=== PATIENT | female | born 1950 | race Caucasian/White ===

== ENCOUNTER 2023-04-25 10:35 | Day surgery (SDC) | payer OTHER ==
--- NOTE | 2023-04-13 20:23 | P.HP ---
Patient History Date of Service: 04/13/23 Allergies Penicillins Allergy (Verified 04/13/23 18:40) Rash propoxyphene [From Darvon] Adverse Reaction (Verified 04/13/23 18:40) hallucinations Home Medications: Apixaban [Eliquis] 5 mg PO DAILY 04/13/23 Clopidogrel Bisulfate [Plavix*] 75 mg PO DAILY 04/13/23 Diltiazem HCl [Diltiazem 12Hr ER] 120 mg PO DAILY 04/13/23 Furosemide [Lasix*] 20 mg PO DAILY 04/13/23 Lisinopril [Zestril] 10 mg PO BEDTIME 04/13/23 Assessment and Plan - Advance Directives Does patient have a Living Will: No Does patient have a Durable POA for Healthcare: No
[2023-04-20 08:53] LABS: Protime INR 1.02
[~2023-04-25 10:35] MED LIST: HEPA 1000U/500MLS 2,000 UNIT/1,000 ML BAG IV ONE; LIDOCAINE 1% 20 ML MDV ONE
[2023-04-25] MEDS ORDERED: NA CHLORIDE 0.9% 500 ML ONE (11:01)
[2023-04-25] MEDS ORDERED: ATROPINE SULF 1 MG/10 ML SYR IV ONE (11:17)
[2023-04-25] MEDS ORDERED: CLOPIDOGREL 75 MG TABLET ONE (11:18)
[2023-04-25] MEDS ORDERED: HEPARIN 10,000 UNIT/10 ML VIAL IV ONE (11:18)
[2023-04-25] MEDS ORDERED: ASPIRIN 325 MG TAB ONE (11:18)
[2023-04-25] MEDS ORDERED: TICAGRELOR 90 MG TABLET PO ONE (11:19)
[2023-04-25] MEDS ORDERED: DIPHENHYDRAMINE 50 MG/ML VIAL ONE (11:42)
[2023-04-25] MEDS ORDERED: METHYLPREDNISOLONE 125 MG INJ ONE (11:42)
[2023-04-25 14:54] VITALS: BP 134/57; TEMP 97.6; O2SAT 99
--- NOTE | 2023-04-25 22:34 | OP ---
Date of Procedure: 04/25/2023 Surgeon: ALLY BERUMEN Procedures Performed: 1.Selective coronary angiogram. 2.Left heart catheterization. Indication: Abnormal stress test with positive troponin. Access: Right femoral artery 6-Swedish closed with 6-Swedish Angio-Seal. Complications: None. Bleeding: Less than 20 mL. Sedation: None. Description Of Procedure: After risks, benefits, and alternatives were explained, patient agreed to procedure, signed informal consent. Patient was brought into cardiac catheterization laboratory, she was prepped and draped in the usual sterile fashion. Then, I accessed right femoral artery using mi cropuncture kit, ultrasound guidance and fluoroscopy and placed a 6-Swedish [place] sheath and took 6 -Swedish JL4 catheter into the aortic root over a J-wire, engaged left main, took standard views and e xchanged for 6-Swedish 3DRC catheter, engaged the RCA, took standard views and the catheter was pushed over the wire into the LV, measured the LVEDP. Pullback did not record any gradient. Then, I remov ed the catheter and the sheath, placed 6-Swedish Angio-Seal for closure with good hemostasis after per forming a groin angiogram. Findings: 1.Left main is normal. 2.LAD is normal. It is a dual LAD system, and they are both normal. 3.Left circumflex, large size and normal. Distally, the left circumflex itself becomes very small t hat has diffuse disease, but it is less than half a millimeter. 4.RCA; it is large and dominant and normal. 5.Elevated LVEDP at 22 mmHg. Conclusion: 1.Normal coronary arteries. 2.Elevated LVEDP, likely due to diastolic heart failure. Plan: Medical management with diuretics. SR/MODL Voice ID: [id number] Report ID: [id number]
== END 2023-04-25 14:32 | disposition home or self-care (01) ==
LOC: CCL 10:35
PROVIDERS: ATTEND Internal Medicine
DX: R94.39 Abnormal result of other cardiovascular function study (principal); I11.0 Hypertensive heart disease with heart failure; I50.9 Heart failure, unspecified; I48.91 Unspecified atrial fibrillation; R77.8 Other specified abnormalities of plasma proteins; I25.2 Old myocardial infarction; E78.5 Hyperlipidemia, unspecified; E11.9 Type 2 diabetes mellitus without complications; Z79.01 Long term (current) use of anticoagulants; Z79.84 Long term (current) use of oral hypoglycemic drugs; Z79.899 Other long term (current) drug therapy; Z88.0 Allergy status to penicillin; Z88.8 Allergy status to other drugs, medicaments and biological substances; Z91.013 Allergy to seafood; Z86.73 Personal history of transient ischemic attack (TIA), and cerebral infarction without residual deficits
CPT/HCPCS: 36415; 85610; 85730; 93458; 76937; C1893; C1760; G0269; J2001; J1200; J2930; J7040; J0461

== ENCOUNTER 2023-05-01 13:51 | Inpatient (IN) | payer OTHER ==
--- OUTSIDE RECORDS SUMMARY | 2023-05-01 13:59 | XMS REPORT | Continuity of Care Document ---
:1950 Author Organization [facility] t Address [address] [facility] [address] [place] [address] Care Team Providers Name Role Phone Pablo Koch MD Primary Care Physician [phone] HIEU KOTHARI Attending Clinician Unavailable GENO BARKER Attending Clinician Unavailable TORI SOTO Attending Clinician Unavailable CHACHO MUSA Attending Clinician Unavailable [email or web address] Attending Clinician Unavailable Charlene Bhandari PT Attending Clinician Unavailable Hieu Kothari MD Attending Clinician Luciana Rogers PT Attending Clinician Unavailable Shahid Attending Clinician Unavailable Josr Lujan PT Attending Clinician Unavailable Atiya Negrete Attending Clinician Elkin Guadarrama Attending Clinician [phone] TIMOTHY MCKEON Attending Clinician Unavailable ENRIQUE Attending Clinician Unavailable ALICE WOODSON Attending Clinician Unavailable Yola Wilson MA Attending Clinician Unavailable Cortez Monae Attending Clinician Unavailable Dana Flowers Attending Clinician Abdoul Grijalva Attending Clinician Kwaku Garcia Attending Clinician DR HIEU KOTHARI Admitting Clinician Unavailable _SEFP__Walk_In Admitting Clinician Unavailable Cadne_B Admitting Clinician Unavailable PHILIPPE_N Admitting Clinician Unavailable Pablo Koch Admitting Clinician Unavailable KristieDana Juanito Admitting Clinician Abdoul Grijalva Admitting Clinician Jeb Arias Admitting Clinician Alice Stahl Admitting Clinician Unavailable Payers Payer Name Policy Type Policy Number Effective Date Expiration Date S coy [facility] 2020 2021 00:00:00 00:00:00 [id number] 1959 00:00:00 [facility] MEDIC[facility] [id number] COMPLETE (MEDICARE REPLACEMENT HMO) [facility] 2020 (MEDICARE 00:00:00 REPLACEMENT HMO) Problems Condition Condition Condition Status Onset Resolution Last Treating Co mments Source Name Details Category Date Date Treatment Clinician Date WEAKNESS WEAKNESS Diagnosis Active 2021-12-08 Memoria Active 11-30 12:45:00 l 11/30/2021 00:00: Ever ARROYO 00 [facility], [facility] M25.511 - M25.511 - Diagnosis Active 2021-03-09 Memoria PAIN IN PAIN IN 01-27 15:44:00 l RIGHT RIGHT 00:01: Jt SHOULDER SHOULDER 00 Active 01/27/2021 [facility] Cerebrovas Cerebrovas Disease Active U T cular cular 01-07 Health accident accident 00:00: (CVA) due (CVA) due 00 to to embolism embolism Mixed Mixed Disease Active [facility] hyperlipid hyperlipid 01-07 He alth emia emia 00:00: 00 Coronary Coronary Disease Active [facility] artery artery 01-07 Health disease disease 00:00: involving involving 00 [place] coronary coronary artery of artery of [place] heart heart Paroxysmal Paroxysmal Disease Active U T atrial atrial 01-07 Health fibrillati fibrillati 00:00: on on 00 HEMIPLEGIA HEMIPLEGI Diagnosis Active 2020-12-26 Memoria AND A AND 12-04 22:04:00 l HEMIPARESI HEMIPARESI 00:00: He gonzales S S 00 FOLLOWING FOLLOWING CER CER Active 12/04/2020 [facility] V76.12 - V76.12 - Diagnosis Active 2014-02-20 Memoria SCREEN SCREEN 02-14 14:27:00 l MAMMOGRA MAMMOGRA 00:01: Ever villa Active 00 02/14/[address] [facility] Female Female Problem Active 2021-12-02 Shahzad steven urinary urinary 01-11 23:39:58 l stress stress 00:00: Jt incontinen incontinen 00 ce ce (finding) (finding) Active 01/11/2014 Problem 12/02/2021 Data migrated from [employer] on 01/07/15. [facility] Atrial Atrial Problem Active 2021-12-02 Shahzad steven fibrillati fibrillati 23:39:58 l on on Jt (disorder) (disorder) Active Problem 12/02/2021 [facility] History of History Problem Active 2021-12-02 Memoria - CVA of - CVA 23:39:58 l (context-d (context-d He gonzales ependent ependent category) category) Active Problem 12/02/2021 [facility] ILLNESS, ILLNESS, Diagnosis Active 2020-12-26 Memoria UNSPECIFIE UNSPECIFIE 22:04:00 l D D Active Jt [facility] History of Past Illness Condition Condition Condition Status Onset Resolution Last Treating Co mments Source Name Details Category Date Date Treatment Clinician Date Weakness Weakness Problem 2021-12-02 2021-12-02 Memoria 12/01/202112-01 23:39:58 23:39:58 l 00:30: Ever villa [address] Allergies, Adverse Reactions, Alerts Allergy Allergy Status Severity Reaction(s) Onset Inactive Treating Comm ents Source Name Type Date Date Clinician Penicill DA Active [facility] ins 11-13 00:00: [address] propoxyp DA Active [place] [facility] hene 11-13 00:00: [address] Penicill DA Active [place] rash [facility] ins 11-13 00:00: [address] propoxyp DA Active MO hallucinatio HC A hene ns 11-13 00:00: [address] Penicill Propensi Active Rash Method i ins ty to 08-31 st adverse 00:00: Hospita reaction 00 l s to drug Propoxyp Propensi Active Hallucinatio Methodi hene ty to ns 08-31 st adverse 00:00: Hospita reaction 00 l s to drug Other Propensi Active Other (See Anesthesi M ethodi ty to Comments) 08-31 a: limit st adverse 00:00: the Hospita reaction 00 anesthesi l s a; takes a long time to get out of it (to wake up) Penicill Propensi Active Rash Method i ins ty to 08-31 st adverse 00:00: Hospita reaction 00 l s to drug Penicill Allergy Active Rash 2015-08 UT ins to 0-16 Health substanc 00:00: e 00 Propoxyp Allergy Active Hallucinatio 2015-08 U T hene to ns 016 Health substanc 00:00: e 00 Fish Propensi Active Other (See 2015-08 Meth corie Containi ty to Comments) 016 st ng adverse 00:00: Hospita Products reaction 00 l s to drug Penicill DA Active Unknown [facility] Darvon DA Active Unknown [facility] Shellfis FA Active Unknown [facility] penicill penicill Active Memori a ins<sup> ins<sup> l 1</sup> 1</sup> Jt Family History Family Member Diagnosis Comments Start Date Stop Date Source Natural father Hypert[facility] Natural father Stroke [facility] Maternal uncle Heart attack [facility] Natural mother Cancer [facility] Natural mother Hy[facility] Paternal grandfather Diabetes [facility] Paternal uncle Diabetes [facility] Natural sister Colon [facility] Social History Social Habit Start Date Stop Date Quantity Comments Source Gender identity [facility] History SDOH [facility] Alcohol Std Drinks Hospit al History SDOH [facility] Alcohol Binge Hospital History SDOH [facility] Alcohol Comment Hospital Exposure to Not sure [facility] SARS-CoV-2 (event) Hospit al Sexual [facility] History of Social 2021-08-24 2021-08-[address] function 00:00:00 00:00:00 Hospital Social History 2020-12-06 2020-12-06 [facility] ermann 06:13:08 06:13:08 History SDOH 2019-09-24 2019-09-24 1 [facility] Alcohol Frequency 00:00:00 00:00:00 Hospita l Alcohol intake 2019-09-24 2019-09-24 Lifetime [facility] 00:00:00 00:00:00 non-drinker Hospital (finding) Tobacco use and 2019-08-31 2019-08-31 Smokeless [facility] exposure 00:00:00 00:00:00 tobacco non-user Hospital Sex Ass[birth year] At [birth year] [facility] 00:00:00 00:00:00 Hospital Smoking Status Start Date Stop Date Source Tobacco smoking consumption unknown [facility] tobacco [facility] Medications Ordered Filled Start Stop Current Ordering Indication Dosage Frequency Signature Comments Components Source Medication Medication Date Date Medication? Clinician (SIG) Name Name Saline No Notes: Memoria Flush 0.9% 4-25 (Same as: l 22:52: BD Jt 00 Posiflush) apixaban 2021- No 5mg Q.5D Take 5 mg UT (Eliquis) 5 09-08 by mouth 2 H ealth MG tablet 10:29: 00:00 (two) 43 :00 times a day. atorvastati 2021- No 20mg QD Take 20 mg UT n (Lipitor) 09-08 by mouth 1 H ealth 20 MG 10:29: 00:00 (one) time tablet 43 :00 each day. pantoprazol 2021- No 40mg Take 40 mg UT e 09-08 by mouth 1 Health (ProtoNix) 10:29: 00:00 (one) time 40 MG EC 43 :00 each day tablet before breakfast. Do not crush, chew, or split. ticagrelor 2021- No 90mg Q.5D Take 90 mg UT (Brilinta) 09-08 by mouth 2 He alth 90 MG 10:29: 00:00 (two) tablet 43 :00 times a day. dilTIAZem Yes 120mg Q.25D Take 120 UT (Cardizem) 2-01 mg by Health 120 MG 09:53: mouth 4 immediate 56 (four) release times a tablet day. apixaban Yes [id number] 5mg Q.5D Take 1 UT (Eliquis) 5 2-01 tablet (5 Hea lth MG tablet 00:00: mg total) 00 by mouth 2 (two) times a day. atorvastati Yes [id number] 20mg QD Take 1 UT n (Lipitor) 2-01 tablet (20 He alth 20 MG 00:00: mg total) tablet 00 by mouth 1 (one) time each day. ticagrelor Yes [id number] 90mg Q.5D Take 1 UT (Brilinta) 2-01 tablet (90 Hea lth 90 MG 00:00: mg total) tablet 00 by mouth 2 (two) times a day. pantoprazol Yes [id number] 40mg Take 1 UT e 2-01 tablet (40 Health (ProtoNix) 00:00: mg total) 40 MG EC 00 by mouth 1 tablet (one) time each day before breakfast. Do not crush, chew, or split. flecainide 2022- No [id number] 25mg Q.5D Take 0.5 UT (Tambocor) 2- 02-02 tablets Healt h 50 MG 00:00: 05:59 (25 mg tablet 00 :00 total) by mouth 2 (two) times a day. furosemide 2021- No [id number] 20mg QD Take 1 UT (Lasix) 20 1-21 02-21 tablet (20 He alth MG tablet 00:00: 05:59 mg total) 00 :00 by mouth 1 (one) time each day. TAKE 1 TABLET BY MOUTH EVERY DAY NEEDED FOR SWELLING furosemide 2020-08 Yes [id number] TAKE 1 U T (Lasix) 20 2-21 TABLET BY Heal th MG tablet 00:00: MOUTH 00 EVERY DAY NEEDED FOR SWELLING furosemide 2020-08- No [id number] TAKE 1 UT (Lasix) 20 1-23 12-21 TABLET BY Hea lth MG tablet 00:00: 00:00 MOUTH 00 :00 EVERY DAY NEEDED FOR SWELLING atorvastati 2020-08 Yes [id number] TAKE 1 UT n (Lipitor) 1-22 TABLET BY [facility] lt 10 MG 00:00: MOUTH tablet 00 EVERY DAY atorvastati 2020-08 Yes [id number] TAKE 1 UT n (Lipitor) 1-22 TABLET BY [facility] lt 10 MG 00:00: MOUTH tablet 00 EVERY DAY atorvastati 2020-08 2022- No [id number] TAKE 1 UT n (Lipitor) -22 02-01 TABLET BY He [facility] 10 MG 00:00: 00:00 MOUTH tablet 00 :00 EVERY DAY apixaban 2020-08 Yes 5mg Q.5D Take 5 mg UT (Eliquis) 5 08-09 by mouth 2 He alth MG tablet 10:05: (two) 34 times a day. atorvastati 2020-08 Yes 20mg QD Take 20 mg UT n (Lipitor) 08-09 by mouth 1 He alth 20 MG 10:05: (one) time tablet 34 each day. dilTIAZem 2020-08 Yes 120mg Q.25D Take 120 UT (Cardizem) 1-02 mg by Health 120 MG 10:05: mouth 4 immediate 34 (four) release times a tablet day. ketotifen 2020-08 Yes 1[drp] Q.5D 1 drop 2 UT (Zaditor) 08-09 (two) Health 0.025 % 10:05: times a ophthalmic 34 day. solution nabumetone 2020-08 Yes 500mg Q.5D Take 500 UT (Relafen) 1-02 mg by Health 500 MG 10:05: mouth 2 tablet 34 (two) times a day. pantoprazol 2020-08 Yes 40mg Take 40 mg UT e 08-09 by mouth 1 Health (ProtoNix) 10:05: (one) time 40 MG EC 34 each day tablet before breakfast. Do not crush, chew, or split. ticagrelor 2020-08 Yes 90mg Q.5D Take 90 mg U T (Brilinta) 08-09 by mouth 2 a lth 90 MG 10:05: (two) tablet 34 times a day. amiodarone 2020-08 Yes QD Take by UT (Pacerone) -02 mouth 1 Health 200 MG 10:05: (one) time tablet 34 each day. lidocaine 2020-08 Yes 1{patch QD Apply 1 UT (Lidoderm) -02 } patch Health 5 % patch 10:05: topically 34 1 (one) time each day. Remove & discard patch within 12 hours or as directed by . docusate 2020-08 Yes 100mg Q.5D Take 100 UT sodium 1-02 mg by Health (Colace) 10:05: mouth 2 100 MG 34 (two) capsule times a day. apixaban 2020-08 Yes 5mg Q.5D Take 5 mg UT (Eliquis) 5 -02 by mouth 2 He alth MG tablet 10:05: (two) 34 times a day. atorvastati 2020-08 Yes 20mg QD Take 20 mg UT n (Lipitor) 02 by mouth 1 He alth 20 MG 10:05: (one) time tablet 34 each day. dilTIAZem 2020-08 Yes 120mg Q.25D Take 120 UT (Cardizem) 1-02 mg by Health 120 MG 10:05: mouth 4 immediate 34 (four) release times a tablet day. ketotifen 2020-08 Yes 1[drp] Q.5D 1 drop 2 UT (Zaditor) 1-02 (two) Health 0.025 % 10:05: times a ophthalmic 34 day. solution nabumetone 2020-08 Yes 500mg Q.5D Take 500 UT (Relafen) 1-02 mg by Health 500 MG 10:05: mouth 2 tablet 34 (two) times a day. pantoprazol 2020-08 Yes 40mg Take 40 mg UT e 02 by mouth 1 Health (ProtoNix) 10:05: (one) time 40 MG EC 34 each day tablet before breakfast. Do not crush, chew, or split. ticagrelor 2020-08 Yes 90mg Q.5D Take 90 mg U T (Brilinta) 1-02 by mouth 2 Hea lth 90 MG 10:05: (two) tablet 34 times a day. amiodarone 2020-08 Yes QD Take by UT (Pacerone) -02 mouth 1 Health 200 MG 10:05: (one) time tablet 34 each day. lidocaine 2020-08 Yes 1{patch QD Apply 1 UT (Lidoderm) 08-09 } patch Health 5 % patch 10:05: topically 34 1 (one) time each day. Remove & discard patch within 12 hours or as directed by . docusate 2020-08 Yes 100mg Q.5D Take 100 UT sodium 1-02 mg by Health (Colace) 10:05: mouth 2 100 MG 34 (two) capsule times a day. apixaban 2020-08 Yes 5mg Q.5D Take 5 mg UT (Eliquis) 5 02 by mouth 2 He alth MG tablet 10:05: (two) 34 times a day. atorvastati 2020-08 Yes 20mg QD Take 20 mg UT n (Lipitor) 02 by mouth 1 He alth 20 MG 10:05: (one) time tablet 34 each day. dilTIAZem 2020-08 Yes 120mg Q.25D Take 120 UT (Cardizem) 1-02 mg by Health 120 MG 10:05: mouth 4 immediate 34 (four) release times a tablet day. ketotifen 2020-08 Yes 1[drp] Q.5D 1 drop 2 UT (Zaditor) 08-09 (two) Health 0.025 % 10:05: times a ophthalmic 34 day. solution nabumetone 2020-08 Yes 500mg Q.5D Take 500 UT (Relafen) 1-02 mg by Health 500 MG 10:05: mouth 2 tablet 34 (two) times a day. pantoprazol 2020-08 Yes 40mg Take 40 mg UT e 02 by mouth 1 Health (ProtoNix) 10:05: (one) time 40 MG EC 34 each day tablet before breakfast. Do not crush, chew, or split. ticagrelor 2020-08 Yes 90mg Q.5D Take 90 mg U T (Brilinta) 08-09 by mouth 2 Hea lth 90 MG 10:05: (two) tablet 34 times a day. amiodarone 2020-08 Yes QD Take by UT (Pacerone) -02 mouth 1 Health 200 MG 10:05: (one) time tablet 34 each day. lidocaine 2020-08 Yes 1{patch QD Apply 1 UT (Lidoderm) 08-09 } patch Health 5 % patch 10:05: topically 34 1 (one) time each day. Remove & discard patch within 12 hours or as directed by . docusate 2020-08 Yes 100mg Q.5D Take 100 UT sodium 1-02 mg by Health (Colace) 10:05: mouth 2 100 MG 34 (two) capsule times a day. ketotifen 2020-08 Yes 1[drp] Q.5D 1 drop 2 UT (Zaditor) - (two) Health 0.025 % 10:05: times a ophthalmic 34 day. solution nabumetone 2020-08 Yes 500mg Q.5D Take 500 UT (Relafen) 1-02 mg by Health 500 MG 10:05: mouth 2 tablet 34 (two) times a day. amiodarone 2020-08 Yes QD Take by UT (Pacerone) - mouth 1 Health 200 MG 10:05: (one) time tablet 34 each day. lidocaine 2020-08 Yes 1{patch QD Apply 1 UT (Lidoderm) 08-09 } patch [facility] 5 % patch 10:05: topically 34 1 (one) time each day. Remove & discard patch within 12 hours or as directed by . docusate 2020-08 Yes 100mg Q.5D Take 100 UT sodium 1-02 mg by Health (Colace) 10:05: mouth 2 100 MG 34 (two) capsule times a day. furosemide 2020-08 Yes [id number] TAKE 1 U T (Lasix) 20 0-25 TABLET BY Heal th MG tablet 00:00: MOUTH 00 EVERY DAY NEEDED FOR SWELLING furosemide 2020-08 Yes [id number] TAKE 1 U T (Lasix) 20 0-25 TABLET BY Heal th MG tablet 00:00: MOUTH 00 EVERY DAY NEEDED FOR SWELLING furosemide 2020-08 Yes [id number] TAKE 1 U T (Lasix) 20 0-25 TABLET BY Heal th MG tablet 00:00: MOUTH 00 EVERY DAY NEEDED FOR SWELLING furosemide 2020-08 Yes [id number] TAKE 1 U T (Lasix) 20 0-25 TABLET BY Heal th MG tablet 00:00: MOUTH 00 EVERY DAY NEEDED FOR SWELLING apixaban Yes 5mg Q.5D Take 5 mg UT (Eliquis) 5 05-05 by mouth 2 He alth MG tablet 14:50: (two) 33 times a day. atorvastati Yes 20mg QD Take 20 mg UT n (Lipitor) 05-05 by mouth 1 He alth 20 MG 14:50: (one) time tablet 33 each day. dilTIAZem 2020-0 Yes 120mg Q.25D Take 120 UT (Cardizem) 9-28 mg by Health 120 MG 14:50: mouth 4 immediate 33 (four) release times a tablet day. ketotifen 2020-0 Yes 1[drp] Q.5D 1 drop 2 UT (Zaditor) 05-05 (two) Health 0.025 % 14:50: times a ophthalmic 33 day. solution nabumetone 2020-0 Yes 500mg Q.5D Take 500 UT (Relafen) 9-28 mg by Health 500 MG 14:50: mouth 2 tablet 33 (two) times a day. pantoprazol 0 Yes 40mg Take 40 mg UT e 05-05 by mouth 1 Health (ProtoNix) 14:50: (one) time 40 MG EC 33 each day tablet before breakfast. Do not crush, chew, or split. ticagrelor 2020-0 Yes 90mg Q.5D Take 90 mg U T (Brilinta) 05-05 by mouth 2 Hea lth 90 MG 14:50: (two) tablet 33 times a day. amiodarone 2020-0 Yes QD Take by UT (Pacerone) 05-05 mouth 1 Health 200 MG 14:50: (one) time tablet 33 each day. lidocaine 2020-0 Yes 1{patch QD Apply 1 UT (Lidoderm) 05-05 } patch Health 5 % patch 14:50: topically 33 1 (one) time each day. Remove & discard patch within 12 hours or as directed by . docusate 2020-0 Yes 100mg Q.5D Take 100 UT sodium 9-28 mg by Health (Colace) 14:50: mouth 2 100 MG 33 (two) capsule times a day. apixaban 2020-0 Yes 5mg Q.5D Take 5 mg UT (Eliquis) 5 05-05 by mouth 2 He alth MG tablet 14:50: (two) 33 times a day. atorvastati 2020-0 Yes 20mg QD Take 20 mg UT n (Lipitor) 28 by mouth 1 He alth 20 MG 14:50: (one) time tablet 33 each day. dilTIAZem 2020-0 Yes 120mg Q.25D Take 120 UT (Cardizem) 9-28 mg by Health 120 MG 14:50: mouth 4 immediate 33 (four) release times a tablet day. ketotifen 0 Yes 1[drp] Q.5D 1 drop 2 UT (Zaditor) 05-05 (two) Health 0.025 % 14:50: times a ophthalmic 33 day. solution nabumetone 0 Yes 500mg Q.5D Take 500 UT (Relafen) -28 mg by Health 500 MG 14:50: mouth 2 tablet 33 (two) times a day. pantoprazol 0 Yes 40mg Take 40 mg UT e 05-05 by mouth 1 Health (ProtoNix) 14:50: (one) time 40 MG EC 33 each day tablet before breakfast. Do not crush, chew, or split. ticagrelor 0 Yes 90mg Q.5D Take 90 mg U T (Brilinta) 05-05 by mouth 2 Hea lth 90 MG 14:50: (two) tablet 33 times a day. amiodarone 0 Yes QD Take by UT (Pacerone) 05-05 mouth 1 Health 200 MG 14:50: (one) time tablet 33 each day. lidocaine 0 Yes 1{patch QD Apply 1 UT (Lidoderm) 05-05 } patch Health 5 % patch 14:50: topically 33 1 (one) time each day. Remove & discard patch within 12 hours or as directed by . docusate 0 Yes 100mg Q.5D Take 100 UT sodium - mg by Health (Colace) 14:50: mouth 2 100 MG 33 (two) capsule times a day. apixaban 0 Yes 5mg Q.5D Take 5 mg UT (Eliquis) 5 05-05 by mouth 2 He alth MG tablet 14:50: (two) 33 times a day. atorvastati 0 Yes 20mg QD Take 20 mg UT n (Lipitor) 05-05 by mouth 1 He alth 20 MG 14:50: (one) time tablet 33 each day. dilTIAZem 2020-0 Yes 120mg Q.25D Take 120 UT (Cardizem) 9-28 mg by Health 120 MG 14:50: mouth 4 immediate 33 (four) release times a tablet day. ketotifen 0 Yes 1[drp] Q.5D 1 drop 2 UT (Zaditor) 05-05 (two) Health 0.025 % 14:50: times a ophthalmic 33 day. solution nabumetone 2020-0 Yes 500mg Q.5D Take 500 UT (Relafen) - mg by Health 500 MG 14:50: mouth 2 tablet 33 (two) times a day. pantoprazol 0 Yes 40mg Take 40 mg UT e 05-05 by mouth 1 Health (ProtoNix) 14:50: (one) time 40 MG EC 33 each day tablet before breakfast. Do not crush, chew, or split. ticagrelor 2020-0 Yes 90mg Q.5D Take 90 mg U T (Brilinta) 05-05 by mouth 2 Hea lth 90 MG 14:50: (two) tablet 33 times a day. amiodarone 0 Yes QD Take by UT (Pacerone) 05-05 mouth 1 Health 200 MG 14:50: (one) time tablet 33 each day. lidocaine 0 Yes 1{patch QD Apply 1 UT (Lidoderm) 05-05 } patch Health 5 % patch 14:50: topically 33 1 (one) time each day. Remove & discard patch within 12 hours or as directed by MD. docusate 0 Yes 100mg Q.5D Take 100 UT sodium - mg by Health (Colace) 14:50: mouth 2 100 MG 33 (two) capsule times a day. apixaban 0 Yes 5mg Q.5D Take 5 mg UT (Eliquis) 5 05-05 by mouth 2 He alth MG tablet 14:50: (two) 33 times a day. atorvastati 0 Yes 20mg QD Take 20 mg UT n (Lipitor) 05-05 by mouth 1 He alth 20 MG 14:50: (one) time tablet 33 each day. dilTIAZem 0 Yes 120mg Q.25D Take 120 UT (Cardizem) -28 mg by Health 120 MG 14:50: mouth 4 immediate 33 (four) release times a tablet day. ketotifen 0 Yes 1[drp] Q.5D 1 drop 2 UT (Zaditor) 05-05 (two) Health 0.025 % 14:50: times a ophthalmic 33 day. solution nabumetone 2020-0 Yes 500mg Q.5D Take 500 UT (Relafen) 9-28 mg by Health 500 MG 14:50: mouth 2 tablet 33 (two) times a day. pantoprazol 0 Yes 40mg Take 40 mg UT e -28 by mouth 1 Health (ProtoNix) 14:50: (one) time 40 MG EC 33 each day tablet before breakfast. Do not crush, chew, or split. ticagrelor 2020-0 Yes 90mg Q.5D Take 90 mg U T (Brilinta) 05-05 by mouth 2 Hea lth 90 MG 14:50: (two) tablet 33 times a day. amiodarone 2020-0 Yes QD Take by UT (Pacerone) 05-05 mouth 1 Health 200 MG 14:50: (one) time tablet 33 each day. lidocaine 0 Yes 1{patch QD Apply 1 UT (Lidoderm) 05-05 } patch Health 5 % patch 14:50: topically 33 1 (one) time each day. Remove & discard patch within 12 hours or as directed by . docusate 0 Yes 100mg Q.5D Take 100 UT sodium 9-28 mg by Health (Colace) 14:50: mouth 2 100 MG 33 (two) capsule times a day. apixaban 0 Yes 5mg Q.5D Take 5 mg UT (Eliquis) 5 05-05 by mouth 2 He alth MG tablet 14:50: (two) 33 times a day. atorvastati 0 Yes 20mg QD Take 20 mg UT n (Lipitor) 05-05 by mouth 1 He alth 20 MG 14:50: (one) time tablet 33 each day. dilTIAZem 2020-0 Yes 120mg Q.25D Take 120 UT (Cardizem) 9-28 mg by Health 120 MG 14:50: mouth 4 immediate 33 (four) release times a tablet day. ketotifen 2020-0 Yes 1[drp] Q.5D 1 drop 2 UT (Zaditor) 05-05 (two) Health 0.025 % 14:50: times a ophthalmic 33 day. solution nabumetone 2020-0 Yes 500mg Q.5D Take 500 UT (Relafen) 9-28 mg by Health 500 MG 14:50: mouth 2 tablet 33 (two) times a day. pantoprazol 2020-0 Yes 40mg Take 40 mg UT e 05-05 by mouth 1 Health (ProtoNix) 14:50: (one) time 40 MG EC 33 each day tablet before breakfast. Do not crush, chew, or split. ticagrelor 2020-0 Yes 90mg Q.5D Take 90 mg U T (Brilinta) 05-05 by mouth 2 Hea lth 90 MG 14:50: (two) tablet 33 times a day. amiodarone 2020-0 Yes QD Take by UT (Pacerone) 05-05 mouth 1 Health 200 MG 14:50: (one) time tablet 33 each day. lidocaine 2020-0 Yes 1{patch QD Apply 1 UT (Lidoderm) 05-05 } patch Health 5 % patch 14:50: topically 33 1 (one) time each day. Remove & discard patch within 12 hours or as directed by . docusate 2020-0 Yes 100mg Q.5D Take 100 UT sodium - mg by Health (Colace) 14:50: mouth 2 100 MG 33 (two) capsule times a day. apixaban 2020-0 Yes 5mg Q.5D Take 5 mg UT (Eliquis) 5 05-05 by mouth 2 He alth MG tablet 14:50: (two) 33 times a day. atorvastati 2020-0 Yes 20mg QD Take 20 mg UT n (Lipitor) 05-05 by mouth 1 He alth 20 MG 14:50: (one) time tablet 33 each day. dilTIAZem 2020-0 Yes 120mg Q.25D Take 120 UT (Cardizem) 9-28 mg by Health 120 MG 14:50: mouth 4 immediate 33 (four) release times a tablet day. ketotifen 2020-0 Yes 1[drp] Q.5D 1 drop 2 UT (Zaditor) 05-05 (two) Health 0.025 % 14:50: times a ophthalmic 33 day. solution nabumetone 2020-0 Yes 500mg Q.5D Take 500 UT (Relafen) 9-28 mg by Health 500 MG 14:50: mouth 2 tablet 33 (two) times a day. pantoprazol 2020-0 Yes 40mg Take 40 mg UT e 9-28 by mouth 1 Health (ProtoNix) 14:50: (one) time 40 MG EC 33 each day tablet before breakfast. Do not crush, chew, or split. ticagrelor Yes 90mg Q.5D Take 90 mg U T (Brilinta) 05-05 by mouth 2 Hea lth 90 MG 14:50: (two) tablet 33 times a day. amiodarone Yes QD Take by UT (Pacerone) 05-05 mouth 1 Health 200 MG 14:50: (one) time tablet 33 each day. lidocaine Yes 1{patch QD Apply 1 UT (Lidoderm) 05-05 } patch [facility] 5 % patch 14:50: topically 33 1 (one) time each day. Remove & discard patch within 12 hours or as directed by . docusate Yes 100mg Q.5D Take 100 UT sodium -28 mg by Health (Colace) 14:50: mouth 2 100 MG 33 (two) capsule times a day. furosemide 0 Yes [id number] TAKE 1 U T (Lasix) 20 8-30 TABLET BY Heal th MG tablet 00:00: MOUTH 00 EVERY DAY NEEDED FOR SWELLING furosemide 2020-0 Yes [id number] TAKE 1 U T (Lasix) 20 8-30 TABLET BY Heal th MG tablet 00:00: MOUTH 00 EVERY DAY NEEDED FOR SWELLING furosemide 2020-0 Yes [id number] TAKE 1 U T (Lasix) 20 8-30 TABLET BY [facility] tablet 00:00: MOUTH 00 EVERY DAY NEEDED FOR SWELLING furosemide 2020-0 202- No [id number] TAKE 1 UT (Lasix) 20 8-30 10-25 TABLET BY a lth MG tablet 00:00: 00:00 MOUTH 00 :00 EVERY DAY NEEDED FOR SWELLING furosemide 2020-0 Yes [id number] TAKE 1 U T (Lasix) 20 6-24 TABLET BY [facility] MG tablet 00:00: MOUTH 00 EVERY DAY NEEDED FOR SWELLING furosemide 2020-0 Yes [id number] TAKE 1 U T (Lasix) 20 6-24 TABLET BY [facility] MG tablet 00:00: MOUTH 00 EVERY DAY NEEDED FOR SWELLING furosemide 2020-0 Yes [id number] TAKE 1 U T (Lasix) 20 6-24 TABLET BY [facility] MG tablet 00:00: MOUTH 00 EVERY DAY NEEDED FOR SWELLING furosemide 0 2021- No [id number] TAKE 1 UT (Lasix) 20 624 08-30 TABLET BY [facility] MG tablet 00:00: 00:00 MOUTH 00 :00 EVERY DAY NEEDED FOR SWELLING apixaban 0 Yes 5mg Q.5D Take 5 mg UT (Eliquis) 5 6-02 by mouth 2 [facility] al[facility] MG tablet 16:18: (two) 41 times a day. atorvastati Yes 20mg QD Take 20 mg UT n (Lipitor) 6-02 by mouth 1 [facility] alth 20 MG 16:18: (one) time tablet 41 each day. dilTIAZem Yes 120mg Q.25D Take 120 UT (Cardizem) 6-02 mg by Health 120 MG 16:18: mouth 4 immediate 41 (four) release times a tablet day. ketotifen Yes 1[drp] Q.5D 1 drop 2 UT (Zaditor) 01-07 (two) Health 0.025 % 16:18: times a ophthalmic 41 day. solution nabumetone Yes 500mg Q.5D Take 500 UT (Relafen) 6-02 mg by Health 500 MG 16:18: mouth 2 tablet 41 (two) times a day. pantoprazol Yes 40mg Take 40 mg UT e 602 by mouth 1 Health (ProtoNix) 16:18: (one) time 40 MG EC 41 each day tablet before breakfast. Do not crush, chew, or split. ticagrelor Yes 90mg Q.5D Take 90 mg U T (Brilinta) 6-02 by mouth 2 [facility] 90 MG 16:18: (two) tablet 41 times a day. amiodarone Yes QD Take by UT (Pacerone) 6-02 mouth 1 Health 200 MG 16:18: (one) time tablet 41 each day. lidocaine Yes 1{patch QD Apply 1 UT (Lidoderm) 01-07 } patch Health 5 % patch 16:18: topically 41 1 (one) time each day. Remove & discard patch within 12 hours or as directed by . docusate Yes 100mg Q.5D Take 100 UT sodium 6-02 mg by Health (Colace) 16:18: mouth 2 100 MG 41 (two) capsule times a day. apixaban 2020-0 Yes 5mg Q.5D Take 5 mg UT (Eliquis) 5 6-02 by mouth 2 [facility] al[facility] MG tablet 16:18: (two) 41 times a day. atorvastati 2020-0 Yes 20mg QD Take 20 mg UT n (Lipitor) 6-02 by mouth 1 [facility] alth 20 MG 16:18: (one) time tablet 41 each day. dilTIAZem 2020-0 Yes 120mg Q.25D Take 120 UT (Cardizem) 6-02 mg by Health 120 MG 16:18: mouth 4 immediate 41 (four) release times a tablet day. ketotifen 2020-0 Yes 1[drp] Q.5D 1 drop 2 UT (Zaditor) 6-02 (two) Health 0.025 % 16:18: times a ophthalmic 41 day. solution nabumetone 2020-0 Yes 500mg Q.5D Take 500 UT (Relafen) 6-02 mg by Health 500 MG 16:18: mouth 2 tablet 41 (two) times a day. pantoprazol 0 Yes 40mg Take 40 mg UT e 6-02 by mouth 1 Health (ProtoNix) 16:18: (one) time 40 MG EC 41 each day tablet before breakfast. Do not crush, chew, or split. ticagrelor 0 Yes 90mg Q.5D Take 90 mg U T (Brilinta) 6-02 by mouth 2 [facility] 90 MG 16:18: (two) tablet 41 times a day. amiodarone 2020-0 Yes QD Take by UT (Pacerone) 6-02 mouth 1 Health 200 MG 16:18: (one) time tablet 41 each day. lidocaine 2020-0 Yes 1{patch QD Apply 1 UT (Lidoderm) 6 } patch Health 5 % patch 16:18: topically 41 1 (one) time each day. Remove & discard patch within 12 hours or as directed by . docusate 2020-0 Yes 100mg Q.5D Take 100 UT sodium 6-02 mg by Health (Colace) 16:18: mouth 2 100 MG 41 (two) capsule times a day. apixaban 2021-0 Yes 5mg Q.5D Take 5 mg UT (Eliquis) 5 6-02 by mouth 2 [facility] MG tablet 16:18: (two) 41 times a day. atorvastati 2020-0 Yes 20mg QD Take 20 mg UT n (Lipitor) 6-02 by mouth 1 [facility] al[facility] 20 MG 16:18: (one) time tablet 41 each day. dilTIAZem 2020-0 Yes 120mg Q.25D Take 120 UT (Cardizem) 6-02 mg by Health 120 MG 16:18: mouth 4 immediate 41 (four) release times a tablet day. ketotifen 2020-0 Yes 1[drp] Q.5D 1 drop 2 UT (Zaditor) 6-02 (two) Health 0.025 % 16:18: times a ophthalmic 41 day. solution nabumetone 2020-0 Yes 500mg Q.5D Take 500 UT (Relafen) 6-02 mg by Health 500 MG 16:18: mouth 2 tablet 41 (two) times a day. pantoprazol 0 Yes 40mg Take 40 mg UT e 6-02 by mouth 1 Health (ProtoNix) 16:18: (one) time 40 MG EC 41 each day tablet before breakfast. Do not crush, chew, or split. ticagrelor 2020-0 Yes 90mg Q.5D Take 90 mg U T (Brilinta) 6-02 by mouth 2 [facility] 90 MG 16:18: (two) tablet 41 times a day. amiodarone 2020-0 Yes QD Take by [facility] (Pacerone) 6-02 mouth 1 Health 200 MG 16:18: (one) time tablet 41 each day. lidocaine 2020-0 Yes 1{patch QD Apply 1 UT (Lidoderm) 6-02 } patch Health 5 % patch 16:18: topically 41 1 (one) time each day. Remove & discard patch within 12 hours or as directed by . docusate 2020-0 Yes 100mg Q.5D Take 100 UT sodium 6-02 mg by Health (Colace) 16:18: mouth 2 100 MG 41 (two) capsule times a day. apixaban 2020-0 Yes 5mg Q.5D Take 5 mg UT (Eliquis) 5 6-02 by mouth 2 [facility] al[facility] MG tablet 16:18: (two) 41 times a day. atorvastati 2020-0 Yes 20mg QD Take 20 mg UT n (Lipitor) 6-02 by mouth 1 [facility] al[facility] 20 MG 16:18: (one) time tablet 41 each day. dilTIAZem 2020-0 Yes 120mg Q.25D Take 120 UT (Cardizem) 6-02 mg by Health 120 MG 16:18: mouth 4 immediate 41 (four) release times a tablet day. ketotifen 2020-0 Yes 1[drp] Q.5D 1 drop 2 UT (Zaditor) 6-02 (two) Health 0.025 % 16:18: times a ophthalmic 41 day. solution nabumetone 2020-0 Yes 500mg Q.5D Take 500 UT (Relafen) 6-02 mg by Health 500 MG 16:18: mouth 2 tablet 41 (two) times a day. pantoprazol 0 Yes 40mg Take 40 mg UT e 6-02 by mouth 1 Health (ProtoNix) 16:18: (one) time 40 MG EC 41 each day tablet before breakfast. Do not crush, chew, or split. ticagrelor 2020-0 Yes 90mg Q.5D Take 90 mg U T (Brilinta) 6-02 by mouth 2 [facility] 90 MG 16:18: (two) tablet 41 times a day. amiodarone 2020-0 Yes QD Take by UT (Pacerone) 6-02 mouth 1 Health 200 MG 16:18: (one) time tablet 41 each day. lidocaine 2020- Yes 1{patch QD Apply 1 UT (Lidoderm) 6-02 } patch Health 5 % patch 16:18: topically 41 1 (one) time each day. Remove & discard patch within 12 hours or as directed by . docusate 2020-0 Yes 100mg Q.5D Take 100 UT sodium 6-02 mg by Health (Colace) 16:18: mouth 2 100 MG 41 (two) capsule times a day. apixaban 2020-0 Yes 5mg Q.5D Take 5 mg UT (Eliquis) 5 6-02 by mouth 2 [facility] al[facility] MG tablet 16:18: (two) 41 times a day. atorvastati 2020-0 Yes 20mg QD Take 20 mg UT n (Lipitor) 6-02 by mouth 1 He alth 20 MG 16:18: (one) time tablet 41 each day. dilTIAZem Yes 120mg Q.25D Take 120 UT (Cardizem) 6-02 mg by Health 120 MG 16:18: mouth 4 immediate 41 (four) release times a tablet day. ketotifen Yes 1[drp] Q.5D 1 drop 2 UT (Zaditor) 602 (two) Health 0.025 % 16:18: times a ophthalmic 41 day. solution nabumetone Yes 500mg Q.5D Take 500 UT (Relafen) 6-02 mg by Health 500 MG 16:18: mouth 2 tablet 41 (two) times a day. pantoprazol Yes 40mg Take 40 mg UT e 6-02 by mouth 1 Health (ProtoNix) 16:18: (one) time 40 MG EC 41 each day tablet before breakfast. Do not crush, chew, or split. ticagrelor Yes 90mg Q.5D Take 90 mg U T (Brilinta) 02 by mouth 2 [facility] 90 MG 16:18: (two) tablet 41 times a day. amiodarone Yes QD Take by UT (Pacerone) 02 mouth 1 Health 200 MG 16:18: (one) time tablet 41 each day. lidocaine Yes 1{patch QD Apply 1 UT (Lidoderm) 01-07 } patch Health 5 % patch 16:18: topically 41 1 (one) time each day. Remove & discard patch within 12 hours or as directed by . docusate Yes 100mg Q.5D Take 100 UT sodium 6-02 mg by Health (Colace) 16:18: mouth 2 100 MG 41 (two) capsule times a day. flecainide 2021- No [id number] 25mg Q.5D Take 0.5 UT (Tambocor) 01-07 06-03 tablets Healt h 50 MG 00:00: 04:59 (25 mg tablet 00 :00 total) by mouth 2 (two) times a day. atorvastati 2021- No [id number] 10mg QD Take 1 UT n (Lipitor) 6-02 06- tablet (10 H ealth 10 MG 00:00: 04:59 mg total) tablet 00 :00 by mouth 1 (one) time each day. flecainide 2021- No [id number] 25mg Q.5D Take 0.5 UT (Tambocor) 01-07-03 tablets [facility]alt h 50 MG 00:00: 04:59 (25 mg tablet 00 :00 total) by mouth 2 (two) times a day. atorvastati 2021- No [id number] 10mg QD Take 1 UT n (Lipitor) 01-07- tablet (10 H ealth 10 MG 00:00: 04:59 mg total) tablet 00 :00 by mouth 1 (one) time each day. flecainide 2021- No [id number] 25mg Q.5D Take 0.5 UT (Tambocor) 01-07- tablets [facility]alt [facility] 50 MG 00:00: 04:59 (25 mg tablet 00 :00 total) by mouth 2 (two) times a day. atorvastati 2021- No [id number] 10mg QD Take 1 UT n (Lipitor) 01-07- tablet (10 H ealth 10 MG 00:00: 04:59 mg total) tablet 00 :00 by mouth 1 (one) time each day. flecainide 2021- No [id number] 25mg Q.5D Take 0.5 UT (Tambocor) 01-07- tablets [facility]alt [facility] 50 MG 00:00: 04:59 (25 mg tablet 00 :00 total) by mouth 2 (two) times a day. atorvastati 2021- No [id number] 10mg QD Take 1 UT n (Lipitor) 01-07- tablet (10 H ealth 10 MG 00:00: 04:59 mg total) tablet 00 :00 by mouth 1 (one) time each day. flecainide 2021- No [id number] 25mg Q.5D Take 0.5 UT (Tambocor) 01-07-03 tablets Healt h 50 MG 00:00: 04:59 (25 mg tablet 00 :00 total) by mouth 2 (two) times a day. atorvastati 2021- No [id number] 10mg QD Take 1 UT n (Lipitor) 01-07-03 tablet (10 H ealth 10 MG 00:00: 04:59 mg total) tablet 00 :00 by mouth 1 (one) time each day. flecainide 2021- No [id number] 25mg Q.5D Take 0.5 UT (Tambocor) 01-07-03 tablets Healt [facility] 50 MG 00:00: 04:59 (25 mg tablet 00 :00 total) by mouth 2 (two) times a day. atorvastati 2021- No [id number] 10mg QD Take 1 UT n (Lipitor) 01-07- tablet (10 H ealth 10 MG 00:00: 04:59 mg total) tablet 00 :00 by mouth 1 (one) time each day. flecainide 2021- No [id number] 25mg Q.5D Take 0.5 UT (Tambocor) 01-07- tablets [facility]alt [facility] 50 MG 00:00: 04:59 (25 mg tablet 00 :00 total) by mouth 2 (two) times a day. atorvastati 2021- No [id number] 10mg QD Take 1 UT n (Lipitor) 01-07-03 tablet (10 H ealth 10 MG 00:00: 04:59 mg total) tablet 00 :00 by mouth 1 (one) time each day. flecainide 2021- No [id number] 25mg Q.5D Take 0.5 UT (Tambocor) 01-07-03 tablets Healt [facility] 50 MG 00:00: 04:59 (25 mg tablet 00 :00 total) by mouth 2 (two) times a day. atorvastati 2021- No [id number] 10mg QD Take 1 UT n (Lipitor) 01-07-03 tablet (10 H ealth 10 MG 00:00: 04:59 mg total) tablet 00 :00 by mouth 1 (one) time each day. flecainide 2021- No [id number] 25mg Q.5D Take 0.5 UT (Tambocor) 01-07- tablets [facility]alt [facility] 50 MG 00:00: 04:59 (25 mg tablet 00 :00 total) by mouth 2 (two) times a day. atorvastati 2021- No [id number] 10mg QD Take 1 UT n (Lipitor) 01-07- tablet (10 H ealth 10 MG 00:00: 04:59 mg total) tablet 00 :00 by mouth 1 (one) time each day. flecainide 2021- No [id number] 25mg Q.5D Take 0.5 UT (Tambocor) 01-07 tablets Healt [facility] 50 MG 00:00: 04:59 (25 mg tablet 00 :00 total) by mouth 2 (two) times a day. flecainide 2021- No [id number] 25mg Q.5D Take 0.5 UT (Tambocor) 01-07 tablets Healt [facility] 50 MG 00:00: 04:59 (25 mg tablet 00 :00 total) by mouth 2 (two) times a day. flecainide 2021- No [id number] 25mg Q.5D Take 0.5 UT (Tambocor) 01-07- tablets [facility]alt [facility] 50 MG 00:00: 04:59 (25 mg tablet 00 :00 total) by mouth 2 (two) times a day. atorvastati 2021- No [id number] 10mg QD Take 1 UT n (Lipitor) 01-07 tablet (10 H ealth 10 MG 00:00: 04:59 mg total) tablet 00 :00 by mouth 1 (one) time each day. flecainide 2021- No [id number] 25mg Q.5D Take 0.5 UT (Tambocor) 01-07- tablets Healt h 50 MG 00:00: 04:59 (25 mg tablet 00 :00 total) by mouth 2 (two) times a day. atorvastati 2021- No [id number] 10mg QD Take 1 UT n (Lipitor) 6-02 06-03 tablet (10 H ealth 10 MG 00:00: 04:59 mg total) tablet 00 :00 by mouth 1 (one) time each day. furosemide 2021- No [id number] 20mg Take 1 UT (Lasix) 20 01-07-03 tablet (20 He alth MG tablet 00:00: 04:59 mg total) 00 :00 by mouth 1 (one) time each day if needed (PRN for swelling). flecainide 2021- No [id number] 25mg Q.5D Take 0.5 UT (Tambocor) 01-07- tablets [facility]alt [facility] 50 MG 00:00: 04:59 (25 mg tablet 00 :00 total) by mouth 2 (two) times a day. atorvastati 2021- No [id number] 10mg QD Take 1 UT n (Lipitor) 01-07- tablet (10 H ealth 10 MG 00:00: 04:59 mg total) tablet 00 :00 by mouth 1 (one) time each day. flecainide 2021- No [id number] 25mg Q.5D Take 0.5 UT (T[place]ocor) 01-07 tablets Healt h 50 MG 00:00: 00:00 (25 mg tablet 00 :00 total) by mouth 2 (two) times a day. atorvastati 2020- No [id number] 10mg QD Take 1 UT n (Lipitor) 01-07- tablet (10 H ealth 10 MG 00:00: 00:00 mg total) tablet 00 :00 by mouth 1 (one) time each day. furosemide 2020- No [id number] 20mg Take 1 UT (Lasix) 20 01-07-24 tablet (20 He alth MG tablet 00:00: 00:00 mg total) 00 :00 by mouth 1 (one) time each day if needed (PRN for swelling). atorvastati No Notes: Shahzad steven n 5-19 (Same As: l 02:00: Lipitor) [place] 00 atorvastati Yes 20 mg = 1 M emoria n 20 mg 5-18 tab, PO, l oral tablet 16:14: Bedtime, 0 [place] 00 Refill(s) atorvastati No Notes: Shahzad steven n 5-18 (Same as: l 02:00: Lipitor) [place] 00 atorvastati No 40 mg = 1 M emoria n 40 MG 5-14 tab, PO, l Oral Tablet 14:35: Bedtime, # [place] [Lipitor] 00 30 tab, 0 Refill(s), other diltiazem Yes 120 mg = 1 Me moria 120 mg/24 5-14 cap, PO, l hours oral 14:32: Daily, 0 Her saucedo capsule, 00 Refill(s) extended release Furosemide No 40 mg = 1 Me moria 40 MG Oral 5-14 tab, PO, l Tablet 14:32: Daily, 0 [place] 00 Refill(s) pantoprazol Yes 40 mg = 1 M emoria e 40 mg 5-14 tab, PO, l oral 14:32: Before Jt enteric 00 Breakfast, coated 0 tablet Refill(s) potassium No 20 mEq = 1 Me moria chloride 20 5-14 tab, PO, l mEq oral 14:32: Daily, 0 Aura nn tablet, 00 Refill(s) extended release (KCL) ticagrelor Yes 90 mg = 1 Me moria 90 mg oral 5-14 tab, PO, l tablet 14:32: Q12H, 0 Jt 00 Refill(s) AMIODarone Yes 200 mg = 1 M emoria 200 mg oral 5-14 tab, PO, l tablet 14:31: BID-Meals, Aura nn 00 0 Refill(s) apixaban 5 Yes 5 mg = 1 Mem oria mg oral 5-14 tab, PO, l tablet 14:31: Q12H, For Ever n 00 Atrial Fibrillati on, 0 Refill(s) K-Dur 20 No Notes: Memoria 5-12 (Same as: l 18:03: K-Dur 20) [place] 00 "Do Not Crush" Give with food and full glass of water For patients unable to swallow tablet, dissolve in one half glass of water. Allow about 2 minutes for the tablets to disintegra te. Stir before giving to prepare slurry and administer . Please exclude Patient s with feeding tube less than 14 [place] (Dobhoff, J-tube etc) and pediatric and patients. Cardizem CD No Notes: Shahzad steven 5-12 (Same as: l 14:00: Cardizem [place] 00 CD) Do Not Crush Before meals. Diltiazem No Notes: Memori a Hydrochlori 5-11 (Same as: l de 100 MG 03:03: Cardizem) Her saucedo Injection 00 tramadol No Notes: Not Mem oria hydrochlori 5-10 to exceed l de 50 MG 16:51: 400mg/day. Her saucedo Oral Tablet 00 (Same As: Ultram) Tylenol No Notes: Do Memor ia 5-10 not exceed l 16:46: 4 gm/day. [place] 00 (Same as: Tylenol) Lasix No Notes: Memoria 5-10 (Same as: l 14:00: Lasix) May Jt 00 cause GI upset. Give with food or milk. 24 HR No Notes: Memoria Metoprolol 5-10 (Same as: l Tartrate 50 02:00: Toprol XL) Jt MG Extended 00 May split Release tab, but Tablet do not [Toprol] crush. nabumetone Yes 500 mg, Shahzad steven 5-09 PO, BID, 0 l 23:20: Refill(s) Jt 00 Metoprolol No 25 mg = 1 Me moria Succinate 5-09 tab, PO, l ER 25 mg 23:19: Daily, 0 Aura nn oral 00 Refill(s) tablet, extended release lisinopril No 10 mg = 1 Me moria 10 mg oral 5-09 tab, PO, l tablet 23:18: Daily, 0 [place] 00 Refill(s) flecainide No 50 mg = 1 Me moria 50 mg oral 5-09 tab, PO, l tablet 23:17: BID, 0 [place] 00 Refill(s) Ketotifen Yes 1 drp, Memori a 5-09 BOTH EYES, l 21:46: BID, 0 Refill(s) Bumex No Notes: Memoria 5-09 (Same As: l 17:48: Bumex) Vancomycin No 2001 mg: Me moria 5- infuse l 17:47: over 2.5 hours For adult patients only: Round to nearest 250 mg per Medical Staff approval MEDICATION WASTE Product Size: 1000 mg Product Wasted: ___ mg Rocephin + No Notes: Memor ia sterile - (Same As: l water 10 mL 15:57: Rocephin). Use with 100 mL NS and infuse over 30 min MEDICATION WASTE Product Size: 1000 mg Product Wasted: ___ mg metoprolol No Notes: Memor ia tartrate -08 (Same as: l 23:00: Lopressor) Amiodarone No Notes: Memor ia 5-08 (Same as: l 20:04: Cordarone) Bumex No Notes: Memoria 5-08 (Same As: l 17:19: Bumex) apixaban No Notes: Memoria 5-07 Same as: l 14:00: Eliquis Tramadol No Notes: Not Mem oria 5-06 to exceed l 18:59: 400mg/day. Jt (Same As: Ultram) apixaban No Notes: Memoria 5-06 Same as: l 18:41: Eliquis Tramadol No Notes: Not Mem oria 5-06 to exceed l 11:10: 400mg/day. (Same As: Ultram) Magnesium No Notes: Memori a Sulfate 12-11 WASTE: F/P l 03:20: - Sink; E - Municipal Trash Bin Calcium No Notes: Memoria Gluconate 12-11 WASTE: F/P l 03:19: - Sink; E - Municipal Trash Bin potassium No Notes: Memori a chloride 20 5-06 (Same as: l mEq oral 03:19: K-Dur 20) Herm eron tablet, 00 "Do Not extended Crush" release Give with (KCL) food and full glass of water For patients unable to swallow tablet, dissolve in one half glass of water. Allow about 2 minutes for the tablets to disintegra te. Stir before giving to prepare slurry and administer . Please exclude Patient s with feeding tube less than 14 [place] (Dobhoff, J-tube etc) and pediatric and patients. Fleet No 1 supp, Memoria Glycerin 5-05 Route: [place], l Suppositori 17:05: Drug Form: Jt es Adult 00 SUPP, Dosing Weight 92.2, kg, ONCE, NOW, Start date: 12/10/20 12:05:00 CDT, Stop date: 12/10/20 12:05:00 CDT, 0 Cardizem No Notes: Memoria 5-05 (Same as: l 17:00: Cardizem) Jt 00 Before meals Digoxin No Notes: Memoria 5-05 (Same as: l 14:00: Lanoxin) Jt 00 Digoxin No 0.125 mg, Memor ia 0.125 MG 5-05 1 tab, l Oral Tablet 14:00: Route: PO, [place] 00 Drug form: TAB, Daily, Dosing Weight 92.2, kg, Start date: 12/10/20 9:00:00 CDT, Duration: 30 day, Stop date: 01/08/21 9:00:00 CDT Colchicine No Notes: Memor ia 0.6 MG Oral 5-04 Hazardous l Tablet 14:00: Drug Group Aura nn 00 3:Reproduc tive risk Hazardous Drug -- Refer to safe handling procedure PPE Matrix Metoprolol No Notes: Memor ia Succinate 5-04 (Same as: l ER 50 mg 14:00: Toprol XL) Her saucedo oral 00 May split tablet, tab, but extended do not release crush. Metoprolol No Notes: Memor ia 5-04 (Same as: l 12:51: Lopressor) Jt 00 Push over 2 minutes Protonix No Notes: Memoria 5-04 Tablet l 12:30: should not [place] 00 be chewed or crushed. (Same as: Protonix) Diltiazem No Notes: Memori a 5-04 (Same as: l 10:50: Cardizem) [place] 00 Sodium No 1,000 ml, Memori a Chloride 5-04 Rate: 50 l 0.9% IV 06:20: ml/hr, Jt 1,000 mL 00 Infuse over: 20 hr, Route: IV, Dosing Weight 92.2 kg, Total Volume: 1,000, Priority: NOW, Start date: 12/09/20 1:20:00 CDT, Duration: 30 day, Stop date: 01/08/21 1:19:00 CDT, 2.08, m2, 0 Saline No Notes: Memoria Flush 0.9% 5-04 Same as: l 05:00: BD Jt 00 Posiflush Sterile diltiazem No Notes: Memori a 125 mg + 5-04 (Same as: l Sodium 00:30: Cardizem) Ever n Chloride 00 0.9% IV 100 mL Cardizem No 5 mg, Memoria 5-04 Route: l 00:17: IVPB, Jt 00 Continuous , Dosing Weight 92.2, kg, Priority: NOW, Start date: 12/08/20 19:17:00 CDT, Duration: 30 day, Stop date: 01/07/21 19:16:00 CDT Metoprolol No Notes: Memor ia 5-04 (Same as: l 00:14: Lopressor) [place] 00 Push over 2 minutes Metoprolol No Notes: Memor ia 5-03 (Same as: l 23:03: Lopressor) Jt 00 Push over 2 minutes Digoxin No Notes: Memoria 5-03 (Same as: l 23:00: Lanoxin) Jt 00 Metoprolol No Notes: Memor ia 5-03 (Same as: l 22:40: Lopressor) [place] 00 Push over 2 minutes LIDOcaine No 250 mL, Memor ia additive 2 5-03 Rate: l gm [20 22:36: 13.83 [place] microgram/k 00 ml/hr, g/min] + Infuse Premix over: 18.1 Diluent hr, Route: Dextrose 5% IV, Dosing 250 mL Weight 92.2 kg, Total Volume: 250 mL, Start date: 12/08/20 17:36:00 CDT, Duration: 30 day, Stop date: 01/07/21 17:35:00 CDT, 2.08, m2 Lidocaine No Notes: Memori a Hydrochlori 12-08 Preservati l de 10 MG/ML 22:00: ve free. He rmann Injectable 00 (Same as: Solution Xylocaine MPF) Saline No Notes: Memoria Flush 0.9% 12-08 Same as: l 21:37: BD Jt 00 Posiflush Sterile Amiodarone No 2 mg/ml. Me moria 12-08 "Recommend l 21:32: ation: Use Jt 00 an in-line filter during administra tion for continuous infusions to reduce the incidence of phlebitis" (Same as Codarone) MEDICATION WASTE Product Size: 150 mg Product Wasted: ___ mg heparin No 500 mL, Memoria additive 12-08 Rate: 19.9 l 25,000 unit 18:32: ml/hr, Herm eron [14 00 Infuse unit/kg/hr] over: 25.1 + Premix hr, Route: Diluent IV, Dosing Dextrose 5% Weight 500 mL 71.08 kg, Total Volume: 500 mL, Start date: 12/08/20 13:32:00 CDT, Duration: 30 day, Stop date: 01/07/21 13:31:00 CDT, 1.82, m2, 0 Amiodarone No 2 mg/ml. Me moria 12-08 "Recommend l 18:31: ation: Use Jt 00 an in-line filter during administra tion for continuous infusions to reduce the incidence of phlebitis" (Same as Codarone) MEDICATION WASTE Product Size: 150 mg Product Wasted: ___ mg AMIODarone No 2 mg/ml. Me moria 900 mg in 12-08 Use Glass l D5W 500 ml 18:31: Bottle or He rmann IV 900 mg + 00 Non PVC Dextrose 5% Bag "Use in Water IV 0.22 482 mL micron in-line filter" MEDICATION WASTE Product Size: 900 mg Product Wasted: ___ mg Enoxaparin No Notes: Memor ia 5-03 (Same as: l 15:00: Lovenox) [place] Ticagrelor No Notes: Memor ia 5-02 (Same as: l 21:00: Brilinta) [place] Acetaminoph No Notes: Do M emoria en 325 MG / 5- not exceed l Hydrocodone 20:05: 4gm/day of Jt Bitartrate 00 acetaminop 10 MG Oral hen. (Same Tablet as: Okarche [Okarche 325/10) 10325] Sodium No 1,000 ml, Memori a Chloride - Rate: 40 l 0.9% IV 18:48: ml/hr, [place] 1,000 mL 00 Infuse over: 25 hr, Route: IV, Dosing Weight 92.2 kg, Total Volume: 1,000, Start date: 12/07/20 13:48:00 CDT, Duration: 30 day, Stop date: 01/06/21 13:47:00 CDT, 2.08, m2, 0 Morphine No Notes: Memoria 5-02 (Same l 14:04: as:MORPhin Jt 00 e Sulfate) Saline No Notes: Memoria Flush 0.9% 5-02 Same as: l 14:00: BD [place] 00 Posiflush Sterile Saline No Notes: Memoria Flush 0.9% 5-02 Same as: l 10:48: BD [place] 00 Posiflush Sterile Potassium No Notes: Memori a Chloride 5-02 (Same as: l 10:48: KCL) 10 [place] 00 mEq/100ml product recommende d for peripheral line administra tion. Infuse no faster than 10 mEq/hr if given peripheral ly. sodium No Notes: Memoria phosphate 5-02 Infuse l 10:48: over 4 [place] 00 hour. Do not infuse phosphorou s concurrent ly in the same line as TPN or IVF that contains calcium. For double lumen central lines, phosphorou s may be infused in a separate lumen from TPN. potassium No Notes: Memori a phosphate 12-07 (Same as: l 10:48: K Jt Phosphate. ) Do not infuse phosphorou s concurrent ly in the same line as TPN or IVF that contains calcium. For double lumen central lines, phosphorou s may be infused in a separate lumen from TPN. 1 mMol phoshate has 1.47 mEq potassium Infuse over 4 hours potassium No Notes: Memori a phosphate-s 12-07 (Same as: l odium 10:48: Phos-NaK) [place] phosphate 00 Each 1.5 250 mg-280 gm pkt has mg-160 mg 250mg oral powder phosphorou for s. Mix reconstitut w/2.5oz ion water and stir. Magnesium No Notes: Memori a Sulfate 12-07 WASTE: F/P l 10:48: - Sink; E [place] - [facility] Magnesium No Notes: Memori a Oxide 12-07 (Same as: l 10:48: Mag-Ox [place] 00 400) Magnesium oxide [id number] g elemental magnesium Dose=____m g magnesium oxide (___mg elemental magnesium) Calcium No Notes: [facility] Gluconate 12-07 WASTE: F/P l 10:48: - Sink; E [place] [facility] calcium No Notes: [facility] carbonate 12-07 (Same As: l 500 mg (200 10:48: Tums) Aura nn mg 00 Calcium elemental Carbonate calcium) 500 mg = oral tablet 200 mg elemental calcium Dose = mg calcium carbonate ( mg elemental calcium) normal No 1,000 mL, Memori a saline 0.9% 12-07 Rate: 75 l IV 1,000 mL 09:56: ml/hr, Herm eron 00 Infuse over: 13.3 hr, Route: IV, Dosing Weight 92.2 kg, Total Volume: 1,000, Start date: 12/07/20 4:56:00 CDT, Duration: 30 day, Stop date: 01/06/21 4:55:00 CDT, 2.08, m2, 0 Nitroglycer No Notes: Shahzad steven in 12-07 (Same l 09:54: as:Nitroqu ick, Nitrostat) "Do Not Crush" Sublingual tablet Morphine No Notes: [facility] - (Same l 07:22: as:MORPhin e Sulfate) heparin No 500 mL, [facility] additive 12-07 Rate: 19.9 l 25,000 unit 07:12: ml/hr, Herm eron [14 00 Infuse unit/kg/hr] over: 25.1 + Dextrose hr, Route: 5% in Water IV, Dosing IV 500 mL Weight 71.08 kg, Total Volume: 500 mL, Start date: 12/07/20 2:12:00 CDT, Duration: 30 day, Stop date: 01/06/21 2:11:00 CDT, 1.82, m2, 0 Norepinephr No Notes: Shahzad steven ine 12-07 Same as: l 07:03: Levophed. Administer by either central venous catheter or peripheral ly-inserte d central catheter (PICC) line. Hydralazine No Notes: Shahzad steven 5- (Same as: l 22:37: Apresoline ) Push over 5 minutes Miralax No Notes: Memoria 5-01 Dissolve l 22:00: in 8 oz of water or juice. (Same as: Miralax) heparin No Notes: Memoria 4-30 porcine l 21:00: heparin Aspirin No Notes: [facility]oria 4-30 Take with l 21:00: food. Saline No Notes: [facility] Flush 0.9% 4-30 Same as: l 02:00: BD Posiflush Sterile atorvastati No Notes: Shahzad steven n 4-30 (Same as: l 02:00: Lipitor) sennosides, No Notes: Shahzad steven DETENTION 4-29 (Same as: l 22:00: Senokot) Docusate No Notes: [facility]oria Sodium 100 4-29 (Same as: l MG Oral 22:00: Colace) Jt Capsule (Do Not [Colace] Crush) Sodium No 250 mL, Memoria Chloride 12-04 Route: l 0.9% IV 21:35: IVPB, Jt Start date: 12/04/20 16:35:00 CDT, Duration: 30 day, Stop date: 01/03/21 16:34:00 CDT, PRN Line Flush, 0 Flecainide No Notes: Memor ia 12-04 (Same as: l 21:20: Tambocor) metoprolol No Notes: Memor ia tartrate 12-04 (Same as: l 21:19: Lopressor) Dextrose No 12.5 gm, Memor ia 50% Syringe 12-04 25 mL, l (D50W) 18:31: Route: [place] IVP, Drug Form: INJ, Dosing Weight 92.2, kg, PRN, PRN Blood Glucose Results, Start date: 12/04/20 13:31:00 CDT, Duration: 30 day, Stop date: 01/03/21 13:30:00 CDT, 0 Glucagon No 1 mg, Memoria 12-04 Route: IM, l 18:31: Drug form: [place] 00 PDR/INJ, PRN, Dosing Weight 92.2, kg, PRN Blood Glucose Results, Start date: 12/04/20 13:31:00 CDT, Duration: 30 day, Stop date: 01/03/21 13:30:00 CDT, 0 Insulin No Notes: [facility]oria Lispro 12-04 (Same as: l 18:31: Humalog) Roll in palms of hands gently; Do not shake vigorously . WASTE: F/P - Black; E - Municipal Trash Bin Stable for 28 days at room temperatur e. Expires in days from ____Date Nystatin No Notes: [facility]oria 100 UNT/MG 12-04 (Same l Topical 18:03: as:Mycosta Herm eron Powder 00 tin, Nilstat) For external use only. Acetaminoph No Notes: Do M emoria en 12-04 not exceed l 18:03: 4 gm/day. [place] 00 (Same as: Tylenol) Ondansetron No Notes: Shahzad steven 12-04 (Same as: l 18:03: Zofran) MEDICATION WASTE Product Size: 4 mg Product Wasted: ___ mg Bisacodyl No Notes: Memori a - (Same As: l 18:03: Dulcolax, Jt 00 Bisco-Lax) Sodium No 1,000 mL, Memori a Chloride 12-04 Rate: 75 l 0.9% IV 18:03: ml/hr, [place] 1,000 mL 00 Infuse over: 13.3 hr, Route: IV, Dosing Weight 92.2 kg, Total Volume: 1,000, Start date: 12/04/20 13:03:00 CDT, Duration: 30 day, Stop date: 01/03/21 13:02:00 CDT, 2.08, m2, 0 Saline No Notes: [facility] Flush 0.9% 12-04 Same as: l 18:03: BD Posiflush Sterile Potassium No Notes: Memori a Chloride 12-04 (Same as: l 18:03: KCL) 10 [place] 00 mEq/100ml product recommende d for peripheral line administra tion. Infuse no faster than 10 mEq/hr if given peripheral ly. sodium No Notes: [facility]oria phosphate 12-04 Infuse l 18:03: over 4 [place] 00 hour. Do not infuse phosphorou s concurrent ly in the same line as TPN or IVF that contains calcium. For double lumen central lines, phosphorou s may be infused in a separate lumen from TPN. potassium No Notes: Memori a phosphate 12-04 (Same as: l 18:03: K [place] 00 Phosphate. ) Do not infuse phosphorou s concurrent ly in the same line as TPN or IVF that contains calcium. For double lumen central lines, phosphorou s may be infused in a separate lumen from TPN. 1 mMol phoshate has 1.47 mEq potassium Infuse over 4 hours potassium No Notes: Memori a phosphate-s 12-04 (Same as: l odium 18:03: Phos-NaK) [place] phosphate 00 Each 1.5 250 mg-280 gm pkt has mg-160 mg 250mg oral powder phosphorou for s. Mix reconstitut w/2.5oz ion water and stir. Magnesium No Notes: Memori a Sulfate 12-04 WASTE: F/P l 18:03: - Sink; E Jt - Municipal Trash Bin Magnesium No Notes: Memori a Oxide 12-04 (Same as: l 18:03: Mag-Ox Jt 00 400) Magnesium oxide [id number] g elemental magnesium Dose=____m g magnesium oxide (___mg elemental magnesium) Calcium No Notes: [facility] Gluconate 12-04 WASTE: F/P l 18:03: - Sink; E Jt - Municipal Trash Bin calcium No Notes: Memoria carbonate 12-04 (Same As: l 500 mg (200 18:03: Tums) Aura nn mg 00 Calcium elemental Carbonate calcium) 500 mg = oral tablet 200 mg elemental calcium Dose = mg calcium carbonate ( mg elemental calcium) Sodium No 1,000 mL, Memori a Chloride 12-04 Rate: 50 l 0.9% IV 17:44: ml/hr, Jt 1,000 mL 00 Infuse over: 20 hr, Route: IV, Dosing Weight 92.2 kg, Total Volume: 1,000, Priority: STAT, Start date: 12/04/20 12:44:00 CDT, Duration: 30 day, Stop date: 01/03/21 12:43:00 CDT, 2.08, m2, 0 Alteplase No 8.28 mg, Shahzad steven 12-04 Route: IV, l 17:44: ONCE, Jt 00 Dosing Weight 84, kg, Priority: STAT, Start date: 12/04/20 12:44:00 CDT, Stop date: 12/04/20 12:44:00 CDT Sodium No 50 mL, 50 Memori a Chloride - ml/hr, l 0.9% 17:44: Infuse Jt (Flush) IV 00 Over: 1 hr, Route: IV, 50, Drug form: INJ, ONCE, Dosing Weight 84 kg, Start date: 12/04/20 12:44:00 CDT, Stop date: 12/04/20 12:44:00 CDT, For line flush AFTER alteplase (tPA) infusion., 0 Alteplase No Notes: Memori a 12-04 (Same as: l 17:33: Activase) Jt 00 MEDICATION WASTE Product Size: 100 mg Product Wasted: ___ mg Sodium No 50 mL, Memoria Chloride 12-04 71.43 l 0.9% 17:33: ml/hr, Jt (Flush) IV 00 Infuse Over: 0.7 hr, Route: IV, 50, Drug form: INJ, ONCE, Dosing Weight 92.2 kg, Start date: 12/04/20 12:33:00 CDT, Stop date: 12/04/20 12:33:00 CDT, For line flush AFTER alteplase (tPA) infusion., 0 Alteplase No Notes: Memori a 12-04 (Same as: l 17:32: Activase) Jt 00 MEDICATION WASTE Product Size: 100 mg Product Wasted: ___ mg dexamethaso No Route: IV, Memoria ne (ANES) 12-04 Drug form: l 17:21: INJ, ONCE, Stop date: 12/04/20 12:21:00 CDT ondansetron No Route: IV, Memoria (ANES) 12-04 Drug form: l 17:21: INJ, ONCE, Stop date: 12/04/20 12:21:00 CDT norepinephr No Route: IV, Memoria ine (ANES) 12-04 Drug form: l 17:21: INJ, ONCE, Stop date: 12/04/20 12:21:00 CDT sugammadex No Route: IV, M emoria (ANES) 12-04 Drug form: l 17:12: SOLN, 00 ONCE, Stop date: 12/04/20 12:12:00 CDT fentaNYL No Route: IV, Mem oria (ANES) 12-04 Drug form: l 17:02: INJ, ONCE, Stop date: 12/04/20 12:02:00 CDT propofol No Route: IV, Mem oria (ANES) 12-04 Drug form: l 17:02: INJ, ONCE, Stop date: 12/04/20 12:02:00 CDT rocuronium No Route: IV, M emoria (ANES) 12-04 Drug form: l 16:57: INJ, ONCE, Stop date: 12/04/20 11:57:00 CDT phenylephri No Route: IV, Memoria ne (ANES) 12-04 Drug form: l 100 16:05: INJ, Start [place] microgram date: 12/04/20 11:05:00 CDT, Stop date: 12/04/20 12:05:00 CDT Isolyte S No Route: IV, Me moria PH 7.4 12-04 Total l (ANES) 1000 15:50: Volume: Her saucedo mL 00 1,000, Start date: 12/04/20 10:50:00 CDT, Stop date: 12/04/20 11:50:00 CDT Omnipaque No Notes: Memori a 350 12-04 (Same l injectable 15:23: as:Omnipaq H ermann solution 00 ue 350) WASTE: F/P - Black; E - Municipal Trash Bin Saline No Notes: Memoria Flush 0.9% 12-04 Same as: l 15:13: BD Posiflush Sterile MULTIVITAMI 2019-0 Yes QD Take by [facility] 16:19: daily. [facility] 28 l MULTIVITAMI 2020-0 Yes QD Take by [facility] ORAL 1-[address] 16:19: daily. [facility] 28 l MULTIVITAMI 2020-0 Yes QD Take by [facility] ORAL 1-[address] 16:19: daily. [facility] 28 l MULTIVITAMI 2020-0 Yes QD Take by [facility] ORAL 1-[address] 10:19: daily. [facility] 28 l MULTIVITAMI 2020-0 Yes QD Take by [facility] ORAL 1-[address] 10:19: daily. [facility] 28 l MULTIVITAMI 2020-0 Yes QD Take by [facility] ORAL 1-[address] 10:19: daily. [facility] 28 l fluticasone 2020-0 Yes 1{spray QD 1 spray by [facility] propionate 1-10 } Each [facility] (FLONASE) 00:00: route [facility]osp[facility] 50 00 daily. l mcg/actuati on nasal spray lisinopril 2020-0 Yes QD daily. [facility] di (PRINIVIL) 1-10 st 10 mg 00:00: [facility]osp[facility] tablet 00 l fluticasone 2020-0 Yes 1{spray QD 1 spray by [facility] propionate 1-10 } Each [facility] (FLONASE) 00:00: route [facility] 50 00 daily. l mcg/actuati on nasal spray lisinopril 2020-0 Yes QD daily. Metho di (PRINIVIL) 1-10 st 10 mg 00:00: [facility]osp[facility] tablet 00 l fluticasone 2020-0 Yes 1{spray QD 1 spray by [facility] propionate 1-10 } Each [facility] (FLONASE) 00:00: route [facility] 50 00 daily. l mcg/actuati on nasal spray lisinopril 2020-0 Yes QD daily. Metho di (PRINIVIL) 1-10 st 10 mg 00:00: [facility]ospita tablet 00 l fluticasone 2020-0 Yes 1{spray QD 1 spray by [facility] propionate 1-10 } Each [facility] (FLONASE) 00:00: route [facility] 50 00 daily. l mcg/actuati on nasal spray lisinopril 2020-0 Yes QD daily. Metho di (PRINIVIL) 1-10 st 10 mg 00:00: [facility]osp[facility] tablet 00 l fluticasone 2020-0 Yes 1{spray QD 1 spray by [facility] propionate 1-10 } Each [facility] (FLONASE) 00:00: route [facility] 50 00 daily. l mcg/actuati on nasal spray lisinopril 2020-0 Yes QD daily. Metho di (PRINIVIL) 1-10 st 10 mg 00:00: [facility]osp[facility] tablet 00 l fluticasone 2020-0 Yes 1{spray QD 1 spray by [facility] propionate 1-10 } Each [facility] (FLONASE) 00:00: route [facility] 50 00 daily. l mcg/actuati on nasal spray lisinopril 2019-0 Yes QD daily. Metho di (PRINIVIL) 1-10 st 10 mg 00:00: [facility]ospita tablet 00 l Vital Signs Vital Name Observation Time Observation Value Comments Source Systolic blood 2021-09-08 15:49:00 130 mm[Hg] [facility] Diastolic blood 2021-09-08 15:49:00 70 mm[Hg] [facility] Heart rate 2021-09-08 15:49:00 66 /min [facility] height 2021-09-08 15:49:00 160 [facility] weight 2021-09-08 15:49:00 85[facility]276 [facility] BMI 2021-09-08 15:49:00 33.30 kg[facility]m2 [facility] Systolic blood 2021-06-09 15:04:00 130 mm[Hg] [facility] Diastolic blood 2021-06-09 15:04:00 71 mm[Hg] [facility] Heart rate 2021-06-09 15:04:00 54 /min [facility] 2021-06-09 15:04:00 160 [facility] weight 2021-06-09 15:04:00 84[facility]369 [facility] BMI 2021-06-09 15:04:00 32.95 kg[facility]m2 [facility] Systolic blood 2021-05-05 19:49:00 135 mm[Hg] [facility] Diastolic blood 2021-05-05 19:49:00 73 mm[Hg] [facility] Heart rate 2021-05-05 19:49:00 56 /min [facility] 2021-05-05 19:49:00 160 [facility] weight 2021-05-05 19:49:00 85[facility]276 [facility] BMI 2021-05-05 19:49:00 33.30 kg[facility]m2 [facility] 2021-03-03 19:10:00 160 [facility] weight 2021-03-03 19:10:00 86[facility]183 [facility] BMI 2021-03-03 19:10:00 33.66 kg[facility]m2 [facility] height 2021-03-03 19:10:00 160 [facility] weight 2021-03-03 19:10:00 86[facility]183 [facility] BMI 2021-03-03 19:10:00 33.66 kg[facility]m2 [facility] Systolic blood 2021-01-07 16:18:00 117 mm[Hg] [facility] Diastolic blood 2021-01-07 16:18:00 65 mm[Hg] [facility] Heart rate 2021-01-07 16:18:00 60 /min [facility] 2021-01-07 16:18:00 86[facility]183 [facility] Systolic blood 2021-01-07 16:18:00 117 mm[Hg] [facility] Diastolic blood 2021-01-07 16:18:00 65 mm[Hg] [facility] Heart rate 2021-01-07 16:18:00 60 /min [facility] weight 2021-01-07 16:18:00 86[facility]183 [facility] Systolic (mm Hg) 2021-12-01 01:04:00 Shahzad rial [place] Diastolic (mm Hg) 2021-12-01 01:04:00 Mem orial [place] Respitory Rate 2021-12-01 01:04:00 Memori al Jt Respitory Rate 2021-12-01 00:27:00 [facility]ori al [place] Systolic (mm Hg) 2021-12-01 00:27:00 Shahzad rial Jt Diastolic (mm Hg) 2021-12-01 00:27:00 Mem orial [place] Respitory Rate 2021-12-01 00:03:00 [facility]ori al [place] Systolic (mm Hg) 2021-12-01 00:03:00 Shahzad rial [place] Diastolic (mm Hg) 2021-12-01 00:03:00 Mem orial Jt Heart Rate 2021-11-30 23:22:00 [facility] [place] Temperature Oral (F) 2021-11-30 23:22:00 97.7 F [facility] [place] Height 2021-11-30 22:47:00 160.02 cm [facility] [place] BMI Calculated 2021-11-30 22:47:00 Memori al Jt Weight 2021-11-30 22:47:00 [facility] [place] Heart Rate 2021-11-30 22:47:00 [facility] Jt Temperature Oral (F) 2021-11-30 22:47:00 99.9 F [facility] [place] Temperature Oral (F) 2020-12-23 20:53:00 97.6 F [facility] [place] Heart Rate 2020-12-23 20:53:00 [facility] Jt Respitory Rate 2020-12-23 20:53:00 Memori al Jt Systolic (mm Hg) 2020-12-23 20:53:00 Shahzad rial Jt Diastolic (mm Hg) 2020-12-23 20:53:00 Mem orial [place] Temperature Oral (F) 2020-12-23 16:42:00 97.7 F [facility] [place] Heart Rate 2020-12-23 16:42:00 [facility] Jt Respitory Rate 2020-12-23 16:42:00 Memori al [place] Systolic (mm Hg) 2020-12-23 16:42:00 Shahzad rial [place] Diastolic (mm Hg) 2020-12-23 16:42:00 Mem orial [place] Temperature Oral (F) 2020-12-23 12:49:00 97.7 F [facility] Jt Heart Rate 2020-12-23 12:49:00 [facility] [place] Respitory Rate 2020-12-23 12:49:00 Memori al Jt Systolic (mm Hg) 2020-12-23 12:49:00 Shahzad rial Jt Diastolic (mm Hg) 2020-12-23 12:49:00 Mem orial [place] Temperature Oral (F) 2020-12-22 04:47:00 98.3 F [facility] Jt Heart Rate 2020-12-22 04:47:00 [facility] [place] Respitory Rate 2020-12-22 04:47:00 Memori al Jt Systolic (mm Hg) 2020-12-22 04:47:00 Shahzad rial [place] Diastolic (mm Hg) 2020-12-22 04:47:00 Mem orial [place] Temperature Oral (F) 2020-12-22 00:40:00 98.1 F [facility] [place] Heart Rate 2020-12-22 00:40:00 [facility] [place] Respitory Rate 2020-12-22 00:40:00 Memori al Jt Systolic (mm Hg) 2020-12-22 00:40:00 Shahzad rial Jt Diastolic (mm Hg) 2020-12-22 00:40:00 Mem orial Jt Temperature Oral (F) 2020-12-21 20:45:00 98 F [facility] Jt Heart Rate 2020-12-21 20:45:00 [facility] Jt Respitory Rate 2020-12-21 20:45:00 Memori al [place] Systolic (mm Hg) 2020-12-21 20:45:00 Shahzad rial [place] Diastolic (mm Hg) 2020-12-21 20:45:00 Mem orial Jt Respitory Rate 2020-12-08 06:00:00 Memori al Jt Systolic (mm Hg) 2020-12-08 06:00:00 Shahzad rial [place] Diastolic (mm Hg) 2020-12-08 06:00:00 Mem orial [place] Respitory Rate 2020-12-08 05:00:00 Memori al Jt Systolic (mm Hg) 2020-12-08 05:00:00 Shahzad rial [place] Diastolic (mm Hg) 2020-12-08 05:00:00 Mem orial Jt Respitory Rate 2020-12-08 04:00:00 Memori al Jt Systolic (mm Hg) 2020-12-08 04:00:00 Shahzad rial Jt Diastolic (mm Hg) 2020-12-08 04:00:00 Mem orial Jt Temperature Oral (F) 2020-12-07 05:00:00 98.3 F [facility] [place] Temperature Oral (F) 2020-12-07 01:00:00 99.4 F [facility] [place] Temperature Oral (F) 2020-12-06 20:00:00 97.7 F [facility] Jt Height 2020-12-04 17:29:00 165.1 cm [facility] [place] BMI Calculated 2020-12-04 17:29:00 Mem[facility] al [place] Weight 2020-12-04 17:29:00 [facility] Jt Height 2020-12-04 17:00:00 165.1 cm [facility] Jt Weight 2020-12-04 17:00:00 [facility] Jt BMI Calculated 2020-12-04 17:00:00 Tona stoll Jt Height 2020-12-04 15:24:00 165.1 cm [facility] Jt BMI Calculated 2020-12-04 15:24:00 Tona al [place] Weight 2020-12-04 15:24:00 [facility] 2020-12-04 15:03:00 [facility] Procedures Procedure Date / Time Performed Performing Clinician Sourc e REPOSITION RT UP ARM 2022-05-26 00:00:00 [facility] TEND [facility] RELEASE RT SHOULDER 2022-05-26 00:00:00 [facility] JOINT PERQ ENDO Center REPAIR RT SHOULDER 2022-05-26 00:00:00 Olga Hernandez edical TENDON PERQ ENDO Center EXCISION RT SHOULDER 2022-05-26 00:00:00 [facility] JNT PERQ ENDO Center EXCISION RIGHT CLAVICLE 2022-05-26 00:00:00 [facility] PERQ ENDO Center Plan of Care Planned Activity Planned Date Details Comments Source Future Scheduled 2023-05-01 Screening for [facility] Test 13:53:40 malignant neoplasm of colon (procedure) [code = 461576083] Future Scheduled 2023-05-01 Screening for [facility] Test 13:53:40 malignant neoplasm of colon (procedure) [code = 352377998] Future Scheduled 2023-05-01 Screening for [facility] Test 13:53:40 malignant neoplasm of colon (procedure) [code = 980736098] Future Scheduled 2023-05-01 COVID-19 VACCINE (#1) [facility] Test 13:53:40 [code = COVID-19 VACCINE (#1)] Future Scheduled 2023-05-01 Hepatitis C screening [facility] Test 13:53:40 (procedure) [code = 858665371] Future Scheduled 2023-05-01 BREAST CANCER [facility] Test 13:53:40 SCREENING [code = BREAST CANCER SCREENING] Future Scheduled 2023-05-01 Screening for [facility] Test 13:53:40 malignant neoplasm of colon (procedure) [code = 939083322] Future Scheduled 2023-05-01 Screening for [facility] Test 13:53:40 malignant neoplasm of colon (procedure) [code = 709194394] Future Scheduled 2023-05-01 SHINGLES VACCINES (1 [facility] Test 13:53:40 of 2) [code = SHINGLES VACCINES (1 of 2)] Future Scheduled 2023-05-01 65+ PNEUMOCOCCAL [facility] Test 13:53:40 VACCINE (1 - PCV) [code = 65+ PNEUMOCOCCAL VACCINE (1 - PCV)] Future Scheduled 2023-05-01 INFLUENZA VACCINE (#1) [facility] Test 13:53:40 [code = INFLUENZA VACCINE (#1)] Future Scheduled 2023-04-08 Screening for [facility] Test 09:00:23 malignant neoplasm of colon (procedure) [code = 315493177] Future Scheduled 2023-04-08 Screening for [facility] Test 09:00:23 malignant neoplasm of colon (procedure) [code = 578669282] Future Scheduled 2023-04-08 Screening for [facility] Test 09:00:23 malignant neoplasm of colon (procedure) [code = 533355727] Future Scheduled 2023-04-08 COVID-19 VACCINE (#1) [facility] Test 09:00:23 [code = COVID-19 VACCINE (#1)] Future Scheduled 2023-04-08 Hepatitis C screening [facility] Test 09:00:23 (procedure) [code = 727793009] Future Scheduled 2023-04-08 BREAST CANCER [facility] Test 09:00:23 SCREENING [code = BREAST CANCER SCREENING] Future Scheduled 2023-04-08 Screening for [facility] Test 09:00:23 malignant neoplasm of colon (procedure) [code = 605405691] Future Scheduled 2023-04-08 Screening for [facility] Test 09:00:23 malignant neoplasm of colon (procedure) [code = 019615218] Future Scheduled 2023-04-08 SHINGLES VACCINES (1 [facility] Test 09:00:23 of 2) [code = SHINGLES VACCINES (1 of 2)] Future Scheduled 2023-04-08 65+ PNEUMOCOCCAL [facility] Test 09:00:23 VACCINE (1 - PCV) [code = 65+ PNEUMOCOCCAL VACCINE (1 - PCV)] Future Scheduled 2023-04-08 INFLUENZA VACCINE (#1) [facility] 09:00:23 [code = INFLUENZA VACCINE (#1)] Future Scheduled 2021-09-08 COVID-19 VACCINE (1) [facility] Test 09:41:49 [code = COVID-19 VACCINE (1)] Future Scheduled 2021-09-08 65+ [facility] Test 09:41:49 VACCINE (1 of 2 - PPSV23) [code = 65+ PNEUMOCOCCAL VACCINE (1 of 2 - PPSV23)] Future Scheduled 2021-09-08 [facility] C screening [facility] Test 09:41:49 (procedure) [code = 429371293] Future Scheduled 2021-09-08 BREAST CANCER [facility] Test 09:41:49 SCREENING [code = BREAST CANCER SCREENING] Future Scheduled 2021-09-08 COLONOSCOPY SCREENING [facility] Test 09:41:49 [code = COLONOSCOPY SCREENING] Future Scheduled 2021-09-08 SHINGLES VACCINES (#1) [facility] Test 09:41:49 [code = SHINGLES VACCINES (#1)] Future Scheduled 2021-09-08 INFLUENZA VACCINE [facility] Test 09:41:49 [code = INFLUENZA VACCINE] Future Scheduled COVID-19 VACCINE (1) [facility] Test [code = COVID-19 VACCINE (1)] Future Scheduled Hep[facility] C screening [facility] Test (procedure) [code = 295876823] Future Scheduled BREAST CANCER [facility] Test SCREENING [code = BREAST CANCER SCREENING] Future Scheduled COLONOSCOPY SCREENING [facility] Test [code = COLONOSCOPY SCREENING] Future Scheduled [facility]IN[facility] [code = SHINGLES VACCINES (#1)] Future Scheduled 65+ [facility]OCO[facility] Test VACCINE (1 of 1 - PPSV23) [code = 65+ PNEUMOCOCCAL VACCINE (1 of 1 - PPSV23)] Future Scheduled INFLUENZA VACCINE [facility] [code = INFLUENZA VACCINE] Future Scheduled COVID-19 VACCINE (1) [facility] Test [code = COVID-19 VACCINE (1)] Future Scheduled [facility] C screening [facility] Test (procedure) [code = 289142392] Future Scheduled BREAST CANCER [facility] Test SCREENING [code = BREAST CANCER SCREENING] Future Scheduled COLONOSCOPY SCREENING [facility] Test [code = COLONOSCOPY SCREENING] Future Scheduled SHINGLES VACCINES (#1) [facility] [code = SHINGLES VACCINES (#1)] Future Scheduled 65+ [facility] Test VACCINE (1 of 1 - PPSV23) [code = 65+ PNEUMOCOCCAL VACCINE (1 of 1 - PPSV23)] Future Scheduled INFLUENZA [facility]ACCINE [facility] [code = INFLUENZA VACCINE] Future Scheduled COVID-19 VACCINE (1) [facility] Test [code = COVID-19 VACCINE (1)] Future Scheduled [facility] C [facility] Test (procedure) [code = 959642832] Future Scheduled BREAST CANCER [facility] Test SCREENING [code = BREAST CANCER SCREENING] Future Scheduled COLONOSCOPY SCREENING [facility] Test [code = COLONOSCOPY SCREENING] Future Scheduled SHINGLES VACCINES (#1) [facility] [code = SHINGLES VACCINES (#1)] Future Scheduled 65+ [facility]OCO[facility] Test VACCINE (1 of 1 - PPSV23) [code = 65+ PNEUMOCOCCAL VACCINE (1 of 1 - PPSV23)] Future Scheduled INFLUENZA VACCINE [facility] [code = INFLUENZA VACCINE] Encounters Start End Encounter Admission Attending Care Care Encounter Source Date/Time Date/Time Type Type Clinicians Facility Department ID 2022-08-26 Outpatient [facility] [id number] [place] 17:39:[id number] [facility] 2022-06-01 Inpatient ZAIN PENA PT [id number] [facility] 08:50:00 [facility] 2021-10-09 Outpatient MJ, [facility] [id number] [place] 12:11:10 [facility] 2021-09-08 Outpatient CHARLES, [facility] [id number] [place] 10:34:07 [facility] 2021-05-05 Outpatient [facility] [id number] [place] 15:57:[address] [facility] 2021-03-03 Outpatient [facility] [id number] [place] 14:59:[address] [facility] 2021-01-07 Outpatient CHARLES, [facility] [id number] [place] 12:26:15 [facility] 2021-01-04 Outpatient DIMPLE, [facility] [id number] [place] 01:03:43 [facility] 2023-06-01 2023-06-01 Outpatient YOLANDA GUERRERO [id number] [facility] 09:30:00 09:30:00 00 yvonne Waters 2023-01-21 2023-01-21 Outpatient [facility]_ PRIV PRIV [id number] [facility] 00:00:00 00:00:00 [facility]In [id number] Med[facility] l 2022-11-02 2022-11-02 Outpatient [facility]_ PRIV PRIV [id number] [facility] 00:00:00 00:00:00 Walk_In [id number] Medica l 2022-11-02 2022-11-02 Outpatient [facility]_ PRIV PRIV [id number] [facility] 00:00:00 00:00:00 Walk_In [id number] Medica l 2022-07-15 2022-07-15 Documentat Thony, 1.2.840.1 [id number] 21 [id number] [facility] 00:00:00 00:00:00 ion Charlene [address]37.1.[address] 3.430.2.7 Hospit a .3.377569 l .8 2022-07-15 2022-07-15 Documentat [facility], 1.2.840.1 [id number] 21 [id number] Methodi 00:00:00 00:00:00 ion Charlene [address]81.1.[address] 3.430.2.7 Hospit a .3.038424 l .8 2022-07-09 2022-07-13 Treatment Hieu Kothari 1.2.840.1 62286 3001 [id number] Methodi 10:00:00 12:17:43 Mole, [place] 60706.1.1 448 s t 3.430.2.7 Hospit a .3.791230 l .8 2022-07-09 2022-07-13 Treatment Hieu Kothari 1.2.840.1 09811 3001 [id number] Methodi 10:00:00 12:17:43 Mole, Mfon 76013.1.1 448 s t 3.430.2.7 Hospit a .3.012623 l .8 2022-07-08 2022-07-08 Travel 1.2.840.1 1.2.131.358 1410 [id number] Methodi 00:00:00 00:00:[address] 3.430.2.7 0.2.7.3.698 Ho spita .3.000279 084.8 l .8 2022-07-08 2022-07-08 Travel 1.2.840.1 1.2.030.387 7360 [id number] Methodi 00:00:00 00:00:[address] 3.430.2.7 0.2.7.3.698 Ho spita .3.747655 084.8 l .8 2022-06-28 2022-06-28 Outpatient Ogweno_B [facility] [id number] [facility] [facility] 00:00[facility]00 00:00:00 1121 Medica l Group 2022-06-24 2022-06-24 Treatment Hieu Kothari 1.2.840.1 01273 3001 [id number] Methodi 10:00:00 17:38:06 Charlene Bhandari 65872.1.[address] 3.430.2.7 Hospit a .3.814781 l .8 2022-06-24 2022-06-24 Treatment Hieu Kothari 1.2.840.1 46188 3001 [id number] Methodi 10:00:00 17:38:06 Charlene Bhandari 68694.1.[address] 3.430.2.7 Hospit a .3.426164 l .8 2022-06-24 2022-06-24 Travel 1.2.840.1 1.2.687.980 4989 474429 Methodi 00:00:00 00:00:[address] 3.430.2.7 0.2.7.3.698 Ho spita .3.261493 084.8 l .8 2022-06-24 2022-06-24 Travel 1.2.840.1 1.2.117.697 4203 330503 Methodi 00:00:00 00:00:[address] 3.430.2.7 0.2.7.3.698 Ho spita .3.081416 084.8 l .8 2022-06-16 2022-06-17 Treatment Hieu Kothari 1.2.840.1 43874 3001 [id number] Methodi 11:00:00 11:14:35 Charelne Bhandari 15681.1.[address] 3.430.2.7 Hospit a .3.192536 l .8 2022-06-16 2022-06-17 Treatment Hieu Kothari 1.2.840.1 00375 3001 [id number] Methodi 11:00:00 11:14:35 Charlene Bhandari 24210.1.[address] 3.430.2.7 Hospit a .3.962328 l .8 2022-06-16 2022-06-16 Plan of 1.2.840.1 [id number] 090578 3418 Methodi 00:00:00 00:00:[address] Documentat 3.430.2.7 Hos morris ion .3.517100 l .8 2022-06-16 2022-06-16 Plan of 1.2.840.1 [id number] 375572 3177 Methodi 00:00:00 00:00:[address] Documentat 3.430.2.7 Hos morris ion .3.265842 l .8 2022-06-15 2022-06-15 Travel 1.2.840.1 1.2.441.490 3524 367658 Methodi 00:00:00 00:00:[address] 3.430.2.7 0.2.7.3.698 Ho spita .3.217454 084.8 l .8 2022-06-15 2022-06-15 Travel 1.2.840.1 1.2.763.433 5209 123276 Methodi 00:00:00 00:00:[address] 3.430.2.7 0.2.7.3.698 Ho spita .3.405994 084.8 l .8 2022-06-10 2022-06-10 Evaluation Hieu Kothari 1.2.840.1 1041 66777 [id number] Methodi 11:00:00 12:00:00 Josr Lujan 56459.1.[address] 3.430.2.7 Hospit a .3.219798 l .8 2022-06-10 2022-06-10 Evaluation Hieu Kothari 1.2.840.1 1 2099 [id number] Methodi 11:00:00 12:00:00 Josr Lujan 95133.1.[address] 3.430.2.7 Hospit a .3.184173 l .8 2022-06-10 2022-06-10 Plan of 1.2.840.1 [id number] 954943 5199 Methodi 00:00:00 00:00:[address] Documentat 3.430.2.7 Hos morris ion .3.121493 l .8 2022-06-10 2022-06-10 Plan of 1.2.840.1 017770190 353179 4736 Methodi 00:00:00 00:00:[address] Documentat 3.430.2.7 Hos morris ion .3.219330 l .8 2022-06-09 2022-06-09 Transcribe Taye, 1.2.840.1 [id number] 406 1835144 Methodi 00:00:00 00:00:00 Orders Hieu Diaz 64244.1.[address] 3.430.2.7 Hospit a .3.640350 l .8 2022-06-09 2022-06-09 Transcribe Taye, 1.2.840.1 [id number] 589 [id number] Methodi 00:00:00 00:00:00 Orders Hieu Diaz 60556.1.[address] 3.430.2.7 Hospit a .3.077042 l .8 2022-06-09 2022-06-09 Transcribe Taye, 1.2.840.1 159353865 860 [id number] Methodi 00:00:00 00:00:00 Orders Hieu Diaz 04670.1.[address] 3.430.2.7 Hospit a .3.790402 l .8 2022-06-09 2022-06-09 Transcribe Taye, 1.2.840.1 [id number] 179 [id number] Methodi 00:00:00 00:00:00 Orders Hieu Diaz 00789.1.[address] 3.430.2.7 Hospit a .3.422163 l .8 2022-06-01 2022-06-01 Travel 1.2.840.1 1.2.743.567 2500 030879 Methodi 00:00:00 00:00:[address] 3.430.2.7 0.2.7.3.698 Ho spita .3.569556 084.8 l .8 2022-06-01 2022-06-01 Travel 1.2.840.1 1.2.491.124 2154 582144 Methodi 00:00:00 00:00:[address] 3.430.2.7 0.2.7.3.698 Ho spita .3.360755 084.8 l .8 2022-05-26 2022-05-26 Outpatient C TAYE, [facility] [id number] 580 [place] 05:34:00 14:50:00 HIEU [facility]ica [facility] 2022-03-18 2022-03-18 IHC Follow Atiya 2.16.840. 2.16.840.1. C [id number] [facility] 14:00:00 15:00:00 Up Ogweno 1.310901. 364311.4.6. [facility] 4.6.31064 [id number] 13915 2022-02-19 2022-02-19 Outpatient Ogweno_B DMG DM [id number] [facility] 03:57:00 03:57:00 0715 Medica l Group 2021-12-30 2021-12-30 IHC Follow Atiya 2.16.840. 2.16.840.1. C [id number] [facility] 19:00:00 19:30:00 Up Ogweno 1.422331. 007381.4.6. F75 Medical 4.6.88107 [id number] 41213 2021-11-30 2021-12-01 Emergency [facility] 32639 20837 Memoria 22:40:18 01:10:00 [facility] 02 l [facility] 2021-11-30 2021-11-30 Outpatient Chiara, [facility] [id number] 975 17:40:18 20:10:00 Ebelechukwu 02 [place] 2021-11-30 2021-11-30 IHC Follow Atiya 2.16.840. 2.16.840.1. C [id number] [facility] 18:00:00 19:00:00 Up Ogweno 1.489779. 953135.4.6. R4S Medical 4.6.37826 [id number] 64879 2021-11-03 2021-11-03 IHC Atiya 2.16.840. 2.16.840.1. CLAC XAAJHU [facility] 18:00:00 19:00:00 Initial Ogweno 1.734524. 406396.4.6. 8F3 Medical 4.6.66135 [id number] 35828 2021-10-06 2021-10-06 Outpatient LINDA, [facility] [id number] 817 [place] 00:00:00 00:00:[address] TIMOTHY [address] 2021-10-05 2021-10-05 CAV Atiya 2.16.840. 2.16.840.1. CLAC [id number] [facility] 19:00:00 20:30:00 In-Home Ogweno 1.388491. 806953.4.6. A3A Medical 4.6.15399 [id number] 60773 2021-10-022021-10-02 Outpatient Ogweno_B DMG DMG 11110- 2021 [facility] 06:30:00 06:30:00 0225 Medica l Group 2021-09-09 2021-09-09 [facility] [id number] 890 [place] 00:00:00 00:00:00 ADNAN [address] 2021-09-08 2021-09-[address] [facility] 1.2.840.114 [id number] 156 [place] 09:45:00 10:34:34 Visit Tori [facility] 350.1.13.58 [place] 4 9.2.7.2.686 [id number] 4 2021-09-07 2021-09-07 [facility], 1.2.840.1 [id number] 90 [place] 00:00:00 00:00:00 Encounter ADNAN 10093.1.1 [address] .3.382369 .8 2021-09-07 2021-09-07 Travel 1.2.840.1 1.2.990.477 4640 726282 Methodi 00:00:00 00:00:[address] 3.430.2.7 0.2.7.3.698 Ho spita .3.258140 084.8 l .8 2021-09-04 2021-09-04 [facility], 1.2.840.1 [id number] 90 [place] 00:00:00 00:00:00 Encounter ADNAN 62011.1.[address] .3.896958 .8 2021-09-04 2021-09-04 Travel 1.2.840.1 1.2.929.471 6544 919841 Methodi 00:00:00 00:00:[address] 3.430.2.7 0.2.7.3.698 Ho spita .3.659469 084.8 l .8 2021-09-02 2021-09-02 [facility], 1.2.840.1 [id number] 90 [place] 00:00:00 00:00:00 Encounter ADNAN 56011.1.1 [address] .3.541685 .8 2021-09-02 2021-09-02 Travel 1.2.840.1 1.2.869.152 3590 255734 Methodi 00:00:00 00:00:[address] 3.430.2.7 0.2.7.3.698 Ho spita .3.098036 084.8 l .8 2021-08-31 2021-08-31 [facility] 299 [facility] 08:00:00 08:00:00 _N 0124 Medica l Group 2021-08-31 2021-08-31 [facility], 1.2.840.1 [id number] [id number] [place] 00:00:00 00:00:00 Encounter ADNAN 35349.1.[address] .3.030891 .8 2021-08-31 2021-08-31 Travel 1.2.840.1 1.2.628.931 3896 067603 Methodi 00:00:00 00:00:[address] 3.430.2.7 0.2.7.3.698 Ho spita .3.212187 084.8 l .8 2021-08-26 2021-08-26 [facility], 1.2.840.1 [id number] [place] 00:00:00 00:00:00 Encounter ADNAN 87828.1.1 [address] .3.360746 .8 2021-08-26 2021-08-26 Travel 1.2.840.1 1.2.197.897 9622 315472 Methodi 00:00:00 00:00:[address] 3.430.2.7 0.2.7.3.698 Ho spita .3.961433 084.8 l .8 2021-08-24 2021-08-24 [facility], 1.2.840.1 [id number] 042 [id number] [place] 00:00:00 00:00:00 Encounter ALICE 71927.1.[address] .3.673638 .8 2021-08-24 2021-08-24 Travel 1.2.840.1 1.2.685.728 6091 609910 Methodi 00:00:00 00:00:[address] 3.430.2.7 0.2.7.3.698 Ho spita .3.361669 084.8 l .8 2021-08-20 2021-08-20 Travel 1.2.840.1 1.2.350.139 9024 963121 Methodi 00:00:00 00:00:[address] 3.430.2.7 0.2.7.3.698 Ho spita .3.118910 084.8 l .8 2021-08-11 2021-08-11 [facility], 1.2.840.1 [id number] 891 [id number] [place] 00:00:00 00:00:00 Encounter ALICE 82570.1.[address] .3.181463 .8 2021-08-11 2021-08-11 Travel 1.2.840.1 1.2.390.117 5942 164889 Methodi 00:00:00 00:00:[address] 3.430.2.7 0.2.7.3.698 Ho spita .3.512411 084.8 l .8 2021-07-28 2021-07-28 CHRISTINA Tucker [facility] 1.2.840.114 [id number] 648 [place] 00:00:00 00:00:00 Adnan SW MED 350.1.13.58 [place] 4 9.2.7.2.686 [id number] 4 2021-06-29 2021-06-[address] [facility] 1.2.840.114 [id number] 951 [place] 00:00:00 00:00:00 Adnan SW MED 350.1.13.58 [place] 4 9.2.7.2.686 [id number] 4 2021-06-22 2021-06-22 Transcribe Charles, 1.2.840.1 [id number] 604 [id number] Methodi 00:00:00 00:00:00 Orders Adnan 80449.1.[address] 3.430.2.7 Hospit a .3.834240 l .8 2021-06-22 2021-06-22 Travel 1.2.840.1 1.2.660.688 2671 617654 Methodi 00:00:00 00:00:[address] 3.430.2.7 0.2.7.3.698 Ho spita .3.099319 084.8 l .8 2021-06-09 2021-06-[address] [facility] 1.2.840.114 [id number] 698 [place] 09:58:45 11:03:41 Visit Adnan SW MED 350.1.13.58 [place] 4 9.2.7.2.686 [id number] 4 2021-06-01 2021-06-[address] [facility] 1.2. 840.114 [id number] [place] 00:00:00 00:00:00 Yola Wilson SW MED 350.1.13.5 8 Health [place] 4 9.2.7.2.686 [id number] 4 2021-05-31 2021-05-[address] [facility] 1.2.840.114 [id number] 266 [place] 00:00:00 00:00:00 Adnan SW MED 350.1.13.58 [place] 4 9.2.7.2.686 [id number] 4 2021-05-05 2021-05-[address] [facility] 1.2.840.114 [id number] 830 [place] 14:31:05 15:58:27 Visit Adnan SW MED 350.1.13.58 [place] 4 9.2.7.2.686 [id number] 4 2021-04-03 2021-04-[address] [facility] 1.2.840.114 [id number] 041 [place] 00:00:00 00:00:00 Adnan SW MED 350.1.13.58 [place] 4 9.2.7.2.686 [id number] 4 2021-03-16 2021-03-[address] [facility] 1.2.137.342 9389 23407 00:00:00 00:00:00 Adnan SW MED 350.1.13.58 [place] 4 9.2.7.2.686 [id number] 4 2021-03-16 2021-03-[address] [facility] 1.2.194.492 3140 22745 [place] 00:00:00 00:00:00 Adnan SW MED 350.1.13.58 [place] 4 9.2.7.2.686 [id number] 4 2021-03-13 2021-03-13 Outpatient PHILIPPE [facility] 299 [facility] 02:37:00 02:37:00 _N 0806 Medica l Group 2021-03-03 2021-03-[address] [facility] 1.2.840.114 [id number] 405 13:49:22 15:00:18 Visit Adnan SW MED 350.1.13.58 [place] 4 9.2.7.2.686 [id number] 4 2021-03-03 2021-03-[address] [facility] 1.2.840.114 [id number] 405 [place] 13:49:22 15:00:18 Visit Adnan SW MED 350.1.13.58 [place] 4 9.2.7.2.686 [id number] 4 2021-01-29 2021-01-29 Refill CHRISTINA Soto [facility] 1.2.840.114 [id number] 282 00:00:00 00:00:00 Adnan SW MED 350.1.13.58 [place] 4 9.2.7.2.686 [id number] 4 2021-01-29 2021-01-29 Refill Khalijonathan, [facility] 1.2.840.114 [id number] 282 [place] 00:00:00 00:00:00 Adnan SW MED 350.1.13.58 [place] 4 9.2.7.2.686 [id number] 4 2021-01-27 2021-01-27 EXT [facility] OP Barker, EXT [facility] 1.2.840.114 1 [id number] [place] 00:00:00 00:00:00 Elmer-Anna LOCATION 350.1.13.58 [facility] [place] 9.2.7.2.686 [id number] 0 2021-01-27 2021-01-27 EXT [facility] OP Barker, EXT M[facility] 1.2.840.114 1 [id number] [place] 00:00:00 00:00:00 Elmer-Anna LOCATION 350.1.13.58 [facility] [place] 9.2.7.2.686 [id number] 0 2021-01-07 2021-01-07 Office CHRISTINA Soto [facility] 1.2.840.114 [id number] 367 11:05:38 12:26:34 Visit Adnan SW MED 350.1.13.58 [place] 4 9.2.7.2.686 [id number] 4 2021-01-07 2021-01-07 Office CHRISTINA Soto [facility] 1.2.840.114 [id number] 367 [place] 11:05:38 12:26:34 Visit Adnan SW MED 350.1.13.58 He [place]th [place] 4 9.2.7.2.686 [id number] 4 2020-12-26 2020-12-26 Outpatient RENALDO Monae [id number] [facility] 09:00:00 09:00:00 Cortez 44 [facility] 2020-12-04 2020-12-23 Inpatient nullFlavo [facility] 11546 04803 Mem[place] 15:01:26 22:08:00 r [place] 01 l [facility] 2020-12-04 2020-12-23 Outpatient Dana Flowers [facility] 3977 [id number] 10:01:26 17:08:00 Juanito 2020-12-04 2020-12-04 Outpatient Rudi [facility] [id number] 10:01:26 10:01:26 Abdoul Reeder 2020-12-04 2020-12-[address] [facility] 3977 [id number] 10:01: 10:01:26 Juanito 2020-11-13 2020-11-13 Outpatient ADRIANA MonaeWU HCAWU [id number] [facility] 14:53:38 14:53:38 Cortez 72 [facility] 2020-09-08 2020-09-08 Outpatient COH CO[facility] PDPFFNZ WSN [facility] 00:00:00 00:00:00 [id number] 2019-12-21 2019-12-18 Inpatient ADRIANA McbrideWU OUTD [id number] [facility] 10:00:00 08:00:00 Cortez 25 [facility] 2014-02-15 2014-02-16 Outpatient nullFlavo [facility] [id number] Memoria 18:18:00 04:59:00 r [facility] 00 l [facility] 2014-02-15 2014-02-15 Outpatient Jose 2.16.840. 2.16.840.1. 3 [id number] 13:18:00 23:59:00 Dilawar 1.957670. 169343.3.61 00 3.615.0.1 5.0.101 01 Results Test Description Test Time Test Comments Results Result Comments Source BASIC METABOLIC PANEL *WW* 2022-05-26 07:28:00 Test Item Value Reference Range Interpretation Comme nts GLUCOSE (test code = 94 mg/dL 75-100 06D) SODIUM (test code = 142 mmol/L 136-145 01A) POTASSIUM (test code = 4.2 mmol/L 3.6-5.1 01B) CHLORIDE (test code = 112 mmol/L 98-107 H 04A) CO2 (test code = 02A) 24 mmol/L 20-31 ANION GAP (test code = 10.2 mmol/L ANG) BUN (test code = 05D) 10 mg/dL 9-23 CREATININE (test code = 0.8 mg/dL 0.6-1.0 03E) GFR (test code = GFR) 73 mL/min/1.73m\\S\\2 See_Comment L [Automated message] The system which ge nerated this result tra nsmitted reference range : >=90. The reference r sunitha was not used to int erpret this result as normal/abnormal . GFR 85 mL/min/1.73m\\S\\2 See_Comment L [Automated message] The (test code = GFRAA) system w [facility] generated this result tra nsmitted reference range : >=90. The reference r sunitha was not used to int erpret this result as normal/abnormal . EGFR (test code = EGFR) eGFR BY CKD-EPI CALCULATION IS NOT RECOMMENDED FOR PATIENTS UNDER 18 YEARS OF AGE. BUN/CREA (test code = 13 12-20 BCR) CALCIUM (test code = 8.9 mg/dL 8.3-10.6 09D) URINE AND [id number] 00:00:00 Test Item Value Reference Range Interpretation Comments UA Color (test code = Yellow *NA*(11/30/21 UA Color) 7:00 PM) [facility] [id number] 00:00:00 Test Item Value Reference Range Interpretation Comments UA Turbidity (test code = Clear (11/30/21 7:00 UA Turbidity) PM) [facility] [id number] 00:00:00 Test Item Value Reference Range Interpretation Comments UA Spec Grav (test code = UA Spec 1.010 1 Grav) [facility] [id number] 00:00:00 Test Item Value Reference Range Interpretation Comments UA pH (test code = UA pH) 7.5 1 5.0-8.0 [facility] [id number] 00:00:00 Test Item Value Reference Range Interpretation Comments UA Protein (test code = UA Negative mg/dL Protein) [facility] [id number] 00:00:00 Test Item Value Reference Range Interpretation Comments UA Glucose (test code = UA Negative mg/dL Glucose) [facility] [id number] 00:00:00 Test Item Value Reference Range Interpretation Comments UA Ketones (test code = UA Negative mg/dL Ketones) [facility] [id number] 00:00:00 Test Item Value Reference Range Interpretation Comments UA Bili (test code = Negative *NA*(11/30/21 UA Bili) 7:00 PM) [facility] [id number] 00:00:00 Test Item Value Reference Range Interpretation Comments UA Blood (test code = Negative (11/30/21 7:00 UA Blood) PM) [facility] [id number] 00:00:00 Test Item Value Reference Range Interpretation Comments UA Urobilinogen (test code = UA 0.2 0.1-1.0 Urobilinogen) [facility] [id number] 00:00:00 Test Item Value Reference Range Interpretation Comments UA Nitrite (test code Negative (11/30/21 7:00 = UA Nitrite) PM) [facility] [id number] 00:00:00 Test Item Value Reference Range Interpretation Comments UA Leuk Est (test Negative (11/30/21 7:00 code = UA Leuk Est) PM) [facility] [id number] 00:00:00 Test Item Value Reference Range Interpretation Comments UA Sq Epi (test code = None Seen (11/30/21 7:00 UA Sq Epi) PM) [facility] [id number] 00:00:00 Test Item Value Reference Range Interpretation Comments UA WBC (test code = UA WBC) 0-2 /HPF <=5 [facility] [id number] 00:00:00 Test Item Value Reference Range Interpretation Comments UA RBC (test code = UA None Seen (11/30/21 7:00 RBC) PM) [facility] [id number] 00:00:00 Test Item Value Reference Range Interpretation Comments UA Bacteria (test code = None Seen (11/30/21 UA Bacteria) 7:00 PM) [facility] [id number] 22:58:00 Test Item Value Reference Range Interpretation Comments HS Troponin I (test code = HS Troponin 9 I) [facility]2022-04-25 22:58:00 Test Item Value Reference Range Interpretation Comments Glucose Lvl (test code = Glucose Lvl) 217 70-99 [facility]2022-04-25 22:58:00 Test Item Value Reference Range Interpretation Comments BUN (test code = BUN) 24 7-22 [facility]2022-04-25 22:58:00 Test Item Value Reference Range Interpretation Comments Creatinine Lvl (test code = Creatinine 1.29 0.50-1.40 Lvl) [facility] [id number] 22:58:00 Test Item Value Reference Range Interpretation Comments Sodium Lvl (test code = Sodium Lvl) 139 135-145 [facility] [id number] 22:58:00 Test Item Value Reference Range Interpretation Comments Potassium Lvl (test code = Potassium 4.1 3.5-5.1 Lvl) [facility] [id number] 22:58:00 Test Item Value Reference Range Interpretation Comments Chloride Lvl (test code = Chloride Lvl) 102 95-109 [facility] [id number] 22:58:00 Test Item Value Reference Range Interpretation Comments CO2 (test code = CO2) 27 24-32 [facility] [id number] 22:58:00 Test Item Value Reference Range Interpretation Comments Calcium Lvl (test code = Calcium Lvl) 9.2 8.5-10.5 [facility] [id number] 22:58:00 Test Item Value Reference Range Interpretation Comments Albumin Lvl (test code = Albumin Lvl) 3.5 3.5-5.0 [facility] [id number] 22:58:00 Test Item Value Reference Range Interpretation Comments ALT (test code = ALT) 25 <=65 [facility] [id number] 22:58:00 Test Item Value Reference Range Interpretation Comments AST (test code = AST) 15 <=37 [facility]2022-04-25 22:58:00 Test Item Value Reference Range Interpretation Comments AGAP (test code = AGAP) 14.1 10.0-20.0 [facility] [place] [id number] 22:58:00 Test Item Value Reference Range Interpretation Comments B/C Ratio (test code = B/C Ratio) 19 1 6-25 [place] [id number] 22:58:00 Test Item Value Reference Range Interpretation Comments eGFR (test code = eGFR) 41 [place] [address]-04-25 22:58:00 Test Item Value Reference Range Interpretation Comments Total Protein (test code = Total 7.3 6.4-8.4 Protein) [place] [id number] 22:58:00 Test Item Value Reference Range Interpretation Comments Alk Phos (test code = Alk Phos) 88 39-136 [place] [id number] 22:58:00 Test Item Value Reference Range Interpretation Comments Bili Total (test code = Bili Total) 0.3 0.2-1.3 [place] [id number] 22:58:00 Test Item Value Reference Range Interpretation Comments Globulin (test code = Globulin) 3.8 2.7-4.2 [place] [address]-04-25 22:58:00 Test Item Value Reference Range Interpretation Comments A/G Ratio (test code = A/G Ratio) 0.9 1 0.7-1.[address]04-25 22:58:00 Test Item Value Reference Range Interpretation Comments WBC (test code = WBC) 10.9 3.7-10.[address]04-25 22:58:00 Test Item Value Reference Range Interpretation Comments RBC (test code = RBC) 4.34 4.20-5.[address]04-25 22:58:00 Test Item Value Reference Range Interpretation Comments Hgb (test code = Hgb) 13.3 12.0-16.[address]04-25 22:58:00 Test Item Value Reference Range Interpretation Comments Hct (test code = Hct) 38.9 36.0-48.[address]04-25 22:58:00 Test Item Value Reference Range Interpretation Comments MCV (test code = MCV) 89.6 80.0-98.[address]04-25 22:58:00 Test Item Value Reference Range Interpretation Comments MCH (test code = MCH) 30.6 pg 27.0-31.0 [facility]FF[facility]ARZMZ2620-[facility]-07 22:58:00 Test Item Value Reference Range Interpretation Comments MCHC (test code = MCHC) 34.1 32.0-36.0 [place] 844562-04-25 22:58:00 Test Item Value Reference Range Interpretation Comments RDW (test code = RDW) 14.1 11.5-14.5 [id number] 22:58:00 Test Item Value Reference Range Interpretation Comments Platelet (test code = Platelet) 255 133-450 [facility] M[id number] 22:58:00 Test Item Value Reference Range Interpretation Comments MPV (test code = MPV) 9.4 7.4-10.4 [facility] M[id number] 22:58:00 Test Item Value Reference Range Interpretation Comments Segs (test code = Segs) 83.6 45.0-75.0 [facility] MarshallQeyfucmQDFVPXZQIO1420-90-10 22:58:00 Test Item Value Reference Range Interpretation Comments Lymphocytes (test code = Lymphocytes) 14.4 20.0-40.0 [facility] MarshallHgcskegUUYZPPLQSS5827-55-45 22:58:00 Test Item Value Reference Range Interpretation Comments Monocytes (test code = Monocytes) 1.8 2.0-12.0 [facility] Mar[id number] 22:58:00 Test Item Value Reference Range Interpretation Comments Basophils (test code = Basophils) 0.2 <=1.0 [facility] MarshallZalouezKMRQJQCIEL4846-73-01 22:58:00 Test Item Value Reference Range Interpretation Comments Neutrophils # (test code = Neutrophils 9.1 1.5-8.1 #) [facility] M[id number] 22:58:00 Test Item Value Reference Range Interpretation Comments Lymphocytes # (test code = Lymphocytes 1.6 1.0-5.5 #) [facility] M[id number] 22:58:00 Test Item Value Reference Range Interpretation Comments Monocytes # (test code = Monocytes #) 0.2 <=0.8 [facility]2021-05-18 07:57:00 Test Item Value Reference Range Interpretation Comments Total Protein (test code = Total 6.9 6.4-8.4 Protein) [place] [address] 07:57:00 Test Item Value Reference Range Interpretation Comments Albumin Lvl (test code = Albumin Lvl) 2.7 3.5-5.0 [place] [address] 07:57:00 Test Item Value Reference Range Interpretation Comments ALT (test code = ALT) 73 <=65 [place] [address] 07:57:00 Test Item Value Reference Range Interpretation Comments AST (test code = AST) 63 <=37 [place] [address] 07:57:00 Test Item Value Reference Range Interpretation Comments Alk Phos (test code = Alk Phos) 158 39-136 [place] [address] 07:57:00 Test Item Value Reference Range Interpretation Comments Bili Total (test code = Bili Total) 0.5 0.2-1.3 [place] [address] 07:57:00 Test Item Value Reference Range Interpretation Comments Bili Direct (test code = Bili Direct) 0.2 <=0.3 [place] [address] 07:57:00 Test Item Value Reference Range Interpretation Comments Bili Indirect (test code = Bili 0.3 <=1.0 Indirect) [place] [address] 07:57:00 Test Item Value Reference Range Interpretation Comments Globulin (test code = Globulin) 4.2 2.7-4.2 [place] [address] 07:57:00 Test Item Value Reference Range Interpretation Comments A/G Ratio (test code = A/G Ratio) 0.6 1 0.7-1.6 [place] [address] 07:57:00 Test Item Value Reference Range Interpretation Comments WBC X 10x3 (test code = WBC X 10x3) 7.6 3.7-10.4 [place] [address] 07:57:00 Test Item Value Reference Range Interpretation Comments RBC X 10x6 (test code = RBC X 10x6) 3.93 4.20-5.40 [place] [address] 07:57:00 Test Item Value Reference Range Interpretation Comments Hgb (test code = Hgb) 11.9 12.0-16.0 [place] [address]-05-18 07:57:00 Test Item Value Reference Range Interpretation Comments Hct (test code = Hct) 35.1 36.0-48.0 [place] [address]-05-18 07:57:00 Test Item Value Reference Range Interpretation Comments MCV (test code = MCV) 89.2 80.0-98.0 [place] [address]-05-18 07:57:00 Test Item Value Reference Range Interpretation Comments MCH (test code = MCH) 30.2 pg 27.0-31.0 [place] [address]-05-18 07:57:00 Test Item Value Reference Range Interpretation Comments MCHC (test code = MCHC) 33.9 32.0-36.0 [place] [address]-05-18 07:57:00 Test Item Value Reference Range Interpretation Comments RDW (test code = RDW) 13.7 11.5-14.5 [place] 844561-05-18 07:57:00 Test Item Value Reference Range Interpretation Comments Platelet (test code = Platelet) 460 133-450 [place] [address]-05-18 07:57:00 Test Item Value Reference Range Interpretation Comments MPV (test code = MPV) 8.7 7.4-10.4 [place] [address]-05-18 07:57:00 Test Item Value Reference Range Interpretation Comments Segs (test code = Segs) 57.6 45.0-75.0 [place] [address]-05-18 07:57:00 Test Item Value Reference Range Interpretation Comments Lymphocytes (test code = Lymphocytes) 32.2 20.0-40.0 [place] [address]-05-18 07:57:00 Test Item Value Reference Range Interpretation Comments Monocytes (test code = Monocytes) 7.3 2.0-12.0 [place] [address]-05-18 07:57:00 Test Item Value Reference Range Interpretation Comments Eosinophils (test code = Eosinophils) 1.7 <=4.0 [place] [address]-05-18 07:57:00 Test Item Value Reference Range Interpretation Comments Basophils (test code = Basophils) 1.2 <=1.0 [place] [address]-05-18 07:57:00 Test Item Value Reference Range Interpretation Comments Neutrophils # (test code = Neutrophils 4.4 1.5-8.1 #) [address]05-18 07:57:00 Test Item Value Reference Range Interpretation Comments Lymphocytes # (test code = Lymphocytes 2.4 1.0-5.5 #) [address]05-18 07:57:00 Test Item Value Reference Range Interpretation Comments Monocytes # (test code = Monocytes #) 0.6 <=0.8 [address]05-18 07:57:00 Test Item Value Reference Range Interpretation Comments Eosinophils # (test code = Eosinophils 0.1 <=0.5 #) [address]05-18 07:57:00 Test Item Value Reference Range Interpretation Comments Basophils # (test code = Basophils #) 0.1 <=0.2 [place] [address]-05-17 09:04:00 Test Item Value Reference Range Interpretation Comments Glucose Lvl (test code = Glucose Lvl) 105 70-99 [place] 880721-05-17 09:04:00 Test Item Value Reference Range Interpretation Comments BUN (test code = BUN) 16 7-22 [place] [address]-05-17 09:04:00 Test Item Value Reference Range Interpretation Comments Creatinine Lvl (test code = Creatinine 0.90 0.50-1.40 Lvl) [place] [address]-05-17 09:04:00 Test Item Value Reference Range Interpretation Comments Sodium Lvl (test code = Sodium Lvl) 137 135-145 [place] 880721-05-17 09:04:00 Test Item Value Reference Range Interpretation Comments Potassium Lvl (test code = Potassium 3.7 3.5-5.1 Lvl) [place] [address]-05-17 09:04:00 Test Item Value Reference Range Interpretation Comments Chloride Lvl (test code = Chloride Lvl) 107 95-109 [place] 880721-05-17 09:04:00 Test Item Value Reference Range Interpretation Comments CO2 (test code = CO2) 20 24-32 [place] [address]-05-17 09:04:00 Test Item Value Reference Range Interpretation Comments Calcium Lvl (test code = Calcium Lvl) 9.5 8.5-10.5 [facility]2021-05-17 09:04:00 Test Item Value Reference Range Interpretation Comments Total Protein (test code = Total 7.5 6.4-8.4 Protein) [facility]2021-05-17 09:04:00 Test Item Value Reference Range Interpretation Comments Albumin Lvl (test code = Albumin Lvl) 2.9 3.5-5.0 [facility]2021-05-17 09:04:00 Test Item Value Reference Range Interpretation Comments ALT (test code = ALT) 77 <=65 [facility]2021-05-17 09:04:00 Test Item Value Reference Range Interpretation Comments AST (test code = AST) 64 <=37 [facility]2021-05-17 09:04:00 Test Item Value Reference Range Interpretation Comments Alk Phos (test code = Alk Phos) 168 39-136 [facility]2021-05-17 09:04:00 Test Item Value Reference Range Interpretation Comments Bili Total (test code = Bili Total) 0.6 0.2-1.3 [facility]2021-05-17 09:04:00 Test Item Value Reference Range Interpretation Comments AGAP (test code = AGAP) 13.7 10.0-20.0 [facility]2021-05-17 09:04:00 Test Item Value Reference Range Interpretation Comments B/C Ratio (test code = B/C Ratio) 18 1 6-25 [facility]2021-05-17 09:04:00 Test Item Value Reference Range Interpretation Comments Globulin (test code = Globulin) 4.6 2.7-4.2 [facility]2021-05-17 09:04:00 Test Item Value Reference Range Interpretation Comments A/G Ratio (test code = A/G Ratio) 0.6 1 0.7-1.6 [facility]2021-05-17 09:04:00 Test Item Value Reference Range Interpretation Comments eGFR (test code = eGFR) 64 [facility]2021-05-17 09:04:00 Test Item Value Reference Range Interpretation Comments Lipase Lvl (test code = Lipase Lvl) 346 73-393 [facility] AND [id number] 18:41:00 Test Item Value Reference Range Interpretation Comments UA Turbidity (test code Slight *ABN*(12/18/20 = UA Turbidity) 1:41 PM) [facility] [id number] 18:41:00 Test Item Value Reference Range Interpretation Comments UA Spec Grav (test code = UA Spec 1.023 1 Grav) [facility] AND [id number] 18:41:00 Test Item Value Reference Range Interpretation Comments UA pH (test code = UA pH) 5.0 1 5.0-8.0 [facility] [id number] 18:41:00 Test Item Value Reference Range Interpretation Comments UA Protein (test code = UA Negative mg/dL Protein) [facility] AND [id number] 18:41:00 Test Item Value Reference Range Interpretation Comments UA Glucose (test code = UA Negative mg/dL Glucose) [facility] AND [id number] 18:41:00 Test Item Value Reference Range Interpretation Comments UA Ketones (test code = UA Negative mg/dL Ketones) [facility] AND [id number] 18:41:00 Test Item Value Reference Range Interpretation Comments UA Bili (test code = Negative *NA*(12/18/20 UA Bili) 1:41 PM) [facility] AND [id number] 18:41:00 Test Item Value Reference Range Interpretation Comments UA Blood (test code = Negative (12/18/20 1:41 UA Blood) PM) [facility] AND [id number] 18:41:00 Test Item Value Reference Range Interpretation Comments UA Nitrite (test code Negative (12/18/20 1:41 = UA Nitrite) PM) [facility] [id number] 18:41:00 Test Item Value Reference Range Interpretation Comments UA Leuk Est (test Negative (12/18/20 1:41 code = UA Leuk Est) PM) [facility] [id number] 18:41:00 Test Item Value Reference Range Interpretation Comments UA Sq Epi (test code = UA Sq Occasional /LPF Epi) [facility] AND [id number] 18:41:00 Test Item Value Reference Range Interpretation Comments UA WBC (test code = UA WBC) 1 <=5 [facility] AND [id number] 18:41:00 Test Item Value Reference Range Interpretation Comments UA RBC (test code = UA RBC) 1 <=2 [facility] AND [id number] 18:41:00 Test Item Value Reference Range Interpretation Comments UA Mucus (test code = UA Mucus) Few /LPF [facility] AND [id number] 18:41:00 Test Item Value Reference Range Interpretation Comments UA Hyal Cast (test code = UA Hyal Cast) 3 <=2 [facility] AND [id number] 18:41:00 Test Item Value Reference Range Interpretation Comments UA Color (test code = UA Color) Yellow [facility] AND [id number] 18:41:00 Test Item Value Reference Range Interpretation Comments UA Urobilinogen (test code = UA no gt 0.1-1.0 Urobilinogen) [facility] Center[facility] [id number] 18:41:00 Test Item Value Reference Range Interpretation Comments Culture: Urine (test code = No Growth Culture: Urine) [facility] [id number] 16:36:00 Test Item Value Reference Range Interpretation Comments Coronavirus (COVID-19) Not Detected (12/18/20 QUENTIN (test code = 11:36 AM) Coronavirus (COVID-19) QUENTIN) [facility]2021-05-13 08:53:00 Test Item Value Reference Range Interpretation Comments Glucose Lvl (test code = Glucose Lvl) 72 70-99 [facility]2021-05-13 08:53:00 Test Item Value Reference Range Interpretation Comments BUN (test code = BUN) 24 7-22 [facility]2021-05-13 08:53:00 Test Item Value Reference Range Interpretation Comments Creatinine Lvl (test code = Creatinine 0.80 0.50-1.40 Lvl) [facility]2021-05-13 08:53:00 Test Item Value Reference Range Interpretation Comments Sodium Lvl (test code = Sodium Lvl) 137 135-145 [facility]2021-05-13 08:53:00 Test Item Value Reference Range Interpretation Comments Potassium Lvl (test code = Potassium 4.1 3.5-5.1 Lvl) [facility]2021-05-13 08:53:00 Test Item Value Reference Range Interpretation Comments Chloride Lvl (test code = Chloride Lvl) 108 95-109 [place] 880721-05-13 08:53:00 Test Item Value Reference Range Interpretation Comments CO2 (test code = CO2) 19 24-32 [place] 880721-05-13 08:53:00 Test Item Value Reference Range Interpretation Comments Calcium Lvl (test code = Calcium Lvl) 9.4 8.5-10.5 [place] 880721-05-13 08:53:00 Test Item Value Reference Range Interpretation Comments AGAP (test code = AGAP) 14.1 10.0-20.0 [place] 880721-05-13 08:53:00 Test Item Value Reference Range Interpretation Comments eGFR (test code = eGFR) 74 [place] 844561-05-13 08:53:00 Test Item Value Reference Range Interpretation Comments Segs (test code = Segs) 63.2 45.0-75.0 [place] 844561-05-13 08:53:00 Test Item Value Reference Range Interpretation Comments Lymphocytes (test code = Lymphocytes) 26.2 20.0-40.0 [place] [address]-05-13 08:53:00 Test Item Value Reference Range Interpretation Comments Monocytes (test code = Monocytes) 8.7 2.0-12.0 [place] [address]-05-13 08:53:00 Test Item Value Reference Range Interpretation Comments Eosinophils (test code = Eosinophils) 1.8 <=4.0 [place] 844561-05-13 08:53:00 Test Item Value Reference Range Interpretation Comments Basophils (test code = Basophils) 0.1 <=1.0 [place] [address]-05-13 08:53:00 Test Item Value Reference Range Interpretation Comments Neutrophils # (test code = Neutrophils 6.0 1.5-8.1 #) [place] 844561-05-13 08:53:00 Test Item Value Reference Range Interpretation Comments Lymphocytes # (test code = Lymphocytes 2.5 1.0-5.5 #) [place] 844561-05-13 08:53:00 Test Item Value Reference Range Interpretation Comments Monocytes # (test code = Monocytes #) 0.8 <=0.8 [place] 844561-05-13 08:53:00 Test Item Value Reference Range Interpretation Comments Eosinophils # (test code = Eosinophils 0.2 <=0.5 #) [id number] 08:53:00 Test Item Value Reference Range Interpretation Comments WBC X 10x3 (test code = WBC X 10x3) 9.5 3.7-10.4 [facility] [id number] 08:53:00 Test Item Value Reference Range Interpretation Comments RBC X 10x6 (test code = RBC X 10x6) 3.77 4.20-5.40 [facility] [id number] 08:53:00 Test Item Value Reference Range Interpretation Comments Hgb (test code = Hgb) 11.5 12.0-16.0 [facility] [id number] 08:53:00 Test Item Value Reference Range Interpretation Comments Hct (test code = Hct) 33.9 36.0-48.0 [facility] [id number] 08:53:00 Test Item Value Reference Range Interpretation Comments MCV (test code = MCV) 89.9 80.0-98.0 [facility] [id number] 08:53:00 Test Item Value Reference Range Interpretation Comments MCH (test code = MCH) 30.6 pg 27.0-31.0 [facility] [id number] 08:53:00 Test Item Value Reference Range Interpretation Comments MCHC (test code = MCHC) 34.0 32.0-36.0 [facility] [id number] 08:53:00 Test Item Value Reference Range Interpretation Comments RDW (test code = RDW) 13.7 11.5-14.5 [facility] [id number] 08:53:00 Test Item Value Reference Range Interpretation Comments Platelet (test code = Platelet) 469 992-450 [facility] [id number] 08:53:00 Test Item Value Reference Range Interpretation Comments MPV (test code = MPV) 8.6 7.4-10.4 [facility] AND [id number] 23:00:00 Test Item Value Reference Range Interpretation Comments UA Turbidity (test code Marked *ABN*(12/17/20 = UA Turbidity) 6:00 PM) [facility] AND [id number] 23:00:00 Test Item Value Reference Range Interpretation Comments UA Spec Grav (test code = UA Spec 1.033 1 Grav) [facility] [id number] 23:00:00 Test Item Value Reference Range Interpretation Comments UA pH (test code = UA pH) 5.0 1 5.0-8.0 [facility] [id number] 23:00:00 Test Item Value Reference Range Interpretation Comments UA Protein (test code = UA Negative mg/dL Protein) [facility] [id number] 23:00:00 Test Item Value Reference Range Interpretation Comments UA Glucose (test code = UA Negative mg/dL Glucose) [facility] [id number] 23:00:00 Test Item Value Reference Range Interpretation Comments UA Ketones (test code = UA Negative mg/dL Ketones) [facility] AND [id number] 23:00:00 Test Item Value Reference Range Interpretation Comments UA Bili (test code = Negative *NA*(12/17/20 UA Bili) 6:00 PM) [facility] AND [id number] 23:00:00 Test Item Value Reference Range Interpretation Comments UA Blood (test code = Negative (12/17/20 6:00 UA Blood) PM) [facility] AND [id number] 23:00:00 Test Item Value Reference Range Interpretation Comments UA Nitrite (test code Negative (12/17/20 6:00 = UA Nitrite) PM) [facility] AND [id number] 23:00:00 Test Item Value Reference Range Interpretation Comments UA Leuk Est (test Moderate *ABN*(12/17/20 code = UA Leuk Est) 6:00 PM) [facility] AND [id number] 23:00:00 Test Item Value Reference Range Interpretation Comments UA Sq Epi (test code = UA Sq Epi) Many /LPF [facility] AND [id number] 23:00:00 Test Item Value Reference Range Interpretation Comments UA WBC (test code = UA WBC) 3 <=5 [facility] [id number] 23:00:00 Test Item Value Reference Range Interpretation Comments UA Bacteria (test code = UA Moderate /HPF Bacteria) [facility] [id number] 23:00:00 Test Item Value Reference Range Interpretation Comments UA Mucus (test code = UA Mucus) Few /LPF [facility] AND [id number] 23:00:00 Test Item Value Reference Range Interpretation Comments UA Amorph Kelsey (test code = Occasional /HPF UA Amorph Kelsey) [facility] AND [id number] 23:00:00 Test Item Value Reference Range Interpretation Comments UA Color (test code = UA Color) Zarina [facility] AND [id number] 23:00:00 Test Item Value Reference Range Interpretation Comments UA Urobilinogen (test code = UA no gt 0.1-1.0 Urobilinogen) [facility]2021-05-12 11:09:00 Test Item Value Reference Range Interpretation Comments Phosphorus (test code = Phosphorus) 3.7 2.5-4.5 [facility]2021-05-12 11:09:00 Test Item Value Reference Range Interpretation Comments Glucose Lvl (test code = Glucose Lvl) 92 70-99 [facility]2021-05-12 11:09:00 Test Item Value Reference Range Interpretation Comments BUN (test code = BUN) 25 7-22 [facility]2021-05-12 11:09:00 Test Item Value Reference Range Interpretation Comments Creatinine Lvl (test code = Creatinine 0.80 0.50-1.40 Lvl) [facility]2021-05-12 11:09:00 Test Item Value Reference Range Interpretation Comments Sodium Lvl (test code = Sodium Lvl) 135 135-145 [facility]2021-05-12 11:09:00 Test Item Value Reference Range Interpretation Comments Potassium Lvl (test code = Potassium 3.4 3.5-5.1 Lvl) [facility]2021-05-12 11:09:00 Test Item Value Reference Range Interpretation Comments Chloride Lvl (test code = Chloride Lvl) 105 95-109 [facility]2021-05-12 11:09:00 Test Item Value Reference Range Interpretation Comments CO2 (test code = CO2) 21 24-32 [facility]2021-05-12 11:09:00 Test Item Value Reference Range Interpretation Comments Calcium Lvl (test code = Calcium Lvl) 9.3 8.5-10.5 [place] 880721-05-12 11:09:00 Test Item Value Reference Range Interpretation Comments AGAP (test code = AGAP) 12.4 10.0-20.0 [facility]2021-05-12 11:09:00 Test Item Value Reference Range Interpretation Comments eGFR (test code = eGFR) 74 [facility]2021-05-12 11:09:00 Test Item Value Reference Range Interpretation Comments Magnesium Lvl (test code = Magnesium 2.2 1.8-2.4 Lvl) [facility] [id number] 11:09:00 Test Item Value Reference Range Interpretation Comments WBC X 10x3 (test code = WBC X 10x3) 10.8 3.7-10.4 [place] 844561-05-12 11:09:00 Test Item Value Reference Range Interpretation Comments RBC X 10x6 (test code = RBC X 10x6) 3.85 4.20-5.40 [place] 844561-05-12 11:09:00 Test Item Value Reference Range Interpretation Comments Hgb (test code = Hgb) 11.7 12.0-16.0 [place] 844561-05-12 11:09:00 Test Item Value Reference Range Interpretation Comments Hct (test code = Hct) 34.7 36.0-48.0 [place] 844561-05-12 11:09:00 Test Item Value Reference Range Interpretation Comments MCV (test code = MCV) 90.0 80.0-98.0 [place] 844561-05-12 11:09:00 Test Item Value Reference Range Interpretation Comments MCH (test code = MCH) 30.3 pg 27.0-31.0 [place] [address]-05-12 11:09:00 Test Item Value Reference Range Interpretation Comments MCHC (test code = MCHC) 33.7 32.0-36.0 [place] 844561-05-12 11:09:00 Test Item Value Reference Range Interpretation Comments RDW (test code = RDW) 13.3 11.5-14.5 [facility] [id number] 11:09:00 Test Item Value Reference Range Interpretation Comments Platelet (test code = Platelet) 474 133-450 [place] 844561-05-12 11:09:00 Test Item Value Reference Range Interpretation Comments MPV (test code = MPV) 8.1 7.4-10.4 [place] 844561-05-12 11:09:00 Test Item Value Reference Range Interpretation Comments Segs (test code = Segs) 71.3 45.0-75.0 [facility] [id number] 11:09:00 Test Item Value Reference Range Interpretation Comments Lymphocytes (test code = Lymphocytes) 17.5 20.0-40.0 [place] 844561-05-12 11:09:00 Test Item Value Reference Range Interpretation Comments Monocytes (test code = Monocytes) 8.1 2.0-12.0 [place] 844561-05-12 11:09:00 Test Item Value Reference Range Interpretation Comments Eosinophils (test code = Eosinophils) 2.1 <=4.0 [facility] [id number] 11:09:00 Test Item Value Reference Range Interpretation Comments Basophils (test code = Basophils) 1.0 <=1.0 [place] 844561-05-12 11:09:00 Test Item Value Reference Range Interpretation Comments Neutrophils # (test code = Neutrophils 7.7 1.5-8.1 #) [facility] [id number] 11:09:00 Test Item Value Reference Range Interpretation Comments Lymphocytes # (test code = Lymphocytes 1.9 1.0-5.5 #) [facility] [id number] 11:09:00 Test Item Value Reference Range Interpretation Comments Monocytes # (test code = Monocytes #) 0.9 <=0.8 [place] [address]-05-12 11:09:00 Test Item Value Reference Range Interpretation Comments Eosinophils # (test code = Eosinophils 0.2 <=0.5 #) [facility] [id number] 11:09:00 Test Item Value Reference Range Interpretation Comments Basophils # (test code = Basophils #) 0.1 <=0.2 [facility]2021-05-12 11:09:00 Test Item Value Reference Range Interpretation Comments Ca Ion WB (test code = Ca Ion WB) 1.12 1.05-1.25 [facility]2021-05-12 11:09:00 Test Item Value Reference Range Interpretation Comments Ca Norm WB (test code = Ca Norm WB) 1.15 1.05-1.25 [place] 880721-05-11 10:13:00 Test Item Value Reference Range Interpretation Comments Glucose Lvl (test code = Glucose Lvl) 92 70-99 [place] 880721-05-11 10:13:00 Test Item Value Reference Range Interpretation Comments BUN (test code = BUN) 24 7-22 [place] 880721-05-11 10:13:00 Test Item Value Reference Range Interpretation Comments Creatinine Lvl (test code = Creatinine 0.70 0.50-1.40 Lvl) [place] 880721-05-11 10:13:00 Test Item Value Reference Range Interpretation Comments Sodium Lvl (test code = Sodium Lvl) 137 135-145 [place] 880721-05-11 10:13:00 Test Item Value Reference Range Interpretation Comments Potassium Lvl (test code = Potassium 3.6 3.5-5.1 Lvl) [place] 880721-05-11 10:13:00 Test Item Value Reference Range Interpretation Comments Chloride Lvl (test code = Chloride Lvl) 105 95-109 [place] 880721-05-11 10:13:00 Test Item Value Reference Range Interpretation Comments CO2 (test code = CO2) 21 24-32 [place] 880721-05-11 10:13:00 Test Item Value Reference Range Interpretation Comments Calcium Lvl (test code = Calcium Lvl) 9.1 8.5-10.5 [place] 880721-05-11 10:13:00 Test Item Value Reference Range Interpretation Comments AGAP (test code = AGAP) 14.6 10.0-20.0 [place] 880721-05-11 10:13:00 Test Item Value Reference Range Interpretation Comments eGFR (test code = eGFR) 87 [place] 844561-05-11 10:13:00 Test Item Value Reference Range Interpretation Comments Segs (test code = Segs) 76.5 45.0-75.0 [place] 844561-05-11 10:13:00 Test Item Value Reference Range Interpretation Comments Lymphocytes (test code = Lymphocytes) 13.6 20.0-40.0 [place] 844561-05-11 10:13:00 Test Item Value Reference Range Interpretation Comments Monocytes (test code = Monocytes) 7.2 2.0-12.0 [place] 844561-05-11 10:13:00 Test Item Value Reference Range Interpretation Comments Eosinophils (test code = Eosinophils) 1.7 <=4.0 [place] 844561-05-11 10:13:00 Test Item Value Reference Range Interpretation Comments Basophils (test code = Basophils) 1.0 <=1.0 [place] 844561-05-11 10:13:00 Test Item Value Reference Range Interpretation Comments Neutrophils # (test code = Neutrophils 9.4 1.5-8.1 #) [facility] [id number] 10:13:00 Test Item Value Reference Range Interpretation Comments Lymphocytes # (test code = Lymphocytes 1.7 1.0-5.5 #) [facility] MarshallZtavigjIQHYYJDKGB8813-00-24 10:13:00 Test Item Value Reference Range Interpretation Comments Monocytes # (test code = Monocytes #) 0.9 <=0.8 [facility] MarshallUnydanuVOYSUUGLQM2944-81-05 10:13:00 Test Item Value Reference Range Interpretation Comments Eosinophils # (test code = Eosinophils 0.2 <=0.5 #) [facility] MarshallLuarrezMTFDNBUQJR0582-32-25 10:13:00 Test Item Value Reference Range Interpretation Comments Basophils # (test code = Basophils #) 0.1 <=0.2 [place] 844561-05-11 10:13:00 Test Item Value Reference Range Interpretation Comments WBC X 10x3 (test code = WBC X 10x3) 12.3 3.7-10.4 [facility] MarshallJxyquqzUZRWQSRUWK7504-05-50 10:13:00 Test Item Value Reference Range Interpretation Comments RBC X 10x6 (test code = RBC X 10x6) 3.81 4.20-5.40 [place] 844561-05-11 10:13:00 Test Item Value Reference Range Interpretation Comments Hgb (test code = Hgb) 11.6 12.0-16.0 [place] [address]-05-11 10:13:00 Test Item Value Reference Range Interpretation Comments Hct (test code = Hct) 34.0 36.0-48.0 [place] 844561-05-11 10:13:00 Test Item Value Reference Range Interpretation Comments MCV (test code = MCV) 89.3 80.0-98.0 [facility] MarshallBeqedjuKZGQMTRRNE8972-93-03 10:13:00 Test Item Value Reference Range Interpretation Comments MCH (test code = MCH) 30.4 pg 27.0-31.0 [facility] MarshallWygnteyPJEFJARNUJ9029-19-64 10:13:00 Test Item Value Reference Range Interpretation Comments MCHC (test code = MCHC) 34.1 32.0-36.0 [facility] MarshallElbpovrVDTSDRDMDL7805-94-89 10:13:00 Test Item Value Reference Range Interpretation Comments RDW (test code = RDW) 13.9 11.5-14.5 [facility] MarshallXcwekopLZGXMDQDSR5014-27-48 10:13:00 Test Item Value Reference Range Interpretation Comments Platelet (test code = Platelet) 441 133-450 [facility] MarshallGcpiquvGXENUASBFE1204-01-31 10:13:00 Test Item Value Reference Range Interpretation Comments MPV (test code = MPV) 8.4 7.4-10.4 [facility]2021-05-10 08:41:00 Test Item Value Reference Range Interpretation Comments Ferritin Lvl (test code = Ferritin Lvl) 902 5-204 [facility]2021-05-10 08:41:00 Test Item Value Reference Range Interpretation Comments Iron (test code = Iron) 28 [facility]2021-05-10 08:41:00 Test Item Value Reference Range Interpretation Comments TIBC (test code = TIBC) 250 [facility]2021-05-10 08:41:00 Test Item Value Reference Range Interpretation Comments % Satur Fe (test code = % Satur Fe) 11 [facility]2021-05-10 08:41:00 Test Item Value Reference Range Interpretation Comments Phosphorus (test code = Phosphorus) 3.8 2.5-4.5 [facility]2021-05-10 08:41:00 Test Item Value Reference Range Interpretation Comments Magnesium Lvl (test code = Magnesium 2.0 1.8-2.4 Lvl) [facility] MarshallDhmehimUVQYBRSLOY5664-49-74 08:41:00 Test Item Value Reference Range Interpretation Comments Basophils # (test code = Basophils #) 0.1 <=0.2 [facility] CenterQteiqjnRXSLNYKJVA6056-86-12 08:41:00 Test Item Value Reference Range Interpretation Comments Prealbumin (test code = Prealbumin) 10.0 18.0-45.0 [facility] [id number] 08:41:00 Test Item Value Reference Range Interpretation Comments Ca Ion WB (test code = Ca Ion WB) 1.01 1.05-1.25 [facility]PAR[facility] [id number] 08:41:00 Test Item Value Reference Range Interpretation Comments Ca Norm WB (test code = Ca Norm WB) 1.05 1.05-1.25 [facility]AMPICILLIN+SULBACTAM:SUSC:PT:ISOLATE:ORDQN:[id number] 01:35:00 Test Item Value Reference Range Interpretation Comments Culture: Urine >100,000 CFU/mL (test code = Enterobacter cloacae Culture: Urine) >100,000 CFU/mL Enterococcus Species [facility]AMP[facility]SULBACTAM:SUSC:PT:ISOLATE:ORDQN:[id number] 01:35:00 Test Item Value Reference Range Interpretation Comments Enterococcus Species Enterococcus Species (test code = Enterococcus Species) [facility]SULBACTAM:SUSC:PT:ISOLATE:ORDQN:[id number] 01:35:00 Test Item Value Reference Range Interpretation Comments Enterobacter cloacae Enterobacter cloacae (test code = Enterobacter cloacae) [facility] [id number] 01:35:00 Test Item Value Reference Range Interpretation Comments UA Turbidity (test code Slight *ABN*(12/13/20 = UA Turbidity) 8:35 PM) [facility] [id number] 01:35:00 Test Item Value Reference Range Interpretation Comments UA Spec Grav (test code = UA Spec 1.008 1 Grav) [facility] [id number] 01:35:00 Test Item Value Reference Range Interpretation Comments UA pH (test code = UA pH) 5.0 1 5.0-8.0 [facility] [id number] 01:35:00 Test Item Value Reference Range Interpretation Comments UA Protein (test code = UA Protein) 30 mg/dL [facility] [id number] 01:35:00 Test Item Value Reference Range Interpretation Comments UA Glucose (test code = UA Negative mg/dL Glucose) [facility] AND [id number] 01:35:00 Test Item Value Reference Range Interpretation Comments UA Ketones (test code = UA Negative mg/dL Ketones) [facility] AND [id number] 01:35:00 Test Item Value Reference Range Interpretation Comments UA Bili (test code = Negative *NA*(12/13/20 UA Bili) 8:35 PM) [facility] AND [id number] 01:35:00 Test Item Value Reference Range Interpretation Comments UA Blood (test code = Large *ABN*(12/13/20 UA Blood) 8:35 PM) [facility] AND [id number] 01:35:00 Test Item Value Reference Range Interpretation Comments UA Nitrite (test code Negative (12/13/20 8:35 = UA Nitrite) PM) [facility] AND [id number] 01:35:00 Test Item Value Reference Range Interpretation Comments UA Leuk Est (test code Large *ABN*(12/13/20 8:35 = UA Leuk Est) PM) [facility] AND [id number] 01:35:00 Test Item Value Reference Range Interpretation Comments UA WBC (test code = UA WBC) 99 <=5 [facility] AND [id number] 01:35:00 Test Item Value Reference Range Interpretation Comments UA RBC (test code = UA RBC) 12 <=2 [facility] AND [id number] 01:35:00 Test Item Value Reference Range Interpretation Comments UA Bacteria (test code = UA Occasional /HPF Bacteria) [facility] AND [id number] 01:35:00 Test Item Value Reference Range Interpretation Comments UA Sq Epi (test code = UA Sq Epi) None Seen [facility] AND [id number] 01:35:00 Test Item Value Reference Range Interpretation Comments UA Color (test code = UA Color) Ltyellow [facility] AND [id number] 01:35:00 Test Item Value Reference Range Interpretation Comments UA Urobilinogen (test code = UA no gt 0.1-1.0 Urobilinogen) [facility] CenterQkvisovMUPSJNRBCD2562-57-59 10:13:00 Test Item Value Reference Range Interpretation Comments Digoxin Lvl (test code = Digoxin Lvl) 1.0 0.8-2.0 [facility] [id number] 22:40:00 Test Item Value Reference Range Interpretation Comments Magnesium Lvl (test code = Magnesium 2.1 1.8-2.4 Lvl) [facility] [id number] 22:40:00 Test Item Value Reference Range Interpretation Comments Phosphorus (test code = Phosphorus) 3.3 2.5-4.5 [facility] CenterPARATHYROID [id number] 22:40:00 Test Item Value Reference Range Interpretation Comments Ca Ion WB (test code = Ca Ion WB) 1.08 1.05-1.25 [facility]annPARST[facility] JOSEPH'[facility] HEALTHROID [id number] 22:40:00 Test Item Value Reference Range Interpretation Comments Ca Norm WB (test code = Ca Norm WB) 1.15 1.05-1.25 [facility] CenterBACTERIAL - [id number] 08:37:00 Test Item Value Reference Range Interpretation Comments MRSA by PCR (test Negative (12/12/20 3:37 code = MRSA by PCR) AM) [facility] [id number] 19:35:00 Test Item Value Reference Range Interpretation Comments B/C Ratio (test code = B/C Ratio) 20 1 6-25 [facility] [id number] 19:35:00 Test Item Value Reference Range Interpretation Comments Total Protein (test code = Total 6.4 6.4-8.4 Protein) [facility] [id number] 19:35:00 Test Item Value Reference Range Interpretation Comments Albumin Lvl (test code = Albumin Lvl) 2.2 3.5-5.0 [facility] [id number] 19:35:00 Test Item Value Reference Range Interpretation Comments Globulin (test code = Globulin) 4.2 2.7-4.2 [facility] [id number] 19:35:00 Test Item Value Reference Range Interpretation Comments A/G Ratio (test code = A/G Ratio) 0.5 1 0.7-1.6 [facility] [id number] 19:35:00 Test Item Value Reference Range Interpretation Comments ALT (test code = ALT) 46 <=65 [facility]2021-05-06 19:35:00 Test Item Value Reference Range Interpretation Comments AST (test code = AST) 65 <=37 [facility]2021-05-06 19:35:00 Test Item Value Reference Range Interpretation Comments Alk Phos (test code = Alk Phos) 120 39-136 [facility]2021-05-06 19:35:00 Test Item Value Reference Range Interpretation Comments Bili Total (test code = Bili Total) 0.9 0.2-1.3 [facility] MarshallSvvwwwiJWVIBRSAUT0427-91-09 19:35:00 Test Item Value Reference Range Interpretation Comments PT (test code = PT) 14.4 s 12.0-14.7 [facility] MarshallVqalgivCZDJYAKDUU7118-26-19 19:35:00 Test Item Value Reference Range Interpretation Comments INR (test code = INR) 1.13 1 0.85-1.17 [facility] MarshallZjsqgujFJLQFZCESY2406-15-28 19:35:00 Test Item Value Reference Range Interpretation Comments PTT (test code = PTT) 45.8 s 22.9-35.8 [facility] Marsha[id number] 19:35:00 Test Item Value Reference Range Interpretation Comments Fibrinogen Lvl (test code = Fibrinogen 819 230-510 Lvl) [facility] MarshallOxztxxvAZOLXLFRAB8957-74-52 09:49:00 Test Item Value Reference Range Interpretation Comments PTT (test code = PTT) 81.2 s 22.9-35.8 [facility] MarshallMimieyjWGDIOLULQJ3348-35-26 11:19:00 Test Item Value Reference Range Interpretation Comments PTT (test code = PTT) 78.0 s 22.9-35.8 [facility] CenterCARDIAC [id number] 09:33:00 Test Item Value Reference Range Interpretation Comments Troponin-I (test code = Troponin-I) 17.90 <=0.40 [facility] MarshallKcjxungVQSOYRLGCG4457-67-86 20:49:00 Test Item Value Reference Range Interpretation Comments PT (test code = PT) 14.7 s 12.0-14.7 [place] 844561-05-04 20:49:00 Test Item Value Reference Range Interpretation Comments INR (test code = INR) 1.17 1 0.85-1.17 [facility] MarshallEcnehczTUGRRPNSHF8926-28-68 15:03:00 Test Item Value Reference Range Interpretation Comments PT (test code = PT) 14.4 s 12.0-14.7 [facility] CenterSrgaufzNJDHVDFTVN2646-31-93 15:03:00 Test Item Value Reference Range Interpretation Comments INR (test code = INR) 1.13 1 0.85-1.17 [facility] RegionGeffjkkOVVRZWUXSF5701-21-34 13:48:00 Test Item Value Reference Range Interpretation Comments POC Activated Clotting Time (test code 153 s = POC Activated Clotting Time) [facility] CenterCARDIAC [id number] 06:21:00 Test Item Value Reference Range Interpretation Comments Troponin-I (test code = Troponin-I) no gt <=0.40 [facility] [id number] 06:21:00 Test Item Value Reference Range Interpretation Comments Phosphorus (test code = Phosphorus) 2.1 2.5-4.5 [facility]2021-05-03 06:21:00 Test Item Value Reference Range Interpretation Comments Glucose Lvl (test code = Glucose Lvl) 138 70-99 [facility]2021-05-03 06:21:00 Test Item Value Reference Range Interpretation Comments BUN (test code = BUN) 13 7-22 [facility]2021-05-03 06:21:00 Test Item Value Reference Range Interpretation Comments Creatinine Lvl (test code = Creatinine 0.70 0.50-1.40 Lvl) [facility]2021-05-03 06:21:00 Test Item Value Reference Range Interpretation Comments Sodium Lvl (test code = Sodium Lvl) 139 135-145 [facility]2021-05-03 06:21:00 Test Item Value Reference Range Interpretation Comments Potassium Lvl (test code = Potassium 3.8 3.5-5.1 Lvl) [facility]2021-05-03 06:21:00 Test Item Value Reference Range Interpretation Comments Chloride Lvl (test code = Chloride Lvl) 109 95-109 [facility]2021-05-03 06:21:00 Test Item Value Reference Range Interpretation Comments CO2 (test code = CO2) 21 24-32 [facility]2021-05-03 06:21:00 Test Item Value Reference Range Interpretation Comments Calcium Lvl (test code = Calcium Lvl) 8.2 8.5-10.5 [facility]2021-05-03 06:21:00 Test Item Value Reference Range Interpretation Comments AGAP (test code = AGAP) 12.8 10.0-20.0 [facility]2021-05-03 06:21:00 Test Item Value Reference Range Interpretation Comments eGFR (test code = eGFR) 87 [facility]2021-05-03 06:21:00 Test Item Value Reference Range Interpretation Comments Magnesium Lvl (test code = Magnesium 2.0 1.8-2.4 Lvl) [facility] Marsha[id number] 06:21:00 Test Item Value Reference Range Interpretation Comments WBC X 10x3 (test code = WBC X 10x3) 19.3 3.7-10.4 [facility] MarshallMoyoxabOVBMDIXFBZ7334-08-98 06:21:00 Test Item Value Reference Range Interpretation Comments RBC X 10x6 (test code = RBC X 10x6) 3.89 4.20-5.40 [facility] MarshallCktixiwMPSWAYIMPQ2277-53-64 06:21:00 Test Item Value Reference Range Interpretation Comments Hgb (test code = Hgb) 11.8 12.0-16.0 [facility] MarshallGsschrgFPYEYOAZJB7226-69-86 06:21:00 Test Item Value Reference Range Interpretation Comments Hct (test code = Hct) 35.7 36.0-48.0 [facility] MarshallOozcrrlJAWCVKTMWG0569-17-80 06:21:00 Test Item Value Reference Range Interpretation Comments MCV (test code = MCV) 91.9 80.0-98.0 [facility] MarshallZryyvjgEFAUASLECX7885-77-20 06:21:00 Test Item Value Reference Range Interpretation Comments MCH (test code = MCH) 30.4 pg 27.0-31.0 [place] 844561-05-03 06:21:00 Test Item Value Reference Range Interpretation Comments MCHC (test code = MCHC) 33.1 32.0-36.0 [place] 844561-05-03 06:21:00 Test Item Value Reference Range Interpretation Comments RDW (test code = RDW) 13.5 11.5-14.5 [facility] MarshallEdwvjaiVIVMBVJZTY2958-99-89 06:21:00 Test Item Value Reference Range Interpretation Comments Platelet (test code = Platelet) 212 133-450 [facility] MarshallDzdfkmvRLFJNGSDTD4978-70-74 06:21:00 Test Item Value Reference Range Interpretation Comments MPV (test code = MPV) 9.5 7.4-10.4 [facility] MarshallZfsjlslAMJPBEZZOS0555-18-55 06:21:00 Test Item Value Reference Range Interpretation Comments PT (test code = PT) 14.4 s 12.0-14.7 [facility] MarshallIwwzyczBYUFACVNKD9592-78-13 06:21:00 Test Item Value Reference Range Interpretation Comments INR (test code = INR) 1.13 1 0.85-1.17 [facility] MarshallQkscsnmNFKEZCQVWV2086-88-88 06:21:00 Test Item Value Reference Range Interpretation Comments PTT (test code = PTT) 29.0 s 22.9-35.8 [facility] MarshallCsmrxavBAJBYDAGKG4422-58-83 06:21:00 Test Item Value Reference Range Interpretation Comments Segs (test code = Segs) 90.6 45.0-75.0 [facility] MarshallCtfgjrwLOWQWNTAHX9203-52-09 06:21:00 Test Item Value Reference Range Interpretation Comments Lymphocytes (test code = Lymphocytes) 3.3 20.0-40.0 [facility] MarshallMppbhptRYLXVPELFP7531-27-64 06:21:00 Test Item Value Reference Range Interpretation Comments Monocytes (test code = Monocytes) 6.0 2.0-12.0 [facility] MarshallGmjqlpxXXXSRYYDFG4771-04-31 06:21:00 Test Item Value Reference Range Interpretation Comments Basophils (test code = Basophils) 0.1 <=1.0 [facility] MarshallKswbwwcZTQDSPREQI0946-27-19 06:21:00 Test Item Value Reference Range Interpretation Comments Neutrophils # (test code = Neutrophils 17.5 1.5-8.1 #) [facility] MarshallFwusjuqKWNJULPHSD1175-24-92 06:21:00 Test Item Value Reference Range Interpretation Comments Lymphocytes # (test code = Lymphocytes 0.6 1.0-5.5 #) [facility] MarshallFsbcyetXVOLLIDCUB3295-74-40 06:21:00 Test Item Value Reference Range Interpretation Comments Monocytes # (test code = Monocytes #) 1.2 <=0.8 [facility]2021-05-03 06:21:00 Test Item Value Reference Range Interpretation Comments Ca Ion WB (test code = Ca Ion WB) 1.09 1.05-1.25 [facility]2021-05-03 06:21:00 Test Item Value Reference Range Interpretation Comments Ca Norm WB (test code = Ca Norm WB) 1.12 1.05-1.25 [facility] CenterCARDIAC [id number] 14:24:00 Test Item Value Reference Range Interpretation Comments Troponin-I (test code = Troponin-I) 36.70 <=0.40 [facility] [id number] 14:24:00 Test Item Value Reference Range Interpretation Comments Creatinine Lvl (test code = Creatinine 0.70 0.50-1.40 Lvl) [facility]2021-05-02 14:24:00 Test Item Value Reference Range Interpretation Comments eGFR (test code = eGFR) 87 [facility] RegionXiqvqlcLMIOUTTBSI3441-53-67 14:24:00 Test Item Value Reference Range Interpretation Comments Hgb (test code = Hgb) 11.4 12.0-16.0 [facility]2021-05-02 09:54:00 Test Item Value Reference Range Interpretation Comments Glucose Lvl (test code = Glucose Lvl) 148 70-99 [facility]2021-05-02 09:54:00 Test Item Value Reference Range Interpretation Comments BUN (test code = BUN) 17 7-22 [place] 880721-05-02 09:54:00 Test Item Value Reference Range Interpretation Comments Creatinine Lvl (test code = Creatinine 0.80 0.50-1.40 Lvl) [facility]2021-05-02 09:54:00 Test Item Value Reference Range Interpretation Comments Sodium Lvl (test code = Sodium Lvl) 140 135-145 [place] 880721-05-02 09:54:00 Test Item Value Reference Range Interpretation Comments Potassium Lvl (test code = Potassium 3.9 3.5-5.1 Lvl) [place] 880721-05-02 09:54:00 Test Item Value Reference Range Interpretation Comments Chloride Lvl (test code = Chloride Lvl) 111 95-109 [place] 880721-05-02 09:54:00 Test Item Value Reference Range Interpretation Comments CO2 (test code = CO2) 18 24-32 [place] 880721-05-02 09:54:00 Test Item Value Reference Range Interpretation Comments Calcium Lvl (test code = Calcium Lvl) 8.4 8.5-10.5 [place] 880721-05-02 09:54:00 Test Item Value Reference Range Interpretation Comments Total Protein (test code = Total 6.4 6.4-8.4 Protein) [place] 880721-05-02 09:54:00 Test Item Value Reference Range Interpretation Comments Albumin Lvl (test code = Albumin Lvl) 3.2 3.5-5.0 [place] 880721-05-02 09:54:00 Test Item Value Reference Range Interpretation Comments ALT (test code = ALT) 22 <=65 [place] [address]-05-02 09:54:00 Test Item Value Reference Range Interpretation Comments AST (test code = AST) 41 <=37 [place] 880721-05-02 09:54:00 Test Item Value Reference Range Interpretation Comments Alk Phos (test code = Alk Phos) 62 39-136 [place] 880721-05-02 09:54:00 Test Item Value Reference Range Interpretation Comments Bili Total (test code = Bili Total) 0.5 0.2-1.3 [place] [address]-05-02 09:54:00 Test Item Value Reference Range Interpretation Comments AGAP (test code = AGAP) 14.9 10.0-20.0 [place] 880721-05-02 09:54:00 Test Item Value Reference Range Interpretation Comments B/C Ratio (test code = B/C Ratio) 21 1 6-25 [place] 880721-05-02 09:54:00 Test Item Value Reference Range Interpretation Comments Globulin (test code = Globulin) 3.2 2.7-4.2 [place] 880721-05-02 09:54:00 Test Item Value Reference Range Interpretation Comments A/G Ratio (test code = A/G Ratio) 1.0 1 0.7-1.6 [place] [address]-05-02 09:54:00 Test Item Value Reference Range Interpretation Comments eGFR (test code = eGFR) 74 [place] 880721-05-02 09:54:00 Test Item Value Reference Range Interpretation Comments Magnesium Lvl (test code = Magnesium 1.9 1.8-2.4 Lvl) [place] 880721-05-02 09:54:00 Test Item Value Reference Range Interpretation Comments Phosphorus (test code = Phosphorus) 2.9 2.5-4.5 [place] 844561-05-02 09:54:00 Test Item Value Reference Range Interpretation Comments RBC Morph (test code = Normal (12/07/20 4:54 AM) RBC Morph) [place] 844561-05-02 09:54:00 Test Item Value Reference Range Interpretation Comments Plt Morph (test code = Normal (12/07/20 4:54 AM) Plt Morph) [place] 844561-05-02 09:54:00 Test Item Value Reference Range Interpretation Comments Segs (test code = Segs) 84.5 45.0-75.0 [place] 844561-05-02 09:54:00 Test Item Value Reference Range Interpretation Comments Lymphocytes (test code = Lymphocytes) 8.9 20.0-40.0 [place] 844561-05-02 09:54:00 Test Item Value Reference Range Interpretation Comments Monocytes (test code = Monocytes) 6.4 2.0-12.[address]05-02 09:54:00 Test Item Value Reference Range Interpretation Comments Eosinophils (test code = Eosinophils) 0.1 <=4.[address]05-02 09:54:00 Test Item Value Reference Range Interpretation Comments Basophils (test code = Basophils) 0.1 <=1.[address]05-02 09:54:00 Test Item Value Reference Range Interpretation Comments Neutrophils # (test code = Neutrophils 16.6 1.5-8.1 #) [place] 844561-05-02 09:54:00 Test Item Value Reference Range Interpretation Comments Lymphocytes # (test code = Lymphocytes 1.7 1.0-5.5 #) [address]05-02 09:54:00 Test Item Value Reference Range Interpretation Comments Monocytes # (test code = Monocytes #) 1.3 <=0.[address]05-02 09:54:00 Test Item Value Reference Range Interpretation Comments PTT (test code = PTT) >200 seconds 22.9-35.8 [place] [address]-05-02 09:54:00 Test Item Value Reference Range Interpretation Comments PT (test code = PT) 15.2 s 12.0-14.7 [facility] RegionGrzqjdfDSCYEBMEWB9887-53-52 09:54:00 Test Item Value Reference Range Interpretation Comments INR (test code = INR) 1.22 1 0.85-1.17 [facility] MarshallBxvbvpxMRGVGIRSGW7330-29-74 09:54:00 Test Item Value Reference Range Interpretation Comments WBC X 10x3 (test code = WBC X 10x3) 19.6 3.7-10.4 [facility] MarshallZdatgriGWJSACGBEH6922-29-15 09:54:00 Test Item Value Reference Range Interpretation Comments RBC X 10x6 (test code = RBC X 10x6) 3.86 4.20-5.40 [facility] MarshallVgvdazjNWEPPKMMXI8896-75-55 09:54:00 Test Item Value Reference Range Interpretation Comments Hgb (test code = Hgb) 11.8 12.0-16.0 [facility] MarshallPnhvbjuJVETUNVGZQ1257-16-82 09:54:00 Test Item Value Reference Range Interpretation Comments Hct (test code = Hct) 35.6 36.0-48.0 [facility] MarshallPdcxwnaASQXLYAUTW1382-54-44 09:54:00 Test Item Value Reference Range Interpretation Comments MCV (test code = MCV) 92.2 80.0-98.0 [facility] [id number] 09:54:00 Test Item Value Reference Range Interpretation Comments MCH (test code = MCH) 30.6 pg 27.0-31.0 [facility] MarshallUzvqgleJFBNOBJVFB6080-19-21 09:54:00 Test Item Value Reference Range Interpretation Comments MCHC (test code = MCHC) 33.1 32.0-36.0 [facility] MarshallAbdcpwgHPQMXXGCWU1950-92-45 09:54:00 Test Item Value Reference Range Interpretation Comments RDW (test code = RDW) 13.5 11.5-14.5 [facility] MarshallExxtymsLDMACVKXIR3010-71-53 09:54:00 Test Item Value Reference Range Interpretation Comments Platelet (test code = Platelet) 232 133-450 [facility] MarshallVikkgisFDMXWSYXEU6643-56-33 09:54:00 Test Item Value Reference Range Interpretation Comments MPV (test code = MPV) 9.7 7.4-10.4 [facility]PAR[facility] [id number] 09:54:00 Test Item Value Reference Range Interpretation Comments Ca Ion WB (test code = Ca Ion WB) 0.97 1.05-1.25 [facility] CenterPARATHYROID [id number] 09:54:00 Test Item Value Reference Range Interpretation Comments Ca Norm WB (test code = Ca Norm WB) 0.99 1.05-1.25 [facility] CenterCcafvriMPGPWHMGUQ6334-14-45 08:59:00 Test Item Value Reference Range Interpretation Comments POC Activated Clotting Time (test code no gt = POC Activated Clotting Time) [facility] [id number] 07:01:00 Test Item Value Reference Range Interpretation Comments Calcium Lvl (test code = Calcium Lvl) 8.5 8.5-10.5 [facility]2021-05-02 07:01:00 Test Item Value Reference Range Interpretation Comments AGAP (test code = AGAP) 10.0 10.0-20.0 [facility]2021-05-02 07:01:00 Test Item Value Reference Range Interpretation Comments Lactic Acid Lvl (test code = Lactic 1.3 0.5-2.2 Acid Lvl) [facility] MarshallWwccppaLMNZYHKWOP2459-06-89 07:01:00 Test Item Value Reference Range Interpretation Comments WBC X 10x3 (test code = WBC X 10x3) 15.6 3.7-10.4 [facility] MarshallPkkzpkhCJVTQVSDVJ4037-94-92 07:01:00 Test Item Value Reference Range Interpretation Comments RBC X 10x6 (test code = RBC X 10x6) 3.67 4.20-5.40 [facility] MarshallVyomjixKJATKOKUKR1864-59-12 07:01:00 Test Item Value Reference Range Interpretation Comments Hct (test code = Hct) 33.4 36.0-48.0 [facility] MarshallUizioejKGADOSSBRD1283-66-56 07:01:00 Test Item Value Reference Range Interpretation Comments MCV (test code = MCV) 90.8 80.0-98.0 [place] 844561-05-02 07:01:00 Test Item Value Reference Range Interpretation Comments MCH (test code = MCH) 30.8 pg 27.0-31.0 [facility] MarshallVnnwgxhJEGDOWDQIZ1946-74-16 07:01:00 Test Item Value Reference Range Interpretation Comments MCHC (test code = MCHC) 34.0 32.0-36.0 [place] [id number] 07:01:00 Test Item Value Reference Range Interpretation Comments RDW (test code = RDW) 13.4 11.5-14.5 [place] 844561-05-02 07:01:00 Test Item Value Reference Range Interpretation Comments Platelet (test code = Platelet) 207 133-450 [facility] MarshallVrunwtnHZITQKQHOS9418-36-61 07:01:00 Test Item Value Reference Range Interpretation Comments MPV (test code = MPV) 9.5 7.4-10.4 [place] 844561-05-02 07:01:00 Test Item Value Reference Range Interpretation Comments PT (test code = PT) 13.3 s 12.0-14.7 [place] 844561-05-02 07:01:00 Test Item Value Reference Range Interpretation Comments INR (test code = INR) 1.02 1 0.85-1.17 [place] 844561-05-02 07:01:00 Test Item Value Reference Range Interpretation Comments PTT (test code = PTT) 34.6 s 22.9-35.8 [facility] MarshallUsjsfsvDCSUVQTOEL2636-38-21 07:01:00 Test Item Value Reference Range Interpretation Comments Segs (test code = Segs) 66.5 45.0-75.0 [facility] MarshallSbtdiphYQKRKOEPOT3859-07-83 07:01:00 Test Item Value Reference Range Interpretation Comments Lymphocytes (test code = Lymphocytes) 27.0 20.0-40.0 [facility] MarshallTqphgevGJRRLBSYYG4791-53-02 07:01:00 Test Item Value Reference Range Interpretation Comments Monocytes (test code = Monocytes) 6.2 2.0-12.0 [place] 844561-05-02 07:01:00 Test Item Value Reference Range Interpretation Comments Eosinophils (test code = Eosinophils) 0.1 <=4.0 [facility] MarshallPagczfyCBKLZGJTJK5961-07-50 07:01:00 Test Item Value Reference Range Interpretation Comments Basophils (test code = Basophils) 0.2 <=1.0 [place] 844561-05-02 07:01:00 Test Item Value Reference Range Interpretation Comments Neutrophils # (test code = Neutrophils 10.4 1.5-8.1 #) [facility] MarshallMdyyvpyZVBLZQJXLJ8617-28-50 07:01:00 Test Item Value Reference Range Interpretation Comments Lymphocytes # (test code = Lymphocytes 4.2 1.0-5.5 #) [facility] SpringsViaobmiJDZRLBNONK0650-56-56 07:01:00 Test Item Value Reference Range Interpretation Comments Monocytes # (test code = Monocytes #) 1.0 <=0.8 [facility] [employer] [id number] 07:01:00 Test Item Value Reference Range Interpretation Comments ABO/Rh (test code = ABO/Rh) A POS [facility] [employer] [id number] 07:01:00 Test Item Value Reference Range Interpretation Comments Antibody Scrn (test Negative (12/07/20 2:01 code = Antibody Scrn) AM) [facility] SitesimonCARDIAC [id number] 07:01:00 Test Item Value Reference Range Interpretation Comments Troponin-I (test code = Troponin-I) no gt <=0.40 [facility] [employer] [id number] 07:01:00 Test Item Value Reference Range Interpretation Comments Glucose Lvl (test code = Glucose Lvl) 124 70-99 [facility] [employer] [id number] 07:01:00 Test Item Value Reference Range Interpretation Comments BUN (test code = BUN) 18 7-22 [facility] [employer] [id number] 07:01:00 Test Item Value Reference Range Interpretation Comments Sodium Lvl (test code = Sodium Lvl) 139 135-145 [facility] [employer] [id number] 07:01:00 Test Item Value Reference Range Interpretation Comments Potassium Lvl (test code = Potassium 4.0 3.5-5.1 Lvl) [facility] [employer] [id number] 07:01:00 Test Item Value Reference Range Interpretation Comments Chloride Lvl (test code = Chloride Lvl) 111 95-109 [facility] [employer] [id number] 07:01:00 Test Item Value Reference Range Interpretation Comments CO2 (test code = CO2) 22 24-32 [facility] [employer] [id number] 08:44:00 Test Item Value Reference Range Interpretation Comments Magnesium Lvl (test code = Magnesium 2.2 1.8-2.4 Lvl) [facility] SpringsGh[facility] [id number] 08:44:00 Test Item Value Reference Range Interpretation Comments Phosphorus (test code = Phosphorus) 2.6 2.5-4.5 [facility] RegionMbmexdvLECKTIJNLJ3769-04-19 08:44:00 Test Item Value Reference Range Interpretation Comments Eosinophils (test code = Eosinophils) 0.3 <=4.0 [facility] SpringsannPARATHYROID [id number] 08:17:00 Test Item Value Reference Range Interpretation Comments Ca Ion WB (test code = Ca Ion WB) 1.10 1.05-1.25 [facility] SpringsannPARATHYROID [id number] 08:17:00 Test Item Value Reference Range Interpretation Comments Ca Norm WB (test code = Ca Norm WB) 1.09 1.05-1.25 [facility] CenterBACTERIAL - [id number] 18:50:00 Test Item Value Reference Range Interpretation Comments MRSA by PCR (test Negative (12/04/20 1:50 code = MRSA by PCR) PM) [facility] SpringsLmnobsqIJPMFFUWLX2536-22-61 18:50:00 Test Item Value Reference Range Interpretation Comments RBC Morph (test code = Normal (12/04/20 1:50 RBC Morph) PM) [facility] CenterTntteecOFUOLEGVRX1028-10-24 18:50:00 Test Item Value Reference Range Interpretation Comments Plt Morph (test code = Normal (12/04/20 1:50 Plt Morph) PM) [facility] SpringsSkpbejrRMPLYT1481-32-21 18:50:00 Test Item Value Reference Range Interpretation Comments Trig (test code = Trig) 82 [facility] SpringsKkgclqnKJFDRK1186-77-97 18:50:00 Test Item Value Reference Range Interpretation Comments Chol (test code = Chol) 165 [facility] [id number] 18:50:00 Test Item Value Reference Range Interpretation Comments HDL (test code = HDL) 59 [facility] SpringsNoesnneCAAVBS7381-67-86 18:50:00 Test Item Value Reference Range Interpretation Comments CHD Risk (test code = CHD Risk) 2.80 1 3.90-5.80 [facility] SpringsWhozsnyPNRXRI6836-20-26 18:50:00 Test Item Value Reference Range Interpretation Comments LDL (Calculated) (test code = LDL 90 (Calculated)) [facility] SpringsEbvhojbCJGXWW8455-98-66 18:50:00 Test Item Value Reference Range Interpretation Comments VLDL (test code = VLDL) 16 1 [facility] CenterSPECIAL [id number] 18:50:00 Test Item Value Reference Range Interpretation Comments Hgb A1C (test code = Hgb A1C) 5.2 [facility] AND [id number] 18:50:00 Test Item Value Reference Range Interpretation Comments UA Turbidity (test code = Clear (12/04/20 1:50 UA Turbidity) PM) [facility] AND [id number] 18:50:00 Test Item Value Reference Range Interpretation Comments UA pH (test code = UA pH) 6.0 1 5.0-8.0 [facility] AND [id number] 18:50:00 Test Item Value Reference Range Interpretation Comments UA Protein (test code = UA Negative mg/dL Protein) [facility] AND [id number] 18:50:00 Test Item Value Reference Range Interpretation Comments UA Glucose (test code = UA Negative mg/dL Glucose) [facility] AND [id number] 18:50:00 Test Item Value Reference Range Interpretation Comments UA Ketones (test code = UA Negative mg/dL Ketones) [facility] AND [id number] 18:50:00 Test Item Value Reference Range Interpretation Comments UA Bili (test code = Negative *NA*(12/04/20 UA Bili) 1:50 PM) [facility] AND [id number] 18:50:00 Test Item Value Reference Range Interpretation Comments UA Blood (test code = Negative (12/04/20 1:50 UA Blood) PM) [facility] AND [id number] 18:50:00 Test Item Value Reference Range Interpretation Comments UA Nitrite (test code Negative (12/04/20 1:50 = UA Nitrite) PM) [facility] AND [id number] 18:50:00 Test Item Value Reference Range Interpretation Comments UA Leuk Est (test Negative (12/04/20 1:50 code = UA Leuk Est) PM) [facility] AND [id number] 18:50:00 Test Item Value Reference Range Interpretation Comments UA Sq Epi (test code = UA Sq Occasional /LPF Epi) [facility] AND [id number] 18:50:00 Test Item Value Reference Range Interpretation Comments UA WBC (test code = UA WBC) 1 <=5 [facility] AND [id number] 18:50:00 Test Item Value Reference Range Interpretation Comments UA RBC (test code = UA RBC) no gt <=2 [facility] [id number] 18:50:00 Test Item Value Reference Range Interpretation Comments UA Color (test code = UA Color) Ltyellow [facility] [id number] 18:50:00 Test Item Value Reference Range Interpretation Comments UA Spec Grav (test >=1.050 *ABN*(12/04/20 code = UA Spec Grav) 1:50 PM) [facility] [id number] 18:50:00 Test Item Value Reference Range Interpretation Comments UA Urobilinogen (test code = UA no gt 0.1-1.0 Urobilinogen) [facility] [id number] 15:45:00 Test Item Value Reference Range Interpretation Comments Coronavirus (COVID-19) Not Detected (12/04/20 QUENTIN (test code = 10:45 AM) Coronavirus (COVID-19) QUENTIN) [facility] CenterCARDIAC [id number] 15:14:00 Test Item Value Reference Range Interpretation Comments Total CK (test code = Total CK) 34 12-191 [facility] CenterPrim[facility] Commun[facility] [id number] 15:14:00 Test Item Value Reference Range Interpretation Comments Total Protein (test code = Total 6.6 6.4-8.4 Protein) [facility] SpringsGh[facility] [id number] 15:14:00 Test Item Value Reference Range Interpretation Comments Albumin Lvl (test code = Albumin Lvl) 3.4 3.5-5.0 [facility] SpringsGh[facility] [id number] 15:14:00 Test Item Value Reference Range Interpretation Comments ALT (test code = ALT) 19 <=65 [facility] SpringsGh[facility] [id number] 15:14:00 Test Item Value Reference Range Interpretation Comments AST (test code = AST) 16 <=37 [facility] [employer] [id number] 15:14:00 Test Item Value Reference Range Interpretation Comments Alk Phos (test code = Alk Phos) 66 39-136 [facility] CenterPrim[facility] Communities [id number] 15:14:00 Test Item Value Reference Range Interpretation Comments Bili Total (test code = Bili Total) 0.5 0.2-1.3 [facility] CenterPrim[facility] [id number] 15:14:00 Test Item Value Reference Range Interpretation Comments B/C Ratio (test code = B/C Ratio) 24 1 6-25 [facility] SpringsGh[facility] [id number] 15:14:00 Test Item Value Reference Range Interpretation Comments Globulin (test code = Globulin) 3.2 2.7-4.2 [facility] [id number] 15:14:00 Test Item Value Reference Range Interpretation Comments A/G Ratio (test code = A/G Ratio) 1.1 1 0.7-1.6 [facility] [id number] 15:14:00 Test Item Value Reference Range Interpretation Comments Eosinophils # (test code = Eosinophils 0.1 <=0.5 #) [facility] M[id number] 15:14:00 Test Item Value Reference Range Interpretation Comments Basophils # (test code = Basophils #) 0.1 <=0.2 [facility] MYOCRD SPECT R/S [id number] 17:15:00 [facility] : 1950 Sex: F Patient Name: JAKOB LARA Unit No: [id number] EXAMS: CPT CODE: [id number] NM MYOCRD SPECT R/S [facility] [address] INDICATION: PVCs, CAD workup. The patient underwent myocardial perfusion imaging utilizing IV injectionof 9.87 mCi Tc99M Cardiolite at rest and IV injection of 29.2 mCi Tc99M Cardiolite at peak stress. SPECT imaging was obtained at rest and stress. Gated SPECT imaging was obtained at stress. Vidal treadmill protocol was utilized for stress. FINDINGS: There is a small mild anterior and apical perfusiondefect that improves with stress. CONCLUSIONS: 1. ABNORMAL EXERCISE TECHNETIUM 99 CARDIOLITE SHOWINGA SMALL ANTERIOR AND APICAL ATTENUATION ARTIFACT WITH MILDLY DEPRESSED GLOBAL SYSTOLIC FUNCTION. 2 GATED PERFUSION IMAGING SHOWS NORMAL LEFT VENTRICULAR SIZE WITH MILDLY DEPRESSED GLOBAL SYSTOLIC FUNCTION.. END-DIASTOLIC VOLUME IS 47 ML, END-SYSTOLIC VOLUME IS 27 ML, AND THE EJECTION FRACTION IS 42 %.FINDINGS ARE CONSISTENT WITH A PRIMARY CARDIOMYOPATHY. at 0974 Reported and signed by: Cortez Monae M.D. CC: Pablo Koch MD; Cortez Monae Technologist: Alanna Elkins, RT(NM) Transcrpt Date/Tm/Trnsp: 11/24/2020 (562) Juan Orig Print D/T: S: 11/24/2020 (1815) [facility] NAME: JAKOB LARA [address] [place] [address] PHYS: [place] [address] : 1950 AGE: 70 SEX: F LOC: Z.ZNUC PHONE #: [phone] EXAM DATE: 11/14/2020 STATUS: GRETTA CLI FAX #: [phone] RADIOLOGY NO: PAGE 1 Signed Report
[2023-05-01 14:08] LABS: Absolute Lymphocytes (CBC) 2.6 K/uL (0.7-4.9); Hematocrit 43.4 % (36.0-45.0); Lymphocytes % 34.1 % (15.3-44.8); MCV 90.3 fL (80-100); MPV 8.5 fL (7.6-11.3); Platelets 231 thou/uL (152-406)
[2023-05-01 14:12] LABS: Protime INR 1.37
[2023-05-01] MEDS ORDERED: dilTIAZem HCL 25 MG/5 ML VIAL IV ONE ×2 (14:14→15:28)
[2023-05-01 14:44] LABS: Albumin 2.9 g/dL (3.4-5.0); Bilirubin Direct 0.3 mg/dL (0-0.2); Bilirubin Indirect, Calculated 0.5 mg/dL (0.2-0.8); Bilirubin Total 0.8 mg/dL (0.2-1.0); Magnesium 2.3 mg/dL (1.6-2.4); Potassium 3.5 mEq/L (3.5-5.1); Protein, Total 6.9 g/dL (6.4-8.2)
[2023-05-01 14:46] LABS: Troponin High Sensitivity 72.9 pg/mL (<58.9)
--- NOTE | 2023-05-01 14:48 | RAD REPORT ---
EXAM DESCRIPTION: RAD - Chest Single View - 05/01/2023 2:41 pm CLINICAL HISTORY: COUGH COMPARISON: Chest Single View dated 04/13/2023 FINDINGS: Lines: None. Lungs: No evidence of edema or pneumonia. Pleural: No significant pleural effusions or pneumothorax. Cardiac: Cardiomegaly. Mediastinum: Within normal limits. Bones: No acute fractures. Other: None IMPRESSION: No acute cardiopulmonary disease.
--- NOTE | 2023-05-01 15:23 | EDPHYS ---
Physician Documentation [facility] Name: Yelitza Lara Age: 72 yrs Sex: Female : 1950 Arrival Date: 05/01/2023 Time: 13:51 Bed 20 Private MD: ED Physician HPI: 05/01 13:59 This 72 yrs old Female presents to ER via EMS with complaints of Cough, General sp3 Weakness. 13:59 72-year-old female with history of atrial fibrillation on Eliquis, prior CVA, diabetes, sp3 prior MD with recent admission to the hospital for cardiac pathology now presents to the ED via EMS with chief complaint cough and "feeling weak and ill". Patient recently started THAI inhibitor for which she attributes these actions to. She does endorse palpitations but denies chest pain, fever, back pain, abdominal pain, nausea, vomiting, diarrhea, any other signs or symptoms on ROS at this time. She does endorse shortness of breath particularly on exertion as well.. Historical: - Allergies: 13:56 PENICILLINS; ld1 - PMHx: 13:56 Arthritis; Atrial fibrillation; CVA; diabetes mellitus; Myocardial infarction; ld1 - Immunization history:: Adult Immunizations up to date. - Social history:: Smoking status: Patient denies any tobacco usage or history of. ROS: 14:00 Eyes: Negative for injury, pain, redness, and discharge, ENT: Negative for injury, sp3 pain, and discharge, Neck: Negative for injury, pain, and swelling, Respiratory: Negative for shortness of breath, cough, wheezing, and pleuritic chest pain, Abdomen/GI: Negative for abdominal pain, nausea, vomiting, diarrhea, and constipation, Back: Negative for injury and pain, MS/Extremity: Negative for injury and deformity, Skin: Negative for injury, rash, and discoloration, Neuro: Negative for headache, weakness, numbness, tingling, and seizure, Psych: Negative for depression, anxiety, suicide ideation, homicidal ideation, and hallucinations, Allergy/Immunology: Negative for hives, rash, and allergies, Endocrine: Negative for neck swelling, polydipsia, polyuria, polyphagia, and marked weight changes, Hematologic/Lymphatic: Negative for swollen nodes, abnormal bleeding, and unusual bruising, 14:00 All other systems are negative, Exam: 14:00 Constitutional: This is a well developed, well nourished patient who is awake, alert, sp3 and in no acute distress. Head/Face: Normocephalic, atraumatic. Eyes: Pupils equal round and reactive to light, extra-ocular motions intact. Lids and lashes normal. Conjunctiva and sclera are non-icteric and not injected. Cornea within normal limits. Periorbital areas with no swelling, redness, or edema. ENT: Nares patent. No nasal discharge, no septal abnormalities noted. External auditory canals are clear. Oropharynx with no redness, swelling, or masses, exudates, or evidence of obstruction, uvula midline. Mucous membranes moist. Neck: Trachea midline, no thyromegaly or masses palpated, and no cervical lymphadenopathy. Supple, full range of motion without nuchal rigidity, or vertebral point tenderness. No Meningismus. Chest/axilla: Normal chest wall appearance and motion. Nontender with no deformity. No lesions are appreciated. Respiratory: Lungs have equal breath sounds bilaterally, clear to auscultation and percussion. No rales, rhonchi or wheezes noted. No increased work of breathing, no retractions or nasal flaring. Abdomen/GI: Soft, non-tender, with normal bowel sounds. No distension or tympany. No guarding or rebound. No evidence of tenderness throughout. Back: No spinal tenderness. No costovertebral tenderness. Full range of motion. Skin: Warm, dry with normal turgor. Normal color with no rashes, no lesions, and no evidence of cellulitis. MS/ Extremity: Pulses equal, no cyanosis. Neurovascular intact. Full, normal range of motion. Neuro: Awake and alert, GCS 15, oriented to person, place, time, and situation. Cranial nerves II-XII grossly intact. Motor strength 5/5 in all extremities. Sensory grossly intact. Cerebellar exam normal. Normal gait. Psych: Awake, alert, with orientation to person, place and time. Behavior, mood, and affect are within normal limits. 14:00 Cardiovascular: Patient tachycardic with irregularly irregular heartbeat and atrial fibrillation on the desk monitor with rapid ventricular response in the 160s., 16:20 ECG was reviewed by the Attending Physician. EKG demonstrates atrial fibrillation with sp3 rapid ventricular response at 136 bpm with left bundle branch block without concordance and nonspecific diffuse ST/T changes consistent with prior EKG dated April 13, 2023. Vital Signs: 13:52 BP 101 / 70; Pulse 155; Resp 18; Temp 97.6(O); Pulse Ox 98% on R/A; Weight 84.82 kg; ld1 Height 5 ft. 3 in. ; Pain 0/10; 14:38 BP 129 / 89; Pulse 129; Resp 18; Pulse Ox 99% on R/A; ld1 13:52 Body Mass Index 33.13 (84.82 kg, 160.02 cm) ld1 13:52 Pain Scale: Adult ld1 MDM: 13:57 Patient medically screened. sp3 14:01 Data reviewed: vital signs, nurses notes, EMS record, lab test result(s), EKG, sp3 radiologic studies. ED course: Patient with rapid A-fib RVR for which we will treat with Cardizem IV. We will also obtain full cardiac work-up including EKG, laboratory values and CT chest PE protocol to ensure no other secondary pathology is present. Differential diagnosis includes acute coronary syndrome, pulmonary embolism, electrolyte derangement, among others. I am not highly suspicious for vascular pathology including aortic dissection or aneurysm, sepsis, shock, or any other critical findings. Disposition likely admission with cardiology consult.. 15:19 ED course: Discussed with Dr. Berkowitz who is comfortable taking care of this patient sp3 here at this facility. He recommended sotalol 80 mg twice daily and serial cardiac markers. I will also give Lasix 20 mg IV.. 05/01 13:57 Order name: Basic Metabolic Panel; Complete Time: 14:57 sp3 05/01 13:57 Order name: CBC with Diff; Complete Time: 14:57 sp3 05/01 13:57 Order name: LFT's; Complete Time: 14:57 sp3 05/01 13:57 Order name: Magnesium; Complete Time: 14:57 sp3 05/01 13:57 Order name: NT PRO-BNP; Complete Time: 14:57 sp3 05/01 13:58 Order name: PT-INR; Complete Time: 14:57 sp3 05/01 13:58 Order name: Troponin HS; Complete Time: 14:57 sp3 05/01 15:57 Order name: CBC with Automated Diff EDMS 05/01 15:57 Order name: CBC with Automated Diff EDMS 05/01 15:57 Order name: CBC with Automated Diff EDMS 05/01 15:57 Order name: CBC with Automated Diff EDMS 05/01 15:57 Order name: Magnesium EDMS 05/01 15:57 Order name: Magnesium EDMS 05/01 15:57 Order name: Magnesium EDMS 05/01 15:57 Order name: Magnesium EDMS 05/01 15:57 Order name: Phosphorus EDMS 05/01 15:57 Order name: Phosphorus EDMS 05/01 15:57 Order name: Phosphorus EDMS 05/01 15:57 Order name: Phosphorus EDMS 05/01 16:02 Order name: Thyroid Stimulating Hormone EDMS 05/01 16:02 Order name: Basic Metabolic Panel EDMS 05/01 16:02 Order name: Basic Metabolic Panel EDMS 05/01 16:02 Order name: Basic Metabolic Panel EDMS 05/01 16:02 Order name: Basic Metabolic Panel EDMS 05/01 16:02 Order name: Lipid Profile EDMS 05/01 16:02 Order name: Lipid Profile EDMS 05/01 20:03 Order name: Urinalysis w/ reflexes EDMS 05/01 20:58 Order name: Glucose, Ancillary Testing EDMS 05/01 13:58 Order name: XRAY Chest (1 view); Complete Time: 14:57 sp3 05/01 16:02 Order name: Chest Pa And Lat (2 Views) EDMS 05/01 13:58 Order name: EKG; Complete Time: 13:59 sp3 05/01 15:57 Order name: Heart Healthy EDMS 05/01 13:58 Order name: Cardiac monitoring; Complete Time: 14:00 sp3 05/01 13:58 Order name: EKG - Nurse/Tech; Complete Time: 14:00 sp3 05/01 13:58 Order name: IV Saline Lock; Complete Time: 14:00 sp3 05/01 13:58 Order name: Labs collected and sent; Complete Time: 14:00 sp3 05/01 13:58 Order name: O2 Per Protocol; Complete Time: 14:00 sp3 05/01 13:58 Order name: O2 Sat Monitoring; Complete Time: 14:00 sp3 Administered Medications: 14:05 Drug: Diltiazem IVP 10 mg IVP once; Over 2 minutes Route: IVP; Site: left antecubital; ld1 14:46 Drug: Diltiazem IVP 10 mg IVP once; Over 2 minutes Route: IVP; Site: left antecubital; ld1 15:20 Drug: Diltiazem IVP 10 mg IVP once; Over 2 minutes Route: IVP; Site: left antecubital; ld1 15:32 Drug: Sotalol PO 80 mg PO once Route: PO; mb9 15:36 Drug: Furosemide IVP 20 mg IVP once; give over 2 minutes Route: IVP; Site: left ld1 antecubital; Disposition Summary: 05/01/23 15:23 Hospitalization Ordered Notes: Hospitalization Status: Inpatient Admission sp3 Provider: Brannon Nieto sp3 Condition: Stable sp3 Problem: an acute exacerbation sp3 Symptoms: have worsened sp3 Bed/Room Type: Standard sp3 Location: Telemetry/MedSurg (Inpatient)(05/01/23 20:46) mw Room Assignment: 219(05/01/23 20:46) Diagnosis - A-fib with RVR, CHF, dyspnea, NSTEMI sp3 Forms: - Medication Reconciliation Form sp3 - SBAR form sp3 - Leadership Thank You Letter sp3 Signatures: Dispatcher [employer] EDMS Lilian Juarez RN RN Ct Walden RN RN ld1 Russell Arias MD MD sp3 Mary Eubanks RN RN mb9 Marlin Britany jr12 Corrections: (The following items were deleted from the chart) 15:57 13:59 Chest For PE Angio+CT.RAD.BRZ ordered. EDMS EDMS 16:01 15:23 Telemetry/MedSurg (Inpatient) sp3 jr12 16:01 15:23 sp3 jr12 20:46 16:01 [facility] ER HOLD jr12 mw 20:46 16:01 ERHOLD- jr12 mw
--- NOTE | 2023-05-01 15:23 | ER ---
Nurse's Notes [facility] Name: Yelitza Lara Age: 72 yrs Sex: Female : 1950 Arrival Date: 05/01/2023 Time: 13:51 Bed 20 Private MD: Diagnosis: A-fib with RVR, CHF, dyspnea, NSTEMI Presentation: 05/01 13:52 Chief complaint: EMS states: toned out to patient home for cough. Reports ER visit last ld1 week for being sick,"feeling weak now.". Coronavirus screen: At this time, the client does not indicate any symptoms associated with coronavirus-19. Ebola Screen: No symptoms or risks identified at this time. Initial Sepsis Screen: Does the patient meet any 2 criteria? No. Patient's initial sepsis screen is negative. Does the patient have a suspected source of infection? No. Patient's initial sepsis screen is negative. Risk Assessment: Do you want to hurt yourself or someone else? Patient reports no desire to harm self or others. Onset of symptoms was May 01, 2023. 13:52 Method Of Arrival: EMS: [facility] ld1 13:52 Acuity: WILDER 2 ld1 Triage Assessment: 13:56 General: Appears in no apparent distress. uncomfortable, Behavior is anxious, fussy. ld1 Pain: Denies pain. EENT: No signs and/or symptoms were reported regarding the EENT system. Neuro: Level of Consciousness is awake, alert, obeys commands, Oriented to person, place, time, situation. Cardiovascular: Capillary refill < 3 seconds Patient's skin is warm and dry. Rhythm is SVT. Respiratory: Airway is patent Respiratory effort is even, unlabored. GI: Abdomen is round non-distended. : No signs and/or symptoms were reported regarding the genitourinary system. Derm: No signs and/or symptoms reported regarding the dermatologic system. Musculoskeletal: No signs and/or symptoms reported regarding the musculoskeletal system. Historical: - Allergies: 13:56 PENICILLINS; ld1 - PMHx: 13:56 Arthritis; Atrial fibrillation; CVA; diabetes mellitus; Myocardial infarction; ld1 - Immunization history:: Adult Immunizations up to date. - Social history:: Smoking status: Patient denies any tobacco usage or history of. Screenin:58 [facility] ED Fall Risk Assessment (Adult) History of falling in the last 3 months, ld1 including since admission No falls in past 3 months (0 pts). Abuse screen: Denies threats or abuse. Denies injuries from another. Nutritional screening: No deficits noted. Tuberculosis screening: No symptoms or risk factors identified. Assessment: 13:58 Reassessment: See triage assessment. ld1 21:01 General: attempted to call report. no answer . lg3 Vital Signs: 13:52 BP 101 / 70; Pulse 155; Resp 18; Temp 97.6(O); Pulse Ox 98% on R/A; Weight 84.82 kg; ld1 Height 5 ft. 3 in. ; Pain 0/10; 14:38 BP 129 / 89; Pulse 129; Resp 18; Pulse Ox 99% on R/A; ld1 13:52 Body Mass Index 33.13 (84.82 kg, 160.02 cm) ld1 13:52 Pain Scale: Adult ld1 ED Course: 13:52 Patient arrived in ED. ld1 13:52 Russell Arias MD is Attending Physician. sp3 13:55 Triage completed. ld1 13:56 tC Walden, RN is Primary Nurse. ld1 13:56 Arm band placed on right wrist. EKG completed in triage. Results shown to MD. ld1 13:58 Patient has correct armband on for positive identification. Placed in gown. Bed in low ld1 position. Call light in reach. Side rails up X2. night monitor on. Pulse ox on. NIBP on. Door closed. Noise minimized. Warm blanket given. 13:58 No provider procedures requiring assistance completed. ld1 14:00 Inserted saline lock: 18 gauge in left antecubital area, using aseptic technique. Blood mb9 collected. 14:02 EKG done, by ED staff, reviewed by Russell Arias MD. mb9 14:42 XRAY Chest (1 view) In Process Unspecified. EDMS 15:22 Brannon Nieto MD is Hospitalizing Provider. sp3 18:11 Patient admitted, IV remains in place. ld1 21:51 Primary Nurse role handed off by Ct Walden, RN lg3 21:51 Attending Physician role handed off by Russell Arias MD lg3 Administered Medications: 14:05 Drug: Diltiazem IVP 10 mg IVP once; Over 2 minutes Route: IVP; Site: left antecubital; ld1 14:46 Drug: Diltiazem IVP 10 mg IVP once; Over 2 minutes Route: IVP; Site: left antecubital; ld1 15:20 Drug: Diltiazem IVP 10 mg IVP once; Over 2 minutes Route: IVP; Site: left antecubital; ld1 15:32 Drug: Sotalol PO 80 mg PO once Route: PO; mb9 15:36 Drug: Furosemide IVP 20 mg IVP once; give over 2 minutes Route: IVP; Site: left ld1 antecubital; Medication: 13:58 VIS not applicable for this client. ld1 Outcome: 15:23 Decision to Hospitalize by Provider. sp3 18:10 Admitted to ER Hold. Please see [facility] for further documentation. ld1 18:10 Condition: stable 18:10 Instructed on the need for admit, 21:50 Patient left the ED. as6 21:54 Patient left the ED. lg3 Signatures: Dispatcher [employer] EDMS Florence Ross, RN RN lg3 Ct Walden RN RN ld1 Russell Arias MD MD sp3 Stephen Salcedo RN RN as6 Mary Eubanks RN RN mb9
[2023-05-01] MEDS ORDERED: FUROSEMIDE 20 MG/ 2ML VIAL ONE (15:39)
[2023-05-01] MEDS ORDERED: SOTALOL HCL 80 MG TAB ONE (15:40)
[2023-05-01] MEDS ORDERED: ACETAMINOPHEN 500 MG TAB PO PRN (15:56)
[2023-05-01] MEDS ORDERED: ALBUTEROL 2.5 MG/3 ML NEB SOL NEB PRN (15:56)
[2023-05-01] MEDS ORDERED: ONDANSETRON 4 MG/2 ML VIAL IV PRN (15:56)
--- NOTE | 2023-05-01 16:42 | P.HP ---
Certification for Inpatient With expected LOS: <2 Midnights Patient will require the following post-hospital care: None Practitioner: I am a practitioner with admitting privileges, knowledge of patient current condition, hospital course, and medical plan of care. Services: Services provided to patient in accordance with Admission requirements found in Title 42 Section 412.3 of the Code of Federal Regulations <MorganMatty terry - Last Filed: 05/01/23 17:38> Patient History Date of Service: 05/01/23 Reason for admission: Shortness of breath, weakness, A-fib RVR, CHF History of Present Illness: 72-year-old female with history of arthritis, atrial fibrillation, CVA, diabetes mellitus, myocardial infarction presented to the ER via EMS with complaints of cough, generalized weakness. Patient states that she had started new medication last week and started coughing after 3 days of taking the medicine. Patient denies chest pain, fever, back pain abdominal pain nausea or vomiting. Patient admitted increased shortness of breath with with minimal exertion. Negative for wheezing fluid retention on extremities. ED course;Vital Signs: 13:52 BP 101 / 70; Pulse 155; Resp 18; Temp 97.6(O); Pulse Ox 98% on R/A; Pain 0/10; patient received Cardizem IV 10 mg IV push x3 for the rapid A-fib. Planning to admit the patient with a diagnosis of A-fib with RVR, CHF, dyspnea, NSTEMI.; Home medications list reviewed: Yes - Past Medical/Surgical History Diabetic: Yes -: Atrial fibrillation -: DM2 -: CVA -: Osteoarthritis -: NM -: R rotator cuff sx -: cyst removal from hip -: tonsilectomy -: D&C's - Family History Mother -: Cancer Father -: Stroke, Cancer - Social History Alcohol use: Yes CD- Drugs: No Caffeine use: Yes <Matty Morgan - Last Filed: 05/01/23 17:38> Date of Service: 05/02/23 <Brannon Nieto - Last Filed: 05/02/23 01:26> Allergies Penicillins Allergy (Verified 04/20/23 08:16) Rash shellfish derived Allergy (Verified 04/20/23 08:16) Nausea/Vomiting atorvastatin Adverse Reaction (Verified 04/20/23 08:16) Tachycardia propoxyphene [From Darvon] Adverse Reaction (Verified 04/20/23 08:16) hallucinations Home Medications: Apixaban [Eliquis] 5 mg PO DAILY 04/13/23 Clopidogrel Bisulfate [Plavix*] 75 mg PO DAILY 04/13/23 Diltiazem HCl [Diltiazem 12Hr ER] 120 mg PO DAILY 04/13/23 Furosemide [Lasix*] 20 mg PO DAILY PRN #30 tab 04/14/23 Atorvastatin Calcium [Lipitor*] 20 mg PO BEDTIME 05/01/23 Ezetimibe [Zetia*] 10 mg PO DAILY 05/01/23 Lisinopril [Zestril] 10 mg PO DAILY 05/01/23 Review of Systems 10-point ROS is otherwise unremarkable General: Weakness (No fever no chills) Eyes: Unremarkable ENT: Unremarkable Respiratory: Cough, Shortness of Breath, SOB with Excertion (Sputum clear at this time, patient reported blood-tinged sputum at home) Cardiovascular: Palpitations, Other (Denies chest pain) Gastrointestinal: Unremarkable Musculoskeletal: Unremarkable Integumentary: Unremarkable Neurological: Unremarkable <Matty Morgan - Last Filed: 05/01/23 17:38> Physical Examination - Physical Exam General: Alert, Oriented x3, Cooperative HEENT: Atraumatic, Normocephalic, PERRLA Neck: 2+ carotid pulse no bruit Respiratory: Clear to auscultation bilaterally, Normal air movement Cardiovascular: No edema Capillary refill: Brisk Gastrointestinal: Normal bowel sounds, Soft and benign, Non-distended, No ascites, No tenderness, No masses, No rebound Musculoskeletal: No clubbing, No swelling, No contractures, No erythema, No tenderness, No warmth Integumentary: No rashes Neurological: Normal gait, Normal speech, Normal strength at 5/5 x4 extr, Normal tone, Sensation intact, Normal affect - Studies Laboratory Data (last 24 hrs) 05/01/23 05/01/23 05/01/23 14:01 14:01 14:01 WBC 7.70 Hgb 15.4 H Hct 43.4 Plt Count 231 PT 15.1 H INR 1.37 Sodium 137 Potassium 3.5 BUN 16 Creatinine 1.01 Glucose 108 H Magnesium 2.3 Total Bilirubin 0.8 AST 37 ALT 52 Alkaline Phosphatase 71 <Matty Morgan - Last Filed: 05/01/23 17:38> - Studies Laboratory Data (last 24 hrs) 05/01/23 05/01/23 05/01/23 14:01 14:01 14:01 WBC 7.70 Hgb 15.4 H Hct 43.4 Plt Count 231 PT 15.1 H INR 1.37 Sodium 137 Potassium 3.5 BUN 16 Creatinine 1.01 Glucose 108 H Magnesium 2.3 Total Bilirubin 0.8 AST 37 ALT 52 Alkaline Phosphatase 71 <Brannon Nieto - Last Filed: 05/02/23 01:26> Assessment and Plan - Plan Assessment and plan A-fib with RVR CHF Exacerbation, New cough Dyspnea, NSTEMI. History of NM Diabetes mellitus type 2 CV Osteoarthritis Hyperlipidemia Assessment and plan A-fib with RVR: CHF Exacerbation, New cough Dyspnea, NSTEMI. History of NM * Acute, complaints of cough, generalized weakness. Noted to have A-fib With ventricular response. patient received Cardizem IV 10 mg IV push x3 for the rapid A-fib Rate is controlled at this time. Patient taking Eliquis 5 mg p.o. daily, Cardizem ER 120 mg p.o. daily. * Reports that she has been started on lisinopril 10 mg p.o. daily and started having coughing episodes after 3 days. We will discontinue lisinopril at this * Patient is seeing drop pit worker Dr. Phillips and he was notified about the admission * Chloride replacement as per protocol * Pending CT chest result, * Patient is on Plavix 75 p.o. daily * Trend troponin Diabetes mellitus type 2 * Chronic, controlled. * Started on blood sugar checks before meals and at bedtime with a low-dose sliding scale insulin * Hypoglycemic precautions * ADA diet CVA * Chronic, history of CVA. No residual weakness * Continue Plavix and statin Osteoarthritis: * Chronic, controlled. Continue the current pain medication * Fall precautions Hyperlipidemia * Chronic, controlled on statin * Resume home medication * Check lipid panel CODE STATUS Full code DVT prophylaxis Lovenox Diet 1800 ADA and cardiac diet . Discharge Plan: Home Plan to discharge in: 24 Hours - Advance Directives Does patient have a Living Will: No Does patient have a Durable POA for Healthcare: No - Code Status/Comfort Care Code Status Assessed: Yes (Full code) Code Status: Full Code Physician Review: Patient Assessed, Agree with Above Assessment and Plan Critical Care: Yes Time Spent Managing Pts Care (In Minutes): 55 (Minutes) <Matty Morgan - Last Filed: 05/01/23 17:38> Date of Service: 05/01/23 Patient seen and examined. Agree with plan of care. Echocardiogram and cardiology consultation pending. Continue with diuresing and continue with medication for rate control. <Brannon Nieto - Last Filed: 05/02/23 01:26>
[2023-05-01 16:53] VITALS: BMI 33.7
[2023-05-01 19:57] LABS: Absolute Lymphocytes (CBC) 3.1 K/uL (0.7-4.9); Hematocrit 40.7 % (36.0-45.0); Lymphocytes % 39.1 % (15.3-44.8); MCV 90.8 fL (80-100); MPV 8.5 fL (7.6-11.3); Platelets 230 thou/uL (152-406); RBC Red Blood Cell Count 4.48 M/uL (3.86-4.86)
[2023-05-01 20:03] LABS: Specific Gravity 1.008 (1.005-1.030); Urine Bacteria None Seen /HPF (<20); Urine Bilirubin NEGATIVE (Negative); Urine Blood Negative (Negative); Urine Clarity Turbid (Clear); Urine Color Light-Yellow (Yellow); Urine Glucose NEGATIVE (Negative); Urine Protein NEGATIVE (Negative); Urine RBC None Seen /HPF (None Seen); Urine Urobilinogen Normal (Normal)
[2023-05-01 20:14] LABS: Magnesium 2.2 mg/dL (1.6-2.4); Phosphorus 3.1 mg/dL (2.5-4.9)
[2023-05-01] MEDS: INSULIN REGULAR (HUMAN) 100 UNIT/ML SQ SCH (20:47)
[2023-05-01] MEDS: APIXABAN 5 MG TABLET PO SCH (20:53)
[2023-05-01] MEDS ORDERED: APIXABAN 5 MG TABLET ONE (21:03)
[2023-05-01] MEDS ORDERED: MIDODRINE HCL 5 MG TABLET PO PRN (23:24)
[2023-05-02 03:21] LABS: Potassium 3.5 mEq/L (3.5-5.1)
[2023-05-02 05:06] LABS: Absolute Lymphocytes (CBC) 3.8 K/uL (0.7-4.9); Hematocrit 39.1 % (36.0-45.0); Lymphocytes % 43.8 % (15.3-44.8); MCV 90.3 fL (80-100); MPV 9.1 fL (7.6-11.3); Platelets 243 thou/uL (152-406); RBC Red Blood Cell Count 4.33 M/uL (3.86-4.86)
[2023-05-02 05:08] LABS: Phosphorus 2.6 mg/dL (2.5-4.9)
[2023-05-02] MEDS: INSULIN REGULAR (HUMAN) 100 UNIT/ML SQ SCH ×4 (07:30→21:00)
--- NOTE | 2023-05-02 07:41 | RAD REPORT ---
EXAM DESCRIPTION: RAD - Chest Single View - 05/02/2023 6:12 am CLINICAL HISTORY: Shortness of Breath Chest pain. COMPARISON: Chest Single View dated 05/01/2023; Chest Single View dated 04/13/2023 FINDINGS: Portable technique limits examination quality. The lungs are mildly emphysematous but grossly clear. The heart is mildly to moderate enlarged in siz e. No displaced fractures. IMPRESSION: COPD.
[2023-05-02] MEDS ORDERED: APIXABAN 5 MG TABLET PO SCH (09:00)
[2023-05-02] MEDS ORDERED: EZETIMIBE 10 MG TAB PO SCH (09:00)
[2023-05-02] MEDS ORDERED: POTASSIUM CL SA 10 MEQ TAB PO ONE (09:00)
[2023-05-02] MEDS: FUROSEMIDE 20 MG/ 2ML VIAL IV SCH ×2 (10:08→17:46)
[2023-05-02] MEDS: CLOPIDOGREL 75 MG TABLET PO SCH (10:09)
[2023-05-02] MEDS: APIXABAN 5 MG TABLET PO SCH ×2 (11:04→20:13)
[2023-05-02] MEDS: DILTIAZEM HCL 120 MG SR CAP PO SCH (11:04)
[2023-05-02] MEDS ORDERED: ALBUTEROL 2.5 MG/3 ML NEB SOL NEB PRN (12:00)
--- NOTE | 2023-05-02 12:31 | EKG ---
Test Date: 2023-05-01 Test Time: 14:01:06 Software Integrator: MYA MEASUREMENT RESULTS: Intervals: Rate: 136 UT: QRSD: 132 QT: 300 QTc: 451 Merrill: P: UT: QRS: -43 T: 145 INTERPRETIVE STATEMENTS: Atrial fibrillation Left axis deviation Nonspecific intraventricular block Abnormal ECG Compared to ECG 04/13/2023 13:43:24 Sinus bradycardia no longer present Left bundle-branch block no longer present Electronically Signed On 05-02-23 12:29:40 CDT by Vargas Berkowitz
[2023-05-02] MEDS ORDERED: SOTALOL HCL 80 MG TAB PO ONE (18:25)
--- NOTE | 2023-05-02 18:40 | P.PN ---
Subjective Date of Service: 05/02/23 Chief Complaint: Shortness of breath, weakness, A-fib RVR, CHF No acute events overnight. She reports a persistent dry cough since starting lisinopril about 3-4 days ago. She denies any chest pain or shortness of breath. She remains in atrial fibrillation, but is rate-controlled on rounds. Review of Systems 10-point ROS is otherwise unremarkable Respiratory: Cough Cardiovascular: Palpitations Physical Examination - Vital Signs Temperature: 97.4 F Blood Pressure: 111/91 Pulse: 102 Respirations: 18 Pulse Ox (%): 98 - Physical Exam General: Alert, In no apparent distress, Oriented x3 HEENT: Atraumatic, Mucous membr. moist/pink, Sclerae nonicteric Neck: JVD not distended Respiratory: Clear to auscultation bilaterally, Normal air movement Cardiovascular: No edema, No murmurs, Irregular heart rate/rhythm Gastrointestinal: Normal bowel sounds, Soft and benign, Non-distended, No tenderness, No rebound, No guarding Musculoskeletal: No clubbing Integumentary: No rashes Neurological: Normal speech, Normal affect Assessment And Plan - Plan # Paroxysmal Atrial Fibrillation with Rapid Ventricular Response - improved # Suspect Demand Ischemia (Type II Non-ST Segment Elevation Myocardial Infarction) due to above - Evaluation thus far: - Troponin = initial troponin was 72.9, trend - EKG = atrial fibrillation - Chest x-ray = "no acute cardiopulmonary disease." - Potassium = 3.5, Magnesium = 2.0 - Target K> 4, Mg >2 - TSH = 1.81 - NT-Pro BNP = 4,419 - Management plan: - Cardiology consulted - recommendations appreciated - Continue sotalol, diltiazem, apixaban # Acute on Chronic Decompensated Diastolic Congestive Heart Failure with Preserved Ejection Fraction # Likely Lisinopril-Induced Cough - Consult Cardiology - recommendations appreciated - Transthoracic echocardiogram (04/14/2023) = "1. normal left ventricular ejection fraction 50-55% 2. normal wall motion 3. moderate diastolic dysfunction 4. mild mitral regurgitation 5. mild tricuspid regurgitation" - Diuresis with IV furosemide for today - Hold lisinopril given cough, can start losartan if blood pressure allows - Daily weights - Strict I/O - Cardiac diet, 1.5 L fluid restriction, 2 g Na restriction # History of Cerebrovascular Accident # Hyperlipidemia - Continue home apixaban, clopidogrel - Atorvastatin discontinued due to listed adverse effect of tachycardia # Type II Diabetes Mellitus - Correction scale insulin Abdoul Cervantes M.D.
--- NOTE | 2023-05-02 19:07 | CON ---
Date of Consultation: 05/02/2023 Reason For Consultation: Atrial fibrillation with rapid ventricular response. History Of Present Illness: A 72-year-old female, history of AFib, CVA, diabetes, coronary artery di sease, presented complaining of cough, generalized weakness, and palpitation, found to be in AFib wit h RVR. She responded to Cardizem very well. No chest pain, but she is having difficulty breathing a nd wheezing. Past Medical History: As outlined above in the HPI. Medications: Refer to reconciliation sheet for detailed list. Allergies: PENICILLIN, ATORVASTATIN, AND PROPOXYPHENE. Family History: No premature coronary artery disease or cancer. Social History: She does not smoke or drink. Does not use any drugs. Review of Systems: All systems reviewed and they were negative except what mentioned in HPI. Physical Examination: Vital Signs: Reviewed. Head and Neck: Pupils are equal, reactive to light. Intact eye movements. No JVD. No cervical lym phadenopathy. Neck is supple. Thyroid is not enlarged. Lungs: Clear to auscultation bilaterally. No rhonchi, wheezing, or crackles. No accessory muscle u se. Heart: Irregularly irregular. No extra sounds. Abdomen: Soft, nontender. Bowel sounds positive. No organomegaly. No masses or hernia. No rigidi ty or rebound. Extremities: No edema, clubbing, or cyanosis. Intact pulses. Skin: No rash. Neurologic: Alert, awake, oriented x3. No acute focal deficits appreciated. Lymph Nodes: No cervical or axillary lymphadenopathy. Investigations: Her chest x-ray showed COPD. The first troponin was 78. BUN 18, creatinine 0.83, a nd hemoglobin 13.7. Assessment And Recommendations: 1.Atrial fibrillation with rapid ventricular response. I will start the patient on sotalol 80 mg tw ice a day and the patient is already on Cardizem use, metoprolol IV as needed for rate control. If t he patient converts to sinus rhythm, then diltiazem to be discontinued and continue Eliquis 5 mg twic e a day. 2.Dyslipidemia. Continue with statin. 3.Chronic heart failure. She does not appear to be fluid overloaded. Careful with diuresis. I kandi l switch that to oral at her home dose. 4.Coronary artery disease. Borderline troponin. Repeat troponin. If it keeps escalating up, then we will plan for stress test. SR/MODL Voice ID: [id number] Report ID: [id number]
[2023-05-02] MEDS ORDERED: ATORVASTATIN 20 MG TAB PO SCH (21:00)
[2023-05-03 04:38] LABS: Magnesium 2.1 mg/dL (1.6-2.4); Potassium 3.6 mEq/L (3.5-5.1)
[2023-05-03] MEDS: SOTALOL HCL 80 MG TAB PO SCH ×2 (05:23→18:00)
[2023-05-03] MEDS: INSULIN REGULAR (HUMAN) 100 UNIT/ML SQ SCH ×4 (07:30→20:39)
[2023-05-03] MEDS ORDERED: POTASSIUM CL SA 10 MEQ TAB PO ONE (09:00)
[2023-05-03] MEDS: FUROSEMIDE 20 MG/ 2ML VIAL IV SCH ×2 (09:00→18:48)
[2023-05-03] MEDS: DILTIAZEM HCL 120 MG SR CAP PO SCH (11:20)
[2023-05-03] MEDS: CLOPIDOGREL 75 MG TABLET PO SCH ×2 (11:21→11:31)
[2023-05-03] MEDS: APIXABAN 5 MG TABLET PO SCH ×2 (11:31→20:39)
--- NOTE | 2023-05-03 15:44 | PN ---
Date of Progress Note: 05/03/2023 Subjective: Seen by bedside. Doing clinically well, feeling better. Still with cough and wheezing. Review of Systems: No chest pain. Minimal shortness of breath and cough with improvement. No nausea, vomiting, or diar ele. No dysuria, polyuria, or urinary urgency. All other systems reviewed, they were negative. Objective: Vital Signs: Temperature is 97.0, pulse 68, breathing at 18, blood pressure 106/78, satu rating 97% on room air. General: Pleasant elderly female, in no apparent distress. Head and Neck: Pupils are equal, reactive to light. Intact eye movements. No JVD. No cervical lym phadenopathy. Neck is supple. Thyroid is not enlarged. Lungs: Decreased breathing sounds with scattered wheezing. No accessory muscle use or muscle retrac tion. Heart: Irregular. No extra sounds. Abdomen: Soft, nontender. Bowel sounds positive. No organomegaly. No masses or hernia. No rigidi ty or rebound. Extremities: No edema, clubbing, or cyanosis. Intact pulses. Skin: No rash. No nodule. Neurologic: Alert, awake, oriented x3. No acute focal deficits appreciated. Investigations: BUN 25, creatinine 0.9, and cardiac enzymes are negative. Hemoglobin 13.7. Assessment And Recommendations: 1.Atrial fibrillation with rapid ventricular response. Now rate is controlled. Continue sotalol an d Eliquis as well as Cardizem for now. 2.Shortness of breath, likely due to acute bronchitis and wheezing, and she is doing better. 3.Acute on chronic diastolic heart failure exacerbation. Agree with the Lasix at the current dose. Continue current management. She can be switched to oral starting to bonilla. SR/MODL Voice ID: [id number] Report ID: [id number]
--- NOTE | 2023-05-03 17:59 | P.PN ---
Subjective Date of Service: 05/03/23 Chief Complaint: Shortness of breath, weakness, A-fib RVR, CHF No acute events overnight. She reports that her palpitations have improved. She has developed intermittent episodes of atrial fibrillation with rapid ventricular response. She has already been initiated on sotalol will monitor QTc interval. If she does not revert to normal sinus rhythm by tomorrow, consideration for EVELIA-DCCV per Cardiology. She denies any chest pain or palpitations. Review of Systems 10-point ROS is otherwise unremarkable Respiratory: Cough, Dry Cardiovascular: Palpitations Physical Examination - Vital Signs Temperature: 97.4 F Blood Pressure: 96/58 Pulse: 93 Respirations: 16 Pulse Ox (%): 94 Assessment And Plan - Plan - Physical Exam General: Alert, In no apparent distress, Oriented x3 HEENT: Atraumatic, Mucous membr. moist/pink, Sclerae nonicteric Neck: JVD not distended Respiratory: Clear to auscultation bilaterally, Normal air movement Cardiovascular: No edema, No murmurs, Irregular heart rate/rhythm Gastrointestinal: Normal bowel sounds, Soft, Non-distended, No tenderness Neurological: Normal speech, Normal affect # Paroxysmal Atrial Fibrillation with Rapid Ventricular Response - improved # Suspect Demand Ischemia (Type II Non-ST Segment Elevation Myocardial Infarction) due to above - Evaluation thus far: - Troponin = 72.9 -> 51.4 -> 46.6 - EKG = atrial fibrillation - Chest x-ray = "no acute cardiopulmonary disease." - Potassium = 3.5, Magnesium = 2.0 - Target K> 4, Mg >2 - TSH = 1.81 - NT-Pro BNP = 4,419 - Management plan: - Cardiology consulted and spoke with Dr. Berkowitz - recommendations appreciated - Continue sotalol, diltiazem, apixaban - Plan to obtain QTc interval after 3 doses of sotalol. Will consider EVELIA- DCCV if still in atrial fibrillation tomorrow # Acute on Chronic Decompensated Diastolic Congestive Heart Failure with Preserved Ejection Fraction # Likely Lisinopril-Induced Cough - Consult Cardiology - recommendations appreciated - Transthoracic echocardiogram (04/14/2023) = "1. normal left ventricular ejection fraction 50-55% 2. normal wall motion 3. moderate diastolic dysfunction 4. mild mitral regurgitation 5. mild tricuspid regurgitation" - Diuresis with IV furosemide for today - Hold lisinopril given cough, can start losartan if blood pressure allows - Daily weights - Strict I/O - Cardiac diet, 1.5 L fluid restriction, 2 g Na restriction # History of Cerebrovascular Accident # Hyperlipidemia - Continue home apixaban, clopidogrel - Atorvastatin discontinued due to listed adverse effect of tachycardia # Type II Diabetes Mellitus - Correction scale insulin Abdoul Cervantes M.D.
[2023-05-04 03:49] LABS: Potassium 3.3 mEq/L (3.5-5.1)
[2023-05-04] MEDS: SOTALOL HCL 80 MG TAB PO SCH ×2 (05:53→18:00)
[2023-05-04] MEDS ORDERED: POTASSIUM 25 MEQ EFFERV TAB PO ONE (05:58)
[2023-05-04] MEDS: INSULIN REGULAR (HUMAN) 100 UNIT/ML SQ SCH ×4 (07:30→21:00)
[2023-05-04] MEDS: APIXABAN 5 MG TABLET PO SCH ×2 (09:00→21:01)
[2023-05-04] MEDS: FUROSEMIDE 20 MG/ 2ML VIAL IV SCH ×2 (09:00→17:00)
[2023-05-04] MEDS: DILTIAZEM HCL 120 MG SR CAP PO SCH (09:00)
--- NOTE | 2023-05-04 17:18 | P.PN ---
Subjective Date of Service: 05/04/23 Chief Complaint: Shortness of breath, weakness, A-fib RVR, CHF No new events. She denies any new symptoms, but remains in atrial fibrillation. Spoke with Dr. Berkowitz, who is planning for EVELIA-DCCV this afternoon. She denies any chest pain or shortness of breath. Review of Systems 10-point ROS is otherwise unremarkable Cardiovascular: Palpitations Physical Examination - Vital Signs Temperature: 97.1 F Blood Pressure: 96/67 Pulse: 81 Respirations: 18 Pulse Ox (%): 97 Assessment And Plan - Plan - Physical Exam General: Alert, In no apparent distress, Oriented x3 HEENT: Atraumatic, Mucous membr. moist/pink, Sclerae nonicteric Neck: JVD not distended Respiratory: Clear to auscultation bilaterally, Normal air movement Cardiovascular: No edema, No murmurs, Irregular heart rate/rhythm Gastrointestinal: Normal bowel sounds, Soft, Non-distended, No tenderness Neurological: Normal speech, Normal affect # Paroxysmal Atrial Fibrillation with Rapid Ventricular Response - improved # Suspect Demand Ischemia (Type II Non-ST Segment Elevation Myocardial Infarction) due to above - Evaluation thus far: - Troponin = 72.9 -> 51.4 -> 46.6 - EKG = atrial fibrillation - Chest x-ray = "no acute cardiopulmonary disease." - Potassium = 3.5, Magnesium = 2.0 - Target K> 4, Mg >2 - TSH = 1.81 - NT-Pro BNP = 4,419 - Management plan: - Cardiology consulted and spoke with Dr. Berkowitz - recommendations appreciated - Continue sotalol, diltiazem, apixaban - Planning for EVELIA-DCCV this afternoon # Acute on Chronic Decompensated Diastolic Congestive Heart Failure with Preserved Ejection Fraction # Likely Lisinopril-Induced Cough - Consult Cardiology - recommendations appreciated - Transthoracic echocardiogram (04/14/2023) = "1. normal left ventricular ejection fraction 50-55% 2. normal wall motion 3. moderate diastolic dysfunction 4. mild mitral regurgitation 5. mild tricuspid regurgitation" - Diuresis with IV furosemide for today - Hold lisinopril given cough, can start losartan if blood pressure allows - Daily weights - Strict I/O - Cardiac diet, 1.5 L fluid restriction, 2 g Na restriction # History of Cerebrovascular Accident # Hyperlipidemia - Continue home apixaban, clopidogrel - Atorvastatin discontinued due to listed adverse effect of tachycardia # Type II Diabetes Mellitus - Correction scale insulin Abdoul Cervantes M.D.
--- NOTE | 2023-05-04 19:12 | PN ---
Date of Progress Note: 05/04/2023 Subjective: Seen by bedside. She is still in atrial fibrillation. Rate is between 80 and 110. Review of Systems: No chest pain. No shortness of breath. Minimal cough is still present. No nausea, vomiting, diarrh ea. No abdominal pain. All other systems reviewed and they were negative. Physical Examination: Vital Signs: Reviewed. Head and Neck: Pupils are equal, reactive to light. Intact eye movements. No JVD. No cervical lym phadenopathy. Neck is supple. Thyroid is not enlarged. Lungs: Clear to auscultation bilaterally. No rhonchi, wheezing, or crackles. No accessory muscle u se. Heart: Regular rate and rhythm. No extra sounds. Abdomen: Soft, nontender. Bowel sounds positive. No organomegaly. No masses or hernia. No rigidi ty or rebound. Extremities: No edema, clubbing, or cyanosis. Intact pulses. Skin: No rash. Neurologic: Alert, awake, oriented x3. No acute focal deficits appreciated. Investigations: BUN 27, creatinine 0.96, and hemoglobin is 13.7. Assessment And Recommendations: 1.Atrial fibrillation with rapid ventricular response. Rate is better, but continues to go up when she gets up and walks around. Continue sotalol and Cardizem. Plan for EVELIA-guided cardioversion paige rrow and continue Eliquis 5 mg twice a day. 2.Hypertension. Blood pressure is controlled. 3.Acute on chronic diastolic heart failure exacerbation. Now, she appears to be euvolemic. Discont inue Lasix and re-dose by mouth starting tomorrow as her blood pressure is on the low side. 4.Elevated troponin, borderline on arrival without chest pain. This is likely demand ischemia; however, we will plan for outpatient stress test once the atrial fibrillat ion issue is settled. SR/MODL Voice ID: [id number] Report ID: [id number]
[2023-05-05 03:35] LABS: Potassium 3.7 mEq/L (3.5-5.1)
[2023-05-05] MEDS: SOTALOL HCL 80 MG TAB PO SCH ×2 (05:30→17:16)
[2023-05-05] MEDS: INSULIN REGULAR (HUMAN) 100 UNIT/ML SQ SCH ×4 (07:30→20:20)
[2023-05-05] MEDS ORDERED: POTASSIUM CL SA 10 MEQ TAB PO ONE (09:00)
[2023-05-05] MEDS: DILTIAZEM HCL 120 MG SR CAP PO SCH (09:58)
[2023-05-05] MEDS: CLOPIDOGREL 75 MG TABLET PO SCH (09:58)
[2023-05-05] MEDS: APIXABAN 5 MG TABLET PO SCH ×2 (09:59→20:20)
--- NOTE | 2023-05-05 15:05 | EKG ---
Test Date: 2023-05-05 Test Time: 08:48:49 Metalsmith Apprentice: RANDY MEASUREMENT RESULTS: Intervals: Rate: 53 MS: 156 QRSD: 142 QT: 542 QTc: 508 [place]: P: 61 MS: 156 QRS: -4 T: 39 INTERPRETIVE STATEMENTS: Sinus bradycardia Left bundle branch block Abnormal ECG Compared to ECG 05/01/2023 14:01:06 Left bundle-branch block now present Atrial fibrillation no longer present Left-axis deviation no longer present Electronically Signed On 05-05-23 15:04:38 CDT by Vargas Berkowitz
--- NOTE | 2023-05-05 19:35 | PN ---
Date of Progress Note: 05/05/2023 Subjective: Seen by bedside. Doing clinically well. She has converted to sinus rhythm. Review of Systems: No chest pain, shortness of breath, orthopnea, or cough. No nausea, vomiting, or diarrhea. All othe r systems were reviewed, they were negative. Objective: Vital Signs: Reviewed. Head and Neck: Pupils are equal, reactive to light. Intact eye movements. No JVD. No cervical lym phadenopathy. Neck is supple. Thyroid is not enlarged. Lungs: Clear to auscultation bilaterally. No rhonchi, wheezing, or crackles. No accessory muscle u se. Heart: Regular rate and rhythm. No extra sounds. Abdomen: Soft, nontender. Bowel sounds positive. No organomegaly. No masses or hernia. No rigidi ty or rebound. Extremities: No edema, clubbing, or cyanosis. Intact pulses. Skin: No rash. No nodule. Neurological: Alert, awake, oriented x3. No acute focal deficits appreciated. Investigations: BUN 30, creatinine 0.9, hemoglobin is 13.7. Assessment And Recommendations: 1.Atrial fibrillation with rapid ventricular response, now she converted to sinus rhythm. On EKG, Q Tc interval is 508. Cut down on sotalol 240 mg twice a day and repeat EKG tomorrow afternoon and bas ed on that we will decide on the sotalol treatment continuation or discontinuation. Continue Eliquis 5 mg twice a day. 2.Hypertension. Blood pressure is controlled. 3.Borderline troponin elevation, likely demand. Plan for outpatient workup if the stress test was n ot done recently. SR/MODL Voice ID: [id number] Report ID: [id number]
--- NOTE | 2023-05-05 19:45 | P.PN ---
Subjective Date of Service: 05/05/23 Chief Complaint: Shortness of breath, weakness, A-fib RVR, CHF This morning, the plan was for TEEDCCV; however, she converted to normal sinus rhythm. Follow-up EKG on sotalol revealed a prolonged QTc interval of [address] Berkowitz, who recommended decreasing sotalol dose to 40 mg and monitoring her QTc interval for an additional 24 hours. She denies any chest pain or shortness of breath. Review of Systems 10-point ROS is otherwise unremarkable Physical Examination - Vital Signs Temperature: 97.9 F Blood Pressure: 120/72 Pulse: 62 Respirations: 16 Pulse Ox (%): 96 Assessment And Plan - Plan - Physical Exam General: Alert, In no apparent distress, Oriented x3 HEENT: Atraumatic, Mucous membr. moist/pink, Sclerae nonicteric Neck: JVD not distended Respiratory: Clear to auscultation bilaterally, Normal air movement Cardiovascular: No edema, No murmurs, regular heart rate/rhythm Gastrointestinal: Normal bowel sounds, Soft, Non-distended, No tenderness Neurological: Normal speech, Normal affect # Paroxysmal Atrial Fibrillation with Rapid Ventricular Response - improved # Suspect Demand Ischemia (Type II Non-ST Segment Elevation Myocardial Infarction) due to above - Evaluation thus far: - Troponin = 72.9 -> 51.4 -> 46.6 - EKG = atrial fibrillation - Chest x-ray = "no acute cardiopulmonary disease." - Potassium = 3.5, Magnesium = 2.0 - Target K> 4, Mg >2 - TSH = 1.81 - NT-Pro BNP = 4,419 - Management plan: - Cardiology consulted and spoke with Dr. Berkowitz - QTc interval prolonged at 508 msec - Recommended decreasing sotalol to 40 mg and monitoring QTc interval for an additional 24 hours - Continue diltiazem, apixaban # Acute on Chronic Decompensated Diastolic Congestive Heart Failure with Preserved Ejection Fraction # Likely Lisinopril-Induced Cough - Consult Cardiology - recommendations appreciated - Transthoracic echocardiogram (04/14/2023) = "1. normal left ventricular ejection fraction 50-55% 2. normal wall motion 3. moderate diastolic dysfunction 4. mild mitral regurgitation 5. mild tricuspid regurgitation" - Diuresis with IV furosemide for today - Hold lisinopril given cough, can start losartan if blood pressure allows - Daily weights - Strict I/O - Cardiac diet, 1.5 L fluid restriction, 2 g Na restriction # History of Cerebrovascular Accident # Hyperlipidemia - Continue home apixaban, clopidogrel - Atorvastatin discontinued due to listed adverse effect of tachycardia # Type II Diabetes Mellitus - Correction scale insulin Abdoul Cervantes M.D.
[2023-05-06 04:13] LABS: Magnesium 2.2 mg/dL (1.6-2.4); Potassium 4.1 mEq/L (3.5-5.1)
[2023-05-06] MEDS: SOTALOL HCL 80 MG TAB PO SCH (05:26)
[2023-05-06] MEDS: INSULIN REGULAR (HUMAN) 100 UNIT/ML SQ SCH ×4 (07:30→21:00)
[2023-05-06] MEDS: DILTIAZEM HCL 120 MG SR CAP PO SCH (08:25)
[2023-05-06] MEDS: CLOPIDOGREL 75 MG TABLET PO SCH (08:25)
[2023-05-06] MEDS: APIXABAN 5 MG TABLET PO SCH ×2 (08:26→20:26)
--- NOTE | 2023-05-06 14:08 | EKG ---
Test Date: 2023-05-06 Test Time: 09:11:58 Veterinarian Helper: RANDY MEASUREMENT RESULTS: Intervals: Rate: 53 MI: 164 QRSD: 142 QT: 524 QTc: 491 [place]: P: 60 MI: 164 QRS: -5 T: 22 INTERPRETIVE STATEMENTS: Sinus bradycardia with sinus arrhythmia Left bundle branch block Abnormal ECG Compared to ECG 05/05/2023 08:48:49 No significant changes Electronically Signed On 05-06-23 14:08:37 CDT by Vargas Berkowitz
[2023-05-06] MEDS: METOPROLOL TAR 25 MG TAB PO SCH (17:19)
--- NOTE | 2023-05-06 17:56 | P.PN ---
Subjective Date of Service: 05/06/23 Chief Complaint: Shortness of breath, weakness, A-fib RVR, CHF This morning, she states that she feels generalized weakness. Per emissions technician, she has had intermittent transient episodes of ventricular tachycardia. Discussed this with Dr. Berkowitz, who recommended discontinuing sotalol and starting metoprolol. Currently, she denies any chest pain, palpitations, or shortness of breath. Her cough is also improving. Will consult PT for her generalized weakness. Review of Systems 10-point ROS is otherwise unremarkable General: Weakness (generalized) Physical Examination - Vital Signs Temperature: 97.7 F Blood Pressure: 113/66 Pulse: 56 Respirations: 16 Pulse Ox (%): 96 Assessment And Plan - Plan - Physical Exam General: Alert, In no apparent distress, Oriented x3 HEENT: Atraumatic, Mucous membr. moist/pink, Sclerae nonicteric Neck: JVD not distended Respiratory: Clear to auscultation bilaterally, Normal air movement Cardiovascular: No edema, No murmurs, regular heart rate/rhythm Gastrointestinal: Normal bowel sounds, Soft, Non-distended, No tenderness Neurological: Normal speech, Normal affect # Paroxysmal Atrial Fibrillation with Rapid Ventricular Response - improved # Suspect Demand Ischemia (Type II Non-ST Segment Elevation Myocardial Infarction) due to above - Evaluation thus far: - Troponin = 72.9 -> 51.4 -> 46.6 - EKG = atrial fibrillation - Chest x-ray = "no acute cardiopulmonary disease." - Potassium = 3.5, Magnesium = 2.0 - Target K> 4, Mg >2 - TSH = 1.81 - NT-Pro BNP = 4,419 - Management plan: - Cardiology consulted and spoke with Dr. Berkowitz - QTc interval prolonged at 508 msec yesterday. Now with transient episodes of ventricular tachycardia - Recommended discontinuing sotalol and starting metoprolol - Continue to monitor on telemetry - Continue diltiazem, apixaban # Acute on Chronic Decompensated Diastolic Congestive Heart Failure with Preserved Ejection Fraction # Likely Lisinopril-Induced Cough - Consult Cardiology - recommendations appreciated - Transthoracic echocardiogram (04/14/2023) = "1. normal left ventricular ejection fraction 50-55% 2. normal wall motion 3. moderate diastolic dysfunction 4. mild mitral regurgitation 5. mild tricuspid regurgitation" - Diuresis with IV furosemide for today - Hold lisinopril given cough, can start losartan if blood pressure allows - Daily weights - Strict I/O - Cardiac diet, 1.5 L fluid restriction, 2 g Na restriction # History of Cerebrovascular Accident # Hyperlipidemia - Continue home apixaban, clopidogrel - Atorvastatin discontinued due to listed adverse effect of tachycardia # Type II Diabetes Mellitus - Correction scale insulin Abdoul Cervantes M.D.
--- NOTE | 2023-05-06 18:54 | PN ---
Date of Progress Note: 05/06/2023 Subjective: Seen by bedside. She is doing clinically well, but she had few episodes of V-tach on te lemetry and she had a prolonged QTc with the sotalol. Review of Systems: No chest pain, shortness of breath, orthopnea, cough. No nausea, vomiting, diarrhea. All other syst ems reviewed and they were negative. Physical Examination: Vital Signs: Reviewed. Head and Neck: Pupils are equal, reactive to light. Intact eye movements. No JVD. No cervical lym phadenopathy. Neck is supple. Thyroid is not enlarged. Lungs: Clear to auscultation bilaterally. No rhonchi, wheezing, or crackles. No accessory muscle u se. Heart: Regular rate and rhythm. No extra sounds. Abdomen: Soft, nontender. Bowel sounds positive. No organomegaly. No masses or hernia. No rigidi ty or rebound. Extremities: No edema, clubbing, or cyanosis. Intact pulses. Skin: No rash. Neurologic: Alert, awake, oriented x3. No acute focal deficits appreciated. Investigations: BUN 29, creatinine 1.0. Assessment And Recommendations: 1.Atrial fibrillation with rapid ventricle response, now in sinus rhythm. However, with sotalol, sh nina had prolonged QTc. We will discontinue and then start metoprolol 25 mg twice a day and continue Ca rdizem. 2.Ventricular tachycardia due to prolonged QTc due to sotalol. Discontinue sotalol, start metoprolol as above, and monitor for next 24 hours and we will make a plan accordingly. SR/MODL Voice ID: [id number] Report ID: [id number]
[2023-05-07 05:48] LABS: Magnesium 2.1 mg/dL (1.6-2.4); Potassium 4.2 mEq/L (3.5-5.1)
[2023-05-07] MEDS: METOPROLOL TAR 25 MG TAB PO SCH ×2 (05:59→16:56)
[2023-05-07] MEDS: INSULIN REGULAR (HUMAN) 100 UNIT/ML SQ SCH ×4 (07:30→21:00)
[2023-05-07] MEDS: DILTIAZEM HCL 120 MG SR CAP PO SCH (09:00)
[2023-05-07] MEDS: APIXABAN 5 MG TABLET PO SCH ×2 (10:15→22:07)
[2023-05-07] MEDS: CLOPIDOGREL 75 MG TABLET PO SCH (10:15)
--- NOTE | 2023-05-07 17:06 | P.PN ---
Subjective Date of Service: 05/07/23 Chief Complaint: Shortness of breath, weakness, A-fib RVR, CHF Per molecular technologist, no recurrent episodes of ventricular tachycardia overnight. This morning, she was in sinus bradycardia with heart rates in the upper 40s. Discussed this with Dr. Berkowitz, who recommended discontinuing metoprolol and monitoring her for an additional 24 hours on telemetry. In regards to symptoms, she reports that her primary symptom is generalized weakness. PT has been consulted. Review of Systems 10-point ROS is otherwise unremarkable General: Weakness (generalized) Physical Examination - Vital Signs Temperature: 97.9 F Blood Pressure: 129/81 Pulse: 55 Respirations: 16 Pulse Ox (%): 96 Assessment And Plan - Plan - Physical Exam General: Alert, In no apparent distress, Oriented x3 HEENT: Atraumatic, Mucous membr. moist/pink, Sclerae nonicteric Neck: JVD not distended Respiratory: Clear to auscultation bilaterally, Normal air movement Cardiovascular: No edema, No murmurs, regular heart rate/rhythm Gastrointestinal: Normal bowel sounds, Soft, Non-distended, No tenderness Neurological: Normal speech, Normal affect # Paroxysmal Atrial Fibrillation with Rapid Ventricular Response - improved # Transient Episodes of Ventricular Tachycardia due to Prolonged QTc from Sotalol # Suspect Demand Ischemia (Type II Non-ST Segment Elevation Myocardial Infarction) due to above - Evaluation thus far: - Troponin = 72.9 -> 51.4 -> 46.6 - EKG = atrial fibrillation - Chest x-ray = "no acute cardiopulmonary disease." - Potassium = 3.5, Magnesium = 2.0 - Target K> 4, Mg >2 - TSH = 1.81 - NT-Pro BNP = 4,419 - Management plan: - Cardiology consulted and spoke with Dr. Berkowitz - Recommended discontinuing sotalol, metoprolol, diltiazem - Continue to monitor on telemetry - Continue apixaban # Acute on Chronic Decompensated Diastolic Congestive Heart Failure with Preserved Ejection Fraction # Likely Lisinopril-Induced Cough - Consult Cardiology - recommendations appreciated - Transthoracic echocardiogram (04/14/2023) = "1. normal left ventricular ejection fraction 50-55% 2. normal wall motion 3. moderate diastolic dysfunction 4. mild mitral regurgitation 5. mild tricuspid regurgitation" - Diuresis with furosemide - Hold lisinopril given cough, can start losartan if blood pressure allows - Daily weights - Strict I/O - Cardiac diet, 1.5 L fluid restriction, 2 g Na restriction # History of Cerebrovascular Accident # Hyperlipidemia - Continue home apixaban, clopidogrel - Atorvastatin discontinued due to listed adverse effect of tachycardia # Type II Diabetes Mellitus - Correction scale insulin Abdoul Cervantes M.D.
[2023-05-08] MEDS: INSULIN REGULAR (HUMAN) 100 UNIT/ML SQ SCH ×3 (07:30→16:30)
[2023-05-08] MEDS: APIXABAN 5 MG TABLET PO SCH (08:19)
[2023-05-08] MEDS: CLOPIDOGREL 75 MG TABLET PO SCH (08:20)
[2023-05-08 13:27] VITALS: O2SAT 96
--- NOTE | 2023-05-08 14:25 | RAD REPORT ---
EXAM DESCRIPTION: RADChest Single View05/08/2023 2:02 pm CLINICAL HISTORY: persistent cough COMPARISON: Chest Single View dated 05/02/2023; Chest Single View dated 05/01/2023; Chest Single View dated 04/13/2023 TECHNIQUE: Portable AP view of the chest. FINDINGS: The lungs are clear. No pneumothorax or effusion. The cardiomediastinal contours are unre markable. IMPRESSION: No acute cardiopulmonary process.
--- NOTE | 2023-05-08 14:37 | P.DS ---
Admission Date: 05/01/23 Discharge Date: 05/08/23 Disposition: DC HOME/HOME HEALTH CARE Discharge Condition: GOOD Reason for Admission: Shortness of breath, weakness, A-fib RVR, CHF Consultations: 1. Cardiology Hospital Course: DIAGNOSES: # Paroxysmal Atrial Fibrillation with Rapid Ventricular Response - resolved # Transient Episodes of Ventricular Tachycardia due to Prolonged QTc from Sotalol - resolved # Acute on Chronic Decompensated Diastolic Congestive Heart Failure with Preserved Ejection Fraction - resolved # Suspect Demand Ischemia (Type II Non-ST Segment Elevation Myocardial Infarction) due to above - resolved # Likely Lisinopril-Induced Cough # History of Cerebrovascular Accident # Hyperlipidemia # Type II Diabetes Mellitus HOSPITAL COURSE: Ms. Yelitza Lara is a pleasant 72 year old female with a past medical history significant for chronic diastolic congestive heart failure, prior cerebrovascular accident, type II diabetes mellitus, and hyperlipidemia who was admitted to the [facility] on 05/01/2023 for generalized weakness, cough, and palpitations. She was admitted to the Medicine service. Upon further evaluation, she was found to be in atrial fibrillation with rapid ventricular response. Cardiology was consulted and she was evaluated by Dr. Berkowitz. He started her on sotalol in combination with her home diltiazem. She remained in atrial fibrillation, but became rate-controlled. There was a plan for EVELIA-DCCV; however, she converted to normal sinus rhythm on the sotalol. The treatment was complicated by a prolonged QTc interval, so sotalol was held and she was monitored an additional day. She would then develop transient episodes of ventricular tachycardia, which was thought to be directly associated with the prolonged QTc interval. Over the course of her hospitalization, her QTc corrected, but she developed sinus bradycardia. Her home diltiazem as well as all beta-blockers were discontinued, with stabilization of her heart rates. She remained in sinus rhythm with QTc intervals in the 440's and no recurrent arrhythmias. From a cardiac standpoint, Dr. Berkowitz has cleared her for discharge home. Of note, she had a borderline elevated troponin, which normalized on its own. This was discussed with Dr. Berkowitz and felt to be demand ischemia due to her atrial fibrillation. In regards to her generalized weakness, physical therapy was consulted. It was felt that she would benefit from continued PT services at discharge. Today, she states that she would like to be discharged home. She was able to ambulate around the nursing station with a walker, which she reports is her baseline. With the assistance of case management, Home Health services were arranged. On 05/08/2023, she was seen on rounds and deemed medically stable for discharge. She was discharged with instructions to schedule follow-up appointments with her PCP (Dr. Kinsey) and with Cardiology (Dr. Berkowitz). She was given the opportunity to ask questions and reported no further questions. Furthermore, all questions were answered to the best of my ability. A copy of this discharge summary will be sent to the above providers to facilitate continuity of care. Today, I personally spent 25 minutes on her case, of which greater than 50% of the time was spent in patient education, counseling, and coordination of care as described above. - Physical Exam General: Alert, In no apparent distress, Oriented x3 HEENT: Atraumatic, Mucous membr. moist/pink, Sclerae nonicteric Neck: JVD not distended Respiratory: Clear to auscultation bilaterally, Normal air movement Cardiovascular: No edema, No murmurs, Regular heart rate/rhythm Gastrointestinal: Normal bowel sounds, Soft, Non-distended, No tenderness Neurological: Normal speech, Normal affect Vital Signs/Physical Exam: Temp Pulse Resp BP Pulse Ox 97.5 F 60 20 131/60 96 05/08/23 12:00 05/08/23 12:00 05/08/23 12:00 05/08/23 12:00 05/08/23 12:00 Laboratory Data at Discharge: WBC Cancelled 05/02/23 16:00 Hgb Cancelled 05/02/23 16:00 Hct Cancelled 05/02/23 16:00 Plt Count Cancelled 05/02/23 16:00 PT 15.1 SECONDS (9.5-12.5) H 05/01/23 14:01 INR 1.37 05/01/23 14:01 Sodium 139 mEq/L (136-145) 05/07/23 04:54 Potassium 4.2 mEq/L (3.5-5.1) 05/07/23 04:54 BUN 24 mg/dL (7-18) H 05/07/23 04:54 Creatinine 0.79 mg/dL (0.55-1.02) 05/07/23 04:54 Glucose 100 mg/dL (74-106) 05/07/23 04:54 Phosphorus 4.0 mg/dL (2.5-4.9) 05/03/23 03:30 Magnesium 2.1 mg/dL (1.6-2.4) 05/07/23 04:54 Total Bilirubin 0.8 mg/dL (0.2-1.0) 05/01/23 14:01 AST 37 U/L (15-37) 05/01/23 14:01 ALT 52 U/L (13-56) 05/01/23 14:01 Alkaline Phosphatase 71 U/L (45-117) 05/01/23 14:01 Triglycerides 96 mg/dL (<150) 05/02/23 02:05 Cholesterol 107 mg/dL (<200) 05/02/23 02:05 HDL Cholesterol 41 mg/dL (40-60) 05/02/23 02:05 Cholesterol/HDL Ratio 2.61 05/02/23 02:05 Home Medications: Apixaban [Eliquis] 5 mg PO DAILY 04/13/23 Clopidogrel Bisulfate [Plavix*] 75 mg PO DAILY 04/13/23 Furosemide [Lasix*] 20 mg PO DAILY PRN #30 tab 04/14/23 Atorvastatin Calcium [Lipitor*] 20 mg PO BEDTIME 05/01/23 Ezetimibe [Zetia*] 10 mg PO DAILY 05/01/23 Physician Discharge Instructions: 1. Please call and schedule a follow-up appointment with your PCP (Dr. Kinsey) in 3-5 days 2. Please call and schedule a follow-up appointment with Cardiology (Dr. Berkowitz) in 3-5 days - Please follow-up with your PCP for medication refills/adjustments Diet: AHA Activity: Fall precautions Followup: Kelli Kinsey DO, DO [ACTIVE - CAN ADMIT] - (call to schedule an appointment in 3-5 days ) Vargas Berkowitz MD [ACTIVE - CAN ADMIT] - (caoll to schedule an appointment in 3-5 days ) Time spent managing pt's care (in minutes): 25
--- NOTE | 2023-05-08 14:47 | PN ---
Date of Progress Note: 05/08/2023 Subjective: Seen by bedside. Doing well. Has been in sinus rhythm. Review of Systems: No chest pain, shortness of breath, orthopnea, cough. No nausea, vomiting, diarrhea. All other syst ems reviewed and they were negative. She is generally weak. Physical Examination: Vital Signs: Reviewed. Head and Neck: Pupils are equal, reactive to light. Intact eye movements. No JVD. No cervical lym phadenopathy. Neck is supple. Thyroid is not enlarged. Lungs: Clear to auscultation bilaterally. No rhonchi, wheezing, or crackles. No accessory muscle u se. Heart: Regular rate and rhythm. No extra sounds. Abdomen: Soft, nontender. Bowel sounds positive. No organomegaly. No masses or hernia. No rigidi ty or rebound. Extremities: No edema, clubbing, or cyanosis. Intact pulses. Skin: No rash. Neurologic: Alert, awake, oriented x3. No acute focal deficits appreciated. Lymph Nodes: No cervical or axillary lymphadenopathy. Investigations: Labs were reviewed. Assessment And Recommendations: 1.Atrial fibrillation with rapid ventricular response. She is in sinus now. Recommend to try to in troduce low-dose beta-jagruti and the patient from Cardiology standpoint can be released and follow u p within a week post discharge. 2.Generalized debility. Recommend physical therapy. 3.Upper respiratory tract infection with persistent cough. Recommend x-ray to rule out pneumonia. /KANU Voice ID: [id number] Report ID: [id number]
[2023-05-08 16:28] VITALS: BP 148/88; TEMP 97.8
--- NOTE | 2023-05-09 16:53 | EKG ---
Test Date: 2023-05-06 Test Time: 17:52:39 Diamond Setter Apprentice: MARVIN MEASUREMENT RESULTS: Intervals: Rate: 60 NM: 170 QRSD: 132 QT: 462 QTc: 462 [place]: P: -3 NM: 170 QRS: 4 T: -14 INTERPRETIVE STATEMENTS: Sinus rhythm with marked sinus arrhythmia Nonspecific intraventricular block Cannot rule out Septal infarct, age undetermined Abnormal ECG Compared to ECG 05/06/2023 17:50:30 Sinus bradycardia no longer present Atrial premature complex(es) no longer present T-wave abnormality no longer present Possible ischemia no longer present Myocardial infarct finding still present Electronically Signed On 05-09-23 16:49:24 CDT by Vargas Berkowitz
--- NOTE | 2023-05-09 16:53 | EKG ---
Test Date: 2023-05-06 Test Time: 17:50:30 Pharmaceutical Botanist: MARVIN MEASUREMENT RESULTS: Intervals: Rate: 51 MA: 174 QRSD: 134 QT: 470 QTc: 433 [place]: P: 90 MA: 174 QRS: -12 T: -13 INTERPRETIVE STATEMENTS: Sinus bradycardia with premature atrial complexes Nonspecific intraventricular block Cannot rule out Septal infarct, age undetermined T wave abnormality, consider lateral ischemia Abnormal ECG Compared to ECG 05/06/2023 09:11:58 Atrial premature complex(es) now present Myocardial infarct finding now present T-wave abnormality now present Possible ischemia now present Sinus arrhythmia no longer present Left bundle-branch block no longer present Electronically Signed On 05-09-23 16:49:26 CDT by Vargas Berkowitz
== END 2023-05-08 17:55 | disposition home health service (06) | DRG 280 ==
LOC: ER 13:51 → ERHOLD 15:53 → 2ND 21:01
PROVIDERS: ADMIT Hospitalist; ATTEND Internal Medicine
DX: I48.0 Paroxysmal atrial fibrillation (principal); I21.A1 Myocardial infarction type 2; I50.33 Acute on chronic diastolic (congestive) heart failure; M19.90 Unspecified osteoarthritis, unspecified site; E11.9 Type 2 diabetes mellitus without complications; I08.1 Rheumatic disorders of both mitral and tricuspid valves; J44.9 Chronic obstructive pulmonary disease, unspecified; I47.20 Ventricular tachycardia, unspecified; I25.10 Atherosclerotic heart disease of native coronary artery without angina pectoris; R05.9 Cough, unspecified; T44.7X5A Adverse effect of beta-adrenoreceptor antagonists, initial encounter; T46.4X5A Adverse effect of angiotensin-converting-enzyme inhibitors, initial encounter; I25.2 Old myocardial infarction; Z88.0 Allergy status to penicillin; Z79.01 Long term (current) use of anticoagulants; Z86.73 Personal history of transient ischemic attack (TIA), and cerebral infarction without residual deficits; Z91.013 Allergy to seafood; Z79.899 Other long term (current) drug therapy
CPT/HCPCS: 36415; 71045; 80048; 80061; 80076; 81001; 82947; 83735; 83880; 84100; 84132; 84443; 84484; 85025; 85610; 93005; 94760; 96374; 96375; 97116; 97161; 97530; 99285; J1940; J2405

== ENCOUNTER 2023-11-01 12:04 | Inpatient (IN) | payer OTHER ==
[2023-11-01] MEDS ORDERED: METOPROLOL TARTRATE 5 MG/5 ML INJ IV ONE (12:28)
[2023-11-01] MEDS ORDERED: SOTALOL HCL 80 MG TAB ONE (12:28)
[2023-11-01 12:40] LABS: Absolute Basophils 0.1 K/uL (0-0.5); Absolute Eosinophils 0.1 K/uL (0-0.5); Absolute Lymphocytes (CBC) 2.7 K/uL (0.7-4.9); Absolute Monocytes 0.6 K/uL (0.1-1.3); Absolute Neutrophil 3.3 K/uL (1.8-8.0); Hematocrit 38.8 % (36.0-45.0); Lymphocytes % 40.1 % (15.3-44.8); MCH 31.3 pg (27.0-35.0); MCHC 33.6 g/dL (32.0-36.0); MCV 93.2 fL (80-100); MPV 9.6 fL (7.6-11.3); Monocytes % 8.6 % (3.3-12.3); Neutrophils % 49.3 % (41.7-73.7); Platelets 241 thou/uL (152-406); RBC Red Blood Cell Count 4.16 M/uL (3.86-4.86); Red Cell Distribution Width 13.8 % (12.1-15.2)
[2023-11-01 12:58] LABS: Albumin 3.1 g/dL (3.4-5.0); Albumin/Globulin Ratio 0.9 (1.1-1.8); Anion Gap 10.1 mEq/L (5.0-15.0); Bilirubin Direct 0.2 mg/dL (0-0.2); Bilirubin Indirect, Calculated 0.5 mg/dL (0.2-0.8); Bilirubin Total 0.7 mg/dL (0.2-1.0); Globulin 3.5 g/dL (2.3-3.5); Potassium 4.1 mEq/L (3.5-5.1); Protein, Total 6.6 g/dL (6.4-8.2)
--- NOTE | 2023-11-01 13:34 | RAD REPORT ---
EXAM DESCRIPTION: RAD - Chest Single View - 11/01/2023 1:16 pm CLINICAL HISTORY: afib Chest pain. COMPARISON: Chest Single View dated 05/08/2023; Chest Single View dated 05/02/2023; Chest Single View dated 05/01/2023; Chest Single View dated 04/13/2023 FINDINGS: Portable technique limits examination quality. Mild interstitial pulmonary edema seen. The heart is moderately enlarged size. Trace bilateral pleura l effusions. No displaced fractures. IMPRESSION: Mild CHF.
--- NOTE | 2023-11-01 13:50 | EDPHYS ---
Physician Documentation [facility] Name: Yelitza Lara Age: 73 yrs Sex: Female : 1950 Arrival Date: 11/01/2023 Time: 12:04 Bed 6 Private MD: ED Physician Michael Henley HPI: 10/31 13:56 This 73 yrs old Female presents to ER via Wheelchair with complaints of AFIB. 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 The patient denies any symptoms currently. Denies chest pain, shortness of breath. No aggravating or alleviating factors.. Historical: - Allergies: 12:13 PENICILLINS; hb - PMHx: 12:13 Arthritis; Atrial fibrillation; CVA; diabetes mellitus; Myocardial infarction; hb - PSHx: 12:13 "Watchman's" (Myocardial infarction); hb - Immunization history:: Adult Immunizations up to date. - Social history:: Smoking status: Patient denies any tobacco usage or history of. ROS: 13:56 Constitutional: Negative for fever, chills, and weight loss, Cardiovascular: Negative rt for chest pain, palpitations, and edema, Respiratory: Negative for shortness of breath, cough, wheezing, and pleuritic chest pain, Abdomen/GI: Negative for abdominal pain, nausea, vomiting, diarrhea, and constipation, Skin: Negative for injury, rash, and discoloration, Neuro: Negative for headache, weakness, numbness, tingling, and seizure, Psych: Negative for depression, anxiety, suicide ideation, homicidal ideation, and hallucinations, Exam: 13:56 Constitutional: This is a well developed, well nourished patient who is awake, alert, rt and in no acute distress. Head/Face: Normocephalic, atraumatic. Chest/axilla: Normal chest wall appearance and motion. Nontender with no deformity. No lesions are appreciated. Cardiovascular: Regular rate and rhythm with a normal S1 and S2. No gallops, murmurs, or rubs. Normal PMI, no JVD. No pulse deficits. Respiratory: Lungs have equal breath sounds bilaterally, clear to auscultation and percussion. No rales, rhonchi or wheezes noted. No increased work of breathing, no retractions or nasal flaring. Abdomen/GI: Soft, non-tender, with normal bowel sounds. No distension or tympany. No guarding or rebound. No evidence of tenderness throughout. Skin: Warm, dry with normal turgor. Normal color with no rashes, no lesions, and no evidence of cellulitis. MS/ Extremity: Pulses equal, no cyanosis. Neurovascular intact. Full, normal range of motion. Neuro: Awake and alert, GCS 15, oriented to person, place, time, and situation. Cranial nerves II-XII grossly intact. Motor strength 5/5 in all extremities. Sensory grossly intact. Cerebellar exam normal. Normal gait. 13:59 ECG was reviewed by the Attending Physician. rt Vital Signs: 12:17 BP 142 / 91; Pulse 137; Resp 20; Temp 97.3; Pulse Ox 96% on R/A; Pain 0/10; ll1 13:05 BP 113 / 91; Pulse 109; Resp 18 S; Pulse Ox 94% on R/A; as6 13:14 BP 111 / 80; Pulse 126; Resp 18; Pulse Ox 94% on R/A; ld1 12:17 Pain Scale: Adult ll1 MDM: 12:10 Patient medically screened. rt 13:56 Differential Diagnosis A-fib, electrolyte disturbance. Data reviewed: vital signs, rt nurses notes, lab test result(s), EKG, radiologic studies. Consideration of Admission/Observation Patient was admitted/placed on observation. Management of patient was discussed with the following: Hospitalist: Agrees to admit. I considered the following discharge prescriptions or medication management in the emergency department Medications were administered in the Emergency Department. See MAR. Independent interpretation of the following test(s) in the Emergency Department X-Ray: My interpretation is No consolidation seen on my interpretation of x-ray images. Care significantly affected by the following chronic conditions: Atrial fibrillation. Counseling: I had a detailed discussion with the patient and/or guardian regarding the historical points, exam findings, and any diagnostic results supporting the discharge/admit diagnosis, lab results, radiology results, the need for further work-up and treatment in the hospital. Response to treatment: the patient's symptoms have mildly improved after treatment. 10/31 12:19 Order name: Basic Metabolic Panel; Complete Time: 13:01 rt 10/31 12:19 Order name: CBC with Diff; Complete Time: 13:01 rt 10/31 12:19 Order name: LFT's; Complete Time: 13:01 rt 10/31 12:19 Order name: Magnesium; Complete Time: 13:01 rt 10/31 12:19 Order name: Troponin HS; Complete Time: 13:01 rt 10/31 14:51 Order name: Urinalysis w/ reflexes EDMS 10/31 14:51 Order name: CBC with Automated Diff EDMS 10/31 14:51 Order name: CBC with Automated Diff EDMS 10/31 14:51 Order name: Comprehensive Metabolic Panel EDMS 10/31 14:51 Order name: Comprehensive Metabolic Panel EDMS 10/31 14:51 Order name: Lipid Profile EDMS 10/31 14:51 Order name: Lipid Profile EDMS 10/31 12:19 Order name: XRAY Chest (1 view); Complete Time: 13:40 rt 10/31 12:19 Order name: EKG; Complete Time: 12:20 rt 10/31 14:51 Order name: CONS Physician Consult EDGA 10/31 14:51 Order name: EKG Electrocardiogram EDMS 10/31 12:19 Order name: Cardiac monitoring; Complete Time: 12:27 rt 10/31 12:19 Order name: EKG - Nurse/Tech; Complete Time: 12:27 rt 10/31 12:19 Order name: IV Saline Lock; Complete Time: 12:33 rt 10/31 12:19 Order name: Labs collected and sent; Complete Time: 12:33 rt 10/31 12:19 Order name: O2 Per Protocol; Complete Time: 12:27 rt 10/31 12:19 Order name: O2 Sat Monitoring; Complete Time: 12:27 rt EC:59 Rate is 135 beats/min. Rhythm is irregularly irregular, A fib with No ectopy. QRS [place] rt is Normal. QRS interval is normal. QT interval is normal. No Q waves. No ST changes noted. Interpreted by me. Administered Medications: 12:44 Drug: Sotalol PO 80 mg PO once Route: PO; ko1 16:26 Follow up: Response: No adverse reaction ko1 12:44 Drug: Metoprolol IVP 5 mg IVP once; Hold for SBP <100 or HR <60. Route: IVP; Site: ko1 right forearm; 16:26 Follow up: Response: No adverse reaction ko1 15:56 Drug: Furosemide IVP 20 mg IVP once; give over 2 minutes Route: IVP; Site: right ld1 forearm; 16:26 Follow up: Response: No adverse reaction ko1 Disposition Summary: 11/01/23 13:49 Hospitalization Ordered Notes: Hospitalization Status: Observation rt Provider: Aline Silverio rt Location: Telemetry/MedSurg (observation) rt Condition: Stable rt Problem: an acute exacerbation rt Symptoms: have improved rt Bed/Room Type: Standard rt Room Assignment: 214(11/01/23 15:38) bd Diagnosis - Atrial fibrillation with rapid ventricular rate rt Forms: - Medication Reconciliation Form rt - SBAR form rt - Leadership Thank You Letter rt Signatures: Dispatcher [employer] EDMS Jackeline Bran Heather, RN RN Ct Walden RN RN ld1 Lizette Shipman RN RN ko1 Michael Henley MD MD rt Corrections: (The following items were deleted from the chart) 15:12 13:49 rt bd 15:38 15:12 205 bd bd
--- NOTE | 2023-11-01 13:50 | ER ---
Nurse's Notes [facility] Name: Yelitza Lara Age: 73 yrs Sex: Female : 1950 Arrival Date: 11/01/2023 Time: 12:04 Bed 6 Private MD: Diagnosis: Atrial fibrillation with rapid ventricular rate Presentation: 10/31 12:14 Coronavirus screen: Client denies travel out of the [place] in the last 14 days. cough hb unrelated to allergies, fatigue, muscle pain, Client presents with at least one sign or symptom that may indicate coronavirus-19. Standard/surgical mask placed on the client. Ebola Screen: Patient denies travel to an Ebola-affected area in the 21 days before illness onset. Initial Sepsis Screen: Does the patient meet any 2 criteria? No. Patient's initial sepsis screen is negative. Does the patient have a suspected source of infection? No. Patient's initial sepsis screen is negative. Risk Assessment: Do you want to hurt yourself or someone else? Patient reports no desire to harm self or others. Onset of symptoms is unknown. 12:14 Method Of Arrival: Wheelchair hb 12:14 Acuity: WILDER 2 hb 12:17 Chief complaint: Patient states: In A FIB again. Reports palpitations since Sep. after ll1 having Watchman's procedure. SOB with exertion noted. Triage Assessment: 12:18 General: Appears uncomfortable, ill, Behavior is calm, cooperative, appropriate for ll1 age. General: Reports fatigue for. Pain: Denies pain. Cardiovascular: Reports fatigue, palpitations, shortness of breath. Historical: - Allergies: 12:13 PENICILLINS; hb - PMHx: 12:13 Arthritis; Atrial fibrillation; CVA; diabetes mellitus; Myocardial infarction; hb - PSHx: 12:13 "Watchman's" (Myocardial infarction); hb - Immunization history:: Adult Immunizations up to date. - Social history:: Smoking status: Patient denies any tobacco usage or history of. Screenin:00 [facility] ED Fall Risk Assessment (Adult) History of falling in the last 3 months, ko1 including since admission No falls in past 3 months (0 pts) Confusion or Disorientation No (0 pts) Intoxicated or Sedated No (0 pts) Impaired Gait No (0 pts) Mobility Assist Device Used No (0 pt) Altered Elimination No (0 pt) Score/Fall Risk Level 0 - 2 = Low Risk Oriented to surroundings, Maintained a safe environment, Educated pt \\T\\ family on fall prevention, incl call for assistance when getting out of bed, Assessed \\T\\ reinforced patient's understanding of fall precautions, Provided non-skid footwear, Hourly rounding (assess needs \\T\\ fall precautionary measures) done, Used ambulatory aids as needed (educated on \\T\\ assisted with), Used gait belt as appropriate. Abuse screen: Denies threats or abuse. Denies injuries from another. Nutritional screening: No deficits noted. Tuberculosis screening: No symptoms or risk factors identified. Assessment: 13:00 General: Appears in no apparent distress. Behavior is cooperative, appropriate for age, ko1 anxious. Pain: Denies pain. Neuro: No deficits noted. Cardiovascular: Rhythm is atrial fibrillation with rapid ventricular response. Respiratory: No deficits noted. GI: No deficits noted. : No deficits noted. EENT: No deficits noted. Derm: No deficits noted. Musculoskeletal: No deficits noted. Vital Signs: 12:17 BP 142 / 91; Pulse 137; Resp 20; Temp 97.3; Pulse Ox 96% on R/A; Pain 0/10; ll1 13:05 BP 113 / 91; Pulse 109; Resp 18 S; Pulse Ox 94% on R/A; as6 13:14 BP 111 / 80; Pulse 126; Resp 18; Pulse Ox 94% on R/A; ld1 12:17 Pain Scale: Adult ll1 ED Course: 12:06 Patient arrived in ED. im 12:07 Michael Henley MD is Attending Physician. rt 12:13 Arm band placed on Patient placed in an exam room, on a stretcher. hb 12:15 Triage completed. hb 12:17 Lizette Shipman, CHAD is Primary Nurse. ko1 12:32 Initial lab(s) drawn, Repeat lab(s) drawn. sent to lab. Inserted saline lock: 22 gauge hb in right forearm, using aseptic technique. Blood collected. 12:33 Basic Metabolic Panel Sent. ko1 12:33 CBC with Diff Sent. ko1 12:33 LFT's Sent. ko1 12:33 Magnesium Sent. ko1 12:33 Troponin HS Sent. ko1 13:00 Patient has correct armband on for positive identification. Allergy band placed. Placed ko1 in gown. Bed in low position. Call light in reach. Provided Education on: na. Client placed on continuous cardiac and pulse oximetry monitoring. NIBP monitoring applied. quality assurance monitor chassis on. Door closed. Noise minimized. Lights dimmed. Warm blanket given. 13:18 XRAY Chest (1 view) In Process Unspecified. EDMS 13:23 No provider procedures requiring assistance completed. ko1 13:45 Aline Silverio MD is Hospitalizing Provider. rt 16:20 Patient admitted, IV remains in place. ko1 Administered Medications: 12:44 Drug: Sotalol PO 80 mg PO once Route: PO; ko1 16:26 Follow up: Response: No adverse reaction ko1 12:44 Drug: Metoprolol IVP 5 mg IVP once; Hold for SBP <100 or HR <60. Route: IVP; Site: ko1 right forearm; 16:26 Follow up: Response: No adverse reaction ko1 15:56 Drug: Furosemide IVP 20 mg IVP once; give over 2 minutes Route: IVP; Site: right ld1 forearm; 16:26 Follow up: Response: No adverse reaction ko1 Medication: 13:00 VIS not applicable for this client. ko1 Outcome: 13:49 Decision to Hospitalize by Provider. rt 16:20 Admitted to Tele accompanied by tech, via wheelchair, room 214, with chart, ko1 16:20 Condition: stable 16:20 Instructed on the need for admit, Demonstrated understanding of 16:26 Patient left the ED. ko1 Signatures: Dispatcher [employer] EDMS Trang Byrd RN RN hb Lewis, Lynsay RN RN ll1 Ct Walden RN RN ld1 Stephen Salcedo RN RN as6 Lizette Shipman RN RN ko1 Michael Henley MD MD rt Sarah Del Cid im
--- NOTE | 2023-11-01 14:56 | P.HP ---
Certification for Inpatient Patient admitted to: Observation With expected LOS: <2 Midnights Patient will require the following post-hospital care: None Practitioner: I am a practitioner with admitting privileges, knowledge of patient current condition, hospital course, and medical plan of care. Services: Services provided to patient in accordance with Admission requirements found in Title 42 Section 412.3 of the Code of Federal Regulations <Pily Farnsworth - Last Filed: 11/01/23 17:46> Patient History Date of Service: 11/01/23 Reason for admission: atrial fibrillation, new med regimen History of Present Illness: Ms. Lara is a 73-year-old with past medical history of hypertension, A-fib who lives alone in an apartment. Ms. Lara had a Watchman procedure so she could stop taking Eliquis. She states that she stopped taking it for a few days but then had some palpitations that were persistent and forceful and so she started the Eliquis again. She went to see Dr. Berkowitz today and was sent to the emergency department for initiation of sotalol 80 mg twice daily. At the present time she denies chest pain or shortness of breath. She will be admitted for initiation of sotalol and will have an EKG after the third dose. Home medications list reviewed: Yes - Past Medical/Surgical History Has patient received pneumonia vaccine in the past: No Diabetic: Yes -: Atrial fibrillation -: DM2 -: CVA -: Osteoarthritis -: HI -: R rotator cuff sx -: cyst removal from hip -: tonsillectomy/adnoidectomy -: D&C's -: Watchman procedure Psychosocial/ Personal History: Lives alone in an apartment. Has a rollator but states she only uses it when she absolutely has to do so. - Family History Mother -: Cancer Father -: Stroke, Cancer - Social History Smoking Status: Never smoker Alcohol use: Yes CD- Drugs: No Caffeine use: Yes Place of Residence: Home <Pily Farnsworth - Last Filed: 11/01/23 17:46> Date of Service: 11/01/23 <Aline Silverio - Last Filed: 11/01/23 17:51> Allergies Penicillins Allergy (Verified 04/20/23 08:16) Rash shellfish derived Allergy (Verified 04/20/23 08:16) Nausea/Vomiting atorvastatin Adverse Reaction (Verified 04/20/23 08:16) Tachycardia propoxyphene [From Darvon] Adverse Reaction (Verified 04/20/23 08:16) hallucinations Home Medications: Apixaban [Eliquis] 5 mg PO BID 04/13/23 Baclofen 5 mg PO BID 11/01/23 Furosemide [Lasix*] 10 mg PO DAILY PRN 11/01/23 Metoprolol Tartrate 12.5 mg PO BID 11/01/23 Review of Systems 10-point ROS is otherwise unremarkable Respiratory: As per HPI Cardiovascular: Palpitations <JavadPily Vadim - Last Filed: 11/01/23 17:46> Physical Examination - Physical Exam General: Alert, In no apparent distress, Oriented x3 HEENT: Atraumatic, Normocephalic, PERRLA Neck: Supple Respiratory: Normal air movement Cardiovascular: Other (120s), Irregular heart rate/rhythm Capillary refill: <2 Seconds Gastrointestinal: Soft and benign Musculoskeletal: No clubbing, No swelling Integumentary: No rashes Neurological: Normal speech, Normal tone Lymphatics: No axilla or inguinal lymphadenopathy External genitalia: Deferred Rectal: Deferred - Studies Laboratory Data (last 24 hrs) 11/01/23 11/01/23 12:32 12:32 WBC 6.70 Hgb 13.0 Hct 38.8 Plt Count 241 Sodium 140 Potassium 4.1 BUN 15 Creatinine 0.91 Glucose 105 Magnesium 2.0 Total Bilirubin 0.7 AST 19 ALT 20 Alkaline Phosphatase 80 <JavadPily Vadim - Last Filed: 11/01/23 17:46> - Studies Laboratory Data (last 24 hrs) 11/01/23 11/01/23 12:32 12:32 WBC 6.70 Hgb 13.0 Hct 38.8 Plt Count 241 Sodium 140 Potassium 4.1 BUN 15 Creatinine 0.91 Glucose 105 Magnesium 2.0 Total Bilirubin 0.7 AST 19 ALT 20 Alkaline Phosphatase 80 <Aline Silverio - Last Filed: 11/01/23 17:51> Assessment and Plan - Plan atrial fibrillation with RVR: Sotalol 80mg po BID Given Metoprolol as well in ED this afternoon Consult Dr. Berkowitz telemetry Initiation of Sotalol: Sotalol 80mg po BID 12 lead EKG s/p third dose of Sotalol Anticoagulation: pt is s/p Watchman procedure Aspirin 81mg po daily Plavix 75mg po daily Hypertension: Monitor and document Hyperlipidemia: Zetia 10mg po daily pt allergic to Atorvastatin Check lipids in AM Congestive heart failure: Lasix 20mg po daily Labs for electrolytes - replete prn daily weight I&O DVT prophylaxis: ASA, SCDs GI prophylaxis: protonix Discharge Plan: Home Plan to discharge in: 24 Hours - Advance Directives Does patient have a Living Will: No Does patient have a Durable POA for Healthcare: No <Pily Farnsworth Vadim - Last Filed: 11/01/23 17:46> - Plan Pt seen and examined. I agree with the note by the LABORER/KEY MAN. Pt is a 73yo female with past medical history of Htn, HLD, A. fib and CHF who was told to come to the ER for initiation of sotalol for A. fib with RVR. Pt reports that she had placement of watchman device on 10/05/23. Ever since that time pt has been feeling weak and tired with tachycardia. Her spinning frame changer sent her to the ER for initiation of the sotalol. On admission, lab studies show wbc 6.7, hgb 13, K 4.1, Cr 0.91 and glucose 105. At bedside, pt is in NAD. A/P: A. fib with RVR: Will continue telemetry, sotalol 80mg po BID, aspirin and plavix. Off Eliquis Htn: Continue home med HLD: Continue statin Hx of CHF: Will continue lasix, strict I/O and daily weight. DVT ppx: SCD Code: full <Aline Silverio - Last Filed: 11/01/23 17:51>
[2023-11-01] MEDS ORDERED: SODIUM CHLORIDE 0.9% 10ML INJ IV PRN (15:06)
[2023-11-01] MEDS ORDERED: FUROSEMIDE 20 MG/ 2ML VIAL ONE (15:26)
[2023-11-01] MEDS: INSULIN REGULAR (HUMAN) 100 UNIT/ML SQ SCH (16:30)
--- NOTE | 2023-11-01 17:00 | EKG ---
Test Date: 2023-11-01 Test Time: 11:22:30 Internet Site Designer: Vidhya GOODSON MEASUREMENT RESULTS: Intervals: Rate: 135 [place]: QRSD: 138 QT: 364 QTc: 546 [place]: P: NH: QRS: 160 T: -26 INTERPRETIVE STATEMENTS: Atrial fibrillation Nonspecific intraventricular block Abnormal ECG Compared to ECG 05/06/2023 17:52:39 Sinus rhythm no longer present Sinus arrhythmia no longer present Myocardial infarct finding no longer present Electronically Signed On 11-01-23 16:59:31 CDT by Vargas Berkowitz
[2023-11-01 19:36] LABS: Specific Gravity 1.007 (1.005-1.030); Urine Bilirubin NEGATIVE (Negative); Urine Blood Negative (Negative); Urine Clarity Clear (Clear); Urine Color Colorless (Yellow); Urine Glucose NEGATIVE (Negative); Urine Ketones NEGATIVE (Negative); Urine Microscopic Reflex YN NO UMIC; Urine Nitrite NEGATIVE (Negative); Urine Protein NEGATIVE (Negative); Urine Urobilinogen Normal (Normal); Urine pH 6.5 (5.0-7.0)
[2023-11-01] MEDS: EZETIMIBE 10 MG TAB PO SCH (20:57)
[2023-11-01] MEDS: SOTALOL HCL 80 MG TAB PO SCH (22:56)
[2023-11-02 03:30] LABS: Absolute Basophils 0.1 K/uL (0-0.5); Absolute Eosinophils 0.1 K/uL (0-0.5); Absolute Lymphocytes (CBC) 2.7 K/uL (0.7-4.9); Absolute Monocytes 0.6 K/uL (0.1-1.3); Absolute Neutrophil 3.2 K/uL (1.8-8.0); Eosinophils % 1.8 % (0-4.4); Hemoglobin 12.2 g/dL (12.0-15.0); Lymphocytes % 40.3 % (15.3-44.8); MCH 31.5 pg (27.0-35.0); MCV 92.8 fL (80-100); MPV 9.6 fL (7.6-11.3); Monocytes % 8.7 % (3.3-12.3); Neutrophils % 48.2 % (41.7-73.7); Platelets 215 thou/uL (152-406); RBC Red Blood Cell Count 3.87 M/uL (3.86-4.86); Red Cell Distribution Width 13.7 % (12.1-15.2)
[2023-11-02 03:59] LABS: Albumin 2.8 g/dL (3.4-5.0); Albumin/Globulin Ratio 0.9 (1.1-1.8); Anion Gap 6.1 mEq/L (5.0-15.0); Bilirubin Total 0.5 mg/dL (0.2-1.0); Globulin 3.1 g/dL (2.3-3.5); Potassium 4.1 mEq/L (3.5-5.1); Protein, Total 5.9 g/dL (6.4-8.2)
[2023-11-02 06:55] VITALS: BMI 34.5
[2023-11-02] MEDS: PANTOPRAZOLE 40 MG INJ IVP SCH (07:51)
[2023-11-02] MEDS: CLOPIDOGREL 75 MG TABLET PO SCH (07:51)
[2023-11-02] MEDS: ASPIRIN EC 81 MG TAB PO SCH (07:51)
[2023-11-02] MEDS: FUROSEMIDE 20 MG TABLET PO SCH (08:07)
--- NOTE | 2023-11-02 12:46 | EKG ---
Test Date: 2023-11-02 Test Time: 03:23:05 [employer] Technician: ROSALIO MEASUREMENT RESULTS: Intervals: Rate: 51 [place]: 178 QRSD: 138 QT: 548 QTc: 505 [place]: P: 80 [place]: 178 QRS: 40 T: 42 INTERPRETIVE STATEMENTS: Sinus bradycardia Nonspecific intraventricular block Cannot rule out Septal infarct, age undetermined Abnormal ECG Compared to ECG 11/01/2023 11:22:30 Myocardial infarct finding now present Atrial fibrillation no longer present Electronically Signed On 11-02-23 12:45:13 CDT by Vargas Berkowitz
[2023-11-02] MEDS: FENTANYL CITR 100 MCG/2 ML IV ONE (13:54)
--- NOTE | 2023-11-02 14:00 | P.PN ---
Subjective Date of Service: 11/02/23 Chief Complaint: atrial fibrillation, new med regimen Subjective: No C/O voiced Converted to sinus cecilio at 0250, EKG performed at that time. QTc 505. Review of Systems 10-point ROS is otherwise unremarkable General: Weakness Respiratory: SOB with Excertion Cardiovascular: Palpitations, As per HPI Neurological: As per HPI Physical Examination - Vital Signs Temperature: 97.8 F Blood Pressure: 116/67 Pulse: 53 Respirations: 23 Pulse Ox (%): 98 - Physical Exam General: Alert, In no apparent distress, Oriented x3 HEENT: Atraumatic, Normocephalic Neck: Supple Respiratory: Normal air movement Cardiovascular: Normal pulses, Regular rate/rhythm Capillary refill: <2 Seconds Gastrointestinal: Soft and benign Musculoskeletal: No clubbing Integumentary: No rashes Neurological: Normal speech Lymphatics: No axilla or inguinal lymphadenopathy External genitalia: Deferred Rectal: Deferred Assessment And Plan - Plan atrial fibrillation with RVR: Sotalol 80mg po BID - post second dose, converted to sinus cecilio, QTc 505 RN discussed am dose with Dr. Vazquez. telemetry notified Dr. Berkowitz of 4-5 beat run of VT at 1040, Sotalol discontinued appreciate Cardiology input on plan Anticoagulation: pt is s/p Watchman procedure Aspirin 81mg po daily Plavix 75mg po daily Hypertension: Monitor and document Hyperlipidemia: Zetia 10mg po daily pt allergic to Atorvastatin Check lipids in AM Congestive heart failure: Lasix 20mg po daily Labs for electrolytes - replete prn daily weight I&O DVT prophylaxis: ASA, SCDs GI prophylaxis: protonix
--- NOTE | 2023-11-02 17:39 | CON ---
Date of Consultation: 11/02/2023 Reason For Consultation: Atrial fibrillation with rapid ventricular response. History Of Present Illness: A 73-year-old female with history of atrial fibrillation, hypertension, diabetes, CVA, presented to my office yesterday and she was in acute heart failure, short of breath, lower extremity edema, and she was in atrial fibrillation with rapid ventricular response. She was s ent in the hospital, started on sotalol. She converted to sinus rhythm, but QTc interval is prolonge d and now she is having short runs of nonsustained ventricular tachycardia. Past Medical History: As outlined above in the HPI. Medications: Refer to reconciliation sheet for detailed list. Allergies: PENICILLIN, ATORVASTATIN, PROPOXYPHENE. Family History: No premature coronary artery disease or cancer. Social History: Does not smoke or drink. Does not use any drugs. Review of Systems: All systems were reviewed, they were negative except what was mentioned in the HPI. Physical Examination: Vital Signs: Reviewed. Head and Neck: Pupils are equal, reactive to light. Intact eye movements. No JVD. No cervical lym phadenopathy. Neck is supple. Thyroid is not enlarged. Lungs: Clear to auscultation bilaterally. No rhonchi, wheezing, or crackles. No accessory muscle u se. Heart: Regular rate and rhythm. No extra sounds. Abdomen: Soft, nontender. Bowel sounds positive. No organomegaly. No masses or hernia. No rigidi ty or rebound. Extremities: No edema, clubbing, or cyanosis. Intact pulses. Skin: No rashes. Neurologic: Alert, awake, oriented x3. No acute focal deficits appreciated. Investigations: BUN 14, creatinine 0.92. Troponin is negative and hemoglobin is 12.2. Assessment And Recommendations: 1.Atrial fibrillation with rapid ventricular response, converted to sinus rhythm, on sotalol. Howev er, QTc interval is significantly prolonged. Discontinue sotalol and monitor on telemetry. She had short runs of ventricular tachycardia, with prolonged QTc interval. Sotalol is not safe f or her. Once her heart rate picks up, recommend to start metoprolol 25 mg twice a day by mouth and c ontinue aspirin and Plavix. She is status post Watchman about 5 weeks ago. 2.Acute on chronic diastolic heart failure exacerbation, responded very well to Lasix. Continue 20 mg orally daily. 3.Hypertension. Blood pressure is controlled. /KNAU Voice ID: [id number] Report ID: [id number]
[2023-11-03] MEDS: BENZONATATE 100 MG CAP PO PRN (03:37)
[2023-11-03] MEDS: ALBUTEROL 2.5 MG/3 ML NEB SOL NEB PRN (04:10)
[2023-11-03] MEDS ORDERED: ALBUTEROL 2.5 MG/3 ML NEB SOL NEB PRN (09:41)
--- NOTE | 2023-11-03 09:48 | P.PN ---
Subjective Date of Service: 11/03/23 Chief Complaint: atrial fibrillation, new med regimen Subjective: New changes Sotalol stopped secondary to prolonged QTc, 5 beat run of VT. HR regular but cecilio. Pt with increased cough, wheezing, flushed face. Nebs started last pm, will repeat CXR today. Review of Systems 10-point ROS is otherwise unremarkable General: Malaise Respiratory: Cough, SOB with Excertion, As per HPI Cardiovascular: As per HPI Gastrointestinal: Constipation Integumentary: Other (flushed) Physical Examination - Vital Signs Temperature: 97.6 F Blood Pressure: 124/63 Pulse: 67 Respirations: 17 Pulse Ox (%): 96 - Physical Exam General: Oriented x3, Mild distress HEENT: Atraumatic, Normocephalic, Other (flushed) Neck: 2+ carotid pulse no bruit Respiratory: Expiratory wheezes, Other (paroxysmal cough) Cardiovascular: Regular rate/rhythm Capillary refill: <2 Seconds Gastrointestinal: Hypoactive Integumentary: No rashes, Other (flushed face) Neurological: Normal speech Lymphatics: No axilla or inguinal lymphadenopathy External genitalia: Deferred Rectal: Deferred Assessment And Plan - Plan atrial fibrillation with RVR: sinus cecilio, QTc 505 RN discussed am dose with Dr. Vazquez. telemetry notified Dr. Berkowitz of 4-5 beat run of VT at 1040, Sotalol discontinued appreciate Cardiology input on plan Anticoagulation: pt is s/p Watchman procedure Aspirin 81mg po daily Plavix 75mg po daily Hypertension: Monitor and document Hyperlipidemia: Zetia 10mg po daily pt allergic to Atorvastatin Congestive heart failure: Lasix 20mg po daily Labs for electrolytes - replete prn daily weight I&O repeat CXR today Constipation: Lactulose this am DVT prophylaxis: ASA, SCDs GI prophylaxis: protonix
[2023-11-03] MEDS: LACTULOSE 20 GM/30 ML UCUP PO ONE (10:41)
--- NOTE | 2023-11-03 11:02 | RAD REPORT ---
EXAM DESCRIPTION: RAD - Chest Pa And Lat (2 Views) - 11/03/2023 10:55 am CLINICAL HISTORY: worsening cough, wheeze Chest pain. COMPARISON: Chest Single View dated 11/01/2023; Chest Single View dated 05/08/2023; Chest Single View dated 05/02/2023; Chest Single View dated 05/01/2023 FINDINGS: Patchy opacity is present in both lung bases, greater on the right. This appears progressi ve since prior study. Small bilateral pleural effusions, larger on the right. The heart is moderately enlarged. No displaced fractures. IMPRESSION: Patchy opacities in both lung bases associated with small pleural effusions may represen t pneumonia and does appear mildly progressive since prior study.
--- NOTE | 2023-11-03 11:53 | P.PN ---
Subjective Date of Service: 11/03/23 Chief Complaint: atrial fibrillation, new med regimen Subjective: No new changes (still complain of coughing and SOB.) Review of Systems 10-point ROS is otherwise unremarkable Physical Examination - Vital Signs Temperature: 97.6 F Blood Pressure: 124/63 Pulse: 67 Respirations: 17 Pulse Ox (%): 96 - Physical Exam General: Alert, Oriented x3 HEENT: Atraumatic Neck: Supple Respiratory: Crackles/rales Cardiovascular: No edema, Normal S1 S2 Gastrointestinal: Normal bowel sounds Assessment And Plan - Current Problems (Diagnosis) (1) Atrial fibrillation Current Visit: Yes Status: Acute Plan: Patient is currently in sinus rhythm, she was started on Sotalol but started having QTc prolongation and NSVT so was D/C. Start Toprol XL 25 mg daily (first dose today) Start patient on Eliquis 5 mg po BID (2) Acute on chronic diastolic heart failure Current Visit: Yes Status: Acute Plan: Patient still have cough and SOB Switch Lasix to 20 mg IV BID Monitor input and output Correct electrolytes. (3) NSVT (nonsustained ventricular tachycardia) Current Visit: Yes Status: Acute Plan: Patient had a recent coronary angiogram in 2022 that shown normal coronaries and echo with normal EF. most likely arrhythmia, medication induced. start BB. Correct electrolytes aggressively, K>4 and Mg>2 Continue to monitor on Tele.
[2023-11-03] MEDS: FUROSEMIDE 20 MG/ 2ML VIAL IV SCH (12:33)
--- NOTE | 2023-11-03 14:02 | EKG ---
Test Date: 2023-11-02 Test Time: 10:33:18 Banquet Manager: CHRISTY MEASUREMENT RESULTS: Intervals: Rate: 55 MO: 174 QRSD: 140 QT: 568 QTc: 543 [place]: P: -17 MO: 174 QRS: -5 T: 12 INTERPRETIVE STATEMENTS: Sinus bradycardia Left bundle branch block Abnormal ECG Compared to ECG 11/02/2023 03:23:05 Left bundle-branch block now present Myocardial infarct finding no longer present Electronically Signed On 11-03-23 13:59:54 CDT by Vargas Berkowitz
[2023-11-03] MEDS: METOPROLOL XL 25 MG TAB PO SCH (18:47)
[2023-11-03] MEDS: APIXABAN 5 MG TABLET PO SCH (21:37)
[2023-11-04 01:15] VITALS: O2SAT 92
[2023-11-04 04:42] LABS: Absolute Basophils 0.1 K/uL (0-0.5); Absolute Eosinophils 0.2 K/uL (0-0.5); Absolute Lymphocytes (CBC) 2.4 K/uL (0.7-4.9); Absolute Monocytes 0.7 K/uL (0.1-1.3); Absolute Neutrophil 3.8 K/uL (1.8-8.0); Basophils % 0.9 % (0-1.3); Eosinophils % 2.5 % (0-4.4); Hematocrit 36.8 % (36.0-45.0); Hemoglobin 12.7 g/dL (12.0-15.0); Lymphocytes % 33.2 % (15.3-44.8); MCH 31.4 pg (27.0-35.0); MCHC 34.4 g/dL (32.0-36.0); MCV 91.4 fL (80-100); MPV 9.4 fL (7.6-11.3); Neutrophils % 53.4 % (41.7-73.7); Platelets 206 thou/uL (152-406); RBC Red Blood Cell Count 4.03 M/uL (3.86-4.86); Red Cell Distribution Width 13.7 % (12.1-15.2)
[2023-11-04 05:00] LABS: Albumin 2.8 g/dL (3.4-5.0); Albumin/Globulin Ratio 0.8 (1.1-1.8); Bilirubin Total 1.3 mg/dL (0.2-1.0); Globulin 3.3 g/dL (2.3-3.5); Magnesium 1.9 mg/dL (1.6-2.4); Protein, Total 6.1 g/dL (6.4-8.2)
[2023-11-04] MEDS: MAGNESIUM OXIDE 400 MG TAB PO ONE (09:56)
[2023-11-04] MEDS: POTASSIUM 25 MEQ EFFERV TAB PO ONE (10:18)
[2023-11-04 10:55] VITALS: BP 99/53; TEMP 97.5
--- NOTE | 2023-11-04 11:41 | P.DS ---
Admission Date: 11/03/23 Discharge Date: 11/04/23 Reason for Admission: atrial fibrillation, new med regimen Consultations: Dr. Vazquez Brief History of Present Illness: Ms. Lara is a 73-year-old with past medical history of hypertension, A-fib who lives alone in an apartment. Ms. Lara had a Watchman procedure so she could stop taking Eliquis. She states that she stopped taking it for a few days but then had some palpitations that were persistent and forceful and so she started the Eliquis again. She went to see Dr. Berkowitz today and was sent to the emergency department for initiation of sotalol 80 mg twice daily. At the present time she denies chest pain or shortness of breath. She will be admitted for initiation of sotalol and will have an EKG after the third dose. Hospital Course: Ms. Lara's hospital course was complicated by medication induced prolonged QT. Had to stop sotalol. She has however converted to normal sinus rhythm. On arrival she was in significant fluid overload but has diuresed well. She will continue p.o. Lasix and metoprolol and will restart Eliquis 5 mg p.o. twice daily. Follow-up with cardiology in 1 to 2 weeks. <Pily Farnsworth - Last Filed: 11/04/23 11:41> Admission Date: 11/03/23 Discharge Date: 11/04/23 Hospital Course: Discharge diagnosis Atrial fibrillation with RVR Sinus bradycardia, QTc 505 Hypertension Hyperlipidemia Chronic diastolic heart failure Functional constipation <rohan catherine - Last Filed: 11/04/23 18:49> Disposition: SD HOME/HOME HEALTH CARE Discharge Condition: GOOD Vital Signs/Physical Exam: Temp Pulse Resp BP Pulse Ox 97.5 F 67 20 99/53 L 92 11/04/23 08:00 11/04/23 10:18 11/04/23 08:00 11/04/23 08:00 11/04/23 08:00 General: Alert, In no apparent distress, Oriented x3 HEENT: Atraumatic, Normocephalic Neck: Supple, JVD not distended Respiratory: Normal air movement Cardiovascular: Normal pulses, Regular rate/rhythm Capillary refill: <2 Seconds Gastrointestinal: Soft and benign Musculoskeletal: No clubbing, No swelling Integumentary: No rashes Neurological: Normal speech, Normal tone Lymphatics: No axilla or inguinal lymphadenopathy External genitalia: Deferred Rectal: Deferred Laboratory Data at Discharge: WBC 7.20 thou/uL (4.3-10.9) 11/04/23 04:30 Hgb 12.7 g/dL (12.0-15.0) 11/04/23 04:30 Hct 36.8 % (36.0-45.0) 11/04/23 04:30 Plt Count 206 thou/uL (152-406) 11/04/23 04:30 Sodium 139 mEq/L (136-145) 11/04/23 04:30 Potassium 3.0 mEq/L (3.5-5.1) L 11/04/23 04:30 BUN 14 mg/dL (7-18) 11/04/23 04:30 Creatinine 0.88 mg/dL (0.55-1.02) 11/04/23 04:30 Glucose 99 mg/dL (74-106) 11/04/23 04:30 Magnesium 1.9 mg/dL (1.6-2.4) 11/04/23 04:30 Total Bilirubin 1.3 mg/dL (0.2-1.0) H 11/04/23 04:30 AST 20 U/L (15-37) 11/04/23 04:30 ALT 26 U/L (13-56) 11/04/23 04:30 Alkaline Phosphatase 75 U/L (45-117) 11/04/23 04:30 Triglycerides 64 mg/dL (<150) 11/02/23 03:15 Cholesterol 129 mg/dL (<200) 11/02/23 03:15 HDL Cholesterol 47 mg/dL (40-60) 11/02/23 03:15 Cholesterol/HDL Ratio 2.74 11/02/23 03:15 <Farnsworth,Pily Vadim - Last Filed: 11/04/23 11:41> Vital Signs/Physical Exam: Temp Pulse Resp BP Pulse Ox 97.5 F 67 20 99/53 L 92 11/04/23 08:00 11/04/23 10:18 11/04/23 08:00 11/04/23 08:00 11/04/23 08:00 Laboratory Data at Discharge: WBC 7.20 thou/uL (4.3-10.9) 11/04/23 04:30 Hgb 12.7 g/dL (12.0-15.0) 11/04/23 04:30 Hct 36.8 % (36.0-45.0) 11/04/23 04:30 Plt Count 206 thou/uL (152-406) 11/04/23 04:30 Sodium 139 mEq/L (136-145) 11/04/23 04:30 Potassium 3.7 mEq/L (3.5-5.1) D 11/04/23 15:19 BUN 14 mg/dL (7-18) 11/04/23 04:30 Creatinine 0.88 mg/dL (0.55-1.02) 11/04/23 04:30 Glucose 99 mg/dL (74-106) 11/04/23 04:30 Magnesium 1.9 mg/dL (1.6-2.4) 11/04/23 04:30 Total Bilirubin 1.3 mg/dL (0.2-1.0) H 11/04/23 04:30 AST 20 U/L (15-37) 11/04/23 04:30 ALT 26 U/L (13-56) 11/04/23 04:30 Alkaline Phosphatase 75 U/L (45-117) 11/04/23 04:30 Triglycerides 64 mg/dL (<150) 11/02/23 03:15 Cholesterol 129 mg/dL (<200) 11/02/23 03:15 HDL Cholesterol 47 mg/dL (40-60) 11/02/23 03:15 Cholesterol/HDL Ratio 2.74 11/02/23 03:15 <rohan catherine - Last Filed: 11/04/23 18:49> Diet: AHA Activity: Ad davis <Farnsworth,Pily Vadim - Last Filed: 11/04/23 11:41> <rohan catherine - Last Filed: 11/04/23 18:49> Home Medications: Baclofen 5 mg PO BID 11/01/23 Apixaban [Eliquis] 5 mg PO BID #180 tab 11/04/23 Ezetimibe [Zetia*] 10 mg PO BEDTIME #60 tab 11/04/23 Furosemide [Lasix] 20 mg PO DAILY #60 tab 11/04/23 Metoprolol Succinate [Toprol Xl*] 25 mg PO [id number] #60 tab 11/04/23 New Medications: Apixaban [Eliquis] 5 mg PO BID #180 tab Furosemide [Lasix] 20 mg PO DAILY #60 tab Metoprolol Succinate [Toprol Xl*] 25 mg PO [id number] #60 tab Ezetimibe [Zetia*] 10 mg PO BEDTIME #60 tab Physician Discharge Instructions: Hospital Course: Ms. Lara's hospital course was complicated by medication induced prolonged QT. Had to stop sotalol. She has however converted to normal sinus rhythm. On arrival she was in significant fluid overload but has diuresed well. She will continue p.o. Lasix and metoprolol and will restart Eliquis 5 mg p.o. twice daily. Follow-up with cardiology in 1 to 2 weeks. Followup: Kelli Kinsey DO, DO [Primary Care Provider] - 1-2 Weeks Vargas Berkowitz MD [ACTIVE - CAN ADMIT] - 1-2 Weeks
--- NOTE | 2023-11-04 12:12 | PN ---
Date of Progress Note: 11/04/2023 Subjective: Seen by bedside, doing clinically well. Does not have any chest pain or shortness of br eath. She is generally weak, but heart rate has been stable. Review of Systems: No chest pain, shortness of breath, orthopnea, cough. No nausea, vomiting, diarrhea. All other syst ems reviewed, they are negative. Objective: Vital signs: Reviewed. Head and Neck: Pupils are equal, reactive to light. Intact eye movements. No JVD. No cervical lym phadenopathy. Neck is supple. Thyroid is not enlarged. Lungs: Clear to auscultation bilaterally. No rhonchi, rales, or crackles. No accessory muscle use. Heart: Irregular. No extra sounds. Abdomen: Soft, nontender. Bowel sounds positive. No organomegaly. No masses or hernia. No rigidi ty or rebound. Extremities: No edema, clubbing, or cyanosis. Intact pulses. Skin: No rash. Neurologic: Alert, awake, oriented x3. No acute focal deficits appreciated. Investigations: BUN 14, creatinine 0.88, and hemoglobin 12.7. Assessment/recommendation: 1.Atrial fibrillation with rapid ventricular response. Now rate is controlled. Continue metoprolol . She is not a candidate for sotalol because of prolongation of QTc interval and continue Eliquis. 2.Congestive heart failure exacerbation. It is diastolic and doing clinically better. Switch Lasix to oral 20 mg daily. 3.Hypertension. Blood pressure is controlled. From cardiology standpoint, the patient can be released to follow up in 1 to 2 weeks post discharge. SR/MODL Voice ID: [id number] Report ID: [id number]
[2023-11-04] MEDS: MAGNESIUM OXIDE 400 MG TAB ONE (15:13)
[2023-11-04] MEDS ORDERED: METOPROLOL XL 25 MG TAB PO SCH (18:00)
[2023-11-05] MEDS ORDERED: PANTOPRAZOLE 40MG TABLET PO SCH (09:00)
== END 2023-11-04 17:00 | disposition home health service (06) | DRG 308 ==
LOC: ER 12:04 → 2ND 14:42 → OBSVTOIN 11-03 09:34
PROVIDERS: ADMIT Hospitalist; ATTEND Internal Medicine
DX: I48.91 Unspecified atrial fibrillation (principal); I50.33 Acute on chronic diastolic (congestive) heart failure; I11.0 Hypertensive heart disease with heart failure; E11.9 Type 2 diabetes mellitus without complications; E78.5 Hyperlipidemia, unspecified; I47.20 Ventricular tachycardia, unspecified; K59.04 Chronic idiopathic constipation; M19.90 Unspecified osteoarthritis, unspecified site; T50.905A Adverse effect of unspecified drugs, medicaments and biological substances, initial encounter; I25.2 Old myocardial infarction; R94.31 Abnormal electrocardiogram [ECG] [EKG]; Z88.0 Allergy status to penicillin; Z60.2 Problems related to living alone; Z88.8 Allergy status to other drugs, medicaments and biological substances; Z79.01 Long term (current) use of anticoagulants; Z86.73 Personal history of transient ischemic attack (TIA), and cerebral infarction without residual deficits; Z91.013 Allergy to seafood
CPT/HCPCS: 36415; 71045; 71046; 80048; 80053; 80061; 80076; 81003; 82947; 83735; 84132; 84484; 85025; 93005; 94640; 96374; 96375; 97116; 97161; 97530; 99285; C9113; G0378; J1940; J3010; J7613

== ENCOUNTER 2023-11-20 20:36 | Inpatient (IN) | payer OTHER ==
[2023-11-20 21:12] LABS: Absolute Basophils 0.1 K/uL (0-0.5); Absolute Eosinophils 0.1 K/uL (0-0.5); Absolute Lymphocytes (CBC) 3.1 K/uL (0.7-4.9); Absolute Monocytes 0.5 K/uL (0.1-1.3); Absolute Neutrophil 3.9 K/uL (1.8-8.0); Basophils % 1.3 % (0-1.3); Eosinophils % 1.4 % (0-4.4); Hematocrit 37.4 % (36.0-45.0); Hemoglobin 13.2 g/dL (12.0-15.0); MCH 32.4 pg (27.0-35.0); MCHC 35.3 g/dL (32.0-36.0); MCV 91.8 fL (80-100); MPV 10.5 fL (7.6-11.3); Neutrophils % 50.3 % (41.7-73.7); Platelets 225 thou/uL (152-406); RBC Red Blood Cell Count 4.07 M/uL (3.86-4.86); Red Cell Distribution Width 13.9 % (12.1-15.2)
[2023-11-20 21:23] LABS: PT Prothrombin Time 17.9 SECONDS (9.5-12.5); Protime INR 1.65
[2023-11-20 21:35] LABS: Albumin/Globulin Ratio 0.9 (1.1-1.8); Anion Gap 11.7 mEq/L (5.0-15.0); Bilirubin Direct 0.2 mg/dL (0-0.2); Bilirubin Indirect, Calculated 0.3 mg/dL (0.2-0.8); Bilirubin Total 0.5 mg/dL (0.2-1.0); Globulin 3.5 g/dL (2.3-3.5); Magnesium 1.9 mg/dL (1.6-2.4); Potassium 3.7 mEq/L (3.5-5.1); Protein, Total 6.5 g/dL (6.4-8.2); Troponin High Sensitivity 23.7 pg/mL (<58.9)
--- NOTE | 2023-11-20 21:56 | RAD REPORT ---
EXAM DESCRIPTION: RADChest Single View11/20/2023 9:33 pm CLINICAL HISTORY: PALPITATIONS COMPARISON: Chest Pa And Lat (2 Views) dated 11/03/2023; Chest Single View dated 11/01/2023; Chest Sin gle View dated 05/08/2023; Chest Single View dated 05/02/2023 TECHNIQUE: Portable AP view of the chest. FINDINGS: Patchy bibasilar airspace opacities and small bilateral effusions. No pneumothorax or eff usion. The cardiomediastinal contours are unremarkable. IMPRESSION: Stable findings suggestive of pulmonary edema. Pneumonia considered less likely.
[2023-11-20] MEDS ORDERED: FUROSEMIDE 40 MG/4 ML VIAL ONE (21:59)
--- NOTE | 2023-11-20 22:04 | P.HP ---
Certification for Inpatient Patient admitted to: Observation With expected LOS: <2 Midnights Patient will require the following post-hospital care: None Practitioner: I am a practitioner with admitting privileges, knowledge of patient current condition, hospital course, and medical plan of care. Services: Services provided to patient in accordance with Admission requirements found in Title 42 Section 412.3 of the Code of Federal Regulations Patient History Date of Service: 11/20/23 Reason for admission: Shortness of breath and palpitation History of Present Illness: 73-year-old female with history of HTN/DM/chronic A-fib, status post Watchman device, status post recent hospitalization for recurrent A-fib with RVR and initiated on sotalol in addition to metoprolol 3 weeks ago, follows with Dr. Rojocardiology, she states she is scheduled for cardiac ablation at [place] in 3 days , presented to the hospital today because of recurrent palp itation as well as shortness of breath. She denies any cough or fever. She denies any nausea vomiting. She is unsure of her home meds patient takes everything given to her. She states she has been feeling dizzy and intermittent palpitations since after her Watchman device placed. She is to take Eliquis despite the Watchman device. She says she has seen Dr. Berkowitz last week and was scheduled to see an EP nick setter for ablation at [place] next week. She is anxious to be transferred to [place] but unsure hospital the doctor is affiliated with or how to spell his name on arrival in the ED she was noted with A-fib with RVR in the 140s. proBNP was markedly elevated at greater than 4000, chest x-ray shows small pleural effusions with mild pulmonary congestive changes. EKG shows A-fib with RVR, CBC and BMP was unremarkable Allergies Penicillins Allergy (Verified 04/20/23 08:16) Rash shellfish derived Allergy (Verified 04/20/23 08:16) Nausea/Vomiting atorvastatin Adverse Reaction (Verified 04/20/23 08:16) Tachycardia propoxyphene [From Darvon] Adverse Reaction (Verified 04/20/23 08:16) hallucinations Home Medications: Baclofen 5 mg PO BID 11/01/23 Apixaban [Eliquis] 5 mg PO BID #180 tab 11/04/23 Ezetimibe [Zetia*] 10 mg PO BEDTIME #60 tab 11/04/23 Furosemide [Lasix] 20 mg PO DAILY #60 tab 11/04/23 Metoprolol Succinate [Toprol Xl*] 25 mg PO [id number] #60 tab 11/04/23 - Past Medical/Surgical History Diabetic: Yes -: Atrial fibrillation -: DM2 -: CVA -: Osteoarthritis -: DE -: R rotator cuff sx -: cyst removal from hip -: tonsillectomy/adnoidectomy -: D&C's -: Watchman procedure Psychosocial/ Personal History: Lives alone in an apartment. Has a rollator but states she only uses it when she absolutely has to do so. - Family History Mother -: Cancer Father -: Stroke, Cancer - Social History Smoking Status: Never smoker Smoking therapy provided: No Alcohol use: Yes CD- Drugs: No Caffeine use: Yes Place of Residence: Home Review of Systems Respiratory: Cough, Shortness of Breath Cardiovascular: Palpitations, Orthopnea, Paroxysmal Noc. Dyspnea Physical Examination - Physical Exam General: Alert, In no apparent distress, Oriented x3 HEENT: Atraumatic, Normocephalic, PERRLA Neck: Supple, 2+ carotid pulse no bruit, JVD not distended Respiratory: Diminished, Crackles/rales Cardiovascular: Normal pulses, Normal S1 S2, Irregular heart rate/rhythm Gastrointestinal: Normal bowel sounds, Soft and benign, Non-distended, No ascites Musculoskeletal: No clubbing Neurological: Normal gait, Normal speech, Normal strength at 5/5 x4 extr, Cranial nerves 3-12 intact - Studies Laboratory Data (last 24 hrs) 11/20/23 11/20/23 11/20/23 21:01 21:01 21:01 WBC 7.80 Hgb 13.2 Hct 37.4 Plt Count 225 PT 17.9 H INR 1.65 Sodium 139 Potassium 3.7 BUN 17 Creatinine 0.88 Glucose 125 H Magnesium 1.9 Total Bilirubin 0.5 AST 27 ALT 28 Alkaline Phosphatase 79 Assessment and Plan - Problems (Diagnosis) (1) Acute on chronic diastolic heart failure Current Visit: No Status: Acute (2) Atrial fibrillation Current Visit: No Status: Acute (3) NSVT (nonsustained ventricular tachycardia) Current Visit: No Status: Acute - Plan Impression A-fib with RVR Acute on chronic diastolic CHFwith acute pulmonary edema and bilateral pleural effusion Hypertension DM Osteoarthritis Plan Will admit to observation Place in telemetry IV Lasix every [address] Berkowitz Continue metoprolol sotalol, add Cardizem 30 mg every 12 for better rate control Follow TSH and magnesium Status post Watchman device Continue Eliquis Discharge Plan: Home Plan to discharge in: 24 Hours - Advance Directives Does patient have a Living Will: No Does patient have a Durable POA for Healthcare: No - Code Status/Comfort Care Code Status Assessed: Yes Code Status: Full Code Physician Review: Patient Assessed, Agree with Above Assessment and Plan Time Spent Managing Pts Care (In Minutes): 65
--- NOTE | 2023-11-20 22:17 | EDPHYS ---
Physician Documentation [facility] Name: Yelitza Lara Age: 73 yrs Sex: Female : 1950 Arrival Date: 11/20/2023 Time: 20:36 Bed 8 Private MD: ED Physician Russell Arias HPI: 11/19 20:45 This 73 yrs old Female presents to ER via Unassigned with complaints of Palpitations, sp3 Chest Pain. 20:45 73-year-old female with extensive cardiac history including atrial fibrillation status sp3 post Watchman procedure was also scheduled for cardiac ablation in 3 days in [facility] who is a patient of Dr. Berkowitz now presents to the ED with palpitations and atrial fibrillation with RVR by EMS now rate controlled with Cardizem 10 mg given by EMS. Patient symptoms have improved and blood pressure is also improved from 70 systolic to now in the 110s. Patient's chest pain is also improved. She denies any other symptoms including fever, cough, URI symptoms, back pain, abdominal pain, vomiting, diarrhea, rash, syncope, near syncope, or any other signs or symptoms on ROS at this time.. Historical: - Allergies: 20:49 PENICILLINS; cm10 20:49 Darvon; cm10 - PMHx: 20:49 Arthritis; Atrial fibrillation; CVA; diabetes mellitus; Myocardial infarction; cm10 - PSHx: 20:49 Watchman's procedure (Myocardial infarction); cm10 - Immunization history:: Adult Immunizations up to date. - Infectious Disease History:: Denies. - Social history:: Smoking status: Patient denies any tobacco usage or history of. ROS: 20:46 Constitutional: Negative for fever, chills, and weight loss, Eyes: Negative for injury, sp3 pain, redness, and discharge, ENT: Negative for injury, pain, and discharge, Neck: Negative for injury, pain, and swelling, Respiratory: Negative for shortness of breath, cough, wheezing, and pleuritic chest pain, Abdomen/GI: Negative for abdominal pain, nausea, vomiting, diarrhea, and constipation, Back: Negative for injury and pain, MS/Extremity: Negative for injury and deformity, Skin: Negative for injury, rash, and discoloration, Neuro: Negative for headache, weakness, numbness, tingling, and seizure, Psych: Negative for depression, anxiety, suicide ideation, homicidal ideation, and hallucinations, Allergy/Immunology: Negative for hives, rash, and allergies, Endocrine: Negative for neck swelling, polydipsia, polyuria, polyphagia, and marked weight changes, Hematologic/Lymphatic: Negative for swollen nodes, abnormal bleeding, and unusual bruising, 20:46 All other systems are negative, Exam: 20:47 Constitutional: This is a well developed, well nourished patient who is awake, alert, sp3 and in no acute distress. Head/Face: Normocephalic, atraumatic. Eyes: Pupils equal round and reactive to light, extra-ocular motions intact. Lids and lashes normal. Conjunctiva and sclera are non-icteric and not injected. Cornea within normal limits. Periorbital areas with no swelling, redness, or edema. ENT: Nares patent. No nasal discharge, no septal abnormalities noted. External auditory canals are clear. Oropharynx with no redness, swelling, or masses, exudates, or evidence of obstruction, uvula midline. Mucous membranes moist. Neck: Trachea midline, no thyromegaly or masses palpated, and no cervical lymphadenopathy. Supple, full range of motion without nuchal rigidity, or vertebral point tenderness. No Meningismus. Chest/axilla: Normal chest wall appearance and motion. Nontender with no deformity. No lesions are appreciated. Respiratory: Lungs have equal breath sounds bilaterally, clear to auscultation and percussion. No rales, rhonchi or wheezes noted. No increased work of breathing, no retractions or nasal flaring. Abdomen/GI: Soft, non-tender, with normal bowel sounds. No distension or tympany. No guarding or rebound. No evidence of tenderness throughout. Back: No spinal tenderness. No costovertebral tenderness. Full range of motion. Skin: Warm, dry with normal turgor. Normal color with no rashes, no lesions, and no evidence of cellulitis. MS/ Extremity: Pulses equal, no cyanosis. Neurovascular intact. Full, normal range of motion. Neuro: Awake and alert, GCS 15, oriented to person, place, time, and situation. Cranial nerves II-XII grossly intact. Motor strength 5/5 in all extremities. Sensory grossly intact. Cerebellar exam normal. Normal gait. Psych: Awake, alert, with orientation to person, place and time. Behavior, mood, and affect are within normal limits. 20:47 Cardiovascular: Patient atrial fibrillation in the 80s currently. EKG is pending., 21:28 ECG was reviewed by the Attending Physician. EKG demonstrates atrial fibrillation with sp3 rapid ventricular response at 138 bpm with incomplete left bundle and leftward axis and nonspecific diffuse ST/changes without evidence of acute ischemia. Vital Signs: 20:44 BP 118 / 95; Pulse 109; Resp 18; Temp 98.1; Pulse Ox 98% on R/A; Weight 87.09 kg (M); cm10 Height 5 ft. 2 in. ; Pain 0/10; 21:30 BP 101 / 61; Pulse 106; Resp 18; Pulse Ox 97% on R/A; cm10 22:10 BP 103 / 82; Pulse 121; Resp 18; Pulse Ox 98% on R/A; cm10 22:30 BP 106 / 87; Pulse 112; Resp 16; Pulse Ox 97% on R/A; cm10 20:44 Body Mass Index 35.12 (87.09 kg, 157.48 cm) cm10 20:44 Pain Scale: Adult cm10 MDM: 20:43 Patient medically screened. sp3 20:47 Data reviewed: vital signs, nurses notes. ED course: 73-year-old female with sp3 palpitations, chest pain and atrial fibrillation with RVR now rate controlled. Given her extensive history, we will place her in observation and run serial cardiac markers and have her electrical mechanic see her for possible earlier ablation intervention. I am not highly suspicious for ST elevation CA, vascular compromise, sepsis, shock, PE, or any other critical process at this time.. 11/19 20:44 Order name: Basic Metabolic Panel; Complete Time: 21:39 sp3 11/19 20:44 Order name: CBC with Diff; Complete Time: 21:32 sp3 11/19 20:44 Order name: LFT's; Complete Time: 21:39 sp3 11/19 20:44 Order name: Magnesium; Complete Time: 21:39 sp3 11/19 20:44 Order name: NT PRO-BNP; Complete Time: 21:39 sp3 11/19 20:44 Order name: PT-INR; Complete Time: 21:32 sp3 11/19 20:44 Order name: Troponin HS; Complete Time: 21:39 sp3 11/19 22:44 Order name: Thyroid Stimulating Hormone EDMS 11/19 22:44 Order name: CBC with Automated Diff EDMS 11/19 22:44 Order name: CBC with Automated Diff EDMS 11/19 22:44 Order name: Comprehensive Metabolic Panel EDMS 11/19 22:44 Order name: Comprehensive Metabolic Panel EDMS 11/19 22:44 Order name: Magnesium EDMS 11/19 22:44 Order name: Magnesium EDMS 11/19 22:44 Order name: Magnesium EDMS 11/19 22:44 Order name: Magnesium EDMS 11/19 22:44 Order name: Troponin High Sensitivity EDMS 11/19 22:44 Order name: Troponin High Sensitivity EDMS 11/19 20:44 Order name: XRAY Chest (1 view); Complete Time: 21:58 sp3 11/19 20:44 Order name: Cardiac monitoring; Complete Time: 20:50 sp3 11/19 20:44 Order name: EKG - Nurse/Tech; Complete Time: 21:08 sp3 11/19 20:44 Order name: IV Saline Lock; Complete Time: 21:08 sp3 11/19 20:44 Order name: Labs collected and sent; Complete Time: 21:08 sp3 11/19 20:44 Order name: O2 Per Protocol; Complete Time: 20:50 sp3 11/19 20:44 Order name: O2 Sat Monitoring; Complete Time: 20:50 sp3 Administered Medications: 22:16 Drug: Furosemide IVP 40 mg IVP once; give over 2 minutes Route: IVP; Site: left wrist; cm10 22:48 Follow up: Response: No adverse reaction cm10 Disposition Summary: 11/20/23 22:16 Hospitalization Ordered Notes: Hospitalization Status: Observation sp3 Provider: Debi Parikh sp3 Location: Telemetry/MedSurg (observation) sp3 Condition: Stable sp3 Problem: an acute exacerbation sp3 Symptoms: have worsened sp3 Bed/Room Type: Standard sp3 Room Assignment: 206(11/20/23 23:02) Diagnosis - Atrial fibrillation with RVR, congestive heart failure sp3 Forms: - Medication Reconciliation Form sp3 - SBAR form sp3 - Leadership Thank You Letter sp3 Signatures: Dispatcher [employer] Nguyen Dodson RN RN Russell Arias MD MD sp3 Yuliana Guillen RN RN cm10 [facility] Corrections: (The following items were deleted from the chart) 20:44 20:44 BASIC METABOLIC PANEL+C.LAB.BRZ ordered. EDMS EDMS 20:44 20:44 CBC+H.LAB.BRZ ordered. EDMS EDMS 20:44 20:44 HEPATIC FUNCTION+C.LAB.BRZ ordered. EDMS EDMS 20:44 20:44 MAGNESIUM+C.LAB.BRZ ordered. EDMS EDMS 20:44 20:44 PROBNP+C.LAB.BRZ ordered. EDMS EDMS 20:44 20:44 PROTIME (+INR)+COAG.LAB.BRZ ordered. EDMS EDMS 20:44 20:44 Troponin High Sensitivity+C.LAB.BRZ ordered. EDMS EDMS 20:45 20:45 Chest Single View+RAD.RAD.BRZ ordered. EDMS EDMS 22:46 22:16 sp3 kmf 22:57 22:46 431 kmf cg 23:02 22:57 cg cg
--- NOTE | 2023-11-20 22:17 | ER ---
Nurse's Notes [facility] Name: Yelitza Lara Age: 73 yrs Sex: Female : 1950 Arrival Date: 11/20/2023 Time: 20:36 Bed 8 Private MD: Diagnosis: Atrial fibrillation with RVR, congestive heart failure Presentation: 11/19 20:44 Chief complaint: EMS states: Called to patient's home due to patient not feeling well. cm10 Pt reports that over the last few days she has been having intermittent chest pain and shortness of breath. PT reports that she checked her pulse and noticed that her pulse was elevated. EMS reports that when they arrived to patient's home the patient was found to be in A-fib RVR and received Diltiazem 10mg IVP. Pt's heart rate decreased and BP improved. Coronavirus screen: Client denies travel out of the [place] in the last 14 days. At this time, the client does not indicate any symptoms associated with coronavirus-19. Ebola Screen: Patient denies travel to an Ebola-affected area in the 21 days before illness onset. No symptoms or risks identified at this time. Initial Sepsis Screen: Does the patient meet any 2 criteria? HR > 90 bpm. Does the patient have a suspected source of infection? No. Patient's initial sepsis screen is negative. Risk Assessment: Do you want to hurt yourself or someone else? Patient reports no desire to harm self or others. Onset of symptoms was November 20, 2023. Care prior to arrival: Medication(s) given: ASA, 81 mg, x 4, Normal saline infusion, 100mL Diltiazem 10mg IV initiated. 20 GA, in the left wrist. 20:44 Method Of Arrival: EMS: [facility] cm10 20:44 Acuity: WILDER 2 cm10 Triage Assessment: 20:50 General: Appears in no apparent distress. comfortable, Behavior is calm, cooperative. cm10 Pain: Denies pain. Neuro: No deficits noted. Level of Consciousness is awake, alert, obeys commands, Oriented to person, place, time, situation. Cardiovascular: Patient's skin is warm and dry. Rhythm is atrial fibrillation. Respiratory: No deficits noted. Airway is patent Respiratory effort is even, unlabored, Respiratory pattern is regular, symmetrical. Historical: - Allergies: 20:49 PENICILLINS; cm10 20:49 Darvon; cm10 - PMHx: 20:49 Arthritis; Atrial fibrillation; CVA; diabetes mellitus; Myocardial infarction; cm10 - PSHx: 20:49 Watchman's procedure (Myocardial infarction); cm10 - Immunization history:: Adult Immunizations up to date. - Infectious Disease History:: Denies. - Social history:: Smoking status: Patient denies any tobacco usage or history of. Screenin:09 [facility] ED Fall Risk Assessment (Adult) History of falling in the last 3 months, cm10 including since admission No falls in past 3 months (0 pts) Confusion or Disorientation No (0 pts) Intoxicated or Sedated No (0 pts) Impaired Gait Yes (1 pt) Mobility Assist Device Used Yes (1 pt) Altered Elimination No (0 pt) Score/Fall Risk Level 0 - 2 = Low Risk Oriented to surroundings, Maintained a safe environment, Hourly rounding (assess needs \T\ fall precautionary measures) done. Abuse screen: Denies threats or abuse. Denies injuries from another. Nutritional screening: No deficits noted. Tuberculosis screening: No symptoms or risk factors identified. Assessment: 21:08 General: Appears in no apparent distress. comfortable, Behavior is calm, cooperative. cm10 Pain: Denies pain. Pain: Pain does not radiate. Pain began 2-3 days ago. Neuro: No deficits noted. Level of Consciousness is awake, alert, obeys commands, Oriented to person, place, time, situation. Cardiovascular: No deficits noted. Patient's skin is warm and dry. Rhythm is atrial fibrillation. Respiratory: No deficits noted. Reports cough that is dry, persistent Airway is patent Respiratory effort is even, unlabored, Respiratory pattern is regular, symmetrical. GI: No deficits noted. No signs and/or symptoms were reported involving the gastrointestinal system. : No deficits noted. No signs and/or symptoms were reported regarding the genitourinary system. EENT: No deficits noted. No signs and/or symptoms were reported regarding the EENT system. Derm: No deficits noted. No signs and/or symptoms reported regarding the dermatologic system. Skin is intact, Skin is pink, warm \T\ dry. 22:10 Reassessment: Pt changed into hospital gown at this time and brief changed. Purewick in cm10 place at this time. 23:00 Reassessment: Patient appears in no apparent distress at this time. Patient and/or cm10 family updated on plan of care and expected duration. Pain level reassessed. Patient is alert, oriented x 3, equal unlabored respirations, skin warm/dry/pink. Vital Signs: 20:44 BP 118 / 95; Pulse 109; Resp 18; Temp 98.1; Pulse Ox 98% on R/A; Weight 87.09 kg (M); cm10 Height 5 ft. 2 in. ; Pain 0/10; 21:30 BP 101 / 61; Pulse 106; Resp 18; Pulse Ox 97% on R/A; cm10 22:10 BP 103 / 82; Pulse 121; Resp 18; Pulse Ox 98% on R/A; cm10 22:30 BP 106 / 87; Pulse 112; Resp 16; Pulse Ox 97% on R/A; cm10 20:44 Body Mass Index 35.12 (87.09 kg, 157.48 cm) cm10 20:44 Pain Scale: Adult cm10 ED Course: 20:43 Patient arrived in ED. cm10 20:43 Russell Arias MD is Attending Physician. sp3 20:43 Yuliana Guillen, RN is Primary Nurse. cm10 20:49 Triage completed. cm10 20:50 Arm band placed on Patient placed in an exam room, on a stretcher, on clinical research monitor, cm10 on pulse oximetry. 21:08 Basic Metabolic Panel Sent. cm10 21:08 CBC with Diff Sent. cm10 21:08 LFT's Sent. cm10 21:08 Magnesium Sent. cm10 21:08 NT PRO-BNP Sent. cm10 21:08 PT-INR Sent. cm10 21:08 Troponin HS Sent. cm10 21:09 Patient has correct armband on for positive identification. Bed in low position. Call cm10 light in reach. Side rails up X2. Provided Education on: ER process and procedures. Client placed on continuous cardiac and pulse oximetry monitoring. NIBP monitoring applied. vehicle monitor technician on. Door closed. Warm blanket given. 21:09 Maintain EMS IV. Dressing intact. Good blood return noted. Site clean \T\ dry. IV is cm10 patent. O2 via Room air. 21:35 XRAY Chest (1 view) In Process Unspecified. EDMS 22:10 Cleaned of incontinence. Pt placed in gown. cm10 22:10 Thermoregulation: warm blanket given to patient. cm10 22:16 Debi Parikh MD is Hospitalizing Provider. sp3 22:52 No provider procedures requiring assistance completed. Patient admitted, IV remains in cm10 place. 23:12 [facility] cm10 Administered Medications: 22:16 Drug: Furosemide IVP 40 mg IVP once; give over 2 minutes Route: IVP; Site: left wrist; cm10 22:48 Follow up: Response: No adverse reaction cm10 Medication: 21:09 VIS not applicable for this client. cm10 Outcome: 22:16 Decision to Hospitalize by Provider. sp3 22:52 Admitted to Med/surg accompanied by tech, via stretcher, room 206, cm10 22:52 Condition: good 22:52 Instructed on the need for admit, 23:41 Patient left the ED. cm10 Signatures: Dispatcher [employer] EDRussell Rboison MD MD sp3 Yuliana Guillen RN RN cm10 Corrections: (The following items were deleted from the chart) 23:12 22:52 Admitted to Tele accompanied by tech, via stretcher, room 431, cm10 cm10
[2023-11-20] MEDS ORDERED: ALBUTEROL 2.5 MG/3 ML NEB SOL NEB PRN (22:36)
[2023-11-20] MEDS: FUROSEMIDE 40 MG/4 ML VIAL IV SCH (22:40)
[2023-11-20] MEDS ORDERED: LORAZEPAM 0.5 MG TABLET PO PRN (22:40)
[2023-11-21] MEDS: DILTIAZEM HCL 60 MG TAB PO SCH (00:33)
[2023-11-21 01:58] VITALS: O2SAT 97; BMI 34.1
[2023-11-21 02:10] LABS: Thyroid Stimulating Hormone 3.88 uIU/mL (0.358-3.740)
[2023-11-21] MEDS: METOPROLOL XL 25 MG TAB PO SCH (05:41)
[2023-11-21 06:00] LABS: Absolute Basophils 0.1 K/uL (0-0.5); Absolute Eosinophils 0.1 K/uL (0-0.5); Absolute Lymphocytes (CBC) 2.9 K/uL (0.7-4.9); Absolute Monocytes 0.6 K/uL (0.1-1.3); Absolute Neutrophil 3.2 K/uL (1.8-8.0); Basophils % 1.3 % (0-1.3); Hematocrit 37.2 % (36.0-45.0); Hemoglobin 12.8 g/dL (12.0-15.0); Lymphocytes % 42.3 % (15.3-44.8); MCH 31.2 pg (27.0-35.0); MCHC 34.3 g/dL (32.0-36.0); MPV 10.5 fL (7.6-11.3); Monocytes % 8.7 % (3.3-12.3); Neutrophils % 45.7 % (41.7-73.7); Nucleated Red Blood Cells % 0.1 % (0-0); Platelets 217 thou/uL (152-406); RBC Red Blood Cell Count 4.09 M/uL (3.86-4.86); Red Cell Distribution Width 13.7 % (12.1-15.2)
[2023-11-21 06:14] LABS: Albumin 2.9 g/dL (3.4-5.0); Albumin/Globulin Ratio 0.9 (1.1-1.8); Anion Gap 10.3 mEq/L (5.0-15.0); Bilirubin Total 0.5 mg/dL (0.2-1.0); Globulin 3.4 g/dL (2.3-3.5); Potassium 3.3 mEq/L (3.5-5.1); Protein, Total 6.3 g/dL (6.4-8.2); Troponin High Sensitivity 21.7 pg/mL (<58.9)
--- NOTE | 2023-11-21 06:57 | P.PN ---
Date of Service: 11/21/23 Subjective: feeling a little better today still feeling palpitations. denies chest pain states she has appointment this tuesday for EP previously taken off sotalol due to QTc prolongation asked EMS yesterday to take her to [facility] - where she would see EP for ablation remains in a-fib; HR in 110s ROS: 10 point ROS as noted above, otherwise negative Physical Exam: GEN: Alert, oriented, NAD HEENT: Normal conjunctiva, sclera anicteric CV: Irregularly irregular rate and rhythm, HR: 100-120, no edema Pulm: Nonlabored respirations on room air, diminished at bases bilaterally ABD: Soft, nontender, nondistended Neuro: right facial droop, R arm contracted (from prior CVA) vitals reviewed Problem List: A-fib with RVR s/p watchman; on eliquis Acute on chronic diastolic CHF with small bilateral pleural effusions Hypertension Hyperlipidemia Osteoarthritis hx CVA with right-sided deficits (2020) hx DM2 A-fib with RVR s/p watchman; on eliquis reports recurrent palpitations associated with dyspnea since her watchman procedure. Seen by Dr. Berkowitz last week. Has appointment to evaluate for cardiac ablation at [place] on Wednesday 11/22 Taken off sotalol last hospitalization d/t prolonged QT interval Cardiology consulted Spoke with Dr. Berkowitz over the phone this morning, recommend initiate transfer to [facility] / tertiary level of care facility for ablation troponins negative, monitor on tele continue home eliquis continue home metoprolol started on cardizem in ED, with better rate control, but still up to 120 at times no chest pain PRN analgesics / antiemetics TSH elevated - 3.888 Acute on chronic diastolic CHF with small bilateral pleural effusions CXR (11/19): Patchy bibasilar airspace opacities likely pulm edema. +small bilateral effusions BNP 4561 continue IV lasix Monitor BP while on diuretics. BP low-normal Hypertension Hyperlipidemia Osteoarthritis hx CVA with right-sided deficits (2020) confirm home meds, restart as appropriate VTE: resume home eliquis Code: Full Dispo: Initiate transfer to [facility] per Dr. Berkowitz for ablation
[2023-11-21] MEDS: INSULIN REGULAR (HUMAN) 100 UNIT/ML SQ SCH (07:30)
[2023-11-21] MEDS: FAMOTIDINE 20 MG TAB PO SCH (08:39)
[2023-11-21] MEDS: APIXABAN 5 MG TABLET PO SCH (08:39)
[2023-11-21] MEDS: METOPROLOL TARTRATE 5 MG/5 ML INJ IV STA (20:06)
[2023-11-21] MEDS: MORPHINE 2 MG/ML SYR IV PRN (21:34)
[2023-11-21] MEDS: EZETIMIBE 10 MG TAB PO SCH (21:34)
[2023-11-22] MEDS: ONDANSETRON 4 MG/2 ML VIAL IV PRN (02:10)
[2023-11-22] MEDS: ALBUMIN HUMAN 25% 50 ML IV ONE (02:18)
[2023-11-22] MEDS: NA CHLORIDE 0.9% 1,000 ML IV SCH (02:18)
[2023-11-22 03:51] LABS: Hematocrit 35.2 % (36.0-45.0); Hemoglobin 11.9 g/dL (12.0-15.0); MCH 30.9 pg (27.0-35.0); MCHC 33.7 g/dL (32.0-36.0); MCV 91.6 fL (80-100); MPV 10.8 fL (7.6-11.3); Platelets 201 thou/uL (152-406); RBC Red Blood Cell Count 3.84 M/uL (3.86-4.86); Red Cell Distribution Width 13.7 % (12.1-15.2)
[2023-11-22 03:58] LABS: Anion Gap 10.3 mEq/L (5.0-15.0); Potassium 3.3 mEq/L (3.5-5.1)
--- NOTE | 2023-11-22 07:59 | CON ---
Date of Consultation: 11/22/2023 Reason For Consultation: Atrial fibrillation with rapid ventricular response and shortness of breath . History Of Present Illness: A 73-year-old female, history of atrial fibrillation, very difficult to control, intolerant of any rate-controlling or rhythm-controlling medicines, frequent hospitalization with atrial fibrillation and RVR that puts her in acute congestive heart failure, admitted this time with the same problem, palpitations, found to be in atrial fibrillation with RVR, very short of elizabeth th. No chest pain. No nausea, vomiting, or diarrhea. She already set her up to see an EP as an out patient for an ablation; however, she could not make it, waiting for appointment. Past Medical History: As outlined above in the HPI. Medications: Refer reconciliation sheet for detailed list. Allergies: PENICILLIN, ATORVASTATIN, PROPOXYPHENE. Family History: No premature coronary artery disease or cancer. Social History: She does not smoke or drink. Does not use any drugs. Review of Systems: All systems reviewed and they were negative except as mentioned in the HPI. Physical Examination: Vital Signs: Reviewed. Head and Neck: Pupils are equal, reactive to light. Intact eye movements. No JVD. No cervical lym phadenopathy. Neck is supple. Thyroid is not enlarged. Lungs: Clear to auscultation bilaterally. No rhonchi, wheezing, or crackles. No accessory muscle u se. Heart: Irregularly irregular. No extra sounds. Abdomen: Soft, nontender. Bowel sounds positive. No organomegaly. No masses or hernia. No rigidi ty or rebound. Extremities: No edema, clubbing, cyanosis. Intact pulses. Skin: No rash. Neurologic: Alert, awake, oriented x3. No acute focal deficits appreciated. Investigations: BUN 19, creatinine 0.85, and hemoglobin is 11.9. Assessment/recommendation: 1.Acute on chronic diastolic heart failure. Directly what is exacerbating her CHF is the atrial fib rillation with rapid ventricular response. Continue diuretics and plan for transfer for atrial fibri llation ablation. 2.Atrial fibrillation with rapid ventricular response, very difficult to control. She needs an abla tion at this point due to very frequent hospitalization. Recommend transfer to higher level of care facility to plan for atrial fibrillation ablation. Discussed the case with EP and the transfer proce ss is started. Continue metoprolol, Eliquis for now. 3.Nonsustained ventricular tachycardia. No distant rhythm strips. She will see EP upon transfer to the higher level of care facility. SR/MODL Voice ID: [id number] Report ID: [id number]
[2023-11-22] MEDS: ENOXAPARIN 100 MG/ML SYR SQ SCH (09:22)
--- NOTE | 2023-11-22 12:32 | P.DS ---
Admission Date: 11/21/23 Discharge Date: 11/22/23 Disposition: TRANSFER TO [facility]OS[facility] Reason for Admission: Shortness of breath and palpitation Brief History of Present Illness: 73-year-old female with history of HTN/DM/chronic A-fib, status post Watchman device, status post recent hospitalization for recurrent A-fib with RVR and initiated on sotalol in addition to metoprolol 3 weeks ago, follows with Dr. Berkowitzcardiology, states that she has been scheduled for cardiac ablation at [place] presented to the hospital today because of recurrent palpitation as well as shortness of breath. She reported dizziness and intermittent palpitations since her Watchman device was placed. She is to take Eliquis despite the Watchman device. On arrival in the ED she was noted with A-fib with RVR in the 140s. proBNP was markedly elevated at greater than 4000, chest x-ray showed small pleural effusions with mild pulmonary congestive changes. EKG shows A-fib with RVR, CBC and BMP was unremarkable. Patient was hospitalized for further management. Hospital Course: Diagnosis A-fib with RVR s/p watchman; on eliquis Acute on chronic diastolic CHF with small bilateral pleural effusions Hypertension Hyperlipidemia Osteoarthritis hx CVA with right-sided deficits (2020) hx DM2 Patient presented with palpitations, dyspnea and was found to be in A-fib RVR with HR in 140s complicated by CHF exacerbation. Troponins were negative. BNP was 4561. TSH elevated 3.880. CXR with findings consistent with pulm edema with small pleural effusions. Cardiology was consulted. Spoke with Dr. Berkowitz who recommended to initiate transfer to [facility] / tertiary level of care facility to eval for ablation. Patient received cardizen, metoprolol, IV lasix along with her home eliquis while hospitalized. Vital Signs/Physical Exam: Temp Pulse Resp BP Pulse Ox 96.9 F 107 H 18 99/78 95 11/22/23 08:00 11/22/23 09:21 11/22/23 08:00 11/22/23 08:00 11/22/23 08:00 General: Alert, In no apparent distress, Oriented x3 HEENT: Mucous membr. moist/pink Neck: Supple, JVD not distended Respiratory: Clear to auscultation bilaterally, Normal air movement Cardiovascular: No edema, Normal S1 S2, Irregular heart rate/rhythm Gastrointestinal: Normal bowel sounds, Soft and benign, Non-distended, No tenderness Musculoskeletal: No swelling Integumentary: No rashes, No cyanosis Neurological: Normal strength at 5/5 x4 extr Laboratory Data at Discharge: WBC 7.00 thou/uL (4.3-10.9) 11/22/23 03:20 Hgb 11.9 g/dL (12.0-15.0) L 11/22/23 03:20 Hct 35.2 % (36.0-45.0) L 11/22/23 03:20 Plt Count 201 thou/uL (152-406) 11/22/23 03:20 PT 17.9 SECONDS (9.5-12.5) H 11/20/23 21:01 INR 1.65 11/20/23 21:01 Sodium 138 mEq/L (136-145) 11/22/23 03:20 Potassium 3.3 mEq/L (3.5-5.1) L 11/22/23 03:20 BUN 19 mg/dL (7-18) H 11/22/23 03:20 Creatinine 0.85 mg/dL (0.55-1.02) 11/22/23 03:20 Glucose 125 mg/dL (74-106) H 11/22/23 03:20 Magnesium 1.8 mg/dL (1.6-2.4) 11/21/23 22:37 Total Bilirubin 0.5 mg/dL (0.2-1.0) 11/21/23 05:31 AST 20 U/L (15-37) 11/21/23 05:31 ALT 29 U/L (13-56) 11/21/23 05:31 Alkaline Phosphatase 76 U/L (45-117) 11/21/23 05:31 Home Medications: Baclofen 5 mg PO BID 11/01/23 Apixaban [Eliquis] 5 mg PO BID #180 tab 11/04/23 Ezetimibe [Zetia*] 10 mg PO BEDTIME #60 tab 11/04/23 Furosemide [Lasix*] 20 mg PO DAILY #60 tab 11/04/23 Albuterol Neb [Proventil 0.083% Neb Soln] 2.5 mg NEB Q6HP PRN amp 11/22/23 Clopidogrel Bisulfate [Plavix*] 75 mg PO DAILY 11/22/23 Diltiazem Tab [Cardizem Tab*] 30 mg PO Q12H tab 11/22/23 Metoprolol Succinate [Toprol Xl*] 25 mg PO [id number] tab 11/22/23 Physician Discharge Instructions: Patient presented with palpitations, dyspnea and was found to be in A-fib RVR with HR in 140s complicated by CHF exacerbation. Troponins were negative. BNP was 4561. TSH elevated 3.880. CXR with findings consistent with pulm edema with small pleural effusions. Cardiology was consulted. Spoke with Dr. Berkowitz who recommended to initiate transfer to [facility] / tertiary level of care facility to eval for ablation. Patient received cardizen, metoprolol, IV lasix along with her home eliquis while hospitalized. Diet: AHA Activity: Ad davis Followup: Kelli Kinsey DO, DO [Primary Care Provider] - Time spent managing pt's care (in minutes): 35
[2023-11-22] MEDS: ACETAMINOPHEN 500 MG TAB PO PRN (12:55)
[2023-11-22 16:24] VITALS: BP 94/60; TEMP 97.5
== END 2023-11-22 15:19 | disposition short-term general hospital (02) | DRG 308 ==
LOC: ER 20:36 → 4TH 22:36 → 2ND 23:03 → OBSVTOIN 11-21 17:50
PROVIDERS: ADMIT Internal Medicine; ATTEND Internal Medicine
DX: I48.91 Unspecified atrial fibrillation (principal); I50.33 Acute on chronic diastolic (congestive) heart failure; I69.951 Hemiplegia and hemiparesis following unspecified cerebrovascular disease affecting right dominant side; I11.0 Hypertensive heart disease with heart failure; I47.10 Supraventricular tachycardia, unspecified; E11.9 Type 2 diabetes mellitus without complications; E78.5 Hyperlipidemia, unspecified; M19.09 Primary osteoarthritis, other specified site; I25.2 Old myocardial infarction; Z60.2 Problems related to living alone; Z88.0 Allergy status to penicillin; Z88.8 Allergy status to other drugs, medicaments and biological substances; Z79.01 Long term (current) use of anticoagulants; Z79.02 Long term (current) use of antithrombotics/antiplatelets; Z91.013 Allergy to seafood; Z79.899 Other long term (current) drug therapy
CPT/HCPCS: 36415; 71045; 80048; 80053; 80076; 83735; 83880; 84439; 84443; 84484; 85025; 85027; 85610; 93005; 96374; 99285; G0378; J1940; J2270; J2405; J7030; P9047

== ENCOUNTER 2023-12-29 12:36 | Inpatient (IN) | payer OTHER ==
--- NOTE | 2023-12-29 13:28 | RAD REPORT ---
EXAM DESCRIPTION: RADChest Single View12/29/2023 1:10 pm CLINICAL HISTORY: near syncope COMPARISON: Chest Single View dated 08/10/2023; Chest Single View dated 07/27/2023; Chest Single View dated 07/26/2023; Chest Single View dated 07/21/2023hest Single View dated 11/20/2023; Chest Pa And L at (2 Views) dated 11/03/2023; Chest Single View dated 11/01/2023; Chest Single View dated 05/08/2023he st Single View dated 11/20/2023; Chest Pa And Lat (2 Views) dated 11/03/2023; Chest Single View dated ; Chest Single View dated 05/08/2023 TECHNIQUE: Portable AP view of the chest. FINDINGS: Radiodense electronic devices overlying course of the chest trauma limit evaluation. The l ungs are clear. No pneumothorax or effusion. The cardiomediastinal contours are unremarkable. IMPRESSION: No acute cardiopulmonary process.
[2023-12-29 13:54] LABS: Absolute Basophils 0.1 K/uL (0-0.5); Absolute Eosinophils 0.1 K/uL (0-0.5); Absolute Lymphocytes (CBC) 2.9 K/uL (0.7-4.9); Absolute Monocytes 0.5 K/uL (0.1-1.3); Absolute Neutrophil 2.1 K/uL (1.8-8.0); Basophils % 1.1 % (0-1.3); Eosinophils % 1.2 % (0-4.4); Hematocrit 36.5 % (36.0-45.0); Hemoglobin 12.1 g/dL (12.0-15.0); Lymphocytes % 51.6 % (15.3-44.8); MCH 29.9 pg (27.0-35.0); MCHC 33.3 g/dL (32.0-36.0); MCV 89.8 fL (80-100); MPV 9.7 fL (7.6-11.3); Monocytes % 8.3 % (3.3-12.3); Neutrophils % 37.8 % (41.7-73.7); Nucleated Red Blood Cells % 0.1 % (0-0); Platelets 173 thou/uL (152-406); RBC Red Blood Cell Count 4.06 M/uL (3.86-4.86); Red Cell Distribution Width 14.7 % (12.1-15.2)
[2023-12-29 14:18] LABS: ALT/SGPT 22 U/L (13-56); AST/SGOT 15 U/L (15-37); Albumin 3.4 g/dL (3.4-5.0); Albumin/Globulin Ratio 1.3 (1.1-1.8); Alkaline Phosphatase 72 U/L (45-117); Anion Gap 6.2 mEq/L (5.0-15.0); BUN Blood Urea Nitrogen 16 mg/dL (7-18); Bicarbonate 27 mEq/L (21-32); Bilirubin Total 0.4 mg/dL (0.2-1.0); Globulin 2.7 g/dL (2.3-3.5); Glomerular Filtration Rate 51 ml/min (=/>90); Glucose Level 101 mg/dL (74-106); Magnesium 2.2 mg/dL (1.6-2.4); NT PRO-BNP 1191 pg/mL (<450); Potassium 4.2 mEq/L (3.5-5.1); Protein, Total 6.1 g/dL (6.4-8.2); Sodium Level 137 mEq/L (136-145); Troponin High Sensitivity 22.6 pg/mL (<58.9)
[2023-12-29 14:20] LABS: Bilirubin Direct < 0.2 mg/dL (0-0.2); Bilirubin Indirect, Calculated 0.2 mg/dL (0.2-0.8)
--- NOTE | 2023-12-29 15:50 | ER ---
Nurse's Notes [facility] Name: Yelitza Lara Age: 73 yrs Sex: Female : 1950 Arrival Date: 12/29/2023 Time: 12:36 Bed 16 Private MD: Diagnosis: Syncope Near;Bradycardia, unspecified Presentation: 12/28 13:22 Chief complaint: EMS states: low heart rate. Home health nurse called 911. Coronavirus cp4 screen: Client denies travel out of the [place] in the last 14 days. At this time, the client does not indicate any symptoms associated with coronavirus-19. Ebola Screen: Patient negative for fever greater than or equal to 101.5 degrees Fahrenheit, and additional compatible Ebola Virus Disease symptoms Patient denies exposure to infectious person. Patient denies travel to an Ebola-affected area in the 21 days before illness onset. No symptoms or risks identified at this time. Initial Sepsis Screen: Does the patient meet any 2 criteria? No. Patient's initial sepsis screen is negative. Does the patient have a suspected source of infection? No. Patient's initial sepsis screen is negative. Risk Assessment: Do you want to hurt yourself or someone else? Patient reports no desire to harm self or others. Onset of symptoms was December 29, 2023. 13:22 Method Of Arrival: EMS: [facility] 13:22 Acuity: WILDER 3 cp4 Triage Assessment: 13:27 General: Appears uncomfortable, Behavior is calm, cooperative, appropriate for age. cp4 Pain: Denies pain. Cardiovascular: Reports lightheadedness, Denies chest pain, Rhythm is sinus bradycardia. Historical: - Allergies: 13:27 Darvon; cp4 13:27 PENICILLINS; cp4 - PMHx: 13:27 Arthritis; Atrial fibrillation; CVA; diabetes mellitus; Myocardial infarction; cp4 - Immunization history:: Adult Immunizations up to date. - Infectious Disease History:: Denies. CDIFF, C. Auris, ESBL, MRSA (w/in 1 year), VRE (w/in 1 year), TB, . - Family history:: not pertinent. - Social history:: Smoking status: Patient denies any tobacco usage or history of. Screenin:28 [facility] ED Fall Risk Assessment (Adult) History of falling in the last 3 months, cp4 including since admission No falls in past 3 months (0 pts). [facility] ED Fall Risk Assessment (Adult) Confusion or Disorientation No (0 pts) Intoxicated or Sedated No (0 pts) Impaired Gait No (0 pts) Mobility Assist Device Used No (0 pt) Altered Elimination No (0 pt) Score/Fall Risk Level 0 - 2 = Low Risk Oriented to surroundings, Maintained a safe environment, Assessed \T\ reinforced patient's understanding of fall precautions, Hourly rounding (assess needs \T\ fall precautionary measures) done. Abuse screen: Denies threats or abuse. Nutritional screening: No deficits noted. Tuberculosis screening: No symptoms or risk factors identified. Assessment: 13:28 Reassessment: No changes from previously documented assessment. cp4 Vital Signs: 13:22 BP 129 / 70; Pulse 42; Resp 18; Temp 98; Pulse Ox 99% ; Pain 0/10; cp4 14:30 BP 123 / 68; Pulse 44; Resp 18; Pulse Ox 100% ; cp4 15:30 BP 124 / 60; Pulse 45; Resp 18; Pulse Ox 99% ; cp4 16:30 BP 122 / 68; Pulse 45; Resp 18; Pulse Ox 99% ; cp4 17:30 BP 135 / 65; Pulse 45; Resp 18; Pulse Ox 99% ; cp4 18:30 BP 125 / 64; Pulse 42; Resp 18; Pulse Ox 100% ; cp4 19:30 BP 142 / 77; Pulse 49; Resp 18; Pulse Ox 99% ; cp4 20:30 BP 140 / 73; Pulse 48; Resp 18; Pulse Ox 100% ; cp4 13:22 Pain Scale: Adult cp4 ED Course: 12:44 Patient arrived in ED. em1 12:47 Michael Henley MD is Attending Physician. rt 12:58 Sheri Stanford is Primary Nurse. cp4 13:10 XRAY Chest (1 view) In Process Unspecified. EDMS 13:26 Triage completed. cp4 13:27 Arm band placed on right wrist. Patient placed in an exam room, on a stretcher. cp4 13:28 Bed in low position. Call light in reach. Side rails up X2. cp4 13:28 No provider procedures requiring assistance completed. cp4 14:26 Maintain EMS IV. Dressing intact. Good blood return noted. Site clean \T\ dry. Gauge \T\ cp 4 site: 20 LAC. 15:49 Aline Silverio MD is Hospitalizing Provider. rt 21:17 Patient admitted, IV remains in place. cp4 21:18 Provided Education on: admission. cp4 Administered Medications: No medications were administered Medication: 13:28 VIS not applicable for this client. cp4 Outcome: 15:49 Decision to Hospitalize by Provider. rt 21:17 Admitted to Med/surg accompanied by nurse, via wheelchair, cp4 21:17 Condition: stable 21:17 Instructed on the need for admit, 21:18 Patient left the ED. cp4 Signatures: Dispatcher [employer] EDMS Caden Guillen em1 Michael Henley MD MD rt Sheri Stanford cp4
--- NOTE | 2023-12-29 15:50 | EDPHYS ---
Physician Documentation [facility] Name: Yelitza Lara Age: 73 yrs Sex: Female : 1950 Arrival Date: 12/29/2023 Time: 12:36 Bed 16 Private MD: ED Physician Michael Henley HPI: 12/28 13:24 This 73 yrs old Female presents to ER via Unassigned with complaints of near syncope. rt 13:24 Patient presents to the ED with dizziness, reported generalized weakness. Palpated rt reported that her heart rate was in the 30s. Patient her Lasix but continues take metoprolol. Denies other acute complaints at this time, symptoms are moderate in severity, no other aggravating or alleviating factors. Patient was given a milligram of atropine prior to arrival to improve her heart rate.. Historical: - Allergies: 13:27 Darvon; cp4 13:27 PENICILLINS; cp4 - PMHx: 13:27 Arthritis; Atrial fibrillation; CVA; diabetes mellitus; Myocardial infarction; cp4 - Immunization history:: Adult Immunizations up to date. - Infectious Disease History:: Denies. CDIFF, C. Auris, ESBL, MRSA (w/in 1 year), VRE (w/in 1 year), TB, . - Family history:: not pertinent. - Social history:: Smoking status: Patient denies any tobacco usage or history of. ROS: 13:24 Constitutional: Negative for fever, chills, and weight loss, Cardiovascular: Negative rt for chest pain, palpitations, and edema, Respiratory: Negative for shortness of breath, cough, wheezing, and pleuritic chest pain, Abdomen/GI: Negative for abdominal pain, nausea, vomiting, diarrhea, and constipation, MS/Extremity: Negative for injury and deformity, Skin: Negative for injury, rash, and discoloration, 13:24 Neuro: Positive for dizziness, Negative for altered mental status, Exam: 13:24 Constitutional: This is a well developed, well nourished patient who is awake, alert, rt and in no acute distress. Head/Face: Normocephalic, atraumatic. Chest/axilla: Normal chest wall appearance and motion. Nontender with no deformity. No lesions are appreciated. Cardiovascular: Regular rate and rhythm with a normal S1 and S2. No gallops, murmurs, or rubs. Normal PMI, no JVD. No pulse deficits. Respiratory: Lungs have equal breath sounds bilaterally, clear to auscultation and percussion. No rales, rhonchi or wheezes noted. No increased work of breathing, no retractions or nasal flaring. Abdomen/GI: Soft, non-tender, with normal bowel sounds. No distension or tympany. No guarding or rebound. No evidence of tenderness throughout. Skin: Warm, dry with normal turgor. Normal color with no rashes, no lesions, and no evidence of cellulitis. MS/ Extremity: Pulses equal, no cyanosis. Neurovascular intact. Full, normal range of motion. Neuro: Awake and alert, GCS 15, oriented to person, place, time, and situation. Cranial nerves II-XII grossly intact. Motor strength 5/5 in all extremities. Sensory grossly intact. Cerebellar exam normal. Normal gait. 13:24 ECG was reviewed by the Attending Physician. Vital Signs: 13:22 BP 129 / 70; Pulse 42; Resp 18; Temp 98; Pulse Ox 99% ; Pain 0/10; cp4 14:30 BP 123 / 68; Pulse 44; Resp 18; Pulse Ox 100% ; cp4 15:30 BP 124 / 60; Pulse 45; Resp 18; Pulse Ox 99% ; cp4 16:30 BP 122 / 68; Pulse 45; Resp 18; Pulse Ox 99% ; cp4 17:30 BP 135 / 65; Pulse 45; Resp 18; Pulse Ox 99% ; cp4 18:30 BP 125 / 64; Pulse 42; Resp 18; Pulse Ox 100% ; cp4 19:30 BP 142 / 77; Pulse 49; Resp 18; Pulse Ox 99% ; cp4 20:30 BP 140 / 73; Pulse 48; Resp 18; Pulse Ox 100% ; cp4 13:22 Pain Scale: Adult cp4 MDM: 12:47 Patient medically screened. rt 15:49 Differential Diagnosis Bradycardia, dysrhythmia, electrolyte disturbance, anemia. Data rt reviewed: vital signs, nurses notes, lab test result(s), EKG, radiologic studies. Consideration of Admission/Observation Patient was admitted/placed on observation. Management of patient was discussed with the following: Hospitalist: Agrees to admit. Independent interpretation of the following test(s) in the Emergency Department X-Ray: My interpretation is No edema seen on interpretation of x-ray images. Care significantly affected by the following chronic conditions: Atrial fibrillation. Counseling: I had a detailed discussion with the patient and/or guardian regarding the historical points, exam findings, and any diagnostic results supporting the discharge/admit diagnosis, lab results, radiology results, the need for further work-up and treatment in the hospital. Response to treatment: the patient's symptoms have mildly improved after treatment. 12/28 12:48 Order name: Basic Metabolic Panel; Complete Time: 14:28 rt 12/28 12:48 Order name: CBC with Diff; Complete Time: 14: rt 12/28 12:48 Order name: LFT's; Complete Time: 14: rt 12/28 12:48 Order name: Magnesium; Complete Time: 14: rt 12/28 12:48 Order name: NT PRO-BNP; Complete Time: 14: rt 12/28 12:48 Order name: Troponin HS; Complete Time: 14: rt 12/28 12:48 Order name: TSH; Complete Time: 14: rt 12/28 12:48 Order name: XRAY Chest (1 view); Complete Time: 13: rt 12/28 19:02 Order name: Echo with Doppler EDMS 12/28 12:48 Order name: EKG; Complete Time: 12:48 rt 12/28 12:48 Order name: Cardiac monitoring; Complete Time: 13: rt 12/28 12:48 Order name: EKG - Nurse/Tech; Complete Time: 13: rt 12/28 12:48 Order name: IV Saline Lock; Complete Time: : rt 12/28 12:48 Order name: Labs collected and sent; Complete Time: : rt 12/28 12:48 Order name: O2 Per Protocol; Complete Time: : rt 12/28 12:48 Order name: O2 Sat Monitoring; Complete Time: : rt EC: Rate is 46 beats/min. Rhythm is regular, Sinus bradycardia with PACs, Left bundle rt branch block. Left axis deviation noted. CO interval is normal. QT interval is normal. No Q waves. Administered Medications: No medications were administered Disposition Summary: 12/29/23 15:49 Hospitalization Ordered Notes: Hospitalization Status: Observation rt Provider: Iwueke, Izuchukwu rt Location: Telemetry/MedSurg (observation) rt Condition: Stable rt Problem: new rt Symptoms: have improved rt Bed/Room Type: Standard rt Room Assignment: 205(12/29/23 20:20) ty Diagnosis - Syncope Near rt - Bradycardia, unspecified rt Forms: - Medication Reconciliation Form rt - SBAR form rt - Leadership Thank You Letter rt Signatures: Dispatcher [employer] Michael Rodríguez MD MD rt Sheri Stanford cp4 George Gurrola ty Corrections: (The following items were deleted from the chart) 20:20 15:49 rt ty
--- NOTE | 2023-12-29 19:30 | P.HP ---
Certification for Inpatient Patient admitted to: Observation With expected LOS: <2 Midnights Practitioner: I am a practitioner with admitting privileges, knowledge of patient current condition, hospital course, and medical plan of care. Services: Services provided to patient in accordance with Admission requirements found in Title 42 Section 412.3 of the Code of Federal Regulations Patient History Date of Service: 12/29/23 Reason for admission: symptomatic bradycardia History of Present Illness: Patient is a 73-year-old female with a past medical history of victoria ry artery disease status post PCI in 2020, atrial fibrillation status post Watchman procedure and recently an ablation 1 month ago. She presented to the ER complaining of dizziness. Patient reports ongoing dizziness and near syncope for the past week. She states that her heart rate has been dropping in the 30s to 50s. Her medications were reviewed. She is currently on amiodarone and metoprolol for atrial fibrillation. She was able to see her phlebotomy specialist approximately a few days ago. During the visit, patient stated that she was taken off her furosemide and clopidogrel. She continued on rest of her medications which included amiodarone, Eliquis, Farxiga, lisinopril, and metoprolol 25 mg daily. Patient states that she had run out of her spironolactone. Her heart rate was initially in the mid 30s but has now gone up to the mid 40s. Patient is still feeling dizzy even at rest. During my evaluation, she was awake enough to give the above story. Patient follows up with Dr. Berkowitz from cardiology. Allergies Penicillins Allergy (Verified 04/20/23 08:16) Rash shellfish derived Allergy (Verified 04/20/23 08:16) Nausea/Vomiting atorvastatin Adverse Reaction (Verified 04/20/23 08:16) Tachycardia propoxyphene [From Darvon] Adverse Reaction (Verified 04/20/23 08:16) hallucinations Home Medications: Baclofen 5 mg PO BID 11/01/23 Apixaban [Eliquis] 5 mg PO BID #180 tab 11/04/23 Ezetimibe [Zetia*] 10 mg PO BEDTIME #60 tab 11/04/23 Furosemide [Lasix*] 20 mg PO DAILY #60 tab 11/04/23 Albuterol Neb [Proventil 0.083% Neb Soln] 2.5 mg NEB Q6HP PRN amp 11/22/23 Clopidogrel Bisulfate [Plavix*] 75 mg PO DAILY 11/22/23 Diltiazem Tab [Cardizem Tab*] 30 mg PO Q12H tab 11/22/23 Metoprolol Succinate [Toprol Xl*] 25 mg PO [id number] tab 11/22/23 - Past Medical/Surgical History Diabetic: Yes -: Atrial fibrillation -: DM2 -: CVA -: Osteoarthritis -: [place] -: R rotator cuff sx -: cyst removal from hip -: tonsillectomy/adnoidectomy -: D&C's -: Watchman procedure Psychosocial/ Personal History: Lives alone in an apartment. Has a rollator but states she only uses it when she absolutely has to do so. - Family History Mother -: Cancer Father -: Stroke, Cancer - Social History Alcohol use: No CD- Drugs: No Caffeine use: Yes Physical Examination - Physical Exam General: In no apparent distress HEENT: Atraumatic, Normocephalic Respiratory: Clear to auscultation bilaterally, Normal air movement Cardiovascular: Other (Bradycardic), Irregular heart rate/rhythm Musculoskeletal: No clubbing, No swelling, No contractures, No erythema Neurological: Normal speech, Sensation intact - Studies Laboratory Data (last 24 hrs) 12/29/23 12/29/23 13:35 13:35 WBC 5.60 Hgb 12.1 Hct 36.5 Plt Count 173 Sodium 137 Potassium 4.2 BUN 16 Creatinine 1.13 H Glucose 101 Magnesium 2.2 Total Bilirubin 0.4 AST 15 ALT 22 Alkaline Phosphatase 72 Assessment and Plan - Problems (Diagnosis) (1) Symptomatic bradycardia Current Visit: Yes Status: Acute (2) Diastolic CHF Current Visit: Yes Status: Acute (3) CAD (coronary artery disease) Current Visit: Yes Status: Acute (4) Atrial fibrillation Current Visit: No Status: Acute - Plan Assessment Patient is a 73-year-old female with a past medical history of coronary disease status post PCI, atrial fibrillation status post Watchman procedure and recently an ablation 1 month ago. She presented to the ER complaining of symptomatic bradycardia with a heart rate ranging in the 30s and mid 40s. Patient is taking amiodarone and metoprolol at home for her atrial fibrillation. Symptomatic bradycardia This is most likely medication induced Patient has a normal TSH Will go ahead and stop her amiodarone and metoprolol Admit under observation with telemetry Will consider adenosine if she becomes hypotensive Cardiology has been consulted 2D echo from April 2023 showed moderate diastolic dysfunction. Otherwise, preserved EF and no significant valvular abnormalities Atrial fibrillation Currently bradycardic Will resume her home dose of apixaban once medications have been reconciled Coronary disease Patient is on Plavix, metoprolol and lisinopril States her Plavix have been discontinued Will hold off metoprolol here due to bradycardia Hold off lisinopril to avoid hypotension Chronic diastolic CHF Patient is not volume overloaded Resume Farxiga and medications been reconciled Hold off metoprolol and lisinopril for the reasons given above DVT prophylaxisresume apixaban once medications been reconciled DispoHome when medically cleared CODE STATUSfull code - Advance Directives Does patient have a Living Will: No Does patient have a Durable POA for Healthcare: No
[2023-12-29 21:47] VITALS: O2SAT 100; BMI 33.6
[2023-12-30] MEDS: APIXABAN 5 MG TABLET PO SCH (09:00)
[2023-12-30] MEDS: **PT MED**Dapagliflozin Propanediol [Farxiga] 10 MG Tablet PO SCH (09:00)
[2023-12-30] MEDS: lisinopriL 5 MG TAB PO SCH (09:00)
--- NOTE | 2023-12-30 10:51 | P.PN ---
Subjective Date of Service: 12/30/23 Chief Complaint: symptomatic bradycardia Pt is resting comfortably in bed. Her heart rate is 49. Hold metoprolol and amiodarone. She feels dizzy when she tries to walk. No other complaints overnight Review of Systems General: Unremarkable Eyes: Unremarkable ENT: Unremarkable Respiratory: Unremarkable Cardiovascular: Light Headedness Gastrointestinal: Unremarkable Genitourinary: Unremarkable Musculoskeletal: Unremarkable Integumentary: Unremarkable Neurological: Unremarkable Lymphatics: Unremarkable Physical Examination - Vital Signs Temperature: 98.6 F Blood Pressure: 118/56 Pulse: 48 Respirations: 14 Pulse Ox (%): 94 - Physical Exam General: Alert, In no apparent distress, Oriented x3 HEENT: Atraumatic, Normocephalic, PERRLA Neck: Supple, 2+ carotid pulse no bruit Respiratory: Clear to auscultation bilaterally, Normal air movement Cardiovascular: No edema, Normal pulses, Regular rate/rhythm, Normal S1 S2 Capillary refill: <2 Seconds Gastrointestinal: Normal bowel sounds, Soft and benign, Non-distended Musculoskeletal: No clubbing, No swelling Integumentary: No rashes, No breakdown Neurological: Normal speech, Normal strength at 5/5 x4 extr, Normal tone Lymphatics: No axilla or inguinal lymphadenopathy - Studies Laboratory Data (last 24 hrs) 12/29/23 12/29/23 13:35 13:35 WBC 5.60 Hgb 12.1 Hct 36.5 Plt Count 173 Sodium 137 Potassium 4.2 BUN 16 Creatinine 1.13 H Glucose 101 Magnesium 2.2 Total Bilirubin 0.4 AST 15 ALT 22 Alkaline Phosphatase 72 Assessment And Plan - Plan Symptomatic bradycardia: EKG shows sinus bradycarida. Will hold amiodarone and metoprolol. Will continue telemetry. Consulted Cardiology. 2D echo from April 2023 showed moderate diastolic dysfunction. Otherwise, preserved EF and no significant valvular abnormalities Atrial fibrillation: Will continue eliquis and telemetry. Coronary disease: Will continue Plavix and lisinopril. Will hold metoprolol. Chronic diastolic CHF: Patient is not volume overloaded. Will monitor BP and volume status. DVT ppx: Eliquis Dispo: Pending hospital course. Code: full code
--- NOTE | 2023-12-30 15:45 | EKG ---
Test Date: 2023-12-29 Test Time: 13:20:23 Restaurant Hourly Manager: CHANA MEASUREMENT RESULTS: Intervals: Rate: 46 HI: 198 QRSD: 146 QT: 564 QTc: 493 [place]: P: 51 HI: 198 QRS: -28 T: 36 INTERPRETIVE STATEMENTS: Sinus bradycardia with premature atrial complexes Left bundle branch block Abnormal ECG Compared to ECG 11/22/2023 14:53:57 Atrial premature complex(es) now present Left bundle-branch block now present Sinus tachycardia no longer present First degree AV block no longer present Right-axis deviation no longer present Myocardial infarct finding no longer present Electronically Signed On 12-30-23 15:41:35 CDT by Americo Vazquez
--- NOTE | 2023-12-30 16:03 | P.CNS ---
Date of Consult: 12/30/23 Chief Complaint: symptomatic bradycardia History of Present Illness: Patient with PMH of CAD s/p PCI 2020, Atrial fibrillation s/p ablation 1 month ago, watchman placement, presented with dizzy spell and slow HR. no other cardiac symptoms. Allergies Penicillins Allergy (Verified 04/20/23 08:16) Rash pork derived (porcine) Allergy (Verified 12/30/23 08:54) Nausea/Vomiting Pork/Porcine Containing Products Allergy (Verified 12/30/23 08:54) Nausea/Vomiting shellfish derived Allergy (Verified 04/20/23 08:16) Nausea/Vomiting atorvastatin Adverse Reaction (Verified 04/20/23 08:16) Tachycardia propoxyphene [From Darvon] Adverse Reaction (Verified 04/20/23 08:16) hallucinations Home Medications: Apixaban [Eliquis] 5 mg PO BID #180 tab 11/04/23 Metoprolol Succinate [Toprol Xl*] 25 mg PO [id number] tab 11/22/23 Amiodarone HCl [Pacerone] 200 mg PO DAILY 12/29/23 Dapagliflozin Propanediol [Farxiga] 10 mg PO DAILY 12/29/23 Lisinopril [Zestril] 2.5 mg PO DAILY 12/29/23 Spironolactone [Aldactone] 12.5 mg PO DAILY 12/29/23 - Past Medical/Surgical History Diabetic: Yes -: Atrial fibrillation -: DM2 -: CVA -: Osteoarthritis -: AL -: R rotator cuff sx -: cyst removal from hip -: tonsillectomy/adnoidectomy -: D&C's -: Watchman procedure Psychosocial/ Personal History: Lives alone in an apartment. Has a rollator but states she only uses it when she absolutely has to do so. - Family History Mother Medical History: Cancer Father Medical History: Stroke, Cancer - Social History Alcohol use: No CD- Drugs: No Caffeine use: Yes Place of Residence: Home Review of Systems 10-point ROS is otherwise unremarkable Physical Examination Temp Pulse Resp BP Pulse Ox 98.2 F 53 16 137/70 94 12/30/23 15:53 12/30/23 15:53 12/30/23 15:53 12/30/23 15:53 12/30/23 15:53 General: Alert, In no apparent distress HEENT: Atraumatic, PERRLA, Mucous membr. moist/pink, EOMI, Sclerae nonicteric Neck: Supple, 2+ carotid pulse no bruit, No LAD, Without JVD or thyroid abn ormality Respiratory: Clear to auscultation bilaterally, Normal air movement Cardiovascular: Regular rate/rhythm, Normal S1 S2 Gastrointestinal: Normal bowel sounds, No tenderness Musculoskeletal: No tenderness Integumentary: No rashes Neurological: Normal gait, Normal speech, Normal tone, Normal affect Lymphatics: No axilla or inguinal lymphadenopathy - Problems (1) Diastolic CHF Current Visit: Yes Status: Acute Plan: Patient is currently euvolemic on exam, continue to monitor. Continue Lisinopril and Aldactone. (2) Symptomatic bradycardia Current Visit: Yes Status: Acute Plan: Ok to Hold Amiodarone and Toprol and keep tele monitoring. (3) Atrial fibrillation Current Visit: No Status: Acute Plan: hold toprol and amiodarone continue Eliquis 5 mg po BID.
[2023-12-31] MEDS: SPIRONOLACTONE 25 MG TABLET PO SCH (08:02)
--- NOTE | 2023-12-31 10:50 | P.PN ---
Subjective Date of Service: 12/31/23 Chief Complaint: symptomatic bradycardia Pt is resting comfortably in bed. Her heart rate is 50 <- 49. Hlolding metoprolol and amiodarone. Cardiology is following. She feels dizzy when she tries to walk. No other complaints overnight Review of Systems General: Unremarkable Eyes: Unremarkable ENT: Unremarkable Respiratory: Unremarkable Cardiovascular: Light Headedness Gastrointestinal: Unremarkable Genitourinary: Unremarkable Musculoskeletal: Unremarkable Neurological: Unremarkable Lymphatics: Unremarkable Physical Examination - Vital Signs Temperature: 97.2 F Blood Pressure: 118/61 Pulse: 50 Respirations: 17 Pulse Ox (%): 98 - Physical Exam General: Alert, In no apparent distress, Oriented x3 HEENT: Atraumatic, Normocephalic, PERRLA Neck: Supple, 2+ carotid pulse no bruit, JVD not distended Respiratory: Clear to auscultation bilaterally, Normal air movement Cardiovascular: No edema, Normal pulses, Regular rate/rhythm, Normal S1 S2 Capillary refill: <2 Seconds Gastrointestinal: Normal bowel sounds, Soft and benign, Non-distended Musculoskeletal: No clubbing, No swelling, No contractures Integumentary: No rashes, No breakdown, No significant lesion Neurological: Normal speech, Normal strength at 5/5 x4 extr, Normal tone, Sensation intact Lymphatics: No axilla or inguinal lymphadenopathy Assessment And Plan - Plan Symptomatic bradycardia: HR is 50. EKG shows sinus bradycarida. Will hold amiodarone and metoprolol. Will continue telemetry. Consulted Cardiology. 2D echo from April 2023 showed moderate diastolic dysfunction. Otherwise, preserved EF and no significant valvular abnormalities Atrial fibrillation: Will continue eliquis and telemetry. Cardiology is following. Coronary disease: Will continue Plavix and lisinopril. Will hold metoprolol. Chronic diastolic CHF: Patient is not volume overloaded. Will monitor BP and volume status. DVT ppx: Eliquis Dispo: Pending hospital course. Code: full code
--- NOTE | 2023-12-31 11:17 | P.PN ---
Subjective Date of Service: 12/31/23 Chief Complaint: symptomatic bradycardia Subjective: No new changes, No C/O voiced, Tolerating diet, Ambulating, Improving Review of Systems 10-point ROS is otherwise unremarkable Physical Examination - Vital Signs Temperature: 97.2 F Blood Pressure: 118/61 Pulse: 50 Respirations: 17 Pulse Ox (%): 98 - Physical Exam General: Alert, In no apparent distress HEENT: Atraumatic, PERRLA, EOMI Neck: Supple, JVD not distended Respiratory: Clear to auscultation bilaterally, Normal air movement Cardiovascular: Regular rate/rhythm, Normal S1 S2 Gastrointestinal: Normal bowel sounds, No tenderness Musculoskeletal: No tenderness Integumentary: No rashes Neurological: Normal speech, Normal tone, Normal affect Lymphatics: No axilla or inguinal lymphadenopathy - Studies Medications List Reviewed: Yes Assessment And Plan - Current Problems (Diagnosis) (1) Diastolic CHF Current Visit: Yes Status: Acute Plan: Patient is currently euvolemic on exam, continue to monitor. Continue Lisinopril and Aldactone. (2) Symptomatic bradycardia Current Visit: Yes Status: Acute Plan: D/C Amiodarone and Toprol on discharge. Patient will need to follow up with cardiology office next week. (3) Atrial fibrillation Current Visit: No Status: Acute Plan: hold toprol and amiodarone continue Eliquis 5 mg po BID.
--- NOTE | 2024-01-01 11:09 | P.DS ---
Admission Date: 12/31/23 Discharge Date: 01/01/24 Disposition: ROUTINE DISCHARGE Discharge Condition: GOOD Reason for Admission: symptomatic bradycardia Brief History of Present Illness: Patient is a 73-year-old female with a past medical history of coronary artery disease status post PCI in 2020, atrial fibrillation status post Watchman procedure and recently an ablation 1 month ago. She presented to the ER complaining of dizziness. Patient reports ongoing dizziness and near syncope for the past week. She states that her heart rate has been dropping in the 30s to 50s. Her medications were reviewed. She is currently on amiodarone and metoprolol for atrial fibrillation. She was able to see her insole tack puller hand approximately a few days ago. During the visit, patient stated that she was taken off her furosemide and clopidogrel. She continued on rest of her medications which included amiodarone, Eliquis, Farxiga, lisinopril, and metoprolol 25 mg daily. Patient states that she had run out of her spironolactone. Her heart rate was initially in the mid 30s but has now gone up to the mid 40s. Patient is still feeling dizzy even at rest. During my evaluation, she was awake enough to give the above story. Patient follows up with Dr. Berkowitz from cardiology. Hospital Course: Patient is a 73yo female with past medical history of coronary artery disease status post PCI in 2020, atrial fibrillation status post Watchman procedure and recently an ablation 1 month ago who presented with dizziness for 1 week. Pt noticed that her hert rate ranged from 30 - 50. Pt was taking amiodarone, Eliquis, Farxiga, lisinopril, and metoprolol 25 mg daily at home. We admitted pt for dizziness due to metoprolol and amiodarone. We held metoprolol and amlodipine and the dizziness resolved. Her heart rate improved and pt requested to be discharged. Pt was advised to stop taking metoprolol and amiodarone until she sees her insole tack puller hand in clinic. Pt was in NAD prior to discharge. Vital Signs/Physical Exam: Temp Pulse Resp BP Pulse Ox 98 F 46 L 15 138/61 94 01/01/24 08:00 01/01/24 08:00 01/01/24 08:00 01/01/24 08:00 01/01/24 08:00 Laboratory Data at Discharge: WBC 5.60 thou/uL (4.3-10.9) 12/29/23 13:35 Hgb 12.1 g/dL (12.0-15.0) 12/29/23 13:35 Hct 36.5 % (36.0-45.0) 12/29/23 13:35 Plt Count 173 thou/uL (152-406) 12/29/23 13:35 Sodium 137 mEq/L (136-145) 12/29/23 13:35 Potassium 4.2 mEq/L (3.5-5.1) 12/29/23 13:35 BUN 16 mg/dL (7-18) 12/29/23 13:35 Creatinine 1.13 mg/dL (0.55-1.02) H 12/29/23 13:35 Glucose 101 mg/dL (74-106) 12/29/23 13:35 Magnesium 2.2 mg/dL (1.6-2.4) 12/29/23 13:35 Total Bilirubin 0.4 mg/dL (0.2-1.0) 12/29/23 13:35 AST 15 U/L (15-37) 12/29/23 13:35 ALT 22 U/L (13-56) 12/29/23 13:35 Alkaline Phosphatase 72 U/L (45-117) 12/29/23 13:35 Home Medications: Apixaban [Eliquis] 5 mg PO BID #180 tab 11/04/23 Dapagliflozin Propanediol [Farxiga] 10 mg PO DAILY 12/29/23 Lisinopril [Zestril] 2.5 mg PO DAILY 12/29/23 Spironolactone [Aldactone*] 12.5 mg PO DAILY 12/29/23 Physician Discharge Instructions: Continue ad davis activity. Stop taking metoprolol and amiodarone until you see your insole tack puller hand. Continue Eliquis, lisinopril and spironolactone. Follow up with PCP and cardiology in clinic within 2 weeks Diet: AHA Activity: Ad davis Followup: Kelli Kinsey DO, DO [Primary Care Provider] -
--- NOTE | 2024-01-01 11:54 | P.PN ---
Subjective Date of Service: 01/01/24 Chief Complaint: symptomatic bradycardia Subjective: No new changes, No C/O voiced, Tolerating diet, Ambulating, Improving Review of Systems 10-point ROS is otherwise unremarkable Physical Examination - Vital Signs Temperature: 98 F Blood Pressure: 138/61 Pulse: 46 Respirations: 15 Pulse Ox (%): 94 - Physical Exam General: Alert, In no apparent distress HEENT: Atraumatic, PERRLA, EOMI Neck: Supple, JVD not distended Respiratory: Clear to auscultation bilaterally, Normal air movement Cardiovascular: Regular rate/rhythm, Normal S1 S2 Gastrointestinal: Normal bowel sounds, No tenderness Musculoskeletal: No tenderness Integumentary: No rashes Neurological: Normal speech, Normal tone, Normal affect Lymphatics: No axilla or inguinal lymphadenopathy - Studies Medications List Reviewed: Yes Assessment And Plan - Current Problems (Diagnosis) (1) Diastolic CHF Current Visit: Yes Status: Acute Plan: Patient is currently euvolemic on exam, continue to monitor. Continue Lisinopril and Aldactone. (2) Symptomatic bradycardia Current Visit: Yes Status: Acute Plan: D/C Amiodarone and Toprol on discharge. Patient will need to follow up with cardiology office next week. (3) Atrial fibrillation Current Visit: No Status: Acute Plan: hold toprol and amiodarone continue Eliquis 5 mg po BID.
[2024-01-01 12:25] VITALS: BP 140/71; TEMP 98.4
--- NOTE | 2024-01-01 14:09 | RAD REPORT ---
EXAM DESCRIPTION: RAD - Chest Single View - 12/31/2023 12:51 am CLINICAL HISTORY: Chest pain TECHNIQUE: AP chest COMPARISON: None available for comparison FINDINGS: CHEST: Heart: Cardiomegaly Lungs: No focal consolidation. Mediastinum: Unremarkable Pleura: No appreciable effusion. No pneumothorax. Bones: Intact IMPRESSION: Cardiomegaly with no evidence of failure or acute infiltrates. Electronically signed by: Salvador Deshpande MD 12/31/2023 01:28 AM CDT RP Due to temporary technical issues with the PACS/Fluency reporting system, reports are being signed by the in house radiologists without review as a courtesy to insure prompt reporting. The interpreting radiologist is fully responsible for the content of the report.
--- NOTE | 2024-01-03 07:02 | ECHO ---
HEIGHT: 5 ft 2 in WEIGHT: 184 lb 0 oz DATE OF STUDY: 12/30/[address]: Prince Dean Mckeon MD 2-DIMENSIONAL: YES M.MODE: YES DOPPLER: YES COLOR FLOW: YES TDS: PORTABLE: YES DEFINITY: BUBBLE STUDY: DIAGNOSIS: SYMPTOMATIC BRADYCARDIA CARDIAC HISTORY: CATHERIZATION: YES SURGERY: NO PROSTHETIC VALVE: NO PACEMAKER: NO MEASUREMENTS (cm) DIASTOLIC (NORMALS) SYSTOLIC (NORMALS) IVSd 1.0 (0.6-1.2) LA Diam 2.8 (1.9-4.0) LVEF 35-40% LVIDd 4.6 (3.5-5.7) LVIDs 4.1 (2.0-3.5) %FS 12% LVPWd 1.0 (0.6-1.2) Ao Diam 2.4 (2.0-3.7) 2 DIMENSIONAL ASSESSMENT: RIGHT ATRIUM: MODERATE DILATED LEFT ATRIUM: MODERATE DILATED RIGHT VENTRICLE: NORMAL LEFT VENTRICLE: MILD DILATED TRICUSPID VALVE: MILD TRICUSPID REGURGITATION MITRAL VALVE: MILD MITRAL REGURGITATION PULMONIC VALVE: NORMAL AORTIC VALVE: NORMAL PERICARDIAL EFFUSION: NONE AORTIC ROOT: NORMAL LEFT VENTRICULAR WALL MOTION: MODERATE GLOBAL HYPOKINESIS WITH MID TO DISTAL INFERIOR AND INFERO SEPTAL SEVERE HYPOKINESIS DOPPLER/COLOR FLOW: GRADE II DIASTOLIC DYSFUNCTION COMMENTS: 1. MODERATE REDUCED LEFT VENTRICULAR SYSTOLIC FUNCTION, EJECTION FRACTION 35-40%, MODERATE GLOBAL HYPOKINESIS WITH SEVERE INFERIOR/ INFERO SEPTAL HYPOKINESIS. 2. GRADE II DIASTOLIC DYSFUNCTION 3. MILD MITRAL REGURGITATION TECHNOLOGIST: DAISY ABDI
--- NOTE | 2024-01-03 14:22 | EKG ---
Test Date: 2023-12-31 Test Time: 18:57:45 Analog Ic Design Engineer: CAMILO MEASUREMENT RESULTS: Intervals: Rate: 60 [place]: 202 QRSD: 152 QT: 492 QTc: 492 [place]: P: 67 [place]: 202 QRS: 0 T: 15 INTERPRETIVE STATEMENTS: Normal sinus rhythm Left bundle branch block Abnormal ECG Compared to ECG 12/31/2023 01:16:35 Sinus bradycardia no longer present Electronically Signed On 01-03-24 14:14:20 CDT by Vargas Berkowitz
--- NOTE | 2024-01-03 14:25 | EKG ---
Test Date: 2023-12-31 Test Time: 01:16:35 Pulmonology Physician: JAI MEASUREMENT RESULTS: Intervals: Rate: 50 [place]: 182 QRSD: 158 QT: 554 QTc: 505 [place]: P: 85 ND: 182 QRS: -25 T: 48 INTERPRETIVE STATEMENTS: Sinus bradycardia Left bundle branch block Abnormal ECG Compared to ECG 12/31/2023 01:15:59 No significant changes Electronically Signed On 01-03-24 14:15:00 CDT by Vargas Berkowitz
--- NOTE | 2024-01-03 14:25 | EKG ---
Test Date: 2023-12-31 Test Time: 01:14:41 Field Test Engineer: JAI MEASUREMENT RESULTS: Intervals: Rate: 51 ND: 186 QRSD: 154 QT: 530 QTc: 488 [place]: P: 78 ND: 186 QRS: -26 T: 49 INTERPRETIVE STATEMENTS: Sinus bradycardia Left bundle branch block Abnormal ECG Compared to ECG 12/29/2023 13:20:23 Atrial premature complex(es) no longer present Electronically Signed On 01-03-24 14:15:03 CDT by Vargas Berkowitz
--- NOTE | 2024-01-03 14:25 | EKG ---
Test Date: 2023-12-31 Test Time: 01:15:59 Commercial Sales Manager: JIA MEASUREMENT RESULTS: Intervals: Rate: 51 [place]: 186 QRSD: 152 QT: 552 QTc: 508 [place]: P: 83 [place]: 186 QRS: -27 T: 43 INTERPRETIVE STATEMENTS: Sinus bradycardia Left bundle branch block Abnormal ECG Compared to ECG 12/31/2023 01:14:41 No significant changes Electronically Signed On 01-03-24 14:15:02 CDT by Vargas Berkowitz
== END 2024-01-01 13:16 | disposition home or self-care (01) | DRG 309 ==
LOC: ER 12:36 → OBSVTOIN 18:59 → INTOOBSV 18:59 → ERHOLD 18:59 → UNDOADMOB 18:59 → ERHOLD 21:09 → 2ND 21:09 → OBSVTOIN 12-31 16:45 → ERHOLD 12-31 16:45
PROVIDERS: ADMIT Internal Medicine; ATTEND Hospitalist
DX: R00.1 Bradycardia, unspecified (principal); I50.32 Chronic diastolic (congestive) heart failure; E11.9 Type 2 diabetes mellitus without complications; I48.91 Unspecified atrial fibrillation; M19.90 Unspecified osteoarthritis, unspecified site; I44.7 Left bundle-branch block, unspecified; I25.10 Atherosclerotic heart disease of native coronary artery without angina pectoris; T46.2X5A Adverse effect of other antidysrhythmic drugs, initial encounter; I25.2 Old myocardial infarction; Z60.2 Problems related to living alone; Z88.8 Allergy status to other drugs, medicaments and biological substances; Z88.0 Allergy status to penicillin; Z79.01 Long term (current) use of anticoagulants; Z79.02 Long term (current) use of antithrombotics/antiplatelets; Z86.73 Personal history of transient ischemic attack (TIA), and cerebral infarction without residual deficits; Z91.013 Allergy to seafood; Z91.014 Allergy to mammalian meats; Z79.899 Other long term (current) drug therapy
CPT/HCPCS: 36415; 71045; 80048; 80076; 83735; 83880; 84443; 84484; 85025; 93005; 93306; 99285

== ENCOUNTER 2024-05-24 09:56 | Inpatient (IN) | payer OTHER ==
[2024-05-24] MEDS ORDERED: dilTIAZem HCL 25 MG/5 ML VIAL IV ONE ×2 (10:09→13:17)
[2024-05-24 10:16] LABS: Absolute Basophils 0.1 K/uL (0-0.5); Absolute Eosinophils 0.1 K/uL (0-0.5); Absolute Lymphocytes (CBC) 4.2 K/uL (0.7-4.9); Absolute Monocytes 0.6 K/uL (0.1-1.3); Absolute Neutrophil 2.9 K/uL (1.8-8.0); Basophils % 1.2 % (0-1.3); Eosinophils % 0.9 % (0-4.4); Lymphocytes % 53.1 % (15.3-44.8); MCH 32.6 pg (27.0-35.0); MCHC 34.8 g/dL (32.0-36.0); MCV 93.6 fL (80-100); MPV 9.2 fL (7.6-11.3); Monocytes % 8.1 % (3.3-12.3); Neutrophils % 36.7 % (41.7-73.7); Nucleated Red Blood Cells % 0.1 % (0-0); Platelets 223 thou/uL (152-406); Red Cell Distribution Width 13.5 % (12.1-15.2)
[2024-05-24 11:04] LABS: ALT/SGPT 20 U/L (13-56); AST/SGOT 19 U/L (15-37); Albumin 3.5 g/dL (3.4-5.0); Albumin/Globulin Ratio 1.1 (1.1-1.8); Alkaline Phosphatase 79 U/L (45-117); Anion Gap 9.6 mEq/L (5.0-15.0); BUN Blood Urea Nitrogen 12 mg/dL (7-18); Bicarbonate 22 mEq/L (21-32); Bilirubin Total 0.4 mg/dL (0.2-1.0); Globulin 3.3 g/dL (2.3-3.5); Glomerular Filtration Rate 66 ml/min (=/>90); Glucose Level 102 mg/dL (74-106); Magnesium 1.8 mg/dL (1.6-2.4); NT PRO-BNP 1672 pg/mL (<450); Potassium 3.6 mEq/L (3.5-5.1); Protein, Total 6.8 g/dL (6.4-8.2); Sodium Level 141 mEq/L (136-145); Troponin High Sensitivity 25.4 pg/mL (<58.9)
[2024-05-24 11:07] LABS: Bilirubin Direct < 0.2 mg/dL (0-0.2); Bilirubin Indirect, Calculated 0.2 mg/dL (0.2-0.8)
--- NOTE | 2024-05-24 12:44 | RAD REPORT ---
EXAMINATION: ONE VIEW CHEST XR CLINICAL INDICATION: Female, 73 years old.,PALPITATIONS TECHNIQUE: Frontal chest projection is submitted. Examination is limited by patient positioning and t echnique. COMPARISON: 12/31/2023 FINDINGS: The lungs are well inflated and clear. No pneumothorax or sizable effusion. The heart is upper limit of normal in size. IMPRESSION: No acute intrathoracic abnormalities.
--- NOTE | 2024-05-24 13:04 | EDPHYS ---
Physician Documentation [facility] Name: Yelitza Lara Age: 73 yrs Sex: Female : 1950 Arrival Date: 05/24/2024 Time: 09:56 Bed 4 Private MD: ED Physician Michael Henley HPI: 05/24 10:08 This 73 yrs old Female presents to ER via Unassigned with complaints of Palpitations. rt 10:08 Patient presents to the ED with palpitations, shortness of breath. Patient does have a rt history of A-fib, status post Watchman procedure. She takes amiodarone. Was well when she went to bed last night, woke up at about 530 with same symptoms, they persisted. Denies chest pain. Denies other acute complaints, symptoms are moderate in severity, no other aggravating or alleviating factors.. Historical: - Allergies: 09:58 Darvon; ph 09:58 PENICILLINS; ph - PMHx: 09:58 Arthritis; Atrial fibrillation; CVA; diabetes mellitus; Myocardial infarction; ph - PSHx: 09:58 Watchman's procedure (di); ph - Immunization history:: Adult Immunizations unknown. - Infectious Disease History:: Denies. - Family history:: not pertinent. - Social history:: Smoking status: Patient denies any tobacco usage or history of. ROS: 10:13 Constitutional: Negative for fever, chills, and weight loss, Abdomen/GI: Negative for rt abdominal pain, nausea, vomiting, diarrhea, and constipation, MS/Extremity: Negative for injury and deformity, Skin: Negative for injury, rash, and discoloration, Neuro: Negative for headache, weakness, numbness, tingling, and seizure, 10:13 Cardiovascular: Positive for palpitations, Negative for chest pain, 10:13 Respiratory: Positive for shortness of breath, Negative for cough, Exam: 10:13 Constitutional: This is a well developed, well nourished patient who is awake, alert, rt and in no acute distress. Head/Face: Normocephalic, atraumatic. Chest/axilla: Normal chest wall appearance and motion. Nontender with no deformity. No lesions are appreciated. Cardiovascular: Regular rate and rhythm with a normal S1 and S2. No gallops, murmurs, or rubs. Normal PMI, no JVD. No pulse deficits. Respiratory: Lungs have equal breath sounds bilaterally, clear to auscultation and percussion. No rales, rhonchi or wheezes noted. No increased work of breathing, no retractions or nasal flaring. Abdomen/GI: Soft, non-tender, with normal bowel sounds. No distension or tympany. No guarding or rebound. No evidence of tenderness throughout. Skin: Warm, dry with normal turgor. Normal color with no rashes, no lesions, and no evidence of cellulitis. MS/ Extremity: Pulses equal, no cyanosis. Neurovascular intact. Full, normal range of motion. Neuro: Awake and alert, GCS 15, oriented to person, place, time, and situation. Cranial nerves II-XII grossly intact. Motor strength 5/5 in all extremities. Sensory grossly intact. Cerebellar exam normal. Normal gait. 10:14 ECG was reviewed by the Attending Physician. rt Vital Signs: 09:58 BP 133 / 99; Pulse 116; Resp 24; Temp 97.9(TE); Pulse Ox 100% on R/A; Weight 83.91 kg; ss Height 5 ft. 2 in. ; Pain 0/10; 10:12 BP 133 / 99; Pulse 74; Resp 16; Pulse Ox 100% on R/A; mb9 11:04 BP 149 / 68; Pulse 110; Resp 18; Pulse Ox 96% on R/A; mb9 12:00 BP 109 / 92; Pulse 112; Resp 18; Pulse Ox 98% on R/A; mb9 13:00 BP 124 / 95; Pulse 135; Resp 18; Pulse Ox 97% on R/A; mb9 13:42 BP 121 / 97; Pulse 83; Resp 16; Pulse Ox 100% on R/A; mb9 14:00 BP 124 / 67; Pulse 45; Resp 12; Pulse Ox 97% on R/A; mb9 14:30 BP 123 / 65; Pulse 47; Resp 18; Pulse Ox 99% on R/A; mb9 15:00 BP 131 / 67; Pulse 50; Resp 17; Pulse Ox 98% on R/A; mb9 16:03 BP 138 / 62; Pulse 59; Resp 16; Pulse Ox 100% on R/A; mb9 17:00 BP 116 / 71; Pulse 60; Resp 20; Pulse Ox 98% ; cm10 18:00 BP 100 / 46; Pulse 59; Resp 18; Pulse Ox 95% ; cm10 09:58 Body Mass Index 33.84 (83.91 kg, 157.48 cm) ss 09:58 Pain Scale: Adult ss MDM: 10:01 Medical Screening Exam initiated rt 18:02 Differential diagnosis: A-fib, dysrhythmia, anemia, ACS. Data reviewed: vital signs, rt nurses notes, lab test result(s), EKG, radiologic studies. Consideration of Admission/Observation Patient was admitted/placed on observation. Management of patient was discussed with the following: Hospitalist: Agrees to admit. I considered the following discharge prescriptions or medication management in the emergency department Medications were administered in the Emergency Department. See MAR. Independent interpretation of the following test(s) in the Emergency Department X-Ray: My interpretation is No consolidation seen on interpretation of x-ray images. Test considered but Not performed: CT: Low suspicion for PE, CT angiogram not indicated. Care significantly affected by the following chronic conditions: Atrial fibrillation. Counseling: I had a detailed discussion with the patient and/or guardian regarding the historical points, exam findings, and any diagnostic results supporting the discharge/admit diagnosis, lab results, radiology results, the need for further work-up and treatment in the hospital. Response to treatment: the patient's symptoms have markedly improved after treatment. 05/24 10:03 Order name: Basic Metabolic Panel; Complete Time: 11:24 rt 05/24 10:03 Order name: CBC with Diff; Complete Time: 11:24 rt 05/24 10:03 Order name: LFT's; Complete Time: 11:24 rt 05/24 10:03 Order name: Magnesium; Complete Time: 11:24 rt 05/24 10:03 Order name: NT PRO-BNP; Complete Time: 11:24 rt 05/24 10:03 Order name: Troponin HS; Complete Time: 11:24 rt 05/24 10:03 Order name: TSH; Complete Time: 11:24 rt 05/24 15:06 Order name: CBC with Automated Diff EDMS 05/24 15:06 Order name: CBC with Automated Diff EDMS 05/24 15:06 Order name: Comprehensive Metabolic Panel EDMS 05/24 15:06 Order name: Comprehensive Metabolic Panel EDMS 05/24 15:06 Order name: Lipid Profile EDMS 05/24 15:06 Order name: Lipid Profile EDMS 05/24 15:06 Order name: Protime (+INR) EDMS 05/24 15:06 Order name: Protime (+INR) EDMS 05/24 15:06 Order name: PTT, Activated Partial Thromb EDMS 05/24 15:06 Order name: PTT, Activated Partial Thromb EDMS 05/24 15:06 Order name: Troponin High Sensitivity EDMS 05/24 15:06 Order name: Troponin High Sensitivity EDMS 05/24 15:06 Order name: Troponin High Sensitivity EDMS 05/24 10:03 Order name: XRAY Chest (1 view); Complete Time: 12:47 rt 05/24 15:06 Order name: CONS Physician Consult EDMS 05/24 10:03 Order name: Cardiac monitoring; Complete Time: 10:06 rt 05/24 10:03 Order name: EKG - Nurse/Tech; Complete Time: 10:06 rt 05/24 10:03 Order name: IV Saline Lock; Complete Time: 10:06 rt 05/24 10:03 Order name: Labs collected and sent; Complete Time: 10:12 rt 05/24 10:03 Order name: O2 Per Protocol; Complete Time: 10:06 rt 05/24 10:03 Order name: O2 Sat Monitoring; Complete Time: 10:06 rt 05/24 10:21 Order name: Labs - recollect needed: green; Complete Time: 10:35 bc6 EC:14 Rate is 111 beats/min. Rhythm is regular, A fib with No ectopy, Nonspecific rt idioventricular block. Left axis deviation noted. QRS interval is normal. QT interval is normal. No Q waves. Administered Medications: 10:12 Drug: Diltiazem IVP 20 mg IVP once; Over 2 Minutes Route: IVP; Site: right forearm; cm10 10:35 Follow up: Response: Cardiac rhythm changed cm10 13:24 Drug: Diltiazem IVP 10 mg IVP once; Over 2 minutes Route: IVP; Site: left antecubital; mb9 15:45 Follow up: Response: No adverse reaction; Cardiac rhythm changed cm10 Disposition Summary: 05/24/24 13:04 Hospitalization Ordered Notes: Hospitalization Status: Observation rt Provider: Brannon Nieto rt Condition: Stable rt Problem: new rt Symptoms: have improved rt Bed/Room Type: Standard rt Location: Intensive Care Unit(05/24/24 20:41) cg Room Assignment: 4-(05/24/24 20:41) cg Diagnosis - Atrial fibrillation with rapid ventricular rate rt Forms: - Medication Reconciliation Form rt - SBAR form rt - Leadership Thank You Letter rt Critical care time excluding procedures: 18:02 Critical care time: Bedside Care: 30 minutes, Consultation: 5 minutes. Total time: 35 rt minutes Signatures: Dispatcher [employer] EDMS Deirdre Nelson, RN RN ss Patt Hebert RN RN Nguyen Gamboa, RN RN cg Christiana Mary Cerda RN RN mb9 Michael Henley MD MD rt Bonnie Jacinto Clarissa, RN RN cm10 Corrections: (The following items were deleted from the chart) 10:03 10:03 BASIC METABOLIC PANEL+C.LAB.BRZ ordered. EDMS EDMS 10:03 10:03 CBC+H.LAB.BRZ ordered. EDMS EDMS 10:03 10:03 HEPATIC FUNCTION+C.LAB.BRZ ordered. EDMS EDMS 10:03 10:03 MAGNESIUM+C.LAB.BRZ ordered. EDMS EDMS 10:03 10:03 PROBNP+C.LAB.BRZ ordered. EDMS EDMS 10:03 10:03 Troponin High Sensitivity+C.LAB.BRZ ordered. EDMS EDMS 10:03 10:03 THYROID STIMULAT HORMONE+C.LAB.BRZ ordered. EDMS EDMS 10:03 10:03 Chest Single View+RAD.RAD.BRZ ordered. EDMS EDMS 15:20 13:04 Telemetry/MedSurg (observation) rt ss 15:20 13:04 rt ss 20:41 15:20 [facility] ER HOLD ss cg 20:41 15:20 ERHOLD- ss cg
--- NOTE | 2024-05-24 13:04 | ER ---
Nurse's Notes [facility] Name: Yelitza Lara Age: 73 yrs Sex: Female : 1950 Arrival Date: 05/24/2024 Time: 09:56 Bed 4 Private MD: Diagnosis: Atrial fibrillation with rapid ventricular rate Presentation: 05/24 09:58 Chief complaint: EMS states: Started to not feel well at 0500 this morning. C/o ss dizziness when standing, SOB and palpitations. HX of Afib. Coronavirus screen: Client denies travel out of the [place] in the last 14 days. Ebola Screen: Patient denies exposure to infectious person. Patient denies travel to an Ebola-affected area in the 21 days before illness onset. Initial Sepsis Screen: Does the patient meet any 2 criteria? No. Patient's initial sepsis screen is negative. Does the patient have a suspected source of infection? No. Patient's initial sepsis screen is negative. Risk Assessment: Do you want to hurt yourself or someone else? Patient reports no desire to harm self or others. Onset of symptoms was May 24, 2024 at 05:00. 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 20 GA, in the left antecubital area, Glucose check: 79. Transition of care: patient was not received from another setting of care. Triage Assessment: 10:13 General: Appears in no apparent distress. uncomfortable, Behavior is anxious. Pain: cm10 Complains of pain in chest. Neuro: No deficits noted. Level of Consciousness is awake, alert, obeys commands, Oriented to person, place, time, situation, Appropriate for age. Cardiovascular: No deficits noted. Heart tones present Rhythm is atrial fibrillation. Respiratory: No deficits noted. Airway is patent Respiratory effort is even, unlabored, Respiratory pattern is regular, symmetrical, Breath sounds are clear bilaterally. Historical: - Allergies: 09:58 Darvon; ph 09:58 PENICILLINS; ph - PMHx: 09:58 Arthritis; Atrial fibrillation; CVA; diabetes mellitus; Myocardial infarction; ph - PSHx: 09:58 Watchman's procedure (di); ph - Immunization history:: Adult Immunizations unknown. - Infectious Disease History:: Denies. - Family history:: not pertinent. - Social history:: Smoking status: Patient denies any tobacco usage or history of. Screenin:[address] [facility] ED Fall Risk Assessment (Adult) History of falling in the last 3 months, cm10 including since admission No falls in past 3 months (0 pts) Confusion or Disorientation No (0 pts) Intoxicated or Sedated No (0 pts) Impaired Gait No (0 pts) Mobility Assist Device Used No (0 pt) Altered Elimination Yes (1 pt) Score/Fall Risk Level 0 - 2 = Low Risk Oriented to surroundings, Maintained a safe environment, Hourly rounding (assess needs \T\ fall precautionary measures) done. Abuse screen: Denies threats or abuse. Denies injuries from another. Nutritional screening: No deficits noted. Tuberculosis screening: No symptoms or risk factors identified. Assessment: 11:00 Reassessment: No changes from previously documented assessment. Patient and/or family mb9 updated on plan of care and expected duration. Pain level reassessed. Patient is alert, oriented x 3, equal unlabored respirations, skin warm/dry/pink. 12:00 Reassessment: Linens changed at this time. Pt noted to have urinated. [place] placed cm10 on patient. 15:00 General: Provider made aware that patient's heart rate decreasing to the 40s. No new cm10 orders for EKG. Pt remains on front desk monitor.. 15:34 Reassessment: Patient appears in no apparent distress at this time. No changes from cm10 previously documented assessment. Patient and/or family updated on plan of care and expected duration. Pain level reassessed. Patient is alert, oriented x 3, equal unlabored respirations, skin warm/dry/pink. 15:55 General: Pt provided snack at this time.. cm10 17:00 Reassessment: Patient appears in no apparent distress at this time. No changes from cm10 previously documented assessment. Patient and/or family updated on plan of care and expected duration. Pain level reassessed. Patient is alert, oriented x 3, equal unlabored respirations, skin warm/dry/pink. Vital Signs: 09:58 BP 133 / 99; Pulse 116; Resp 24; Temp 97.9(TE); Pulse Ox 100% on R/A; Weight 83.91 kg; ss Height 5 ft. 2 in. ; Pain 0/10; 10:12 BP 133 / 99; Pulse 74; Resp 16; Pulse Ox 100% on R/A; mb9 11:04 BP 149 / 68; Pulse 110; Resp 18; Pulse Ox 96% on R/A; mb9 12:00 BP 109 / 92; Pulse 112; Resp 18; Pulse Ox 98% on R/A; mb9 13:00 BP 124 / 95; Pulse 135; Resp 18; Pulse Ox 97% on R/A; mb9 13:42 BP 121 / 97; Pulse 83; Resp 16; Pulse Ox 100% on R/A; mb9 14:00 BP 124 / 67; Pulse 45; Resp 12; Pulse Ox 97% on R/A; mb9 14:30 BP 123 / 65; Pulse 47; Resp 18; Pulse Ox 99% on R/A; mb9 15:00 BP 131 / 67; Pulse 50; Resp 17; Pulse Ox 98% on R/A; mb9 16:03 BP 138 / 62; Pulse 59; Resp 16; Pulse Ox 100% on R/A; mb9 17:00 BP 116 / 71; Pulse 60; Resp 20; Pulse Ox 98% ; cm10 18:00 BP 100 / 46; Pulse 59; Resp 18; Pulse Ox 95% ; cm10 09:58 Body Mass Index 33.84 (83.91 kg, 157.48 cm) ss 09:58 Pain Scale: Adult ss ED Course: 09:57 Patient arrived in ED. mb9 09:59 Arm band placed on Patient placed in an exam room, on a stretcher, on front desk monitor, ph on pulse oximetry. 10:01 Michael Henley MD is Attending Physician. rt 10:05 Yuliana Guillen RN is Primary Nurse. cm10 10:13 Triage completed. ss 10:15 Initial lab(s) drawn, by ar, sent to lab. EKG done, by ED staff, reviewed by Michael Henley MD. 10:15 Inserted saline lock: 18 gauge in right forearm, using aseptic technique. ,using ss aseptic technique. Insertion by CHAD Bridges Blood collected. Flushed with 10 mL NS. 10:18 Maintain EMS IV. Dressing intact. Good blood return noted. Site clean \T\ dry. Gauge \T\ cm 10 site: 20g right ac. Flushed with 10 mL NS IV is patent, is intact. 10:30 Placed in gown. Bed in low position. Call light in reach. Side rails up X 1. Client mb9 placed on continuous cardiac and pulse oximetry monitoring. NIBP monitoring applied. surveillance monitor on. 11:34 XRAY Chest (1 view) In Process Unspecified. EDMS 12:10 Door closed. Noise minimized. Warm blanket given. Pillow given. Repositioned patient. mb9 Cleaned of incontinence. Linen changed. pt placed on pur wic. 13:04 Brannon Nieto MD is Hospitalizing Provider. rt 15:34 Provided Education on: Need for admit.. cm10 15:34 No provider procedures requiring assistance completed. Patient admitted, IV remains in cm10 place. 19:11 Report given to Sheri and Mariana. cm10 19:58 Sheri Stanford is Primary Nurse. cp4 Administered Medications: 10:12 Drug: Diltiazem IVP 20 mg IVP once; Over 2 Minutes Route: IVP; Site: right forearm; cm10 10:35 Follow up: Response: Cardiac rhythm changed cm10 13:24 Drug: Diltiazem IVP 10 mg IVP once; Over 2 minutes Route: IVP; Site: left antecubital; mb9 15:45 Follow up: Response: No adverse reaction; Cardiac rhythm changed cm10 Medication: 10:14 VIS not applicable for this client. cm10 Output: 15:55 Urine: 700ml (Voided); Total: 700ml. cm10 Outcome: 13:04 Decision to Hospitalize by Provider. rt 15:34 Admitted to ER Hold. Please see [facility] for further documentation. cm10 15:34 Condition: good 15:34 Instructed on the need for admit, 21:13 Patient left the ED. lg3 Signatures: Dispatcher [employer] EDMS Deirdre Nelson, CHAD RN Patt Hebert RN RN Florence Gooden RN RN lg3 Mary Villeda RN RN mb9 Michael Henley MD MD rt Yuliana Guillen RN RN cm10 Sheri Stanford cp4 Corrections: (The following items were deleted from the chart) 10:13 10:12 Pulse 74bpm; cm10 mb9 11:05 11:04 BP 149 / 68; Pulse 98bpm; Resp 18bpm; Pulse Ox 96% RA; mb9 mb9
[2024-05-24] MEDS ORDERED: ACETAMINOPHEN 500 MG TAB PO PRN (14:58)
[2024-05-24] MEDS ORDERED: MORPHINE 2 MG/ML SYR IV PRN (14:58)
[2024-05-24] MEDS ORDERED: ONDANSETRON 4 MG/2 ML VIAL IV PRN (14:58)
--- NOTE | 2024-05-24 15:07 | P.HP ---
Certification for Inpatient Patient admitted to: Inpatient With expected LOS: >2 Midnights Patient will require the following post-hospital care: None Practitioner: I am a practitioner with admitting privileges, knowledge of patient current condition, hospital course, and medical plan of care. Services: Services provided to patient in accordance with Admission requirements found in Title 42 Section 412.3 of the Code of Federal Regulations Patient History Date of Service: 05/24/24 Reason for admission: Atrial fibrillation with RVR Allergies Penicillins Allergy (Verified 04/20/23 08:16) Rash pork derived (porcine) Allergy (Verified 12/30/23 08:54) Nausea/Vomiting Pork/Porcine Containing Products Allergy (Verified 12/30/23 08:54) Nausea/Vomiting shellfish derived Allergy (Verified 04/20/23 08:16) Nausea/Vomiting atorvastatin Adverse Reaction (Verified 04/20/23 08:16) Tachycardia propoxyphene [From Darvon] Adverse Reaction (Verified 04/20/23 08:16) hallucinations Home Medications: Apixaban [Eliquis] 5 mg PO BID #180 tab 11/04/23 Dapagliflozin Propanediol [Farxiga] 10 mg PO DAILY 12/29/23 Lisinopril [Zestril] 2.5 mg PO DAILY 12/29/23 Spironolactone [Aldactone*] 12.5 mg PO DAILY 12/29/23 - Past Medical/Surgical History Diabetic: Yes -: Atrial fibrillation -: DM2 -: CVA -: Osteoarthritis -: AL -: R rotator cuff sx -: cyst removal from hip -: tonsillectomy/adnoidectomy -: D&C's -: Watchman procedure Psychosocial/ Personal History: Lives alone in an apartment. Has a rollator but states she only uses it when she absolutely has to do so. - Family History Mother Medical History: Cancer Father Medical History: Stroke, Cancer - Social History Alcohol use: No CD- Drugs: No Caffeine use: Yes Physical Examination - Studies Laboratory Data (last 24 hrs) 05/24/24 05/24/24 10:30 10:05 WBC 8.00 Hgb 15.0 Hct 43.0 Plt Count 223 Sodium 141 Potassium 3.6 BUN 12 Creatinine 0.91 Glucose 102 Magnesium 1.8 Total Bilirubin 0.4 AST 19 ALT 20 Alkaline Phosphatase 79 Assessment & Plan - Problems (Diagnosis) (1) Acute systolic heart failure Current Visit: Yes Status: Acute (2) Atrial fibrillation Current Visit: No Status: Acute (3) CAD (coronary artery disease) Current Visit: No Status: Acute - Advance Directives Does patient have a Living Will: No Does patient have a Durable POA for Healthcare: No
[2024-05-24] MEDS: AMIODARONE HCL 900 MG in Dextrose 5%-Water 482 ML IV SCH (15:30)
[2024-05-24] MEDS ORDERED: NA CHLORIDE 0.9% 1,000 ML ONE (17:12)
[2024-05-24] MEDS: NA CHLORIDE 0.9% 1,000 ML IV SCH (17:17)
[2024-05-24 17:20] VITALS: BMI 33.8
[2024-05-25 05:59] LABS: Absolute Basophils 0.1 K/uL (0-0.5); Absolute Eosinophils 0.1 K/uL (0-0.5); Absolute Lymphocytes (CBC) 2.8 K/uL (0.7-4.9); Absolute Monocytes 0.5 K/uL (0.1-1.3); Absolute Neutrophil 2.9 K/uL (1.8-8.0); Basophils % 1.1 % (0-1.3); Eosinophils % 2.1 % (0-4.4); Hematocrit 37.4 % (36.0-45.0); Hemoglobin 12.6 g/dL (12.0-15.0); Lymphocytes % 43.3 % (15.3-44.8); MCH 31.5 pg (27.0-35.0); MCHC 33.7 g/dL (32.0-36.0); MCV 93.4 fL (80-100); MPV 9.6 fL (7.6-11.3); Monocytes % 8.3 % (3.3-12.3); Neutrophils % 45.2 % (41.7-73.7); Platelets 210 thou/uL (152-406); Red Cell Distribution Width 13.7 % (12.1-15.2)
[2024-05-25 06:01] LABS: PT Prothrombin Time 11.6 SECONDS (9.4-12.5); PTT, Activated Partial Thromb 31.9 SECONDS (24.3-36.9); Protime INR 1.04
[2024-05-25 06:24] LABS: Albumin 2.9 g/dL (3.4-5.0); Anion Gap 6.6 mEq/L (5.0-15.0); Bilirubin Total 0.3 mg/dL (0.2-1.0); Globulin 2.9 g/dL (2.3-3.5); Potassium 3.6 mEq/L (3.5-5.1); Protein, Total 5.8 g/dL (6.4-8.2)
[2024-05-26 04:29] VITALS: O2SAT 98
[2024-05-26] MEDS: ASPIRIN 81 MG CHEWABLE TABLET PO SCH (08:14)
[2024-05-26] MEDS: lisinopriL 5 MG TAB PO SCH (08:14)
[2024-05-26] MEDS: CLOPIDOGREL 75 MG TABLET PO SCH (08:14)
[2024-05-26] MEDS ORDERED: HOME MED 1 EA UNK (Lisinopril [Zestril] 2.5 MG Tablet) PO SCH (09:00)
[2024-05-26 12:28] VITALS: BP 145/71; TEMP 97.4
--- NOTE | 2024-05-26 21:36 | CON ---
Date of Consultation: 05/25/2024 Reason For Consultation: Atrial fibrillation with rapid ventricular response. History Of Present Illness: This is an elderly female very well known to me with history of atrial f ibrillation and atrial fibrillation ablation in the past, diabetes, CVA, hypertension, coronary arter y disease, diastolic heart failure, presented with palpitations, and heart rate was fast. She was in atrial fibrillation with rapid ventricular response and she converted to sinus rhythm on her own. A t the time of evaluation, heart rate in the mid 50s and she is in sinus rhythm and she is feeling muc h better. No chest pain or shortness of breath. Past Medical History: Atrial fibrillation, diabetes, CVA, coronary artery disease, hypertension, and atrial fibrillation. Family History: No premature coronary artery disease or cancer. Social History: Does not smoke or drink. Does not use any drugs. Medications: Refer reconciliation sheet for detailed list. Medications were reviewed. Allergies: PENICILLIN. Review of Systems: All systems reviewed and they are negative except mentioned in HPI. Physical Examination: Vital Signs: Reviewed. Head and Neck: Pupils are equal and reactive to light. Intact eye movements. No JVD. No cervical lymphadenopathy. Neck is supple. Thyroid is not enlarged. Lungs: Clear to auscultation bilaterally. No crackles. No accessory muscle use. Heart: Regular rate and rhythm. No extra sounds. Abdomen: Soft, nontender. Bowel sounds positive. No organomegaly. No masses or hernia. No rigidi ty or rebound. Extremities: No edema, clubbing, or cyanosis. Intact pulses. Skin: No rash. No nodes. NEUROLOGIC: Alert, awake, and oriented x3. No acute focal deficits appreciated. Investigations: BUN 16, creatinine 0.90, and troponins are negative. Hemoglobin is 12.6. Assessment And Recommendations: 1.Atrial fibrillation with rapid ventricular response, currently converted into sinus rhythm, comple tely asymptomatic. Continue current management. This patient is status post appendage closure. 2.Congestive heart failure. She does not appear to be in acute failure at this time. Continue home medications, and low salt diet and blood pressure control. 3.Coronary artery disease. No chest pain. From Cardiology standpoint, the patient can be released now. Follow her up on outpatient basis post discharge. Thank you for the consultation. /KANU Voice ID: [id number] Report ID: [id number]
--- NOTE | 2024-05-29 13:12 | EKG ---
Test Date: 2024-05-24 Test Time: 10:00:28 Private Pilot: RANDY MEASUREMENT RESULTS: Intervals: Rate: 111 NE: QRSD: 138 QT: 374 QTc: 508 [place]: P: NE: QRS: -40 T: 97 INTERPRETIVE STATEMENTS: Atrial fibrillation Left axis deviation Nonspecific intraventricular block T wave abnormality, consider lateral ischemia or digitalis effect Abnormal ECG Compared to ECG 12/31/2023 18:57:45 Left-axis deviation now present T-wave abnormality now present Possible ischemia now present Sinus rhythm no longer present Left bundle-branch block no longer present Electronically Signed On 05-29-24 12:56:47 CDT by Americo Vazquez
== END 2024-05-26 15:45 | disposition home or self-care (01) | DRG 308 ==
LOC: ER 09:56 → ERHOLD 14:58 → 3RD-ICU 20:53
PROVIDERS: ADMIT Hospitalist; ATTEND Hospitalist
DX: I48.91 Unspecified atrial fibrillation (principal); I50.21 Acute systolic (congestive) heart failure; E11.9 Type 2 diabetes mellitus without complications; I25.2 Old myocardial infarction; I25.10 Atherosclerotic heart disease of native coronary artery without angina pectoris; Z60.2 Problems related to living alone; Z88.0 Allergy status to penicillin; Z79.01 Long term (current) use of anticoagulants; Z86.73 Personal history of transient ischemic attack (TIA), and cerebral infarction without residual deficits; Z91.013 Allergy to seafood; Z91.014 Allergy to mammalian meats; Z79.899 Other long term (current) drug therapy
CPT/HCPCS: 36415; 71045; 80048; 80053; 80061; 80076; 83735; 83880; 84443; 84484; 85025; 85610; 85730; 93005; 99285; J0282; J7030; J7060

== ENCOUNTER 2025-05-02 15:32 | Inpatient (IN) | payer OTHER ==
[2025-05-02] MEDS ORDERED: AMIODARONE HCL 150 MG/3 ML INJ IV ONE (16:25)
[2025-05-02] MEDS ORDERED: AMIODARONE IN DEXTROSE,ISO-OSM 360 MG/200 ML BAG IV ONE (16:26)
[2025-05-02] MEDS ORDERED: MAGNESIUM SULFATE 1 gm IVPB 1 GM/100 ML BAG IV ONE (16:26)
[2025-05-02] MEDS ORDERED: D5W 100 ML IV ONE (16:27)
[2025-05-02 16:29] LABS: Absolute Lymphocytes (CBC) 3.4 K/uL (0.7-4.9); Hematocrit 37.5 % (36.0-45.0); Hemoglobin 13.0 g/dL (12.0-15.0); MCH 31.2 pg (27.0-35.0); MCHC 34.6 g/dL (32.0-36.0); MCV 90.2 fL (80-100); MPV 9.0 fL (7.6-11.3); Nucleated RBC Absolute Count 0.0 (0-0); Nucleated Red Blood Cells % 0.0 % (0-0); RBC Red Blood Cell Count 4.16 M/uL (3.86-4.86); White Blood Count 7.20 thou/uL (4.3-10.9)
[2025-05-02 16:33] LABS: PT Prothrombin Time 12.6 SECONDS (10-13.0); Protime INR 1.12
[2025-05-02 16:48] LABS: Anion Gap 8.4 mEq/L (5.0-15.0); BUN Blood Urea Nitrogen 23.0 mg/dL (7-18); Glucose Level 94.0 mg/dL (74-106); NT PRO-BNP 1159.0 pg/mL (<450); Troponin High Sensitivity 13.9 pg/mL (<58.9)
[2025-05-02 16:51] LABS: Potassium 3.4 mEq/L (3.5-5.1)
--- NOTE | 2025-05-02 16:56 | ER ---
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 Berkowitz's aa5 office. EKG A-fib with RVR. 15:50 Coronavirus screen: At this time, the client does not indicate any symptoms associated aa5 with coronavirus-19. Ebola Screen: Patient denies travel to an Ebola-affected area in the 21 days before illness onset. Initial Sepsis Screen: Does the patient meet any 2 criteria? HR > 90 bpm. Does the patient have a suspected source of infection? No. Patient's initial sepsis screen is negative. Risk Assessment: Do you want to hurt yourself or someone else? Patient reports no desire to harm self or others. Onset of symptoms was May 02, 2025. 15:50 Acuity: WILDER 2 aa5 15:50 Method Of Arrival: Wheelchair aa5 Historical: - Allergies: 15:59 Darvon; aa5 15:59 PENICILLINS; aa5 - PMHx: 15:59 Arthritis; Atrial fibrillation; CVA; diabetes mellitus; Myocardial infarction; Breast aa5 Cancer ; Ramez (Unknown); Bone Cancer (Unknown); - PSHx: 15:59 Watchman's procedure; Cardiac Ablation x 5 (Unknown); Right Breast sx (Watchman's aa5 procedure); - Immunization history:: Adult Immunizations unknown. - Infectious Disease History:: Denies. - Social history:: Smoking status: Patient denies any tobacco usage or history of. - Family history:: not pertinent. - Hospitalizations: : No recent hospitalization is reported. Screenin:00 [facility] ED Fall Risk Assessment (Adult) History of falling in the last 3 months, rg5 including since admission No falls in past 3 months (0 pts) Confusion or Disorientation No (0 pts) Intoxicated or Sedated No (0 pts) Impaired Gait Yes (1 pt) Mobility Assist Device Used Yes (1 pt) Altered Elimination No (0 pt) Score/Fall Risk Level 0 - 2 = Low Risk Oriented to surroundings, Maintained a safe environment, Provided non-skid footwear, Hourly rounding (assess needs \T\ fall precautionary measures) done. Abuse screen: Denies threats or abuse. Nutritional screening: No deficits noted. Tuberculosis screening: No symptoms or risk factors identified. Assessment: 16:00 General: Appears uncomfortable, Behavior is calm, cooperative, appropriate for age. rg5 Pain: Complains of pain in chest Quality of pain is described as aching, dull. Neuro: Level of Consciousness is awake, alert, obeys commands, Oriented to person, place, time, situation. Cardiovascular: Reports chest pain, palpitations, shortness of breath, Patient's skin is warm and dry. Rhythm is atrial fibrillation. Respiratory: Airway is patent Trachea midline Respiratory effort is even, unlabored. GI: Abdomen is round non-distended. : No signs and/or symptoms were reported regarding the genitourinary system. EENT: No signs and/or symptoms were reported regarding the EENT system. Derm: Skin is intact, Skin is dry, Skin is normal. Musculoskeletal: Circulation, motion, and sensation intact. Range of motion: intact in all extremities. 17:30 Reassessment: Patient and/or family updated on plan of care and expected duration. Pain rg5 level reassessed. Patient is alert, oriented x 3, equal unlabored respirations, skin warm/dry/pink. Patient states symptoms have improved. 18:10 Reassessment: Patient and/or family updated on plan of care and expected duration. Pain rg5 level reassessed. Patient is alert, oriented x 3, equal unlabored respirations, skin warm/dry/pink. 19:00 Reassessment: Patient and/or family updated on plan of care and expected duration. Pain rg5 level reassessed. Patient is alert, oriented x 3, equal unlabored respirations, skin warm/dry/pink. General: Appears in no apparent distress. Behavior is calm, cooperative. 20:00 Reassessment: Patient and/or family updated on plan of care and expected duration. Pain rg5 level reassessed. Patient is alert, oriented x 3, equal unlabored respirations, skin warm/dry/pink. Patient states symptoms have improved. 21:00 Reassessment: No changes from previously documented assessment. Patient and/or family rg5 updated on plan of care and expected duration. Pain level reassessed. Patient is alert, oriented x 3, equal unlabored respirations, skin warm/dry/pink. 22:00 Reassessment: Patient and/or family updated on plan of care and expected duration. Pain rg5 level reassessed. Patient is alert, oriented x 3, equal unlabored respirations, skin warm/dry/pink. Patient states feeling better. 22:30 Reassessment: hospitalist on duty informed of heart is in 48/min and was I ordered to rg5 hold on the amiodarone drip and monitor the pt. 23:00 Reassessment: No changes from previously documented assessment. Patient and/or family rg5 updated on plan of care and expected duration. Pain level reassessed. Patient is alert, oriented x 3, equal unlabored respirations, skin warm/dry/pink. Vital Signs: 15:50 BP 132 / 82; Pulse 150; Resp 18 S; Temp 97.3(TE); Pulse Ox 98% on R/A; Weight 83.46 kg aa5 (R); Height 5 ft. 2 in. (R); Pain 0/10; 16:30 BP 126 / 112; Pulse 137; Resp 19; Pulse Ox 100% ; Pain 5/10; rg5 17:30 BP 127 / 92; Pulse 124; Resp 18; Pulse Ox 99% ; rg5 18:00 BP 125 / 77; Pulse 78; Resp 18; Pulse Ox 99% ; rg5 18:30 BP 138 / 76; Pulse 71; Resp 17; Pulse Ox 99% ; rg5 19:00 BP 143 / 74; Pulse 69; Resp 18 S; Pulse Ox 99% on R/A; ha1 20:00 BP 137 / 73; Pulse 67; Resp 18 S; Pulse Ox 100% on R/A; ha1 21:00 BP 136 / 73; Pulse 65; Resp 18 S; Pulse Ox 100% on R/A; ha1 21:45 BP 149 / 72; Pulse 72; Resp 18 S; Temp 97.6(O); Pulse Ox 100% on R/A; ha1 22:30 BP 138 / 75; Pulse 48; Resp 18; Pulse Ox 97% on R/A; rg5 15:50 Body Mass Index 33.65 (83.46 kg, 157.48 cm) aa5 15:50 Pain Scale: Adult aa5 16:30 Pain Scale: Adult rg5 ED Course: 15:38 Patient arrived in ED. al6 15:41 Sinan Ayala MD is Attending Physician. rn 15:50 Arm band placed on. aa5 15:59 Triage completed. aa5 16:00 Patient has correct armband on for positive identification. Door closed. Noise rg5 minimized. Warm blanket given. 16:00 No provider procedures requiring assistance completed. Missed attempt(s): 22 gauge in rg5 right forearm. 16:08 Wisam Mauro, RN is Primary Nurse. rg5 16:10 EKG done, by ED staff, reviewed by Sinan Ayala MD. aa5 16:29 Inserted saline lock: 20 gauge in right forearm, using aseptic technique. Flushed with ts3 10 mL NS. 16:30 Inserted saline lock: 20 gauge in left forearm, using aseptic technique. Blood ts3 collected. Flushed with 10 mL NS. 16:30 Initial lab(s) drawn, by labor trainer, sent to lab. ts3 16:30 EKG done, by ED staff, reviewed by Sinan Ayala MD. ts3 16:45 XRAY Chest (1 view) In Process Unspecified. EDMS 16:55 Alex Ayala MD is Hospitalizing Provider. rn 23:00 Provided Education on: needs for alvin. rg5 23:00 Patient admitted, IV remains in place. intact, No redness/swelling at site. rg5 Administered Medications: 16:25 Drug: amiodarone IVPB 150 mg 100 ml IVPB once over 10 mins; (mix in D5W) Volume: 100 rg5 ml; Route: IVPB; Infused Over: 10 mins; Site: right forearm; 16:50 Follow up: IV Status: Completed infusion; IV Intake: 100ml rg5 16:38 Drug: Magnesium Sulfate IVPB 1 grams IVPB once over 1 hrs Route: IVPB; Infused Over: 1 rg5 hrs; Site: left forearm; 17:40 Follow up: IV Status: Completed infusion; IV Intake: 100ml rg5 16:50 Drug: amiodarone IVPB 900 mg, D5W IV 500 ml IVPB at 1 mg/min continuous; for 6 hrs, rg5 then change to 0.5 mg/min Route: IVPB; Rate: 1 mg/min; Site: right forearm; 22:30 Follow up: IV Status: IV converted to saline lock rg5 22:35 Follow up: IV Status: Completed infusion; IV Intake: 200ml rg5 Medication: 16:00 VIS not applicable for this client. rg5 Intake: 16:50 IV: 100ml; Total: 100ml. rg5 17:40 IV: 100ml; Total: 200ml. rg5 22:35 IV: 200ml; Total: 400ml. rg5 Outcome: 16:56 Decision to Hospitalize by Provider. rn 23:00 Admitted to Med/surg accompanied by nurse, via stretcher, on monitor, rg5 23:00 Condition: stable 23:00 Instructed on the need for admit, 23:03 Patient left the ED. rg5 Signatures: Dispatcher [employer] EDMS Sinan Ayala MD MD rn Calderon, Audri RN RN aa5 Janis Omalley RN RN ha1 Wisam Mauro RN RN rg5 Ana Paula Bradford Taisha ts3 Corrections: (The following items were deleted from the chart) 16:30 16:29 Inserted saline lock: 20 gauge in right antecubital area, using aseptic ts3 technique. Flushed with 10 mL NS ts3
--- NOTE | 2025-05-02 16:56 | EDPHYS ---
Physician Documentation [facility] Name: Yelitza Lara Age: 74 yrs Sex: Female : 1950 Arrival Date: 05/02/2025 Time: 15:32 Bed 17 Private MD: ED Physician Sinan Ayala HPI: 05/02 16:23 This 74 yrs old Female presents to ER via Wheelchair with complaints of afib. rn 16:23 Patient reports history of atrial fibrillation, was at Dr. Vazquez office when went back rn into atrial fibrillation, has rapid ventricular rate, heart rate went up to 150s. Patient states has had Watchman procedure in addition to multiple ablations and still has problems with A-fib. No chest pain.. Historical: - Allergies: 15:59 Darvon; aa5 15:59 PENICILLINS; aa5 - PMHx: 15:59 Arthritis; Atrial fibrillation; CVA; diabetes mellitus; Myocardial infarction; Breast aa5 Cancer ; Ramez (Unknown); Bone Cancer (Unknown); - PSHx: 15:59 Watchman's procedure; Cardiac Ablation x 5 (Unknown); Right Breast sx (Watchman's aa5 procedure); - Immunization history:: Adult Immunizations unknown. - Infectious Disease History:: Denies. - Social history:: Smoking status: Patient denies any tobacco usage or history of. - Family history:: not pertinent. - Hospitalizations: : No recent hospitalization is reported. ROS: 16:23 Constitutional: Negative for fever, chills, and weight loss, Cardiovascular: Positive rn for palpitations, negative for chest pain Respiratory: Negative for shortness of breath, cough, wheezing, and pleuritic chest pain, Abdomen/GI: Negative for abdominal pain, nausea, vomiting, diarrhea, and constipation, MS/Extremity: Negative for injury and deformity, Skin: Negative for injury, rash, and discoloration, Neuro: Negative for headache, weakness, numbness, tingling, and seizure, Exam: 16:23 Constitutional: This is a well developed, well nourished patient who is awake, alert, rn and in no acute distress. Cardiovascular: Tachycardic, irregularly irregular Respiratory: No increased work of breathing, no retractions or nasal flaring. Abdomen/GI: Soft, non-tender Neuro: Awake and alert, GCS 15 16:59 ECG was reviewed by the Attending Physician. rn Vital Signs: 15:50 BP 132 / 82; Pulse 150; Resp 18 S; Temp 97.3(TE); Pulse Ox 98% on R/A; Weight 83.46 kg aa5 (R); Height 5 ft. 2 in. (R); Pain 0/10; 16:30 BP 126 / 112; Pulse 137; Resp 19; Pulse Ox 100% ; Pain 5/10; rg5 17:30 BP 127 / 92; Pulse 124; Resp 18; Pulse Ox 99% ; rg5 18:00 BP 125 / 77; Pulse 78; Resp 18; Pulse Ox 99% ; rg5 18:30 BP 138 / 76; Pulse 71; Resp 17; Pulse Ox 99% ; rg5 19:00 BP 143 / 74; Pulse 69; Resp 18 S; Pulse Ox 99% on R/A; ha1 20:00 BP 137 / 73; Pulse 67; Resp 18 S; Pulse Ox 100% on R/A; ha1 21:00 BP 136 / 73; Pulse 65; Resp 18 S; Pulse Ox 100% on R/A; ha1 21:45 BP 149 / 72; Pulse 72; Resp 18 S; Temp 97.6(O); Pulse Ox 100% on R/A; ha1 22:30 BP 138 / 75; Pulse 48; Resp 18; Pulse Ox 97% on R/A; rg5 15:50 Body Mass Index 33.65 (83.46 kg, 157.48 cm) aa5 15:50 Pain Scale: Adult aa5 16:30 Pain Scale: Adult rg5 MDM: 15:41 Medical Screening Exam initiated rn 16:54 Differential diagnosis: arrythmia, dehydration, stress disorder. Data reviewed: vital rn signs, nurses notes, lab test result(s), EKG, radiologic studies, plain films, and as a result, I will admit patient. Consideration of Admission/Observation Patient was admitted/placed on observation. Escalation of care including admission/observation considered. Management of patient was discussed with the following: Tail Ripper: Discussed case with Dr. Vazquez, once amiodarone infusion and admission to hospitalist, states no need for anticoagulation as she has had Watchman procedure. Independent interpretation of the following test(s) in the Emergency Department EKG: See my EKG interpretation above X-Ray: My interpretation is Chest x-ray images show cardiomegaly and mild pulmonary edema per my interpretation. quality assurance monitor body: rate is 128 beats/min, Rhythm is atrial fibrillation, with no ectopy, Interpretation: atrial fibrillation. Care significantly affected by the following chronic conditions: Diabetes, Atrial fibrillation. Counseling: I had a detailed discussion with the patient and/or guardian regarding the historical points, exam findings, and any diagnostic results supporting the discharge/admit diagnosis, lab results, radiology results, the need for further work-up and treatment in the hospital. Response to treatment: the patient's symptoms have mildly improved after treatment, and as a result, I will admit patient. 18:22 ED course: Patient converted back to sinus rhythm, heart rate now 71, feels much rn better. Continuing amiodarone drip.. 05/02 15:59 Order name: Basic Metabolic Panel; Complete Time: 16:52 05/02 15:59 Order name: CBC with Diff; Complete Time: 16:05/02 15:59 Order name: NT PRO-BNP; Complete Time: 16:05/02 15:59 Order name: PT-INR; Complete Time: 16:52 05/02 15:59 Order name: Troponin HS; Complete Time: 16:52 05/02 15:59 Order name: XRAY Chest (1 view); Complete Time: 17:28 05/02 17:40 Order name: CONS Physician Consult EDMS 05/02 15:59 Order name: Cardiac monitoring; Complete Time: 16:29 05/02 15:59 Order name: EKG - Nurse/Tech; Complete Time: 16:17 05/02 15:59 Order name: IV Saline Lock; Complete Time: 16:05/02 15:59 Order name: Labs collected and sent; Complete Time: 16:29 05/02 15:59 Order name: O2 Per Protocol; Complete Time: 16:05/02 15:59 Order name: O2 Sat Monitoring; Complete Time: 16:29 rn EC:59 Rate is 153 beats/min. Rhythm is irregularly irregular. QRS interval is prolonged at rn 160 msec. QT interval is normal. No Q waves. T waves are Normal. No ST changes noted. Clinical impression: Atrial Fibrillation. Interpreted by me. Reviewed by me. Administered Medications: 16:25 Drug: amiodarone IVPB 150 mg 100 ml IVPB once over 10 mins; (mix in D5W) Volume: 100 rg5 ml; Route: IVPB; Infused Over: 10 mins; Site: right forearm; 16:50 Follow up: IV Status: Completed infusion; IV Intake: 100ml rg5 16:38 Drug: Magnesium Sulfate IVPB 1 grams IVPB once over 1 hrs Route: IVPB; Infused Over: 1 rg5 hrs; Site: left forearm; 17:40 Follow up: IV Status: Completed infusion; IV Intake: 100ml rg5 16:50 Drug: amiodarone IVPB 900 mg, D5W IV 500 ml IVPB at 1 mg/min continuous; for 6 hrs, rg5 then change to 0.5 mg/min Route: IVPB; Rate: 1 mg/min; Site: right forearm; 22:30 Follow up: IV Status: IV converted to saline lock rg5 22:35 Follow up: IV Status: Completed infusion; IV Intake: 200ml rg5 Disposition Summary: 05/02/25 16:56 Hospitalization Ordered Notes: Hospitalization Status: Inpatient Admission rn Provider: Alex Ayala rn Condition: Stable rn Problem: new rn Symptoms: have improved rn Bed/Room Type: Standard rn Location: Telemetry/MedSurg (Inpatient)(05/02/25 19:25) Room Assignment: [facility] [place](05/02/25 21:38) [facility] Diagnosis - Persistent atrial fibrillation - with rapid ventricular rate rn Forms: - Medication Reconciliation Form rn - SBAR form rn - Leadership Thank You Letter rn internship time excluding procedures: 16:54 Critical care time: Bedside Care: 30 minutes, Consultation: 5 minutes. Total time: 35 rn minutes Signatures: Dispatcher [employer] EDMS Sinan Ayala MD MD rn Calderon, Audri RN RN aa5 Nguyen Millan RN RN Mar Chiang [facility] Wisam Mauro RN RN rg5 Corrections: (The following items were deleted from the chart) 16:00 16:00 BASIC METABOLIC PANEL+C.LAB.BRZ ordered. EDMS EDMS 16:00 16:00 CBC+H.LAB.BRZ ordered. EDMS EDMS 16:00 16:00 PROBNP+C.LAB.BRZ ordered. EDMS EDMS 16:00 16:00 PROTIME (+INR)+COAG.LAB.BRZ ordered. EDMS EDMS 16:00 16:00 Troponin High Sensitivity+C.LAB.BRZ ordered. EDMS EDMS 16:00 16:00 Chest Single View+RAD.RAD.BRZ ordered. EDMS EDMS 19:25 16:56 Telemetry/MedSurg (Inpatient) rn cg 19:25 16:56 rn cg 19:25 19:25 [facility] ER HOLD cg cg 19:25 19:25 ERHOLD- cg cg 21:38 19:25 cg kmf
--- NOTE | 2025-05-02 17:22 | RAD REPORT ---
EXAMINATION: ONE VIEW CHEST XR CLINICAL INDICATION: PALPITATIONS TECHNIQUE: Frontal chest projection is submitted. Examination is limited by patient positioning and t echnique. COMPARISON: 02/28/2025 FINDINGS: The lungs are well inflated and clear. The heart is mildly/moderately enlarged. No displaced fracture s identified. IMPRESSION: No acute intrathoracic abnormalities.
[2025-05-02] MEDS ORDERED: ACETAMINOPHEN 325 MG TABLET PO PRN (17:38)
--- NOTE | 2025-05-02 17:48 | P.HP ---
Certification for Inpatient Patient admitted to: Inpatient With expected LOS: >2 Midnights Patient will require the following post-hospital care: None Practitioner: I am a practitioner with admitting privileges, knowledge of patient current condition, hospital course, and medical plan of care. Services: Services provided to patient in accordance with Admission requirements found in Title 42 Section 412.3 of the Code of Federal Regulations Patient History Date of Service: 05/02/25 Reason for admission: afib RVR History of Present Illness: 74-year-old female prior medical history of Watchman procedure, cardiac ablation x 5, right breast cancer on anastrozole presents via wheelchair with complaints feeling onset of A-fib marked by usual symptoms of chest pressure and palpitations sent by Dr. Berkowitz's office. Maximum observed heart rate 150s. Denies DM2, COPD, HLD, chills, recent illness. ER Course: Patient arrived to ED directed from Dr. Colindres with a heart rate in the 150s on arrival. Was started on amiodarone drip bolus, to be followed by maintenance per conversation with Dr. Vazquez. Additionally patient was given 1 g magnesium IV piggyback. Patient is status post Watchman procedure so does not need anticoagulation. Chest x-ray was completed was negative for acute cardiopulmonary process. Labs notable for elevated BNP, normal troponin, mild hypokalemia, mild ROBERTH. During exam, pt converted back to NSR. RN made aware. Allergies Penicillins Allergy (Verified 04/20/23 08:16) Rash pork derived (porcine) Allergy (Verified 12/30/23 08:54) Nausea/Vomiting Pork/Porcine Containing Products Allergy (Verified 12/30/23 08:54) Nausea/Vomiting shellfish derived Allergy (Verified 04/20/23 08:16) Nausea/Vomiting atorvastatin Adverse Reaction (Verified 04/20/23 08:16) Tachycardia propoxyphene [From Darvon] Adverse Reaction (Verified 04/20/23 08:16) hallucinations Home medications list reviewed: No Home Medications: Lisinopril [Zestril] 2.5 mg PO DAILY 12/29/23 Aspirin 81 mg PO DAILY 05/24/24 Anastrozole 05/02/25 - Past Medical/Surgical History Has patient received pneumonia vaccine in the past: No Diabetic: Yes -: Atrial fibrillation -: CVA -: Osteoarthritis -: DC -: CAD -: Breast Cancer -: Bone Cancer -: R rotator cuff sx -: cyst removal from hip -: tonsillectomy/adnoidectomy -: D&C's -: Watchman procedure -: Ablation x5 Psychosocial/ Personal History: Lives alone in an apartment. Has a rollator but states she only uses it when she absolutely has to do so. - Family History Mother -: Cancer Father -: Stroke, Cancer - Social History Smoking Status: Unknown if ever smoked Alcohol use: No CD- Drugs: No Caffeine use: Yes Place of Residence: Home Review of Systems 10-point ROS is otherwise unremarkable Physical Examination - Physical Exam General: Alert, In no apparent distress, Oriented x3, Cooperative HEENT: Atraumatic, Normocephalic, Mucous membr. moist/pink Neck: Supple, 2+ carotid pulse no bruit, JVD not distended, No Thyromegaly, No LAD Respiratory: Clear to auscultation bilaterally, Normal air movement Cardiovascular: Normal pulses, Regular rate/rhythm, Normal S1 S2, Edema (+1) Capillary refill: Brisk Gastrointestinal: Normal bowel sounds, Soft and benign, Non-distended, W/out hepatosplenomegaly Musculoskeletal: No clubbing, No contractures, No erythema, No tenderness, No warmth Integumentary: No rashes, No breakdown, No significant lesion Neurological: Normal speech, Normal strength at 5/5 x4 extr, Normal tone, Sensation intact, Cranial nerves 3-12 intact, Normal affect External genitalia: Deferred Rectal: Deferred - Studies Laboratory Data (last 24 hrs) 05/02/25 05/02/25 05/02/25 16:21 16:21 16:21 WBC 7.20 Hgb 13.0 Hct 37.5 Plt Count 191 PT 12.6 INR 1.12 Sodium 143 Potassium 3.4 L BUN 23 H Creatinine 1.11 H Glucose 94 Assessment and Plan - Plan Assessment: 74-year-old female prior medical history of Watchman procedure, cardiac ablation x 5, right breast cancer on anastrozole presents via wheelchair with complaints feeling onset of A-fib marked by usual symptoms of chest pressure and palpitations sent by Dr. Berkowitz's office. Plan: A-fib with RVR S/P Watchman Verified by Dr. Berkowitz Amiodarone drip bolus then maintenance Heart rate 150s on arrival, improved to 120 Status post watchman, Per Dr. Vazquez no AC needed Consult cardiology Troponin 13.9 BNP 1159, appears baseline based on chart review - Chest x-ray 05/02 with no acute cardiopulmonary process - Converted back to NSR on monitor while assessing - EKG ordered to confirm Hypokalemia, mild Potassium 3.4 - replete with 25 meq PO Monitor BMP Discharge Plan: Home Plan to discharge in: 24 Hours - Advance Directives Does patient have a Living Will: No Does patient have a Durable POA for Healthcare: No - Code Status/Comfort Care Code Status Assessed: No Code Status: Do Not Attempt Resuscitat Critical Care: Yes Time Spent Managing Pts Care (In Minutes): 64
[2025-05-02] MEDS: POTASSIUM 25 MEQ EFFERV TAB PO ONE (18:16)
[2025-05-02] MEDS ORDERED: POTASSIUM 25 MEQ EFFERV TAB ONE (18:50)
[2025-05-03 04:29] VITALS: BMI 33.6
[2025-05-03 05:34] LABS: Absolute Lymphocytes (CBC) 2.7 K/uL (0.7-4.9); Hematocrit 33.6 % (36.0-45.0); Hemoglobin 11.9 g/dL (12.0-15.0); MCH 31.8 pg (27.0-35.0); MCHC 35.5 g/dL (32.0-36.0); MCV 89.6 fL (80-100); MPV 8.7 fL (7.6-11.3); Nucleated RBC Absolute Count 0.0 (0-0); Nucleated Red Blood Cells % 0.1 % (0-0); RBC Red Blood Cell Count 3.76 M/uL (3.86-4.86); White Blood Count 5.70 thou/uL (4.3-10.9)
[2025-05-03 05:52] LABS: Anion Gap 9.6 mEq/L (5.0-15.0); BUN Blood Urea Nitrogen 21.0 mg/dL (7-18); Glucose Level 100.0 mg/dL (74-106); Magnesium 2.3 mg/dL (1.6-2.4); Potassium 3.6 mEq/L (3.5-5.1)
[2025-05-03] MEDS ORDERED: HOME MED 1 EA UNK (Lisinopril [Zestril] 2.5 MG Tablet) PO SCH (09:00)
[2025-05-03] MEDS: AMIODARONE HCL 200 MG TAB PO SCH (09:00)
[2025-05-03] MEDS: ENOXAPARIN 40 MG/0.4 ML SQ SCH (09:00)
[2025-05-03] MEDS: ASPIRIN 81 MG CHEWABLE TABLET PO SCH (09:14)
[2025-05-03] MEDS: ANASTROZOLE 1 MG TAB PO SCH (09:14)
[2025-05-03] MEDS: POTASSIUM CL SA 10 MEQ TAB PO ONE (09:14)
[2025-05-03 11:05] VITALS: O2SAT 99
--- NOTE | 2025-05-03 13:40 | P.DS ---
Admission Date: 05/02/25 Discharge Date: 05/03/25 Primary Care Provider: Dr Kinsey Disposition: ROUTINE DISCHARGE Discharge Condition: GOOD Reason for Admission: afib RVR Consultations: Cardiology Procedures: None Brief History of Present Illness: 74-year-old female prior medical history of Watchman procedure, cardiac ablation x 5, right breast cancer on anastrozole presents via wheelchair with complaints feeling onset of A-fib marked by usual symptoms of chest pressure and palpitations sent by Dr. Berkowitz's office. Maximum observed heart rate 150s. Denies DM2, COPD, HLD, chills, recent illness. ER Course: Patient arrived to ED directed from Dr. Colindres with a heart rate in the 150s on arrival. Was started on amiodarone drip bolus, to be followed by maintenance per conversation with Dr. Vazquez. Additionally patient was given 1 g magnesium IV piggyback. Patient is status post Watchman procedure so does not need anticoagulation. Chest x-ray was completed was negative for acute cardiopulmonary process. Labs notable for elevated BNP, normal troponin, mild hypokalemia, mild ROBERTH. During exam, pt converted back to NSR. RN made aware. Hospital Course: 74-year-old female prior medical history of Watchman procedure, cardiac ablation x 5, right breast cancer on anastrozole presented to the emergency department via wheelchair with complaints feeling onset of A-fib marked by usual symptoms of chest pressure and palpitations sent by Dr. Berkowitz's office. Maximum observed heart rate 150s. Denied DM2, COPD, HLD, chills, recent illness. A-fib with RVR S/P Watchman In the emergency room she was started on an amiodarone drip bolus due to an ECG completed showing A-fib. Cardiology was consulted. Heart rate initially approximately 150. This was followed by a maintenance infusion. Patient was not given anticoagulation due to her status post Watchman status, confirmed with Dr. Vazquez. Additionally, she was given 1 g magnesium IV piggyback infusion. A chest x-ray was completed, which was negative for acute cardiopulmonary process. Labs notable for elevated BNP, normal troponin, mild hypokalemia, mild ROBERTH. During exam, pt converted back to NSR. RN made aware and follow-up ECG was ordered to confirm NSR. Patient was seen by cardiology. Discussed with cardiology, recommendation is to discharge on amiodarone 200 mg twice daily with aspirin 81 mg daily and follow-up in office on an outpatient basis. Hypokalemia, mild On presentation the patient's potassium was 3.4. This was repleted with 25 mill equivalents p.o. potassium. Potassium was rechecked to ensure it was within normal limits. Discharge Plan: Home Plan to discharge in: 24 Hours Vital Signs/Physical Exam: Temp Pulse Resp BP Pulse Ox 97.9 F 68 18 180/84 H 98 05/03/25 12:00 05/03/25 12:00 05/03/25 12:00 05/03/25 12:00 05/03/25 12:00 General: Alert, Oriented x3, Cooperative HEENT: Atraumatic, Normocephalic, Mucous membr. moist/pink Neck: Supple, 2+ carotid pulse no bruit, JVD not distended Respiratory: Clear to auscultation bilaterally, Diminished Cardiovascular: Normal pulses, Regular rate/rhythm, Normal S1 S2, Abnormal S3 Capillary refill: Brisk Gastrointestinal: Normal bowel sounds, Soft and benign, Non-distended Musculoskeletal: No clubbing, No swelling, No contractures Integumentary: No rashes, No breakdown, No significant lesion Neurological: Normal speech, Normal strength at 5/5 x4 extr, Normal tone, Sensation intact External genitalia: Deferred Rectal: Deferred Laboratory Data at Discharge: WBC 5.70 thou/uL (4.3-10.9) 05/03/25 04:58 Hgb 11.9 g/dL (12.0-15.0) L D 05/03/25 04:58 Hct 33.6 % (36.0-45.0) L 05/03/25 04:58 Plt Count 183 thou/uL (152-406) 05/03/25 04:58 PT 12.6 SECONDS (10-13.0) 05/02/25 16:21 INR 1.12 05/02/25 16:21 Sodium 141 mEq/L (136-145) 05/03/25 04:58 Potassium 3.6 mEq/L (3.5-5.1) 05/03/25 04:58 BUN 21 mg/dL (7-18) H 05/03/25 04:58 Creatinine 0.88 mg/dL (0.55-1.02) 05/03/25 04:58 Glucose 100 mg/dL (74-106) 05/03/25 04:58 Magnesium 2.3 mg/dL (1.6-2.4) 05/03/25 04:58 Home Medications: Anastrozole 1 mg PO BREAKFAST 05/02/25 Lisinopril [Zestril] See Rx Instructions .ROUTE .COMPLEX 05/02/25 Amiodarone HCl [Cordarone*] 200 mg PO BID #60 tab 05/03/25 Anastrozole [Arimidex*] 1 mg PO BREAKFAST tab 05/03/25 Aspirin 81 mg PO DAILY #30 tab.chew 05/03/25 New Medications: Aspirin 81 mg PO DAILY #30 tab.chew Amiodarone HCl [Cordarone*] 200 mg PO BID #60 tab Physician Discharge Instructions: PROBLEM: A-fib with RVR GOAL: Maintain heart rate less than 110 INSTRUCTIONS: Take your medications as prescribed. Follow-up with your office rep within 1 week Follow-up with your PCP within 2 to 3 days Diet: Activity: May resume normal activities as tolerated Diet: AHA Activity: Ad davis Followup: Kelli Kinsey DO, DO [Primary Care Provider] - 2-3 Days Vargas Berkowitz MD [ACTIVE - CAN ADMIT] - 1-2 Weeks Time spent managing pt's care (in minutes): 38
[2025-05-03 15:59] VITALS: BP 140/68; TEMP 98.1
--- NOTE | 2025-05-03 19:43 | CON ---
Date of Consultation: 05/03/2025 Reason For Consultation: Atrial fibrillation with rapid ventricular response. History Of Present Illness: A 74-year-old female is very well known to me. She has history of AFib, multiple ablations in the past. She was seen in my office yesterday by Dr. Vazquez, had AFib with RV R. Heart rate in the 150. She was brought in and loaded with amiodarone and currently she is conver kenneth to sinus rhythm. She feels much better. Status post appendage closure in the past. Past Medical History: Atrial fibrillation, CVA, coronary artery disease, breast cancer. Past Surgical History: Tonsillectomy, rotator cuff surgery, Watchman procedure, ablation x5. Medications: Refer reconciliation sheet for detailed list. Allergies: PENICILLIN. Family History: No premature coronary artery disease or cancer. Social History: She does not smoke or drink. Does not use any drugs. Review of Systems: All systems reviewed and they were negative except as mentioned in the HPI. Physical Examination: Vital Signs: Reviewed. Head and Neck: Pupils are equal, reactive to light. Intact eye movements. No JVD. No cervical lym phadenopathy. Neck is supple. Thyroid is not enlarged. Lungs: Clear to auscultation bilaterally. No rhonchi, wheezing, or crackles. No accessory muscle u se. Heart: Regular rate and rhythm. No extra sounds. Abdomen: Soft, nontender. Bowel sounds positive. No organomegaly. No masses or hernia. No rigidi ty or rebound. Extremities: No edema, clubbing, cyanosis. Intact pulses. Skin: No rash. No nodules. Neuro: Alert, awake, oriented x3. No acute focal deficits appreciated. Investigation: BUN 21, creatinine 0.88. Troponins are negative and hemoglobin is 11.9. Assessment/recommendations: 1. Atrial fibrillation with rapid ventricular response, converted to sinus rhythm on amiodarone, olson ester to p.o. 200 mg twice a day and baby aspirin. She does not need anticoagulant as she had appendag e closure more than a year ago. 2. Hypertension. Blood pressure is controlled. Cardiology will sign off. Follow up with us in the office on an outpatient basis. SR/MODL Voice ID: [id number] Report ID: [id number]
[2025-05-04] MEDS ORDERED: HOME MED 1 EA UNK (Lisinopril [Zestril] 2.5 MG Tablet) PO SCH (09:00)
== END 2025-05-03 18:25 | disposition home or self-care (01) | DRG 309 ==
LOC: ER 15:32 → ERHOLD 17:36 → 2ND 22:41
PROVIDERS: ADMIT Hospitalist; ATTEND Hospitalist
DX: I48.19 Other persistent atrial fibrillation (principal); N17.9 Acute kidney failure, unspecified; E87.6 Hypokalemia; M19.90 Unspecified osteoarthritis, unspecified site; E11.9 Type 2 diabetes mellitus without complications; I25.2 Old myocardial infarction; I25.10 Atherosclerotic heart disease of native coronary artery without angina pectoris; Z88.0 Allergy status to penicillin; Z85.3 Personal history of malignant neoplasm of breast; Z86.73 Personal history of transient ischemic attack (TIA), and cerebral infarction without residual deficits; Z85.830 Personal history of malignant neoplasm of bone; Z91.014 Allergy to mammalian meats; Z91.013 Allergy to seafood; Z60.2 Problems related to living alone; Z66 Do not resuscitate
CPT/HCPCS: 36415; 71045; 80048; 83735; 83880; 84132; 84484; 85025; 85610; 93005; 94760; 99285; J0282; J1650; J3475